=== PATIENT | female | born 1930 | race Caucasian/White ===

== ENCOUNTER 2017-05-20 13:47 | Observation (INO) ==
--- NOTE | 2017-05-20 14:32 | Emergency Department Note ---
Disposition Clinical Impression: Elevated brain natriuretic peptide (BNP) level Chest pain Qualifiers: Chest pain type: unspecified Qualified Code(s): R07.9 - Chest pain, unspecified Disposition: Admitted As Inpatient Condition: Good Time of Disposition: 18:41 Chest Pain HPI - General Chief Complaint: ED Chest Pain Stated Complaint: CP Time Seen by Provider: 05/20/17 13:57 Source: patient Limitations: no limitations Vital Signs Reviewed: Yes Nursing Notes Reviewed: Yes - History of Present Illness HPI Narrative: Ms Damian is an 87 yo F w/ pmh of CHF, ACS/IN, HTN, HLD, diabetes presents with right sided chest pain. Chest pain started when patient walked into the hospital today at 1 PM for an appointment. Patient's son believes that the patient pulled a muscle getting out of his tall truck. Patient states the pain is sore and achy located on right chest bone and constant. Pain is 3-5/10 in severity. Pain not changed with position or lifting of arm. She says the pain does not feel like her previous IN, and that it feels like it's her muscle or bone. PAtient had CHUCK to LAD in 2004. Patient denies SOB, PND, orthopnea, leg swelling, diaphoresis, fever, nausea, vomiting. Severity scale (1-10): 6 - Related Data Home Medications Medication Instructions Recorded Confirmed Gabapentin [Neurontin] 100 mg PO TID 04/11/15 05/20/17 Insulin Glargine [Lantus] 20 unit SQ HS 04/11/15 05/20/17 Iron Ps Cmplx/Vit B12/FA [Iferex 1 each PO BID 04/11/15 05/20/17 150 Forte Capsule] Losartan Potassium [Cozaar] 100 mg PO DAILY 04/11/15 05/20/17 Aspirin [Adult Low Dose Aspirin EC] 81 mg PO DAILY 07/09/15 05/20/17 Cilostazol [Pletal] 100 mg PO BID #0 07/09/15 05/20/17 Previous Rx's Medication Instructions Recorded Atorvastatin [Lipitor] 40 mg PO HS #30 tablet 10/11/15 Furosemide [Lasix] 40 mg PO DAILY #30 tablet 10/11/15 Isosorbide MONOnitrate (24 HR) 90 mg PO DAILY #30 tab.er.24h 07/22/16 [Imdur] amLODIPine [Norvasc] 10 mg PO DAILY #60 tablet 10/11/15 hydrALAZINE [HydrALAZINE] 50 mg PO Q8HR #90 tablet 10/11/15 Allergies Allergy/AdvReac Type Severity Reaction Status Date / Time celecoxib [From Celebrex] Allergy Nausea Verified 05/20/17 13:53 All systems ED: reviewed and negative except as stated. Review of Systems: As Per HPI Chest Pain PMH - Past Medical History Medical history: Reports: CHF, coronary artery disease, CVA, diabetes, GERD, hyperlipidemia, hypertension, myocardial infarction, renal disease, other Surgical history: Reports: angioplasty/stent, coronary bypass (CABG), hysterectomy, other Psychiatric history: Reports: no psych history - Social History Smoking Status: Never smoker Alcohol use: Reports: none Drug use: Reports: none Physical Exam - General Limitations: no limitations General appearance: alert, in no apparent distress - Chest Chest inspection: Present: normal inspection, symmetric chest wall rise, tenderness (Right upper chest point tenderness, reproducible when pushed on) - Respiratory Respiratory exam: Present: normal lung sounds bilaterally. Absent: respiratory distress, wheezes, stridor, accessory muscle use, prolonged expiratory phase - Cardiovascular Cardiovascular exam: Present: regular rate, normal rhythm, normal heart sounds. Absent: bradycardia, tachycardia, irregular rhythm, systolic murmur, diastolic murmur, JVD - Abdominal Exam Abdominal exam: Present: soft, Non-Tender. Absent: tenderness, distention, guarding, rebound, rigidity - Extremities Exam Extremities exam: Present: normal inspection, full ROM, normal capillary refill. Absent: tenderness, pedal edema, joint swelling - Neurological Exam Neurological exam: Present: alert, oriented X3, normal gait. Absent: CN II-XII intact - Psychiatric Psychiatric exam: Present: normal affect, normal mood - Skin Skin exam: Present: warm, dry, intact, normal color Course Course Narrative: cardiac workup - pending. - Reevaluation(s) Reevaluation #1: Trop came back 0.04, per chart review it's normally 0.4. BNP 876, per chart review on last couple of visits BNP has ranged from 400-1000. 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 Patient missed noon BP medications, SBP 201. Will give home noon BP medications ; hydralazine, labetalol, clonidine. Time: 16:45 Reevaluation #2: Spoke with [facility], admitting, patient is accepted inpatient. Patient has a card that shows that she previously had a CHUCK to her LAD in 2004. Time: 18:39 Reevaluation #3: discussed patient with Dr. Martin, he felt that it was reasonable to admit patient for cardiac evaluation due to previous hx. Time: 18:40 Vital Signs Temperature 97.6 F 05/20/17 13:48 Pulse Rate 65 05/20/17 13:48 Respiratory Rate 20 05/20/17 13:48 Blood Pressure 179/76 05/20/17 13:48 O2 Sat by Pulse Oximetry 96 05/20/17 13:48 Temperature 97.6 F 05/20/17 13:48 Pulse Rate 69 05/20/17 15:46 Respiratory Rate 16 05/20/17 20:26 Blood Pressure 168/78 05/20/17 20:26 O2 Sat by Pulse Oximetry 97 05/20/17 15:46 Oxygen Delivery Oxygen Delivery Room Air Chest Pain - Lab Data Result diagrams: 05/20/17 15:30 05/20/17 15:30 Lab Results 05/20/17 05/20/17 05/20/17 Range/Units 14:20 15:30 15:30 WBC 3.3 L (4.3-11.1) K/mcL RBC 3.79 L (3.82-4.97) M/mcL Hgb 10.8 L (11.5-15.4) g/dL Hct 34.9 L (35.3-44.9) % MCV 92.1 (83.0-100.0) fL MCH 28.5 (28.0-33.3) pg MCHC 30.9 L (31.6-35.5) g/dL RDW 15.6 H (11.5-14.5) % Plt Count 126 L (140-400) K/mcL MPV 9.3 L (9.4-12.4) fL Immature Gran % 0.6 (0-4) % Seg Neutrophils % 56.8 % Lymphocytes % 27.5 % Monocytes % 10.9 % Eosinophils % 3.9 % Basophils % 0.3 % Neutrophils # 1.9 (1.6-8.9) K/mcL Lymphocytes # 0.9 (0.6-4.6) K/mcL Monocytes # 0.4 (0.0-1.3) K/mcL Eosinophils # 0.1 (0.0-0.6) K/mcL Basophils # 0.0 (0.0-0.2) K/mcL Sodium 143 (136-145) mEq/L Potassium 3.9 (3.5-5.1) mEq/L Chloride 109 H (98-107) mEq/L Carbon Dioxide 27 (23-29) mEq/L BUN 43 H (8-23) mg/dL Creatinine 3.66 H (0.60-1.20) mg/dL Est GFR ( Amer) 14 L (> 60) Est GFR (Non-Af Amer) 12 L (> 60) BUN/Creatinine Ratio 12 (6-26) Glucose 149 H (70-105) mg/dL Calculated Osmolality 310 H (280-300) Calcium 9.4 (8.6-10.3) mg/dL Troponin I (< 0.04) ng/mL B-Natriuretic Peptide (Less than 100) pg/mL Specimen Rejected Hemolyzed 05/20/17 05/20/17 Range/Units 15:30 15:30 WBC (4.3-11.1) K/mcL RBC (3.82-4.97) M/mcL Hgb (11.5-15.4) g/dL Hct (35.3-44.9) % MCV (83.0-100.0) fL MCH (28.0-33.3) pg MCHC (31.6-35.5) g/dL RDW (11.5-14.5) % Plt Count (140-400) K/mcL MPV (9.4-12.4) fL Immature Gran % (0-4) % Seg Neutrophils % % Lymphocytes % % Monocytes % % Eosinophils % % Basophils % % Neutrophils # (1.6-8.9) K/mcL Lymphocytes # (0.6-4.6) K/mcL Monocytes # (0.0-1.3) K/mcL Eosinophils # (0.0-0.6) K/mcL Basophils # (0.0-0.2) K/mcL Sodium (136-145) mEq/L Potassium (3.5-5.1) mEq/L Chloride (98-107) mEq/L Carbon Dioxide (23-29) mEq/L BUN (8-23) mg/dL Creatinine (0.60-1.20) mg/dL Est GFR ( Amer) (> 60) Est GFR (Non-Af Amer) (> 60) BUN/Creatinine Ratio (6-26) Glucose (70-105) mg/dL Calculated Osmolality (280-300) Calcium (8.6-10.3) mg/dL Troponin I 0.04 H* (< 0.04) ng/mL B-Natriuretic Peptide 876 H (Less than 100) pg/mL Specimen Rejected Heart Score - Score History: Slightly Suspicious EKG: Normal Age: Greater than 65 Risk Factors: Equal/Greater than 3 risk factor or history of atherosclerotic disease Troponin: 1-3x normal limit HEART Score Total: 5 Attestation Statement - Attestation Attestation: I, Ant Holloway, examined this patient and my medical decision-making was reviewed with the HEALTH INFORMATION ASSISTANT/PA/Advanced Practice Nurse/Resident Physician. I agree with the documented findings, disposition and treatment plan as described except to the extent set forth below. 87-year-old female presents emergency Department with concerns of acute onset chest pain. Patient was sent to the emergency department by her medical imaging technologist, Dr. Howell. Patient states she has 2 different types of chest pain. She has pain to the right lateral chest which is described as sharp and stabbing with movement of her upper extremity which likely occurred due to muscle strain from getting in and out of her son's vehicle however she also now has a dull pain in the right anterior chest which is not changed with movement. She has a history of coronary artery disease and aortic stenosis. She is on multiple blood pressure medications. Patient had a negative initial troponin. EKG did not show evidence of acute ischemia. Blood pressure became significantly elevated while she was in the emergency department however this was likely because she had not taken her evening dose of her blood pressure medications. These were given in the emergency department with improvement of her blood pressure. Patient will be admitted the hospital for further care and evaluation of her chest pain to rule out ACS.
[2017-05-20 16:00] LABS: Basophils % 0.3 %; Eosinophils # 0.1 K/mcL (0.0-0.6); Eosinophils % 3.9 %; Hematocrit 34.9 % (35.3-44.9); Hemoglobin 10.8 g/dL (11.5-15.4); Immature Granulocytes % 0.6 % (0-4); Lymphocytes # 0.9 K/mcL (0.6-4.6); Lymphocytes % 27.5 %; Mean Corpuscular HGB Conc 30.9 g/dL (31.6-35.5); Mean Corpuscular Hemoglobin 28.5 pg (28.0-33.3); Mean Corpuscular Volume 92.1 fL (83.0-100.0); Mean Platelet Volume 9.3 fL (9.4-12.4); Monocytes # 0.4 K/mcL (0.0-1.3); Monocytes % 10.9 %; Neutrophils # 1.9 K/mcL (1.6-8.9); Platelet Count 126 K/mcL (140-400); Red Blood Count 3.79 M/mcL (3.82-4.97); Red Cell Distribution Width 15.6 % (11.5-14.5); Segmented Neutrophils % 56.8 %
[2017-05-20] MEDS ORDERED: cloNIDine HCl 0.1 MG TABLET PO ONE (16:20)
[2017-05-20] MEDS ORDERED: hydrALAZINE 25 MG TABLET PO ONE (16:21)
[2017-05-20 16:39] LABS: Calcium 9.4 mg/dL (8.6-10.3); Potassium 3.9 mEq/L (3.5-5.1)
[2017-05-20] MEDS ORDERED: Aspirin 325 MG TABLET PO ONE (18:27)
[2017-05-20] MEDS ORDERED: Nitroglycerin 0.4 MG TAB.SUBL SL PRN (18:28)
[2017-05-20] MEDS ORDERED: Nitroglycerin 1 INCH/GM PACKET TP ONE (21:16)
[2017-05-20] MEDS ORDERED: *HR* HYDROcodone/Acet 5/325 mg TABLET PO PRN (23:11)
[2017-05-20] MEDS ORDERED: Acetaminophen 325 MG TABLET PO PRN (23:11)
[2017-05-20] MEDS ORDERED: Naloxone 0.4 MG/ML INJ IVP PRN (23:11)
[2017-05-20] MEDS: amLODIPine 5 MG TABLET PO SCH (23:38)
[2017-05-21 00:42] LABS: Basophils % 0.6 %; Eosinophils # 0.1 K/mcL (0.0-0.6); Eosinophils % 3.9 %; Hematocrit 33.3 % (35.3-44.9); Hemoglobin 10.3 g/dL (11.5-15.4); Immature Granulocytes % 0.3 % (0-4); Lymphocytes # 1.1 K/mcL (0.6-4.6); Lymphocytes % 32.7 %; Mean Corpuscular HGB Conc 30.9 g/dL (31.6-35.5); Mean Corpuscular Hemoglobin 28.5 pg (28.0-33.3); Mean Corpuscular Volume 92.2 fL (83.0-100.0); Mean Platelet Volume 9.9 fL (9.4-12.4); Monocytes # 0.4 K/mcL (0.0-1.3); Monocytes % 11.3 %; Neutrophils # 1.7 K/mcL (1.6-8.9); Platelet Count 118 K/mcL (140-400); Red Blood Count 3.61 M/mcL (3.82-4.97); Red Cell Distribution Width 15.8 % (11.5-14.5); Segmented Neutrophils % 51.2 %
[2017-05-21 01:33] LABS: Calcium 9.3 mg/dL (8.6-10.3); Potassium 4.1 mEq/L (3.5-5.1)
[2017-05-21] MEDS: *HR* Heparin 5,000 UNIT/ML VIAL SQ SCH ×2 (05:12→16:46)
[2017-05-21] MEDS ORDERED: D5% in Water 1,000 ML IVC PRN (06:02)
[2017-05-21] MEDS ORDERED: Dextrose Gel 15 GM/37.5 ML TUBE PO PRN ×2 (06:02)
[2017-05-21] MEDS ORDERED: *HR* Dextrose 50 % in Water (Syg) 50 ML SYRINGE IVP PRN (06:02)
--- NOTE | 2017-05-21 06:02 | Internal Med History&Physical ---
Date of Encounter: 05/20/17 Time of Encounter: 22:00 Assessment and Plan (1) Hypertensive urgency Current visit: Yes Status: Acute Patient has poorly controlled blood pressure, on multiple BP medications. Her BP was get down to 150s now after treatment. - Continue home medication amlodipine, hydralazine, and losartan. Add labetalol 200 mg twice a day. - Closely monitor BP (2) DVT prophylaxis Current visit: Yes Status: Acute Heparin subcutaneously (3) Chest pain Current visit: Yes Status: Acute Etiology is undetermined. Patient has history of CAD S/P stent and CABG, need to rule out ACS. First set of troponin is mild elevated. Review patient's chart, she has chronic elevated troponin. - Continue cardiac monitoring. - 3 sets of troponin - Echocardiogram in a.m. - ER doctor spoke to cardiology Dr. Martin, will consult cardiology for further management. - Patient complain pain on deep breath, however, patient has no tachycardia or desaturation, no recent immobilization, PE is less likely, will check d-dimer, if positive, may consider a VQ scan to rule out PE. Qualifiers: Chest pain type: chest pain on breathing Qualified Code(s): R07.1 - Chest pain on breathing; R07.81 - Pleurodynia (4) Elevated brain natriuretic peptide (BNP) level Current visit: Yes Status: Acute Patient has a chronic elevated BNP, possibly due to diastolic CHF (5) H/O diastolic dysfunction Current visit: No Status: Acute Continue home medications. Patient has mild bilateral edema, consider mild fluid overload, will switch by mouth Lasix to IV and the strict I/O. - Previous echo shows EF 70% in September 2015, will repeat the echo in a.m. 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 Giles is a 87 year old female with history of diabetes, CKD, CAD S/P CABG and stent, history of CVA 2, hypertension, presented to ER for chest pain. Patient has chest pain started from today with a high blood pressure. He went to see her cardiology Dr. Howell and was advised to come to emergency room. Patient said the chest pain is dull, constant, no radiation, 4-5 out of 10. Patient has mild shortness of breath, no nausea, no diaphoresis. Patient said pain is worse on deep breath. Patient has no fever, no cough. Patient denies recent travel. In ER, she was found BP high to 200s. Patient has no tachycardia or desaturation. Patient has a mild elevated troponin and elevated BNP. Patient was treated with IV Labetalol and admitted for further management. Past Med Surg Social Fam HX - Past Medical History Medical history: CHF, coronary artery disease, CVA, diabetes, GERD, hyperlipidemia, hypertension, myocardial infarction, renal disease, other Psychiatric history: no psych history - Past Surgical History Surgical History: angioplasty/stent, coronary bypass (CABG), hysterectomy, other - Social History Smoking Status: Never smoker Smokeless Tobacco Status: No Alcohol use: none Drug use: none - Family History Mother Living Status: Hx Family Cardiac Disorders: Yes (CVA, [place]) Father Living Status: Hx Family Cardiac Disorders: Yes Internal Medicine - H&P: Meds Gabapentin [Neurontin] 100 mg PO TID 04/11/15 [History] Insulin Glargine [Lantus] 20 unit SQ HS 04/11/15 [History] Iron Ps Cmplx/Vit B12/FA [Iferex 150 Forte Capsule] 1 each PO BID 04/11/15 [ History] Losartan Potassium [Cozaar] 100 mg PO DAILY 04/11/15 [History] Aspirin [Adult Low Dose Aspirin EC] 81 mg PO DAILY 07/09/15 [History] Cilostazol [Pletal] 100 mg PO BID #0 07/09/15 [History] Atorvastatin [Lipitor] 40 mg PO HS #30 tablet 10/11/15 [Rx] Furosemide [Lasix] 40 mg PO DAILY #30 tablet 10/11/15 [Rx] Isosorbide MONOnitrate (24 HR) [Imdur] 90 mg PO DAILY #30 tab.er.24h 10/11/15 [ Rx] amLODIPine [Norvasc] 10 mg PO DAILY #60 tablet 10/11/15 [Rx] hydrALAZINE [HydrALAZINE] 50 mg PO Q8HR #90 tablet 10/11/15 [Rx] 3 Allergy/AdvReac Type Severity Reaction Status Date / Time celecoxib [From Celebrex] Allergy Nausea Verified 05/20/17 13:53 All Systems PM: A 10-system review of systems was performed and is negative for pertinent findings except as documented above in the HPI. - Constitutional Vitals: Temp Pulse Resp BP Pulse Ox 98.0 F 65 16 156/66 98 05/21/17 03:17 05/21/17 03:17 05/21/17 03:17 05/21/17 03:17 05/21/17 03:17 General appearance: Present: mild distress, A&O X 3, answers questions appropriately - Head Head exam: Present: atraumatic, normocephalic - Eye Eye exam: Present: PERRL, conjuntiva pink, sclera anicteric Pupils: Present: PERRL - Neck Neck exam general surgery: Present: supple, trachea midline. Absent: lymphadenopathy - Respiratory Respiratory exam: Present: CTAB. Absent: accessory muscle use, chest wall tenderness, rales, rhonchi, wheezes - Cardiovascular Cardiovascular exam: Present: RRR, +S1, +S2, systolic murmur. Absent: diastolic murmur, gallop, rubs - GI/Abdominal GI/Abdominal exam: Present: normal bowel sounds, soft, no peritoneal signs. Absent: distended, tenderness - Extremities Exam Extremities exam: Present: pedal edema (B/L mild pedal edema), warm, radial pulses palpable and symmetrical. Absent: calf tenderness, cyanotic - Neurological Exam Neurological exam: Present: CN II-XII intact, oriented X3, no focal deficits. Absent: pronater drift, facial droop, speech deficit - Skin Skin exam: Present: dry, intact Internal Med - H&P Results - Labs CBC & Chem 7: 05/21/17 00:12 05/21/17 00:11 Labs: Short CBC 05/21/17 Range/Units 00:12 WBC 3.4 L (4.3-11.1) K/mcL Hgb 10.3 L (11.5-15.4) g/dL Hct 33.3 L (35.3-44.9) % Plt Count 118 L (140-400) K/mcL Neutrophils # 1.7 (1.6-8.9) K/mcL BMP 05/21/17 00:11 Sodium 142 Potassium 4.1 Chloride 109 H Carbon Dioxide 24 BUN 42 H Creatinine 3.47 H Glucose 183 H Calcium 9.3 Cardiac Enzymes 05/21/17 05/21/17 Range/Units 00:11 04:56 Troponin I 0.04 H* 0.04 H* (< 0.04) ng/mL - EKG Data -: EKG Interpreted by Myself ([facility]) EKG shows normal: sinus rhythm Rate: normal
--- NOTE | 2017-05-21 08:09 | Internal Med Progress Note ---
Date of Encounter: 05/21/17 Time of Encounter: 08:20 - Assessment and plan (1) Hypertensive urgency Current Visit: Yes Status: Acute Assessment and plan: Patient follows with Dr. Howell. Home meds: hydralazine 50mg Q8hrs, amlodipine 10mg , cozzar 100mg, Imdur 90mg, on Cilostazol and ASA - still with poor control. Plan: - Labetolol 200mg BID - Hydralazine IV 10 mg Q6hrs PRN for BP >160/90 - Increase hydralazine to 75 mg TID from 50 mg TID. (2) Chest pain Current Visit: Yes Status: Acute Assessment and plan: Etiology is undetermined. Patient has history of CAD S/P stent and CABG, need to rule out ACS. Troponins x3 =0.04. Most likely secondary to demand ischemia. Last Echo 10/07/15 EF 70%, aortic stenosis. PE is less likely as patient is not having SOB, hypoxia, recent travel, and is not tachycardic but d- dimer is elevated to 1135, so will r/o with V/Q scan. Plan: - Echo 70%, severe pul HTN - V/Q scan neg for PE, as d-dimer is elevated at 1135 - cardiology following Qualifiers: Chest pain type: chest pain on breathing Qualified Code(s): R07.1 - Chest pain on breathing; R07.81 - Pleurodynia (3) DVT prophylaxis Current Visit: Yes Status: Acute Assessment and plan: heparin SQ (4) CKD (chronic kidney disease) Current Visit: Yes Status: Acute Assessment and plan: Creatinine upon admission equal to 2.66. Today 3.47. Improving despite lasix. Will continue with lasix. Continue to monitor daily BMPs. Cardiology recommended nephrology consult for HTN, will consider tomorrow. Qualifiers: Chronic kidney disease stage: stage 4 (severe) Qualified Code(s): N18.4 - Chronic kidney disease, stage 4 (severe) (5) CHF exacerbation Current Visit: Yes Status: Acute Assessment and plan: Diastolic CHF acute on chronic. Last echo showed preserved EF, therefore diastolic congestive heart failure. BNP= 876. Will reevaluate today with echo. Home dose of Lasix is 40 mg daily. Plan: -echo showed EF of &0%, severe pulm HTN - furosemide 40mg IV daily Qualifiers: Heart failure type: diastolic Qualified Code(s): I50.33 - Acute on chronic diastolic (congestive) heart failure - Subjective Interval history: Ms. Giles is a 87 year old female with history of diabetes, CKD, CAD S/P CABG and stent, history of CVA 2, hypertension, presented to ER for chest pain and have to have HTN urgency and chest pain. Today patient states that she is doing well and chest pain is resolved. Patient states she denies dizziness, headache, shortness of breath, nausea, vomiting, sweating. Temporary review of systems is negative except as otherwise stated in history of present illness. - Constitutional Vitals: Temp Pulse Resp BP Pulse Ox 98.1 F 68 16 181/70 93 05/21/17 07:47 05/21/17 07:47 05/21/17 07:47 05/21/17 07:47 05/21/17 07:47 General appearance: Present: mild distress, A&O X 3, answers questions appropriately Exam: Constitutional: Alert, in no acute distress, well nourished, well developed. Head: Normocephalic, atraumatic, Heart: Normal, regular rate and rhythm, no murmurs Lungs: Clear to auscultation, no wheezes, rales, or rhonchi Abdomen: Soft, nondistended, nontender Extremities: +1 pitting edema bilaterally, No clubbing ot cyanosis, radial pulse +2/4, capillary refill <2sec. Skin: Skin warm and dry, no lesions, no rashes, no jaundice Neurologic: Cranial nerves II through XII grossly intact, no focal deficits, strength 5/5 in all extremities Psych: Cooperative with exam, good eye contact, cognitive function intact, judgment good insight good, speech clear, thought process logical, and goal directed Internal Medicine: Result - Labs CBC & Chem 7: 05/21/17 00:12 05/21/17 00:11 Labs: Short CBC 05/21/17 Range/Units 00:12 WBC 3.4 L (4.3-11.1) K/mcL Hgb 10.3 L (11.5-15.4) g/dL Hct 33.3 L (35.3-44.9) % Plt Count 118 L (140-400) K/mcL Neutrophils # 1.7 (1.6-8.9) K/mcL BMP 05/21/17 00:11 Sodium 142 Potassium 4.1 Chloride 109 H Carbon Dioxide 24 BUN 42 H Creatinine 3.47 H Glucose 183 H Calcium 9.3 Cardiac Enzymes 05/21/17 05/21/17 Range/Units 00:11 04:56 Troponin I 0.04 H* 0.04 H* (< 0.04) ng/mL - ABG Interpretation ABG results: PT/INR, D-dimer D-Dimer 1135 ng/mLFEU (0-500) H 05/21/17 06:07 Consult Discharge Plan - Plan Referrals: Ema Del Toro, [facility] CUTTER [Primary Care Provider] -
--- NOTE | 2017-05-21 08:16 | Event Note ---
Date of Encounter: 05/21/17 Time of Encounter: 08:09 Patient seen and examined. I agree with the note as written by the resident Dr. Marmolejo. I have provided direct supervision. Patient with h/o CAD s/p CABG, CKD IV, HT, DM, CVA, presented with CP. Sent here by his automotive sales representative. BP was elevated in the 200s systolically in the ED. Given IV agents and BP is better controlled later into the 150s sysolicaly but now up to the 180s this morning. EKG with no ST or T wave changes that are concerning. Trops .04 x3. Has elevated D-dimers but no hypoxia Patient is afebrile and other than BP, he is hemodnamically stable Systolic murmur 3/6 at the base of the heart Eating breakfast this morning. No chest pain Cardiology to see. Will leave stress testing and further cardiac work up to them if they feel it is needed. echo pending V/Q ordered from night. If negative, check LE dopplers. Start Hydralazine IV 10 mg Q6hrs PRN for BP >160/90 Give 10 mg IV hydralazine now. Increase hydralazine to 75 mg TID from 50 mg TID. Labetalol oral started on admission. c/w novasc 10 mg. c/w losartan 100 mg daily c/w lasix 40 mg daily DVT ppx.
[2017-05-21] MEDS: Insulin LISPRO 300 UNITS/3 ML VIAL SQ SCH ×3 (08:34→16:47)
[2017-05-21] MEDS: amLODIPine 5 MG TABLET PO SCH (08:39)
[2017-05-21] MEDS: Gabapentin 100 MG CAPSULE PO SCH ×3 (08:39→20:45)
[2017-05-21] MEDS: Aspirin Enteric Coated 81 MG Tablet PO SCH (08:40)
[2017-05-21] MEDS ORDERED: Isosorbide MONOnitrate (24 HR) 30 MG TAB.ER.24H PO SCH (09:00)
[2017-05-21] MEDS ORDERED: [UNRECOGNIZED DRUG - OTHER] PO SCH (09:00)
[2017-05-21] MEDS ORDERED: hydrALAZINE 25 MG TABLET PO SCH ×2 (09:00)
[2017-05-21] MEDS ORDERED: IRON PS CMPLX PO SCH (09:00)
[2017-05-21] MEDS ORDERED: Furosemide 40 MG TABLET PO SCH (09:00)
[2017-05-21] MEDS ORDERED: VIT B12 PO SCH (09:00)
[2017-05-21] MEDS ORDERED: Furosemide 40 MG/4 ML VIAL IVP SCH (09:00)
[2017-05-21] MEDS: Furosemide 40 MG TABLET PO SCH (09:01)
[2017-05-21] MEDS: hydrALAZINE 25 MG TABLET PO SCH ×3 (09:01→20:45)
--- NOTE | 2017-05-21 09:33 | Cardiology Consult Note ---
<Bonny Jackson Musa - Last Filed: 05/21/17 09:39> Date of Encounter: 05/21/17 Time of Encounter: 08:00 Assessment and Plan (1) Elevated troponin Current Visit: Yes Status: Acute Troponin 0.04 x3, non-diagnostic in the setting of severe CKD and severely elevated BP (SBP >200); likely reflects demand ischemia. Atypical chest pain. No significant ECG changes from prior. Of note, troponin levels appear to be chronically elevated. Continue medical therapy including asa, statin, and betablocker, patient desires medical therapy only. Most recent TTE (September 2015) demonstrated preserved LVEF, mild cLVH, mild- moderate (MG=19 mmHg), with normal wall motion. Check echocardiogram to eval LVEF, wall motion. Recommend improved BP control. (2) Chest pain Current Visit: Yes Status: Resolved Plan as above, atypical in etiology. Qualifiers: Chest pain type: unspecified Qualified Code(s): R07.9 - Chest pain, unspecified (3) Hypertension Current Visit: Yes Status: Acute Severely elevated upon admission. Poorly controlled. Will increase nitrate. On max doses of cozaar, amlodipine. On Labetalol BID and Hydralazine TID. Consider Nephrology consult for further recommendations. Qualifiers: Hypertension type: essential hypertension Qualified Code(s): I10 - Essential (primary) hypertension (4) CKD (chronic kidney disease) Current Visit: Yes Status: Acute SCr 3.66, 3.47. Hx of CKD, likely stage 4. Has left arm AV fistula, not yet on HD. Qualifiers: Chronic kidney disease stage: stage 4 (severe) Qualified Code(s): N18.4 - Chronic kidney disease, stage 4 (severe) (5) Aortic stenosis Current Visit: Yes Status: Chronic Hx of . Denies dizziness, syncope. Most recent TTE shows preserved LVEF with mild-moderate . Repeat TTE pending. Qualifiers: Cardiac valve disease etiology: etiology unspecified Qualified Code(s): I35.0 - Nonrheumatic aortic (valve) stenosis Discussion w patient/family: The assessment and plan as outlined above was discussed with the patient and/or family members who expressed understanding and agreement. All questions were answered. Thank you for involving us in the care of your patient. Please call with any questions. History of Present Illness Consult date: 05/21/17 Requesting physician: Herberth Gold Consult reason: elevated troponin Chief complaint: Chest pain History of present illness: Ms. Giles is a 87 year old female with PMHx significant for CAD s/ CABG (2004), HTN, DMII, CKD-4 who presented to the ED with right sided chest pain that started yesterday prior to outpatient Cardiology appointment. Given chest pain, she was recommended for ED evaluation. Upon arrival to ED, she was found to have severely elevated BP, SBP >200. Pain is non-radiating, no related to exertion or activity. Reports compliance with all BP medications. Follows with Nephrology as outpatient for worsening CKD, has left arm AV fistula. Of note, no yet on HD. Prior CV testing: TTE 10/07/15: LVEF 70%, mild cLVH, mild-moderate (MG=19mm Hg), normal wall motion Past Med Surg Social Fam HX - Past Medical History Attestation: Yes The following information was validated with the patient. Source: patient Medical history: CHF, coronary artery disease, CVA, diabetes, GERD, hyperlipidemia, hypertension, myocardial infarction, renal disease, valvular heart disease, other Psychiatric history: no psych history - Past Surgical History Surgical History: coronary bypass (CABG), hysterectomy, other - Social History Smoking Status: Never smoker Smokeless Tobacco Status: No Alcohol use: none Drug use: none - Family History Mother Living Status: Hx Family Cardiac Disorders: Yes (CVA, [place]) Father Living Status: Hx Family Cardiac Disorders: Yes Medications and Allergies Gabapentin [Neurontin] 100 mg PO TID 04/11/15 [History] Insulin Glargine [Lantus] 20 unit SQ HS 04/11/15 [History] Iron Ps Cmplx/Vit B12/FA [Iferex 150 Forte Capsule] 1 each PO BID 04/11/15 [ History] Losartan Potassium [Cozaar] 100 mg PO DAILY 04/11/15 [History] Aspirin [Adult Low Dose Aspirin EC] 81 mg PO DAILY 07/09/15 [History] Cilostazol [Pletal] 100 mg PO BID #0 07/09/15 [History] Atorvastatin [Lipitor] 40 mg PO HS #30 tablet 10/11/15 [Rx] Furosemide [Lasix] 40 mg PO DAILY #30 tablet 10/11/15 [Rx] Isosorbide MONOnitrate (24 HR) [Imdur] 90 mg PO DAILY #30 tab.er.24h 10/11/15 [ Rx] amLODIPine [Norvasc] 10 mg PO DAILY #60 tablet 10/11/15 [Rx] hydrALAZINE [HydrALAZINE] 50 mg PO Q8HR #90 tablet 10/11/15 [Rx] 3 Allergy/AdvReac Type Severity Reaction Status Date / Time celecoxib [From Celebrex] Allergy Nausea Verified 05/20/17 13:53 All Systems Review: The remainder of the systems were reviewed and are negative - Cardiovascular Cardiovascular: as per HPI Physical Examination Vital Signs, Last 4 Hours Temp Pulse Resp BP Pulse Ox 05/21/17 07:47 98.1 F 68 16 181/70 93 General: Conversant, No Apparent Distress HEENT: Atraumatic, Normocephaly, Mucus Membranes Moist Cardiac: Reg Rate and Rhythm, Normal S1 and S2 Lungs: Normal Breath Sounds Neuro: Alert and responsive Abdomen: Soft Skin: No rashes noted on visualized skin Musculoskeletal: No Chest Wall Tenderness Extremities: Other (left forearm AV fistula. +2 BLE edema. ) Results 05/21/17 00:12 05/21/17 00:11 Lab Results 05/21/17 05/21/17 05/21/17 00:11 00:11 00:12 WBC 3.4 L Hgb 10.3 L Hct 33.3 L Plt Count 118 L D-Dimer Sodium 142 Potassium 4.1 Chloride 109 H Carbon Dioxide 24 BUN 42 H Creatinine 3.47 H Glucose 183 H Calcium 9.3 Magnesium 2.0 Troponin I 0.04 H* 05/21/17 05/21/17 04:56 06:07 WBC Hgb Hct Plt Count D-Dimer 1135 H Sodium Potassium Chloride Carbon Dioxide BUN Creatinine Glucose Calcium Magnesium Troponin I 0.04 H* Active Medications Acetaminophen (Tylenol) 650 mg PO Q6HR PRN PRN Reason: Mild Pain/Fever Stop: 11/19/17 23:12 Hydrocodone Bitart/Acetaminophen ([place] 5-325 Mg) 1 tab PO Q6HR PRN PRN Reason: Moderate Pain Stop: 11/19/17 23:12 Amlodipine Besylate (Norvasc) 10 mg PO DAILY [facility] PRN Reason: Protocol Stop: 11/19/17 23:16 Last Admin: 05/21/17 08:39 Dose: 10 mg Aspirin (Aspirin Ec) 81 mg PO DAILY [facility] Stop: 11/20/17 09:01 Last Admin: 05/21/17 08:40 Dose: 81 mg Atorvastatin Calcium (Lipitor) 40 mg PO HS [facility] Stop: 11/20/17 21:01 Cilostazol (Pletal) 100 mg PO BID [facility] Stop: 11/20/17 09:01 Last Admin: 05/21/17 08:39 Dose: 100 mg Dextrose/Water (Dextrose 50% (Syg)) 25 ml IVP AD PRN PRN Reason: Hypoglycemia Stop: 11/20/17 06:03 Furosemide (Lasix) 40 mg PO DAILY [facility] Stop: 11/20/17 09:01 Last Admin: 05/21/17 09:01 Dose: 40 mg Gabapentin (Neurontin) 100 mg PO TID [facility] Stop: 11/20/17 09:01 Last Admin: 05/21/17 08:39 Dose: 100 mg Heparin Sodium (Porcine) (Heparin) 5,000 unit SQ Q12HCO [facility] Stop: 11/20/17 06:01 Last Admin: 05/21/17 05:12 Dose: 5,000 unit Hydralazine HCl (Hydralazine) 10 mg IVP Q6HR PRN PRN Reason: Hypertension Stop: 11/20/17 08:32 Hydralazine HCl (Hydralazine) 75 mg PO TID [facility] Stop: 11/20/17 09:01 Last Admin: 05/21/17 09:01 Dose: 75 mg Dextrose (Dextrose 5%) 1,000 mls @ 100 mls/hr IVC .Q10H PRN PRN Reason: HYPOGLYCEMIA Stop: 11/20/17 06:03 Insulin Detemir (Levemir) 20 unit 0.25 unit/kg (20 unit) SQ HS [facility] Stop: 11/20/17 21:01 Insulin Human Lispro (Humalog) 0 units SQ HS [facility] PRN Reason: Protocol Stop: 11/20/17 21:01 Insulin Human Lispro (Humalog) 0 units SQ TIDAC [facility] PRN Reason: Protocol Stop: 11/20/17 07:31 Last Admin: 05/21/17 08:34 Dose: 2 units Isosorbide Mononitrate (Imdur) 90 mg PO DAILY [facility] Stop: 11/20/17 09:01 Last Admin: 05/21/17 08:39 Dose: 90 mg Labetalol HCl (Trandate) 200 mg PO BID [facility] Stop: 11/20/17 09:01 Last Admin: 05/21/17 08:37 Dose: 200 mg Losartan Potassium (Cozaar) 100 mg PO DAILY [facility] Stop: 11/20/17 09:01 Last Admin: 05/21/17 08:40 Dose: 100 mg Naloxone HCl (Narcan) 0.4 mg IVP Q2MIN PRN PRN Reason: SEE COMMENTS Stop: 11/19/17 23:12 Nitroglycerin (Nitroglycerin) 0.4 mg SL Q5MIN PRN PRN Reason: Chest Pain Stop: 11/19/17 18:29 - Imaging and Cardiology Echo: report reviewed Other Results: 12 hour tele: avg HR=69 SR. No significant event noted. - EKG Interpretation EKG results cardiology: personally reviewed Consult Discharge Plan - Plan Referrals: Ema Del Toro, [employer] [Primary Care Provider] - <Stefani Morel - Last Filed: 05/21/17 12:31> Date of Encounter: 05/21/17 - Attending Attestation 87 YOF with h/o CABG in the past and preserved EF confirmed on ECHO today along with moderate (MG 26 from 22), severe pulm HTN. She has atypical chest pain non exertional non radiating and flat baseline trops. She maintains activities of daily life at home without any symptoms. Increased Imdur for better BP control. NST as an OP is reasonable however he CKD likely will not allow a LHC with contrast. Patient unwilling to risk dialysis at this time. Assessment and Plan Discussion w patient/family: The assessment and plan as outlined above was discussed with the patient and/or family members who expressed understanding and agreement. All questions were answered. Thank you for involving us in the care of your patient. Please call with any questions. History of Present Illness History of present illness: Ms. Giles is a 87 year old female All Systems Review: The remainder of the systems were reviewed and are negative Physical Examination Vital Signs, Last 4 Hours Temp Pulse Resp BP Pulse Ox 05/21/17 11:52 98.0 F 71 18 195/80 96 Results 05/21/17 00:12 05/21/17 00:11 Lab Results 05/21/17 05/21/17 05/21/17 00:11 00:11 00:12 WBC 3.4 L Hgb 10.3 L Hct 33.3 L Plt Count 118 L D-Dimer Sodium 142 Potassium 4.1 Chloride 109 H Carbon Dioxide 24 BUN 42 H Creatinine 3.47 H Glucose 183 H Calcium 9.3 Magnesium 2.0 Troponin I 0.04 H* 05/21/17 05/21/17 04:56 06:07 WBC Hgb Hct Plt Count D-Dimer 1135 H Sodium Potassium Chloride Carbon Dioxide BUN Creatinine Glucose Calcium Magnesium Troponin I 0.04 H*
--- NOTE | 2017-05-21 13:47 | Event Note ---
Date of Encounter: 05/21/17 Time of Encounter: 13:30 - Cardiology Event Note Seen and examined. Son at bedside. Results of TTE discussed with patient and family. Discussed with Dr. Morel, no recommendations at this time for further cardiac testing. Continue medical management. Will defer further dose adjustments in BP medications to primary service, Nephrology. Cardiology will sign-off. Echocardiogram 05/20/17 23:22 Impressions: LVEF 70%. Normal LV chamber size and function. Left ventricular hypertrophy, which appears more prominent in the basal septum. Moderate left ventricular diastolic dysfunction. Normal right ventricular structure and function. Aortic valve not well visualized. Grossly, the annulus appears calcified. Leaflets not well visualized. Moderate aortic stenosis. Mean gradient 27 mmHg. Peak velocity 3.67 m/s. Mild tricuspid regurgitation. Severe pulmonary hypertension. Estimated RVSP is 68 mmHg. Left Ventricular Wall Motion: Rest Echo Findings: All wall segments showed normal motion. Pulmonary Perfusion Imaging 05/21/17 06:35 IMPRESSION: Low Probability for Pulmonary Embolus. D/ / Lewis Shah MD / Lewis Shah MD Interpreting Provider: Lewis Shah MD
--- NOTE | 2017-05-21 20:16 | Electrocardiograph Report ---
[place] [id number] Test Date: 2017-05-20 Pat Name: Vidya Giles Department: [id number] Room: 2A23 Gender: F Planning Technician: TONY : 1930 Requested By: Erick Dave Order Number: [id number] Reading MD: Giovanny Martin DO Measurements Intervals [place] Rate: 64 P: 44 NV: 164 QRS: -10 QRSD: 102 T: 100 QT: 441 QTc: 451 Interpretive Statements SINUS RHYTHM LEFT VENTRICULAR HYPERTROPHY AND ST-T CHANGE Electronically Signed On 05-21-2017 20:14:32 EST by Giovanny Martin DO
[2017-05-21] MEDS ORDERED: Insulin DETEMIR 100 UNIT/ML X5UNITS SQ SCH (21:00)
[2017-05-21] MEDS ORDERED: Insulin LISPRO 300 UNITS/3 ML VIAL SQ SCH (21:00)
[2017-05-22 04:30] LABS: Calcium 9.2 mg/dL (8.6-10.3); Phosphorous 3.7 mg/dL (2.7-4.5); Potassium 3.8 mEq/L (3.5-5.1)
[2017-05-22] MEDS: *HR* Heparin 5,000 UNIT/ML VIAL SQ SCH (05:54)
[2017-05-22] MEDS: Insulin LISPRO 300 UNITS/3 ML VIAL SQ SCH ×2 (08:07→11:41)
[2017-05-22] MEDS: Aspirin Enteric Coated 81 MG Tablet PO SCH (08:28)
[2017-05-22] MEDS: amLODIPine 5 MG TABLET PO SCH (08:28)
[2017-05-22] MEDS: hydrALAZINE 25 MG TABLET PO SCH (08:28)
[2017-05-22] MEDS: Gabapentin 100 MG CAPSULE PO SCH (08:28)
[2017-05-22] MEDS: Furosemide 40 MG TABLET PO SCH (08:28)
[2017-05-22] MEDS ORDERED: Isosorbide MONOnitrate (24 HR) 30 MG TAB.ER.24H PO SCH (09:00)
--- NOTE | 2017-05-22 15:12 | Discharge Summary ---
- NOTES TO OUTPATIENT PROVIDER Notes to Outpatient Provider: Follow up with primary care provider for hypertension management Date of Encounter: 05/22/17 Time of Encounter: 11:00 - Discharge Diagnosis (1) Hypertension Priority: Primary Status: Acute Qualifiers: Hypertension type: essential hypertension Qualified Code(s): I10 - Essential (primary) hypertension (2) Chest pain Priority: Primary Status: Resolved Qualifiers: Chest pain type: unspecified Qualified Code(s): R07.9 - Chest pain, unspecified Hospital course: Patient is an 87-year-old female with past medical history significant for diabetes, CKD, CAD S/P CABG and stent, history of CVA 2, hypertension who presented to ER with chest pain. Patient had chest pain and high blood pressure for 1 day. She went to see her annual greenhouse manager Dr. Howell and was advised to come to emergency room. Patient reported dull chest pain that was constant without radiation with a severity of 4-5 out of 10. She reported associated symptoms of mild shortness of breath. In ER, she was found BP high to 200s. Patient had a mild elevated troponin and elevated BNP. Patient was treated with IV Labetalol and admitted for further management. During patients hospital stay cardiology was consulted with recommendation for echocardiogram showed LVEF of 70% with normal LV chamber size and function with moderate left ventricle diastolic dysfunction. Patient also noted to have severe pulmonary hypertension. Cardiology recommendations to increased dose of Imdur. Patients was started on labetalol and dose of hydralazine was also increased and patients blood pressure is now better controlled. She will be discharged to follow up with primary care provider. - Time Spent with Patient Total time spent providing and/or coordinating discharge services: Less than 30 minutes - Discharge Medications Prescriptions: hydrALAZINE [HydrALAZINE] 75 mg PO TID #90 tablet Labetalol [Trandate] 200 mg PO BID #60 tablet Home Medications: Gabapentin [Neurontin] 100 mg PO TID 04/11/15 [History] Insulin Glargine [Lantus] 20 unit SQ HS 04/11/15 [History] Iron Ps Cmplx/Vit B12/FA [Iferex 150 Forte Capsule] 1 each PO BID 04/11/15 [ History] Losartan Potassium [Cozaar] 100 mg PO DAILY 04/11/15 [History] Aspirin [Adult Low Dose Aspirin EC] 81 mg PO DAILY 07/09/15 [History] Cilostazol [Pletal] 100 mg PO BID #0 07/09/15 [History] Atorvastatin [Lipitor] 40 mg PO HS #30 tablet 10/11/15 [Rx] Furosemide [Lasix] 40 mg PO DAILY #30 tablet 10/11/15 [Rx] amLODIPine [Norvasc] 10 mg PO DAILY #60 tablet 10/11/15 [Rx] Labetalol [Trandate] 200 mg PO BID #60 tablet 05/22/17 [Rx] hydrALAZINE [HydrALAZINE] 75 mg PO TID #90 tablet 05/22/17 [Rx] Allergies/Adverse Reactions: 3 Allergy/AdvReac Type Severity Reaction Status Date / Time celecoxib [From Celebrex] Allergy Nausea Verified 05/20/17 13:53 Date of admission: 05/20/17 19:53 Primary care physician: Ema Del Toro CNP Consults: 05/20/17 20:49 Consult to Healthcare Administrative Assistant [CONS] Routine Reason for SW Consult: discharge planning 05/21/17 06:12 Consult to Cardiology [CONS] Routine Comment: Consulting Provider: Cardiology [place] Reason for Consult: chest pain, ER spoke to Dr Martin Call Completed: Yes - Constitutional Vitals: Temp Pulse Resp BP Pulse Ox 98.5 F 70 18 155/64 95 05/22/17 11:24 05/22/17 11:24 05/22/17 11:24 05/22/17 11:24 05/22/17 11:24 General appearance: Present: mild distress, A&O X 3, no acute distress, answers questions appropriately - Respiratory Respiratory exam: Present: CTAB. Absent: accessory muscle use, rales, rhonchi, wheezes - Cardiovascular Cardiovascular exam: Present: RRR, +S1, +S2. Absent: diastolic murmur, gallop, rubs, systolic murmur - Patient Status Disposition: Home, Self-Care Condition: Good - Discharge Instructions Instructions: Chest Pain (DC), Chronic Hypertension (DC) Follow Up With: Ema Del Toro CNP [Primary Care Provider] -
[2017-05-22 16:30] VITALS: BP 189/76
== END 2017-05-22 17:35 | disposition home or self-care (01) ==
LOC: 2ANU 13:47 → EMEROO 13:47 → 2ANU 20:28
PROVIDERS: ADMIT Hospitalist; ATTEND Hospitalist

== ENCOUNTER 2017-10-22 07:48 | Inpatient (IN) ==
[2017-10-22 08:32] LABS: Basophils % 0.4 %; Eosinophils # 0.1 K/mcL (0.0-0.6); Eosinophils % 2.5 %; Hematocrit 30.2 % (35.3-44.9); Hemoglobin 9.8 g/dL (11.5-15.4); Immature Granulocytes % 0.4 % (0-4); Lymphocytes # 0.8 K/mcL (0.6-4.6); Lymphocytes % 26.3 %; Mean Corpuscular HGB Conc 32.5 g/dL (31.6-35.5); Mean Corpuscular Hemoglobin 30.2 pg (28.0-33.3); Mean Corpuscular Volume 93.2 fL (83.0-100.0); Mean Platelet Volume 9.4 fL (9.4-12.4); Monocytes # 0.3 K/mcL (0.0-1.3); Monocytes % 10.9 %; Neutrophils # 1.7 K/mcL (1.6-8.9); Red Blood Count 3.24 M/mcL (3.82-4.97); Red Cell Distribution Width 15.7 % (11.5-14.5); Segmented Neutrophils % 59.5 %
[2017-10-22 08:33] LABS: Platelet Count 95 K/mcL (140-400)
[2017-10-22 08:54] LABS: Albumin 3.2 g/dL (3.5-5.7); Albumin/Globulin Ratio 1.3 (1.1-2.2); Bilirubin,Total 0.6 mg/dL (0.3-1.0); Globulin 2.5 g/dL (2.4-3.5); Potassium 4.8 mEq/L (3.5-5.1); Total Protein 5.7 g/dL (6.4-8.9)
[2017-10-22 09:00] LABS: Troponin I 0.05 ng/mL (< 0.04)
--- NOTE | 2017-10-22 09:08 | Emergency Department Note ---
Disposition Clinical Impression: Weakness, Elevated troponin Disposition: Admitted As Inpatient Condition: Fair General Adult HPI - General Chief complaint: ED Abdominal Pain Stated complaint: neck pain Time Seen by Provider: 10/22/17 07:50 Source: EMS Limitations: no limitations Nursing Notes Reviewed: Yes Vital Signs Reviewed: Yes - History of Present Illness HPI Narrative: 87 year old female from shelter presents with chest pain, abdominal pain and mental status change. Nursing staff reported that pt complained of severe chest pain since last night. It radiated to left side neck. The intense of pain was 9/10. Pt also complained a couple of time of lower abdominal pain. No nausea /vomiting. No chills and fever. Nursing staff also noticed total personality change this morning. Pt was usually talkative but more quiet this morning. Pt fell in shelter one week ago. She had negative head CT. No cervical CT ordered at that time. Onset (ago): day(s) (1) Location: chest, abdomen Radiation: neck Pain Scale: 9 Consistency: constant - Related Data Home Medications Medication Instructions Recorded Confirmed Gabapentin [Neurontin] 100 mg PO TID 04/11/15 10/22/17 Iron Ps Cmplx/Vit B12/FA [Iferex 1 cap PO BID 04/11/15 10/22/17 150 Forte Capsule] Losartan Potassium [Cozaar] 100 mg PO DAILY 04/11/15 10/22/17 Cilostazol [Pletal] 100 mg PO BID #0 07/09/15 10/22/17 Aspirin [Lo-Dose Aspirin EC] 81 mg PO DAILY 10/07/17 10/22/17 Calcitriol [Rocaltrol] 0.25 mcg PO MOWEFR 10/07/17 10/22/17 Isosorbide MONOnitrate [Isosorbide 180 mg PO DAILY 10/07/17 10/22/17 Mononitrate ER] cloNIDine HCl [Clonidine HCl] 0.2 mg PO TID 10/07/17 10/22/17 Amlodipine Besylate 10 mg PO DAILY 10/22/17 10/22/17 Glucagon,Human Recombinant 1 mg IJ ONCE PRN 10/22/17 10/22/17 [Glucagon Emergency Kit] Hydralazine HCl 50 mg PO TID 10/22/17 10/22/17 Insulin Glargine,Hum.rec.anlog 20 unit SQ HS 10/22/17 10/22/17 [Basaglephraim Andersonpen U-100] hydrALAZINE [HydrALAZINE] 25 mg PO TID 10/22/17 10/22/17 Previous Rx's Medication Instructions Recorded Atorvastatin [Lipitor] 40 mg PO HS #30 tablet 10/11/15 Furosemide [Lasix] 40 mg PO DAILY #30 tablet 10/11/15 Labetalol [Trandate] 200 mg PO BID #60 tablet 05/22/17 Allergies Allergy/AdvReac Type Severity Reaction Status Date / Time celecoxib [From Celebrex] AdvReac Nausea Verified 10/22/17 10:21 Constitutional: Denies: fever, chills, weakness, weight change Eyes: Denies: eye pain, eye discharge, vision change ENT ED: Denies: ear pain, throat pain, dental pain, hearing loss, epistaxis, congestion, dysphagia Cardiovascular: Reports: chest pain. Denies: palpitations, dyspnea on exertion , edema, syncope Respiratory: Denies: cough, dyspnea, wheezes, hemoptysis, stridor Gastrointestinal: Reports: abdominal pain. Denies: nausea, vomiting, diarrhea, constipation, hematemesis, melena, hematochezia Genitourinary: Denies: dysuria, frequency, hematuria, discharge Musculoskeletal: Reports: neck pain. Denies: back pain, arthralgia, myalgia Integumentary: Denies: rash, abrasion, lesions Neurological: Denies: headache, weakness, numbness, paresthesias, confusion, abnormal gait, vertigo Psychiatric: Denies: anxiety, depression, suicidal thoughts, homicidal thoughts , auditory hallucinations, visual hallucinations Endocrine: Reports: fatigue Hematological/Lymphatic: Denies: easy bleeding, easy bruising Allergic/Immunologic: Denies: facial swelling, urticaria Past Medical History - Past Medical History Medical history: Reports: CHF, coronary artery disease, CVA, diabetes, GERD, hyperlipidemia, hypertension, myocardial infarction, renal disease, valvular heart disease, other Surgical history: Reports: coronary bypass (CABG), hysterectomy, other Psychiatric history: Reports: no psych history - Social History Smoking Status: Never smoker Smokeless Tobacco Status: No Alcohol use: Reports: none Drug use: Reports: none Physical Exam - General Limitations: no limitations General appearance: alert, in no apparent distress - Head Head exam: atraumatic, normocephalic, normal inspection - Eye Eye exam: Present: normal appearance, PERRL, EOMI. Absent: scleral icterus, conjunctival injection - ENT ENT exam: normal exam, normal oropharynx, mucous membranes moist - Neck Neck exam: Present: normal inspection, full ROM, trachea midline, tenderness ( cervical spine mild tender to palpation) - Chest Chest inspection: Present: normal inspection, symmetric chest wall rise. Absent : tenderness - Respiratory Respiratory exam: Present: normal lung sounds bilaterally. Absent: respiratory distress, wheezes - Cardiovascular Cardiovascular exam: Present: regular rate, normal rhythm, systolic murmur, +S3 - Abdominal Exam Abdominal exam: Present: soft, Non-Tender, tenderness (very mild superpubic tender, no rebound tenderness). Absent: distention, guarding, rebound, rigidity - Extremities Exam Extremities exam: Present: normal inspection, full ROM. Absent: tenderness, pedal edema - Expanded Lower Extremity Exam Ankle exam: Present: swelling (bilateral ankles edema) - Back Exam Back exam: Present: normal inspection - Neurological Exam Neurological exam: Present: alert, oriented X3, CN II-XII intact. Absent: motor sensory deficit - Psychiatric Psychiatric exam: Present: normal affect, normal mood - Skin Skin exam: Present: warm, dry, intact, normal color Course Vital Signs Temperature 97.0 F L 10/22/17 07:50 Pulse Rate 62 10/22/17 07:50 Respiratory Rate 18 10/22/17 07:50 Blood Pressure 140/63 10/22/17 07:50 O2 Sat by Pulse Oximetry 93 10/22/17 07:50 Temperature 97.4 F L 10/22/17 16:20 Pulse Rate 61 10/22/17 16:20 Respiratory Rate 16 10/22/17 16:20 Blood Pressure 132/55 10/22/17 16:20 O2 Sat by Pulse Oximetry 97 10/22/17 16:20 Oxygen Delivery Oxygen Delivery Room Air Medical Decision Making - [facility] Narrative Medical decision making narrative: 87 year old female with history of CAD and valve heart disease presents with chest pain and fatigue. [facility] staff reported pt started complaining of severe chest pain since last night, which radiate to left side neck, no shortness of breath. nursing staff noticed pt was more quiet this morning (pt usually talkative). Physical exam: alert and oriented, bilateral lungs are clear , 3/5 systolic murmur, abdomen soft, mild tender on superpubic area, no rebound tenderness. Labs: troponin 0.05 (Baseline 0.04), EKG: Nonspecific T-wave. Cervical CT: no fracture. UA: unremarkable. 10:10 am : spoke with Cardiology Dr. Garcia, he will see the patient in the floor 10:20 am: spoke with Hospitalist Dr. Kilpatrick, pt is accepted for elevated Troponin I, fatigue Ant Ocampo saw the patient as well and agrees the above plan. - Lab Data Lab results reviewed: Yes I reviewed the patient's lab results. Result diagrams: 10/22/17 14:19 10/22/17 08:24 Lab Results 10/22/17 10/22/17 10/22/17 Range/Units 08:24 08:24 08:24 WBC 2.9 L (4.3-11.1) K/mcL RBC 3.24 L (3.82-4.97) M/mcL Hgb 9.8 L (11.5-15.4) g/dL Hct 30.2 L (35.3-44.9) % MCV 93.2 (83.0-100.0) fL MCH 30.2 (28.0-33.3) pg MCHC 32.5 (31.6-35.5) g/dL RDW 15.7 H (11.5-14.5) % Plt Count 95 L (140-400) K/mcL MPV 9.4 (9.4-12.4) fL Immature Gran % 0.4 (0-4) % Seg Neutrophils % 59.5 % Lymphocytes % 26.3 % Monocytes % 10.9 % Eosinophils % 2.5 % Basophils % 0.4 % Neutrophils # 1.7 (1.6-8.9) K/mcL Lymphocytes # 0.8 (0.6-4.6) K/mcL Monocytes # 0.3 (0.0-1.3) K/mcL Eosinophils # 0.1 (0.0-0.6) K/mcL Basophils # 0.0 (0.0-0.2) K/mcL Sodium 135 L (136-145) mEq/L Potassium 4.8 (3.5-5.1) mEq/L Chloride 112 H (98-107) mEq/L Carbon Dioxide 24 (23-29) mEq/L BUN 88 H (8-23) mg/dL Creatinine 3.49 H (0.60-1.20) mg/dL Est GFR ( Amer) 15 L (> 60) Est GFR (Non-Af Amer) 12 L (> 60) BUN/Creatinine Ratio 25 (6-26) Glucose 170 H (70-105) mg/dL Calculated Osmolality 311 H (280-300) Calcium 9.0 (8.6-10.3) mg/dL Total Bilirubin 0.6 (0.3-1.0) mg/dL AST 14 (13-39) Units/L ALT 11 (7-52) Units/L Alkaline Phosphatase 67 (34-104) Units/L Troponin I 0.05 H* (< 0.04) ng/mL B-Natriuretic Peptide 834 H (Less than 100) pg/mL Serum Total Protein 5.7 L (6.4-8.9) g/dL Albumin 3.2 L (3.5-5.7) g/dL Globulin 2.5 (2.4-3.5) g/dL Albumin/Globulin Ratio 1.3 (1.1-2.2) Urine Color (Yellow) Urine Clarity (Clear) Urine pH (5.0-8.0) pH Units Ur Specific [place] (1.010-1.025) Urine Protein (Neg-Trace) mg/dL Urine Glucose (UA) (Normal) mg/dL Urine Ketones (Negative) mg/dL Urine Blood (Negative) Urine Nitrite (Negative) Urine Bilirubin (Negative) Urine Urobilinogen (Normal) mg/dL Ur Leukocyte Esterase (Negative) Urine Microscopic RBC (0-3) per hpf Urine Microscopic WBC (0-3) per hpf Ur Squamous Epith Cells (None-Few) per lpf Urine Bacteria (None-Few) per hpf Hyaline Casts (None-Few) per lpf Ur Culture Indicated? (NO) 10/22/17 Range/Units 09:05 WBC (4.3-11.1) K/mcL RBC (3.82-4.97) M/mcL Hgb (11.5-15.4) g/dL Hct (35.3-44.9) % MCV (83.0-100.0) fL MCH (28.0-33.3) pg MCHC (31.6-35.5) g/dL RDW (11.5-14.5) % Plt Count (140-400) K/mcL MPV (9.4-12.4) fL Immature Gran % (0-4) % Seg Neutrophils % % Lymphocytes % % Monocytes % % Eosinophils % % Basophils % % Neutrophils # (1.6-8.9) K/mcL Lymphocytes # (0.6-4.6) K/mcL Monocytes # (0.0-1.3) K/mcL Eosinophils # (0.0-0.6) K/mcL Basophils # (0.0-0.2) K/mcL Sodium (136-145) mEq/L Potassium (3.5-5.1) mEq/L Chloride (98-107) mEq/L Carbon Dioxide (23-29) mEq/L BUN (8-23) mg/dL Creatinine (0.60-1.20) mg/dL Est GFR ( Amer) (> 60) Est GFR (Non-Af Amer) (> 60) BUN/Creatinine Ratio (6-26) Glucose (70-105) mg/dL Calculated Osmolality (280-300) Calcium (8.6-10.3) mg/dL Total Bilirubin (0.3-1.0) mg/dL AST (13-39) Units/L ALT (7-52) Units/L Alkaline Phosphatase (34-104) Units/L Troponin I (< 0.04) ng/mL B-Natriuretic Peptide (Less than 100) pg/mL Serum Total Protein (6.4-8.9) g/dL Albumin (3.5-5.7) g/dL Globulin (2.4-3.5) g/dL Albumin/Globulin Ratio (1.1-2.2) Urine Color Yellow (Yellow) Urine Clarity Slightly Hazy (Clear) Urine pH 5.0 (5.0-8.0) pH Units Ur Specific [place] 1.023 (1.010-1.025) Urine Protein 100 H (Neg-Trace) mg/dL Urine Glucose (UA) Normal (Normal) mg/dL Urine Ketones Negative (Negative) mg/dL Urine Blood Negative (Negative) Urine Nitrite Negative (Negative) Urine Bilirubin Negative (Negative) Urine Urobilinogen Normal (Normal) mg/dL Ur Leukocyte Esterase Negative (Negative) Urine Microscopic RBC 0-3 (0-3) per hpf Urine Microscopic WBC 0-3 (0-3) per hpf Ur Squamous Epith Cells Moderate H (None-Few) per lpf Urine Bacteria None Seen (None-Few) per hpf Hyaline Casts None Seen (None-Few) per lpf Ur Culture Indicated? NO (NO) - Radiology Data Radiology results reviewed: Yes I reviewed the patient's radiology results.
[2017-10-22] MEDS ORDERED: Aspirin 81 MG TAB.CHEW PO ONE (09:30)
[2017-10-22 09:37] LABS: Bilirubin,Urine Negative (Negative); Blood,Urine Negative (Negative); Color,Urine Yellow (Yellow); Glucose,Urine (UA) Normal (Normal); Ketones,Urine Negative (Negative); Leukocyte Esterase,Urine Negative (Negative); Nitrite,Urine Negative (Negative); Protein,Urine 100 mg/dL (Neg-Trace); Specific Gravity,Urine 1.023 (1.010-1.025); Urobilinogen,Urine Normal (Normal)
[2017-10-22 09:41] LABS: Bacteria,Urine None Seen per hpf (None-Few); Clarity,Urine Slightly Hazy (Clear); Hyaline Casts,Urine None Seen per lpf (None-Few); RBC,Urine 0-3 per hpf (0-3); Squamous Epithelial Cell,Urine Moderate per lpf (None-Few); WBC,Urine 0-3 per hpf (0-3)
--- NOTE | 2017-10-22 10:37 | Emergency Department Note ---
Disposition Clinical Impression: Weakness, Elevated troponin Disposition: Home, Self-Care Condition: Fair Forms: ED Satisfaction Letter, Work/School Release Time of Disposition: 10:15 General Adult HPI - General Chief complaint: ED Abdominal Pain Stated complaint: neck pain Time Seen by Provider: 10/22/17 07:50 Source: EMS Limitations: no limitations Nursing Notes Reviewed: Yes Vital Signs Reviewed: Yes - History of Present Illness Location: chest, abdomen Pain Scale: 9 - Related Data Home Medications Medication Instructions Recorded Confirmed Gabapentin [Neurontin] 100 mg PO TID 04/11/15 10/22/17 Iron Ps Cmplx/Vit B12/FA [Iferex 1 cap PO BID 04/11/15 10/22/17 150 Forte Capsule] Losartan Potassium [Cozaar] 100 mg PO DAILY 04/11/15 10/22/17 Cilostazol [Pletal] 100 mg PO BID #0 07/09/15 10/22/17 Aspirin [Lo-Dose Aspirin EC] 81 mg PO DAILY 10/07/17 10/22/17 Calcitriol [Rocaltrol] 0.25 mcg PO MOWEFR 10/07/17 10/22/17 Isosorbide MONOnitrate [Isosorbide 180 mg PO DAILY 10/07/17 10/22/17 Mononitrate ER] cloNIDine HCl [Clonidine HCl] 0.2 mg PO TID 10/07/17 10/22/17 Amlodipine Besylate 10 mg PO DAILY 10/22/17 10/22/17 Glucagon,Human Recombinant 1 mg IJ ONCE PRN 10/22/17 10/22/17 [Glucagon Emergency Kit] Hydralazine HCl 50 mg PO TID 10/22/17 10/22/17 Insulin Glargine,Hum.rec.anlog 20 unit SQ HS 10/22/17 10/22/17 [Basaglar Kwikpen U-100] hydrALAZINE [HydrALAZINE] 25 mg PO TID 10/22/17 10/22/17 Previous Rx's Medication Instructions Recorded Atorvastatin [Lipitor] 40 mg PO HS #30 tablet 10/11/15 Furosemide [Lasix] 40 mg PO DAILY #30 tablet 10/11/15 Labetalol [Trandate] 200 mg PO BID #60 tablet 05/22/17 Allergies Allergy/AdvReac Type Severity Reaction Status Date / Time celecoxib [From Celebrex] AdvReac Nausea Verified 10/22/17 10:21 Constitutional: Denies: fever, chills, weakness, weight change Eyes: Denies: eye pain, eye discharge, vision change ENT ED: Denies: ear pain, throat pain, dental pain, hearing loss, epistaxis, congestion, dysphagia Cardiovascular: Reports: chest pain. Denies: palpitations, dyspnea on exertion , edema, syncope Respiratory: Denies: cough, dyspnea, wheezes, hemoptysis, stridor Gastrointestinal: Reports: abdominal pain. Denies: nausea, vomiting, diarrhea, constipation, hematemesis, melena, hematochezia Genitourinary: Denies: dysuria, frequency, hematuria, discharge Musculoskeletal: Reports: neck pain. Denies: back pain, arthralgia, myalgia Integumentary: Denies: rash, abrasion, lesions Neurological: Denies: headache, weakness, numbness, paresthesias, confusion, abnormal gait, vertigo Psychiatric: Denies: anxiety, depression, suicidal thoughts, homicidal thoughts , auditory hallucinations, visual hallucinations Endocrine: Reports: fatigue Hematological/Lymphatic: Denies: easy bleeding, easy bruising Allergic/Immunologic: Denies: facial swelling, urticaria Past Medical History - Past Medical History Medical history: Reports: CHF, coronary artery disease, CVA, diabetes, GERD, hyperlipidemia, hypertension, myocardial infarction, renal disease, valvular heart disease, other Surgical history: Reports: coronary bypass (CABG), hysterectomy, other Psychiatric history: Reports: no psych history - Social History Smoking Status: Never smoker Smokeless Tobacco Status: No Alcohol use: Reports: none Drug use: Reports: none Physical Exam - General Limitations: no limitations General appearance: alert, in no apparent distress Course Vital Signs Temperature 97.0 F L 10/22/17 07:50 Pulse Rate 62 10/22/17 07:50 Respiratory Rate 18 10/22/17 07:50 Blood Pressure 140/63 10/22/17 07:50 O2 Sat by Pulse Oximetry 93 10/22/17 07:50 Temperature 97.0 F L 10/22/17 07:50 Pulse Rate 62 10/22/17 07:50 Respiratory Rate 18 10/22/17 07:50 Blood Pressure 140/63 10/22/17 07:50 O2 Sat by Pulse Oximetry 93 10/22/17 07:50 Oxygen Delivery Oxygen Delivery Room Air Medical Decision Making - Lab Data Result diagrams: 10/22/17 08:24 10/22/17 08:24 Lab Results 10/22/17 10/22/17 10/22/17 Range/Units 08:24 08:24 08:24 WBC 2.9 L (4.3-11.1) K/mcL RBC 3.24 L (3.82-4.97) M/mcL Hgb 9.8 L (11.5-15.4) g/dL Hct 30.2 L (35.3-44.9) % MCV 93.2 (83.0-100.0) fL MCH 30.2 (28.0-33.3) pg MCHC 32.5 (31.6-35.5) g/dL RDW 15.7 H (11.5-14.5) % Plt Count 95 L (140-400) K/mcL MPV 9.4 (9.4-12.4) fL Immature Gran % 0.4 (0-4) % Seg Neutrophils % 59.5 % Lymphocytes % 26.3 % Monocytes % 10.9 % Eosinophils % 2.5 % Basophils % 0.4 % Neutrophils # 1.7 (1.6-8.9) K/mcL Lymphocytes # 0.8 (0.6-4.6) K/mcL Monocytes # 0.3 (0.0-1.3) K/mcL Eosinophils # 0.1 (0.0-0.6) K/mcL Basophils # 0.0 (0.0-0.2) K/mcL Sodium 135 L (136-145) mEq/L Potassium 4.8 (3.5-5.1) mEq/L Chloride 112 H (98-107) mEq/L Carbon Dioxide 24 (23-29) mEq/L BUN 88 H (8-23) mg/dL Creatinine 3.49 H (0.60-1.20) mg/dL Est GFR ( Amer) 15 L (> 60) Est GFR (Non-Af Amer) 12 L (> 60) BUN/Creatinine Ratio 25 (6-26) Glucose 170 H (70-105) mg/dL Calculated Osmolality 311 H (280-300) Calcium 9.0 (8.6-10.3) mg/dL Total Bilirubin 0.6 (0.3-1.0) mg/dL AST 14 (13-39) Units/L ALT 11 (7-52) Units/L Alkaline Phosphatase 67 (34-104) Units/L Troponin I 0.05 H* (< 0.04) ng/mL B-Natriuretic Peptide 834 H (Less than 100) pg/mL Serum Total Protein 5.7 L (6.4-8.9) g/dL Albumin 3.2 L (3.5-5.7) g/dL Globulin 2.5 (2.4-3.5) g/dL Albumin/Globulin Ratio 1.3 (1.1-2.2) Urine Color (Yellow) Urine Clarity (Clear) Urine pH (5.0-8.0) pH Units Ur Specific [place] (1.010-1.025) Urine Protein (Neg-Trace) mg/dL Urine Glucose (UA) (Normal) mg/dL Urine Ketones (Negative) mg/dL Urine Blood (Negative) Urine Nitrite (Negative) Urine Bilirubin (Negative) Urine Urobilinogen (Normal) mg/dL Ur Leukocyte Esterase (Negative) Urine Microscopic RBC (0-3) per hpf Urine Microscopic WBC (0-3) per hpf Ur Squamous Epith Cells (None-Few) per lpf Urine Bacteria (None-Few) per hpf Hyaline Casts (None-Few) per lpf Ur Culture Indicated? (NO) 10/22/17 Range/Units 09:05 WBC (4.3-11.1) K/mcL RBC (3.82-4.97) M/mcL Hgb (11.5-15.4) g/dL Hct (35.3-44.9) % MCV (83.0-100.0) fL MCH (28.0-33.3) pg MCHC (31.6-35.5) g/dL RDW (11.5-14.5) % Plt Count (140-400) K/mcL MPV (9.4-12.4) fL Immature Gran % (0-4) % Seg Neutrophils % % Lymphocytes % % Monocytes % % Eosinophils % % Basophils % % Neutrophils # (1.6-8.9) K/mcL Lymphocytes # (0.6-4.6) K/mcL Monocytes # (0.0-1.3) K/mcL Eosinophils # (0.0-0.6) K/mcL Basophils # (0.0-0.2) K/mcL Sodium (136-145) mEq/L Potassium (3.5-5.1) mEq/L Chloride (98-107) mEq/L Carbon Dioxide (23-29) mEq/L BUN (8-23) mg/dL Creatinine (0.60-1.20) mg/dL Est GFR ( Amer) (> 60) Est GFR (Non-Af Amer) (> 60) BUN/Creatinine Ratio (6-26) Glucose (70-105) mg/dL Calculated Osmolality (280-300) Calcium (8.6-10.3) mg/dL Total Bilirubin (0.3-1.0) mg/dL AST (13-39) Units/L ALT (7-52) Units/L Alkaline Phosphatase (34-104) Units/L Troponin I (< 0.04) ng/mL B-Natriuretic Peptide (Less than 100) pg/mL Serum Total Protein (6.4-8.9) g/dL Albumin (3.5-5.7) g/dL Globulin (2.4-3.5) g/dL Albumin/Globulin Ratio (1.1-2.2) Urine Color Yellow (Yellow) Urine Clarity Slightly Hazy (Clear) Urine pH 5.0 (5.0-8.0) pH Units Ur Specific [place] 1.023 (1.010-1.025) Urine Protein 100 H (Neg-Trace) mg/dL Urine Glucose (UA) Normal (Normal) mg/dL Urine Ketones Negative (Negative) mg/dL Urine Blood Negative (Negative) Urine Nitrite Negative (Negative) Urine Bilirubin Negative (Negative) Urine Urobilinogen Normal (Normal) mg/dL Ur Leukocyte Esterase Negative (Negative) Urine Microscopic RBC 0-3 (0-3) per hpf Urine Microscopic WBC 0-3 (0-3) per hpf Ur Squamous Epith Cells Moderate H (None-Few) per lpf Urine Bacteria None Seen (None-Few) per hpf Hyaline Casts None Seen (None-Few) per lpf Ur Culture Indicated? NO (NO) Attestation Statement - Attestation Attestation: I, Ant Holloway, examined this patient and my medical decision-making was reviewed with the WOOL SAMPLER/PA/Advanced Practice Nurse/Resident Physician. I agree with the documented findings, disposition and treatment plan as described except to the extent set forth below. 87-year-old female presents emergency Department with increasing weakness, fatigue, confusion over the past 24 hours. Patient was sent from the assisted today after they noticed a change in her behavior. Family is in the room at the time of my evaluation who state that she is usually able to have a full conversation however today she seems to have increased weakness and fatigue. Patient denies chest pain, abdominal pain during my exam however she reported to the PA that she had mild suprapubic abdominal pain. Patient did also report mild neck pain and has a history of a fall was evaluated by CT of the head as well as other x-rays. She did not have imaging of the neck and that time. Imaging of the neck today does not show evidence of acute fracture. Patient will be admitted to the hospitalist for further care and evaluation of her elevated troponin. EKG did not show evidence of STEMI. She does have a history of elevated troponin in the past however this is slightly higher.
--- NOTE | 2017-10-22 11:58 | Internal Med History&Physical ---
Date of Encounter: 10/22/17 Time of Encounter: 11:00 Internal Medicine - H&P: HPI Chief complaint: Change in mental status History of present illness: Patient is a 87-year-old female with past medical history significant for ischemic cardiac myopathy with CABG, CVA, hypertension, hyperlipidemia and diabetes who presented to the ER from the [facility] on 10/22/17 due to change in mental status. Patient not able to give much history at all at bedside other than she does have left upper chest pain. was at the bedside not able to give history either. In the ER, patient was found to have elevated troponin of 0.05 and a BNP of 834. Due to patients significant cardiac history, cardiology was consulted from the ER and patient will be admitted to the medical surgical floor for ACS rule out. 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 Psychiatric history: no psych history - Past Surgical History Surgical History: coronary bypass (CABG), hysterectomy, other Additional surgical history: fistula left arm - Social History Smoking Status: Never smoker Smokeless Tobacco Status: No Alcohol use: none Drug use: none - Family History Mother Living Status: Hx Family Cardiac Disorders: Yes (CVA, [place]) Father Living Status: Hx Family Cardiac Disorders: Yes Internal Medicine - H&P: Meds Gabapentin [Neurontin] 100 mg PO TID 04/11/15 [History] Iron Ps Cmplx/Vit B12/FA [Iferex 150 Forte Capsule] 1 cap PO BID 04/11/15 [ History] Losartan Potassium [Cozaar] 100 mg PO DAILY 04/11/15 [History] Cilostazol [Pletal] 100 mg PO BID #0 07/09/15 [History] Atorvastatin [Lipitor] 40 mg PO HS #30 tablet 10/11/15 [Rx] Furosemide [Lasix] 40 mg PO DAILY #30 tablet 10/11/15 [Rx] Labetalol [Trandate] 200 mg PO BID #60 tablet 05/22/17 [Rx] Aspirin [Lo-Dose Aspirin EC] 81 mg PO DAILY 10/07/17 [History] Calcitriol [Rocaltrol] 0.25 mcg PO MOWEFR 10/07/17 [History] Isosorbide MONOnitrate [Isosorbide Mononitrate ER] 180 mg PO DAILY 10/07/17 [ History] cloNIDine HCl [Clonidine HCl] 0.2 mg PO TID 10/07/17 [History] Amlodipine Besylate 10 mg PO DAILY 10/22/17 [History] Glucagon,Human Recombinant [Glucagon Emergency Kit] 1 mg IJ ONCE PRN 10/22/17 [ History] Hydralazine HCl 50 mg PO TID 10/22/17 [History] Insulin Glargine,Hum.rec.anlog [Basaglar Kwikpen U-100] 20 unit SQ HS 10/22/17 [ History] hydrALAZINE [HydrALAZINE] 25 mg PO TID 10/22/17 [History] 3 Allergy/AdvReac Type Severity Reaction Status Date / Time celecoxib [From Celebrex] AdvReac Nausea Verified 10/22/17 10:21 ROS unobtainable: due to mental status All Systems PM: A 10-system review of systems was performed and is negative for pertinent findings except as documented above in the HPI. - Constitutional Vitals: Temp Pulse Resp BP Pulse Ox 97.0 F L 62 16 141/66 93 10/22/17 07:50 10/22/17 07:50 10/22/17 11:35 10/22/17 11:35 10/22/17 07:50 General appearance: Present: A&O X 3 - Eye Eye exam: Present: normal appearance - ENT ENT exam: Present: mucous membranes moist - Respiratory Respiratory exam: Present: CTAB. Absent: accessory muscle use, rales, rhonchi, wheezes - Cardiovascular Cardiovascular exam: Present: RRR, +S1, +S2. Absent: diastolic murmur, gallop, rubs, systolic murmur - GI/Abdominal GI/Abdominal exam: Present: soft - Extremities Exam Extremities exam: Absent: pedal edema - Neurological Exam Neurological exam: Present: oriented X3 - Skin Skin exam: Present: normal color Internal Med - H&P Results - Labs CBC & Chem 7: 10/22/17 08:24 10/22/17 08:24 - Assessment and plan (1) Elevated troponin Current Visit: Yes Status: Acute Assessment and plan: Patient complaining of left-sided chest pain In the ER, patient was found to have elevated troponin of 0.05 and a BNP of 834. Will trend serial troponins and monitor on telemetry Cardiology consulted and appreciate recommendations (2) Chest pain Current Visit: No Status: Acute Assessment and plan: Patient complaint of left-sided chest pain and troponins elevated as above Management as above Qualifiers: Chest pain type: chest pain on breathing Qualified Code(s): R07.1 - Chest pain on breathing; R07.81 - Pleurodynia (3) (HFpEF) heart failure with preserved ejection fraction Current Visit: No Status: Acute Assessment and plan: Continue home dose of Lasix (4) Elevated brain natriuretic peptide (BNP) level Current Visit: No Status: Acute Assessment and plan: Patient with elevated BNP of 834 Does not appear fluid overloaded on exam Continue home dose of Lasix (5) Anemia in chronic kidney disease Current Visit: No Status: Chronic Assessment and plan: Hemoglobin at baseline; continue to monitor Qualifiers: Chronic kidney disease stage: stage 5, not on chronic dialysis Qualified Code(s): N18.5 - Chronic kidney disease, stage 5; D63.1 - Anemia in chronic kidney disease (6) Aortic stenosis Current Visit: No Status: Chronic Assessment and plan: Patient with moderate aortic stenosis with a median gradient 27 mmHG the peak velocity of 3.67 m/s Qualifiers: Cardiac valve disease etiology: etiology unspecified Qualified Code(s): I35.0 - Nonrheumatic aortic (valve) stenosis (7) CKD (chronic kidney disease), stage V Current Visit: No Status: Chronic Assessment and plan: Creatinine stable; continue to monitor (8) DVT prophylaxis Current Visit: No Status: Acute Assessment and plan: Subcutaneous heparin - Time Spent With Patient Total time spent is greater than 50% in coordination of care (as documented) at patient's floor/unit and/or counseling patient:
[2017-10-22] MEDS ORDERED: Naloxone 0.4 MG/ML INJ IVP PRN (12:32)
--- NOTE | 2017-10-22 13:39 | Cardiology Consult Note ---
<Jacques Denton S - Last Filed: 10/22/17 14:01> Date of Encounter: 10/22/17 Time of Encounter: 13:30 Assessment and Plan (1) Elevated troponin Current Visit: No Status: Acute Pt fell on Wednesday and hit her head. -She denies any LOC. Since then she has had lightheadedness and then starting yesterday began to have chest pain -the chest pain is substernal in nature with radiation to the back to the shoulders -the CP has been constant and is a dull ache as if someone "is punching her in the back" -the denies anything that makes it better or worse -the pain hasn't increased in severity, and has been steady since it's onset -she denies any SOB, fever, sweats, N/V/D -the pt states that this pain is similiar to the pain she felt when she had an ME Her PMH includes cardiac myopathy with CABG, CVA x 3, HTN, HDL, DM, CKD -family is at bedside and state she has been lethargic and hasn't been at her baseline -the pt does appear to be lethargic and at times seems to struggle to answer questions -in the ER she had an elevated troponin of 0.05 -BNP of 834, which could be secondary to her CKD -due to lethargy , head CT performed and results are pending. CXR done today Central congestion without overt pulmonary edema, small bilateral pleural effusions, stable mild enlargement of the cardiac silhouette. - no acute cardiopulmonary process ECHO in 05/2017 -LVEF 70% -normal LV chamber size/fxn -LVH -moderate LV diastolic dysfxn -AV not well visualzied and mild aortic stenosis; mean gradient 27mmHg, peak velocity 3.67 m/s -mild TR, severe pHTN -RVSP 68mmHg Initial EKG -HR 61, QT interval 468, no signs of early ischemia Plan: -ASA PO 81mg daily -Home meds - Lipitor 40mg PO daily, Labetaolol 200mg PO BID, Lorsartan 100mg PO daily, and Lasix 40mg PO daily ---> continue home meds -Start Heparin drip as per ACS protocol -ECHO pending -Carotid US pending -CT head pending -second EKG pending -CISCO score is 4, would benefit from early intervention -Discussed with attending benefit and risks of C. Due to multiple risk factors and severe CKD, we will start ACS protocol of heparin and continue to trend troponins. -avoid QT prolonging agents (2) Aortic stenosis Current Visit: No Status: Chronic Pt has a hx of Aortic stenosis -grade 2/6 systolic murmur is appreciated on auscultation of heart -mean gradient 27mmHg, peak velocity 3.67 m/s as seen on ECHO in 05/2017 Plan: -Continue home medications to decrease afterload -pt is currently on Lasix 40mg PO daily, Lorsatan 100mg PO daily. Qualifiers: Cardiac valve disease etiology: etiology unspecified Qualified Code(s): I35.0 - Nonrheumatic aortic (valve) stenosis (3) (HFpEF) heart failure with preserved ejection fraction Current Visit: No Status: Acute Pt has a hx of heart failure with preserved EF -ECHO done in May showed an EF of 70% Plan: -continue home Lasix 40mg PO daily (4) Hypertension Current Visit: No Status: Chronic Pt is on multiple antiHTN medications -Amlodipine 10mg PO daily, Labetaolol 200mg PO BID -BP is 144/55 -well controlled Plan -continue home anti hypertensives Qualifiers: Hypertension type: secondary to other renal disorders Qualified Code(s): I15.1 - Hypertension secondary to other renal disorders; N28.89 - Other specified disorders of kidney and ureter Discussion w patient/family: The assessment and plan as outlined above was discussed with the patient and/or family members who expressed understanding and agreement. All questions were answered. Thank you for involving us in the care of your patient. Please call with any questions. History of Present Illness Consult date: 10/22/17 Requesting physician: Shane Kilpatrick Consult reason: Elevated troponin Chief complaint: "I fell" History of present illness: Ms. Giles is a 87 year old female who presented to [facility] from [facility] today. She states that she fell on Wednesday and hit her head. She denies any LOC. Since then she has had lightheadedness and then starting yesterday began to have chest pain -the chest pain is substernal in nature with radiation to the back to the shoulders -the CP has been constant and is a dull ache as if someone "is punching her in the back" -the denies anything that makes it better or worse -the pain hasn't increased in severity, and has been steady since it's onset -she denies any SOB, fever, sweats, N/V/D -the pt states that this pain is similiar to the pain she felt when she had an ME Her PMH includes cardiac myopathy with CABG, CVA x 3, HTN, HDL, DM, CKD -family is at bedside and state she has been lethargic and hasn't been at her baseline -the pt does appear to be lethargic and at times seems to struggle to answer questions -in the ER she had an elevated troponin of 0.05 -BNP of 834, which could be secondary to her CKD -due to lethargy , head CT performed and results are pending. CXR done today Central congestion without overt pulmonary edema, small bilateral pleural effusions, stable mild enlargement of the cardiac silhouette. - no acute cardiopulmonary process ECHO in 05/2017 -LVEF 70% -normal LV chamber size/fxn -LVH -moderate LV diastolic dysfxn -AV not well visualzied and mild aortic stenosis; mean gradient 27mmHg, peak velocity 3.67 m/s -mild TR, severe pHTN -RVSP 68mmHg Fluids - none Electrolytes - WNL Nutrition - currently NPO in case of need for cardiac intervention DVT prophylaxis - 5000U SQ q8hr GI prophylaxis - not indicated 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 Psychiatric history: no psych history - Past Surgical History Surgical History: coronary bypass (CABG), hysterectomy, other Additional surgical history: fistula left arm - Social History Smoking Status: Never smoker Smokeless Tobacco Status: No Alcohol use: none Drug use: none - Family History Mother Living Status: Hx Family Cardiac Disorders: Yes (CVA, [place]) Father Living Status: Hx Family Cardiac Disorders: Yes Medications and Allergies Gabapentin [Neurontin] 100 mg PO TID 04/11/15 [History] Iron Ps Cmplx/Vit B12/FA [Iferex 150 Forte Capsule] 1 cap PO BID 04/11/15 [ History] Losartan Potassium [Cozaar] 100 mg PO DAILY 04/11/15 [History] Cilostazol [Pletal] 100 mg PO BID #0 07/09/15 [History] Atorvastatin [Lipitor] 40 mg PO HS #30 tablet 10/11/15 [Rx] Furosemide [Lasix] 40 mg PO DAILY #30 tablet 10/11/15 [Rx] Labetalol [Trandate] 200 mg PO BID #60 tablet 05/22/17 [Rx] Aspirin [Lo-Dose Aspirin EC] 81 mg PO DAILY 10/07/17 [History] Calcitriol [Rocaltrol] 0.25 mcg PO MOWEFR 10/07/17 [History] Isosorbide MONOnitrate [Isosorbide Mononitrate ER] 180 mg PO DAILY 10/07/17 [ History] cloNIDine HCl [Clonidine HCl] 0.2 mg PO TID 10/07/17 [History] Amlodipine Besylate 10 mg PO DAILY 10/22/17 [History] Glucagon,Human Recombinant [Glucagon Emergency Kit] 1 mg IJ ONCE PRN 10/22/17 [ History] Hydralazine HCl 50 mg PO TID 10/22/17 [History] Insulin Glargine,Hum.rec.anlog [Basaglar Kwikpen U-100] 20 unit SQ HS 10/22/17 [ History] hydrALAZINE [HydrALAZINE] 25 mg PO TID 10/22/17 [History] 3 Allergy/AdvReac Type Severity Reaction Status Date / Time celecoxib [From Celebrex] AdvReac Nausea Verified 10/22/17 10:21 All Systems Review: The remainder of the systems were reviewed and are negative - Constitutional Constitutional: frequent falls, no chills, no fatigue, no fever(s) - Cardiovascular Cardiovascular: no chest pain at rest, no diaphoresis, no dyspnea at rest, no dyspnea on exertion, no radiating jaw, neck or arm pain, no leg edema, no orthopnea, no palpitations, no paroxysmal nocturnal dyspnea - Respiratory Respiratory: no cough, no wheezing - Gastrointestinal Gastrointestinal: no abdominal pain, no dysphagia, no nausea - Genitourinary Genitourinary: no dysuria - Musculoskeletal Musculoskeletal: abnormal gait, arthralgias - Neurological Neurological: dizziness, focal weakness, no abnormal speech, no memory loss, no numbness, no syncope, no tingling Physical Examination Vital Signs, Last 4 Hours Temp Pulse Resp BP Pulse Ox 10/22/17 12:56 98 10/22/17 12:16 97.4 F L 62 17 144/55 100 10/22/17 11:35 16 141/66 General: Conversant HEENT: Atraumatic, Normocephaly Neck: No JVD Cardiac: Other (aortic stenosis systolic murmur grade 2/6) Lungs: Normal Breath Sounds, No Wheeze, Rales, Rhonchi Neuro: Alert and responsive Abdomen: Soft, Non-Tender Skin: No rashes noted on visualized skin Musculoskeletal: No Chest Wall Tenderness Extremities: No Edema Results 10/22/17 08:24 10/22/17 08:24 Consult Discharge Plan - Plan Referrals: Ema Del Toro, CRYPTOLOGIC LINGUIST [Primary Care Provider] - <Ant Garcia - Last Filed: 10/22/17 15:21> Date of Encounter: 10/22/17 - Attending Attestation I examined this patient and my medical decision-making was reviewed with the Resident Physician. I agree with the documented findings, disposition and treatment plan as described except to the extent set forth below. 87 YO with CRI presents after fall several days ago. C/O atyipical chest pain. Troponin mildly elevated. Not a candidate for invasive cardiac evaluation. Would recommend medical mgmt. discussed with family, they agree. Assessment and Plan Discussion w patient/family: The assessment and plan as outlined above was discussed with the patient and/or family members who expressed understanding and agreement. All questions were answered. Thank you for involving us in the care of your patient. Please call with any questions. History of Present Illness History of present illness: Ms. Giles is a 87 year old female All Systems Review: The remainder of the systems were reviewed and are negative Physical Examination Vital Signs, Last 4 Hours Temp Pulse Resp BP Pulse Ox 10/22/17 12:56 98 10/22/17 12:16 97.4 F L 62 17 144/55 100 10/22/17 11:35 16 141/66 Results 10/22/17 14:19 10/22/17 08:24 Lab Results 10/22/17 10/22/17 10/22/17 14:19 14:19 14:19 WBC 3.3 L Hgb 9.6 L Hct 30.1 L Plt Count 102 L INR 1.0 Troponin I 0.06 H*
[2017-10-22] MEDS ORDERED: *HR* Heparin 5,000 UNIT/ML VIAL SQ SCH (14:00)
[2017-10-22] MEDS ORDERED: *HR* Heparin 5,000 UNIT/ML VIAL IVP ONE (14:19)
[2017-10-22] MEDS ORDERED: *HR* Heparin 5,000 UNIT/ML VIAL IVP PRN ×2 (14:19)
[2017-10-22 14:31] LABS: Red Cell Distribution Width 15.9 % (11.5-14.5)
[2017-10-22 14:33] LABS: Hematocrit 30.1 % (35.3-44.9); Hemoglobin 9.6 g/dL (11.5-15.4); Immature Platelets 1.2 % (1.1-6.1); Mean Corpuscular HGB Conc 31.9 g/dL (31.6-35.5); Mean Corpuscular Volume 94.1 fL (83.0-100.0); Mean Platelet Volume 9.2 fL (9.4-12.4); Red Blood Count 3.2 M/mcL (3.82-4.97)
[2017-10-22] MEDS ORDERED: Dextrose Gel 15 GM/37.5 ML TUBE PO PRN ×2 (14:35)
[2017-10-22] MEDS ORDERED: D5% in Water 1,000 ML IVC PRN (14:35)
[2017-10-22 14:40] LABS: Heparin anti-factor XA UFH 0.02 IU/mL (0.30-0.70)
[2017-10-22] MEDS: Gabapentin 100 MG CAPSULE PO SCH ×2 (15:35→21:07)
[2017-10-22] MEDS: hydrALAZINE 25 MG TABLET PO SCH ×4 (15:35→21:07)
[2017-10-22] MEDS: cloNIDine HCl 0.1 MG TABLET PO SCH ×2 (15:35→21:07)
[2017-10-22] MEDS: Heparin 25,000 UNIT/500 ML D5W 25,000 UNIT/500 ML BAG IVC SCH (16:00)
[2017-10-22] MEDS: [UNRECOGNIZED DRUG - OTHER] PO SCH (21:08)
[2017-10-22] MEDS: IRON PS CMPLX PO SCH (21:08)
[2017-10-22] MEDS: VIT B12 PO SCH (21:08)
[2017-10-22] MEDS: Insulin DETEMIR 100 UNIT/ML X5UNITS SQ SCH (22:06)
[2017-10-22] MEDS: Insulin LISPRO 300 UNITS/3 ML VIAL SQ SCH (22:08)
[2017-10-23 05:11] LABS: Basophils % 0.6 %; Eosinophils # 0.1 K/mcL (0.0-0.6); Eosinophils % 3.2 %; Hemoglobin 9.2 g/dL (11.5-15.4); Immature Granulocytes % 0.6 % (0-4); Lymphocytes % 31.5 %; Mean Corpuscular HGB Conc 31.7 g/dL (31.6-35.5); Mean Corpuscular Hemoglobin 29.7 pg (28.0-33.3); Mean Corpuscular Volume 93.5 fL (83.0-100.0); Mean Platelet Volume 10.1 fL (9.4-12.4); Monocytes # 0.3 K/mcL (0.0-1.3); Monocytes % 9.5 %; Neutrophils # 1.7 K/mcL (1.6-8.9); Platelet Count 104 K/mcL (140-400); Red Cell Distribution Width 16.1 % (11.5-14.5); Segmented Neutrophils % 54.6 %
--- NOTE | 2017-10-23 08:22 | Electrocardiograph Report ---
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
--- NOTE | 2017-10-23 08:49 | Internal Med Progress Note ---
<Juan Ramon De La Vega - Last Filed: 10/23/17 12:06> Hospitalist Progress Note - Encounter Date of Encounter: 10/23/17 Time of Encounter: 08:47 - Subjective Interval History: Patient was seen and examined at bedside. Patient states that she is feeling well this morning. She denies having any chest pain, fever, chills, nausea, vomiting, palpitations, or shortness of breath. She is alert and oriented 3. No complaints at this time. - Exam Vitals: Temp Pulse Resp BP Pulse Ox 97.4 F L 58 16 176/76 100 10/23/17 07:00 10/23/17 07:00 10/23/17 07:00 10/23/17 07:00 10/23/17 03:53 Exam: Gen. appearance: No acute distress Cardiovascular: Regular rate and rhythm, holosystolic murmur appreciated, grade 3/6. Lungs: Clear to auscultation bilaterally, no wheezes, rales, rhonchi. Abdomen: Soft, nontender Neurological: Alert and oriented 3, no focal deficits - Assessment and Plan (1) Elevated troponin Current Visit: No Status: Acute Assessment and Plan: Patient presented with left-sided chest pain; substernal with radiation to shoulders - Laboratory workup in the ED demonstrated elevated troponin of 0.05 and a BNP of 834 - Known history of CABG - Initial EKG demonstrated: HR 61, QT interval 468, no signs of early ischemia Plan: - Cardiology consult that; would appreciate recommendations - Heparin drip per ACS protocol started - Will trend serial troponins and monitor on telemetry - Echo, carotid ultrasound, repeat EKG pending - ASA, Lipitor, labetalol, losartan (2) Chest pain Current Visit: No Status: Resolved Assessment and Plan: - Patient complaint of L-sided chest pain and troponins elevated as above - Cardiology consulted; possible left heart catheterization (3) Hypertension Current Visit: No Status: Chronic Assessment and Plan: Patient has a known history of HTN - Last blood pressure reading was 176/76 - Continue amlodipine and labetalol (4) (HFpEF) heart failure with preserved ejection fraction Current Visit: No Status: Acute Assessment and Plan: Pt has a hx of heart failure with preserved EF - Patient with elevated BNP of 834; no signs of fluid overload at this time - ECHO from May: EF of 70% Plan: - Continue home Lasix 40mg PO daily (5) Aortic stenosis Current Visit: No Status: Chronic Assessment and Plan: Patient has a known history of moderate aortic stenosis -Mean gradient 27mmHg, peak velocity 3.67 m/s as seen on ECHO in 05/2017 Plan: -Continue home Lasix and losartan (6) CKD (chronic kidney disease) Current Visit: No Status: Acute Assessment and Plan: Creatinine stable; continue to monitor (7) DVT prophylaxis Current Visit: No Status: Acute Assessment and Plan: Subcutaneous heparin (8) Altered mental status Current Visit: Yes Status: Acute Assessment and Plan: Unknown cause at this time; possibly secondary to uremia - Elevated BUN compared to baseline - AMS has resolved - Time Spent with Patient Total time spent is greater than 50% in coordination of care (as documented) at patient's floor/unit and/or counseling patient: Internal Medicine: Result - Labs CBC & Chem 7: 10/23/17 04:59 10/23/17 04:58 Labs: Short CBC 10/22/17 10/23/17 Range/Units 14:19 04:59 WBC 3.3 L 3.2 L (4.3-11.1) K/mcL Hgb 9.6 L 9.2 L (11.5-15.4) g/dL Hct 30.1 L 29.0 L (35.3-44.9) % Plt Count 102 L 104 L (140-400) K/mcL Neutrophils # 1.7 (1.6-8.9) K/mcL BMP 10/23/17 04:58 Sodium 138 Potassium 5.0 Chloride 107 Carbon Dioxide 23 BUN 91 H Creatinine 3.68 H Glucose 121 H Calcium 9.0 Cardiac Enzymes 10/22/17 10/22/17 10/23/17 Range/Units 14:19 20:58 05:01 Troponin I 0.06 H* 0.06 H* 0.05 H* (< 0.04) ng/mL - ABG Interpretation ABG results: PT/INR, D-dimer PT 11.0 Seconds (9.4-12.1) 10/22/17 14:19 - Impressions Impressions Head CT 10/22/17 12:33 IMPRESSION: 1. No acute intracranial abnormality. D/ / 10/22/2017 14:03:21 Enzo Londono MD / stacy Interpreting Provider: Enzo Londono MD Consult Discharge Plan - Plan Referrals: Ema Del Toro, FOUNDATION DIGGER [Primary Care Provider] - <Jose Meng - Last Filed: 10/23/17 18:07> Hospitalist Progress Note - Encounter Date of Encounter: 10/23/17 - Exam Vitals: Temp Pulse Resp BP Pulse Ox 97.8 F 93 14 107/65 98 10/23/17 15:52 10/23/17 15:52 10/23/17 15:52 10/23/17 15:52 10/23/17 15:52 - Assessment and Plan (1) Chest pain Current Visit: No Status: Resolved (2) DVT prophylaxis Current Visit: No Status: Acute (3) CKD (chronic kidney disease) Current Visit: No Status: Acute (4) Elevated troponin Current Visit: No Status: Acute (5) Aortic stenosis Current Visit: No Status: Chronic (6) (HFpEF) heart failure with preserved ejection fraction Current Visit: No Status: Acute (7) Hypertension Current Visit: No Status: Chronic (8) Altered mental status Current Visit: Yes Status: Acute - Summary of Assessment and Plan Summary of Assessment and Plan: I examined this patient and my medical decision-making was reviewed with the Resident Physician. I agree with the documented findings, disposition and treatment plan as described except to the extent set forth below. Patient awake and alert, no acute distress. Answers questions appropriately . VS reviewed, labs, showing baseline creatinine with gradual increase in BUN since previous admission. Heparin drip had to be held today due to continous bleeding from an IV site. She required pressure dressing and pressure applied for 45 min. 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 She has a fistula that has never been used. - Time Spent with Patient Total time spent is greater than 50% in coordination of care (as documented) at patient's floor/unit and/or counseling patient: Internal Medicine: Result - Labs CBC & Chem 7: 10/23/17 04:59 10/23/17 04:58 Labs: Short CBC 10/23/17 Range/Units 04:59 WBC 3.2 L (4.3-11.1) K/mcL Hgb 9.2 L (11.5-15.4) g/dL Hct 29.0 L (35.3-44.9) % Plt Count 104 L (140-400) K/mcL Neutrophils # 1.7 (1.6-8.9) K/mcL BMP 10/23/17 04:58 Sodium 138 Potassium 5.0 Chloride 107 Carbon Dioxide 23 BUN 91 H Creatinine 3.68 H Glucose 121 H Calcium 9.0 Cardiac Enzymes 10/22/17 10/23/17 Range/Units 20:58 05:01 Troponin I 0.06 H* 0.05 H* (< 0.04) ng/mL - ABG Interpretation ABG results: PT/INR, D-dimer PT 11.0 Seconds (9.4-12.1) 10/22/17 14:19 - Impressions Impressions Echocardiogram 10/22/17 13:52 Impressions: LVEF 60-65%. Normal left ventricular size and systolic function. Biatrial enlargement. Moderate-severe mitral regurgitation. Moderate-severe tricuspid regurgitation. Estimated RVSP was 74 mmHg. Severe pulmonary hypertension. Moderate aortic stenosis. Mean gradient 27mmHg Left Ventricular Wall Motion: Rest Echo Findings All wall segments showed normal motion. Findings: Study Quality * Technically adequate exam. ECG Findings * Normal sinus rhythm. Left Ventricle * LVEF 60-65%. * Normal LV chamber size, wall thickness and function. Right Ventricle * Normal right ventricular structure and function. Right Atrium * Mildly dilated right atrium. Left Atrium * Moderately dilated left atrium. Interatrial Septum * Interatrial septum not well evaluated. Aortic Valve * Aortic valve not well visualized. * Moderately calcified aortic valve leaflets. * Moderately thickened aortic valve leaflets. * Moderate aortic stenosis. * Peak gradient 39mmHg, mean gradient 27mmHg Mitral Valve * Mildly thickened mitral valve leaflets. * Moderate-severe mitral regurgitation. * Mild mitral annular calcification Tricuspid Valve * Normal tricuspid valve structure. * Moderate-severe tricuspid regurgitation. * Estimated RVSP is 74 mmHg. * Severe pulmonary hypertension. Pulmonic Valve * Pulmonic valve not well visualized. * Mild pulmonic regurgitation. Aorta * Normally sized aortic root. Pericardium * The pericardium appears normal. IVC * The IVC is dilated. * > 50% respiratory change <Juan Ramon De La Vega - Last Filed: 10/23/17 12:06> (2) Chest pain Qualifiers: Chest pain type: unspecified Qualified Code(s): R07.9 - Chest pain, unspecified (3) Hypertension Qualifiers: Hypertension type: secondary to other renal disorders Qualified Code(s): I15.1 - Hypertension secondary to other renal disorders; N28.89 - Other specified disorders of kidney and ureter (5) Aortic stenosis Qualifiers: Cardiac valve disease etiology: etiology unspecified Qualified Code(s): I35.0 - Nonrheumatic aortic (valve) stenosis (6) CKD (chronic kidney disease) Qualifiers: Chronic kidney disease stage: stage 4 (severe) Qualified Code(s): N18.4 - Chronic kidney disease, stage 4 (severe) <JarvisariaodellJose - Last Filed: 10/23/17 18:07> (1) Chest pain Qualifiers: Chest pain type: unspecified Qualified Code(s): R07.9 - Chest pain, unspecified (3) CKD (chronic kidney disease) Qualifiers: Chronic kidney disease stage: stage 4 (severe) Qualified Code(s): N18.4 - Chronic kidney disease, stage 4 (severe) (5) Aortic stenosis Qualifiers: Cardiac valve disease etiology: etiology unspecified Qualified Code(s): I35.0 - Nonrheumatic aortic (valve) stenosis (7) Hypertension Qualifiers: Hypertension type: secondary to other renal disorders Qualified Code(s): I15.1 - Hypertension secondary to other renal disorders; N28.89 - Other specified disorders of kidney and ureter
[2017-10-23] MEDS: hydrALAZINE 25 MG TABLET PO SCH ×4 (08:58→15:59)
[2017-10-23] MEDS: Furosemide 40 MG TABLET PO SCH (08:59)
[2017-10-23] MEDS: cloNIDine HCl 0.1 MG TABLET PO SCH ×2 (08:59→15:30)
[2017-10-23] MEDS: Gabapentin 100 MG CAPSULE PO SCH ×3 (09:00→22:49)
[2017-10-23] MEDS: amLODIPine 5 MG TABLET PO SCH (09:00)
[2017-10-23] MEDS: Aspirin Enteric Coated 81 MG Tablet PO SCH (09:00)
[2017-10-23] MEDS: Isosorbide MONOnitrate (24 HR) 60 MG TAB.ER.24H PO SCH (09:00)
[2017-10-23] MEDS: [UNRECOGNIZED DRUG - OTHER] PO SCH (10:34)
[2017-10-23] MEDS: IRON PS CMPLX PO SCH (10:34)
[2017-10-23] MEDS: VIT B12 PO SCH (10:34)
[2017-10-23] MEDS: Insulin LISPRO 300 UNITS/3 ML VIAL SQ SCH ×4 (12:00→22:49)
--- NOTE | 2017-10-23 15:38 | Cardiology Progress Note ---
Date of Encounter: 10/23/17 Time of Encounter: 15:36 Assessment and Plan (1) Elevated troponin Current Visit: No Status: Acute Patient c/o chest pain after recent fall. Also developed mild confusion per family. Her PMH includes CAD with CABG, Mild troponin elevation up to 0.06. SUspect demand ischemia with CKD and recent fall. BNP of 834, which could be secondary to her CKD. No significant fluid overload on exam. ECHO in 05/2017 LVEF 70%, normal LV chamber size/fxn, LVH, moderate LV diastolic dysfxn,AV not well visualzied and mild aortic stenosis; mean gradient 27mmHg, peak velocity 3.67 m/s mild TR, severe pHTN, RVSP 68mmHg. Repeat TTE completed this admission viewed by [facility] multicultural internship. E remains preserved. Final report pending. Stopp heparin due to bleeding from skin tear site and ACS Less likely. \ Plan: Continue medical management. Start low dose anti-anginal. Continue asa, bb, statin. No strong indication to proceed with further testing such as LHC in the setting of advanced age and CKD stage IV. Patient and family agrees with plan. Cardiology will sign off. Out-pt f/u in 2- 3 weeks. (2) Chest pain Current Visit: No Status: Resolved Chest pain resolved. Will add imdur. Qualifiers: Chest pain type: unspecified Qualified Code(s): R07.9 - Chest pain, unspecified (3) Coronary artery disease Current Visit: No Status: Acute H/o CABG. Continue medical management. Qualifiers: Coronary Disease-Associated Artery/Lesion type: unspecified vessel or lesion type [place] vs. transplanted heart: [place] heart Associated angina: without angina Qualified Code(s): I25.10 - Atherosclerotic heart disease of [place] coronary artery without angina pectoris Discussion w patient/family: The assessment and plan as outlined above was discussed with the patient and/or family members who expressed understanding and agreement. All questions were answered. Thank you for involving us in the care of your patient. Please call with any questions. Subjective Principal diagnosis: Chest pain Interval history: Ms. Giles denies recurrent chest pain. Per nursing staff she had oozing out of her left arm skin tear. Heparin gtt stopped. Objective Vital Signs, Last 4 Hours Temp Pulse Resp BP Pulse Ox 10/23/17 15:16 97.8 F 61 105/63 97 10/23/17 11:52 97.7 F 56 16 115/51 96 General: Conversant, No Apparent Distress HEENT: Atraumatic, Normocephaly, Mucus Membranes Moist Neck: No JVD, Normal carotid pulses Cardiac: Reg Rate and Rhythm, Normal S1 and S2, No Murmur Lungs: Normal Breath Sounds, No Wheeze, Rales, Rhonchi Neuro: Alert and responsive, No focal deficits noted Abdomen: Soft, Non-Tender Skin: No rashes noted on visualized skin Musculoskeletal: No Chest Wall Tenderness Extremities: No Clubbing, No Cyanosis, No Edema, Normal Pulses Results 10/23/17 04:59 10/23/17 04:58 Lab Results 10/22/17 10/23/17 10/23/17 20:58 04:58 04:59 WBC 3.2 L Hgb 9.2 L Hct 29.0 L Plt Count 104 L Sodium 138 Potassium 5.0 Chloride 107 Carbon Dioxide 23 BUN 91 H Creatinine 3.68 H Glucose 121 H Calcium 9.0 Troponin I 0.06 H* 10/23/17 05:01 WBC Hgb Hct Plt Count Sodium Potassium Chloride Carbon Dioxide BUN Creatinine Glucose Calcium Troponin I 0.05 H* - Imaging and Cardiology Echo: image reviewed, other (with multicultural internship.) - EKG Interpretation EKG results cardiology: personally reviewed Consult Discharge Plan - Plan Referrals: Ema Del Toro, CARPET CLEANER [Primary Care Provider] -
--- NOTE | 2017-10-23 18:06 | Nephrology Consult Note ---
Date of Encounter: 10/23/17 Time of Encounter: 18:03 Assessment and Plan (1) CKD (chronic kidney disease) Current Visit: No Status: Acute The patient has chronic kidney disease stage V. At this time she does not exhibit uremic symptoms. The patient does have a mild rise in her BUN that may be secondary to diuretic use. The patient does not want to start dialysis until it is absolutely necessary. At this time I do not think she warrants dialysis therapy. I recommend avoiding nephrotoxins. I also recommend adjusting medications for her renal function. Caution with any diuretics secondary to her underlying chronic kidney disease. Qualifiers: Chronic kidney disease stage: stage 4 (severe) Qualified Code(s): N18.4 - Chronic kidney disease, stage 4 (severe) History of Present Illness - Reason for Consult Consult date: 10/23/17 Chronic Kidney Disease - Chief Complaint CKD 5 - History of Present Illness Ms. Giles is an 87-year-old woman with history of chronic kidney disease stage V. She is in the hospital for coronary complaints. Cardiology is following. [facility] consult a second agent arising BUN. At the time my evaluation the patient's family was in the room. The patient denies nausea, vomiting, decreased appetite, metallic taste to food.and she states her energy is about stable for her. 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 Psychiatric history: no psych history - Past Surgical History Surgical History: coronary bypass (CABG), hysterectomy, other Additional surgical history: fistula left arm - Social History Smoking Status: Never smoker Smokeless Tobacco Status: No Alcohol use: none Drug use: none - Family History Mother Living Status: Hx Family Cardiac Disorders: Yes (CVA, VA) Father Living Status: Hx Family Cardiac Disorders: Yes Medications and Allergies Gabapentin [Neurontin] 100 mg PO TID 04/11/15 [History] Iron Ps Cmplx/Vit B12/FA [Iferex 150 Forte Capsule] 1 cap PO BID 04/11/15 [ History] Losartan Potassium [Cozaar] 100 mg PO DAILY 04/11/15 [History] Cilostazol [Pletal] 100 mg PO BID #0 07/09/15 [History] Atorvastatin [Lipitor] 40 mg PO HS #30 tablet 10/11/15 [Rx] Furosemide [Lasix] 40 mg PO DAILY #30 tablet 10/11/15 [Rx] Labetalol [Trandate] 200 mg PO BID #60 tablet 05/22/17 [Rx] Aspirin [Lo-Dose Aspirin EC] 81 mg PO DAILY 10/07/17 [History] Calcitriol [Rocaltrol] 0.25 mcg PO MOWEFR 10/07/17 [History] Isosorbide MONOnitrate [Isosorbide Mononitrate ER] 180 mg PO DAILY 10/07/17 [ History] cloNIDine HCl [Clonidine HCl] 0.2 mg PO TID 10/07/17 [History] Amlodipine Besylate 10 mg PO DAILY 10/22/17 [History] Glucagon,Human Recombinant [Glucagon Emergency Kit] 1 mg IJ ONCE PRN 10/22/17 [ History] Hydralazine HCl 50 mg PO TID 10/22/17 [History] Insulin Glargine,Hum.rec.anlog [Basaglar Kwikpen U-100] 20 unit SQ HS 10/22/17 [ History] hydrALAZINE [HydrALAZINE] 25 mg PO TID 10/22/17 [History] 3 Allergy/AdvReac Type Severity Reaction Status Date / Time celecoxib [From Celebrex] AdvReac Nausea Verified 10/22/17 10:21 Review of Systems All Systems: reviewed and no additional remarkable complaints except as stated ( As documented in history of present illness.) Exam - Vital Signs Vital signs: Initial Vital Signs Temp Pulse Resp BP Pulse Ox 97.0 F L 62 18 140/63 93 10/22/17 07:50 10/22/17 07:50 10/22/17 07:50 10/22/17 07:50 10/22/17 07:50 Vital Signs - Last 8 Hours Temp Pulse Resp BP Pulse Ox 10/23/17 15:52 97.8 F 93 14 107/65 98 10/23/17 15:16 97.8 F 61 105/63 97 10/23/17 11:52 97.7 F 56 16 115/51 96 Intake and Output 10/23/17 10/23/17 10/23/17 07:59 15:59 23:59 Intake Total 129 / 129 120 / 120 Output Total 0 / 0 700 / 700 Balance 129 / 129 -580 / -580 Intake: IV Fluids 129 / 129 0 / 0 Heparin 25,000 UNIT/500 ML D5W 129 / 129 0 / 0 25,000 unit In 500 ml @ 11.4 UNIT/KG/HR 19.96 mls/hr IVC . Q24H LOVE Rx#:[id number] Oral 0 / 0 120 / 120 Output: Urine 0 / 0 700 / 700 Other: Meal Breakfast Percent of Meal Consumed 65% # Urine Diapers 1 Weight 89.3 kg Blood Glucose* 123 Patient Weight 10/23/17 23:59 Weight 89.3 kg - General Appearance General appearance: well-developed, well-nourished, frail EENT: ATNC Cardiology: regular rate Integumentary: warm and dry Neurologic: alert and oriented x3 Musculoskeletal: no cyanosis Psychiatric: mood/affect appropriate Results - Lab Results 10/23/17 04:59 10/23/17 04:58 Most recent lab results Calcium 9.0 mg/dL (8.6-10.3) 10/23/17 04:58 Consult Discharge Plan - Plan Referrals: Ema Del Toro, AUDIT MANAGER [Primary Care Provider] -
[2017-10-23] MEDS: Sennosides/Docusate Sodium TABLET PO SCH (22:49)
[2017-10-23] MEDS: Insulin DETEMIR 100 UNIT/ML X5UNITS SQ SCH (22:50)
[2017-10-24] MEDS: cloNIDine HCl 0.1 MG TABLET PO SCH ×4 (02:54→20:27)
[2017-10-24] MEDS: hydrALAZINE 25 MG TABLET PO SCH ×8 (02:54→20:28)
[2017-10-24] MEDS: IRON PS CMPLX PO SCH ×3 (02:55→20:30)
[2017-10-24] MEDS: VIT B12 PO SCH ×3 (02:55→20:30)
[2017-10-24] MEDS: [UNRECOGNIZED DRUG - OTHER] PO SCH ×3 (02:55→20:30)
[2017-10-24 05:03] LABS: Immature Granulocytes % 0.3 % (0-4)
[2017-10-24 05:05] LABS: Basophils % 0.5 %; Eosinophils # 0.1 K/mcL (0.0-0.6); Eosinophils % 3.3 %; Hematocrit 27.3 % (35.3-44.9); Hemoglobin 8.9 g/dL (11.5-15.4); Lymphocytes # 1.1 K/mcL (0.6-4.6); Lymphocytes % 29.8 %; Mean Corpuscular HGB Conc 32.6 g/dL (31.6-35.5); Mean Corpuscular Hemoglobin 30.6 pg (28.0-33.3); Mean Corpuscular Volume 93.8 fL (83.0-100.0); Mean Platelet Volume 9.6 fL (9.4-12.4); Monocytes # 0.4 K/mcL (0.0-1.3); Monocytes % 11.5 %; Red Blood Count 2.91 M/mcL (3.82-4.97); Red Cell Distribution Width 16.2 % (11.5-14.5); Segmented Neutrophils % 54.6 %
[2017-10-24 05:07] LABS: Platelet Count 98 K/mcL (140-400)
[2017-10-24 05:22] LABS: Calcium 8.6 mg/dL (8.6-10.3); Potassium 4.8 mEq/L (3.5-5.1)
--- NOTE | 2017-10-24 07:58 | Internal Med Progress Note ---
<Juan Ramon De La Vega - Last Filed: 10/24/17 11:23> Hospitalist Progress Note - Encounter Date of Encounter: 10/24/17 Time of Encounter: 09:30 - Subjective Interval History: Patient was seen and examined at bedside. Patient states that she is feeling well this morning. She denies having any chest pain, fever, chills, nausea, vomiting, palpitations, or shortness of breath. She is alert and oriented 3. No complaints at this time. - Exam Vitals: Temp Pulse Resp BP Pulse Ox 97.9 F 64 14 119/57 99 10/24/17 07:13 10/24/17 07:13 10/24/17 07:13 10/24/17 07:13 10/24/17 07:13 Exam: Gen. appearance: No acute distress Cardiovascular: Regular rate and rhythm, holosystolic murmur appreciated, grade 3/6. Lungs: Clear to auscultation bilaterally, no wheezes, rales, rhonchi. Abdomen: Soft, nontender Neurological: Alert and oriented 3, no focal deficits - Assessment and Plan (1) Elevated troponin Current Visit: No Status: Acute Assessment and Plan: Patient presented with left-sided chest pain; substernal with radiation to shoulders - Laboratory workup in the ED demonstrated elevated troponin of 0.05 and a BNP of 834 - Known history of CABG - Initial EKG demonstrated: HR 61, QT interval 468, no signs of early ischemia Plan: - Will trend serial troponins and monitor on telemetry - ASA, Lipitor, labetalol, losartan (2) Hypertension Current Visit: No Status: Chronic Assessment and Plan: Patient has a known history of HTN - Continue amlodipine and labetalol (3) (HFpEF) heart failure with preserved ejection fraction Current Visit: No Status: Acute Assessment and Plan: Pt has a hx of heart failure with preserved EF - Patient with elevated BNP of 834; no signs of fluid overload at this time - ECHO from May: EF of 70% Plan: - Continue home Lasix 40mg PO daily (4) Aortic stenosis Current Visit: No Status: Chronic Assessment and Plan: Patient has a known history of moderate aortic stenosis -Mean gradient 27mmHg, peak velocity 3.67 m/s as seen on ECHO in 05/2017 Plan: -Continue home Lasix and losartan (5) CKD (chronic kidney disease) Current Visit: No Status: Acute Assessment and Plan: Creatinine stable; continue to monitor Per nephrology, patient does not warrant dialysis at this time. (6) DVT prophylaxis Current Visit: No Status: Acute Assessment and Plan: Subcutaneous heparin (7) Chest pain Current Visit: No Status: Resolved Assessment and Plan: - Patient complaint of L-sided chest pain and troponins elevated as above - Cardiology recommends medical theray at this time; has signed off. Patient will follow up with cardiolog outpatient in 2-3 weeks (8) Altered mental status Current Visit: Yes Status: Acute Assessment and Plan: Unknown cause at this time; possibly secondary to uremia - Elevated BUN compared to baseline - AMS has resolved - Per nephrology, BUN rise may be secondary to diuretic use. Patient does not exhibit uremic sxs at this time. Avoid nephrotoxins - Time Spent with Patient Total time spent is greater than 50% in coordination of care (as documented) at patient's floor/unit and/or counseling patient: Internal Medicine: Result - Labs CBC & Chem 7: 10/24/17 04:29 10/24/17 04:29 Labs: Short CBC 10/24/17 Range/Units 04:29 WBC 3.7 L (4.3-11.1) K/mcL Hgb 8.9 L (11.5-15.4) g/dL Hct 27.3 L (35.3-44.9) % Plt Count 98 L (140-400) K/mcL Neutrophils # 2.0 (1.6-8.9) K/mcL BMP 10/24/17 04:29 Sodium 141 Potassium 4.8 Chloride 109 H Carbon Dioxide 24 BUN 86 H Creatinine 3.78 H Glucose 98 Calcium 8.6 - ABG Interpretation ABG results: PT/INR, D-dimer PT 11.0 Seconds (9.4-12.1) 10/22/17 14:19 - Impressions Impressions Echocardiogram 10/22/17 13:52 Impressions: LVEF 60-65%. Normal left ventricular size and systolic function. Biatrial enlargement. Moderate-severe mitral regurgitation. Moderate-severe tricuspid regurgitation. Estimated RVSP was 74 mmHg. Severe pulmonary hypertension. Moderate aortic stenosis. Mean gradient 27mmHg Left Ventricular Wall Motion: Rest Echo Findings All wall segments showed normal motion. Findings: Study Quality * Technically adequate exam. ECG Findings * Normal sinus rhythm. Left Ventricle * LVEF 60-65%. * Normal LV chamber size, wall thickness and function. Right Ventricle * Normal right ventricular structure and function. Right Atrium * Mildly dilated right atrium. Left Atrium * Moderately dilated left atrium. Interatrial Septum * Interatrial septum not well evaluated. Aortic Valve * Aortic valve not well visualized. * Moderately calcified aortic valve leaflets. * Moderately thickened aortic valve leaflets. * Moderate aortic stenosis. * Peak gradient 39mmHg, mean gradient 27mmHg Mitral Valve * Mildly thickened mitral valve leaflets. * Moderate-severe mitral regurgitation. * Mild mitral annular calcification Tricuspid Valve * Normal tricuspid valve structure. * Moderate-severe tricuspid regurgitation. * Estimated RVSP is 74 mmHg. * Severe pulmonary hypertension. Pulmonic Valve * Pulmonic valve not well visualized. * Mild pulmonic regurgitation. Aorta * Normally sized aortic root. Pericardium * The pericardium appears normal. IVC * The IVC is dilated. * > 50% respiratory change Consult Discharge Plan - Plan Referrals: Ema Del Toro TOWER WATCHMAN [Primary Care Provider] - <Jose Meng - Last Filed: 11/02/17 17:50> Hospitalist Progress Note - Encounter Date of Encounter: 11/02/17 - Exam Vitals: Temp Pulse Resp BP Pulse Ox 97.7 F 73 16 171/63 97 11/02/17 13:30 11/02/17 17:08 11/02/17 17:08 11/02/17 17:08 11/02/17 17:08 - Assessment and Plan (1) CHF (congestive heart failure) Current Visit: No Status: Chronic (2) Anemia Current Visit: No Status: Chronic (3) DVT prophylaxis Current Visit: No Status: Acute (4) CKD (chronic kidney disease) Current Visit: No Status: Chronic (5) Aortic stenosis Current Visit: No Status: Chronic (6) Coronary artery disease Current Visit: No Status: Chronic (7) Hypertension Current Visit: No Status: Chronic (8) GI (gastrointestinal bleed) Current Visit: Yes Status: Resolved (9) Acute respiratory failure Current Visit: Yes Status: Acute (10) Acute pulmonary edema Current Visit: Yes Status: Acute (11) Dysphagia Current Visit: Yes Status: Chronic - Time Spent with Patient Total time spent is greater than 50% in coordination of care (as documented) at patient's floor/unit and/or counseling patient: Internal Medicine: Result - Labs CBC & Chem 7: 11/02/17 03:53 11/02/17 03:53 Labs: Short CBC 11/02/17 Range/Units 03:53 WBC 5.3 (4.3-11.1) K/mcL Hgb 8.7 L (11.5-15.4) g/dL Hct 26.3 L (35.3-44.9) % Plt Count 88 L (140-400) K/mcL BMP 11/02/17 03:53 Sodium 135 L Potassium 3.6 Chloride 101 Carbon Dioxide 26 BUN 61 H Creatinine 3.87 H Glucose 103 Calcium 8.0 L - ABG Interpretation ABG results: PT/INR, D-dimer PT 11.0 Seconds (9.4-12.1) 10/22/17 14:19 - Impressions Impressions Videofluoroscopic Swallow 11/01/17 14:25 IMPRESSION: Aspiration of thin liquid. Please see separate speech pathology report for full discussion of findings and recommendations. D/ / Myles Wasserman MD / Myles Wasserman MD Interpreting Provider: Myles Wasserman MD - Attending Attestation I examined this patient and my medical decision-making was reviewed with the Resident Physician. I agree with the documented findings, disposition and treatment plan as described except to the extent set forth below. <Juan Ramon De La Vega - Last Filed: 10/24/17 11:23> (2) Hypertension Qualifiers: Hypertension type: secondary to other renal disorders Qualified Code(s): I15.1 - Hypertension secondary to other renal disorders (4) Aortic stenosis Qualifiers: Cardiac valve disease etiology: etiology unspecified Qualified Code(s): I35.0 - Nonrheumatic aortic (valve) stenosis (5) CKD (chronic kidney disease) Qualifiers: Chronic kidney disease stage: stage 4 (severe) Qualified Code(s): N18.4 - Chronic kidney disease, stage 4 (severe); Z99.2 - Dependence on renal dialysis (7) Chest pain Qualifiers: Chest pain type: unspecified Qualified Code(s): R07.9 - Chest pain, unspecified <JarvisariaodellJose - Last Filed: 11/02/17 17:50> (1) CHF (congestive heart failure) Qualifiers: Heart failure type: diastolic Heart failure chronicity: acute on chronic Qualified Code(s): I50.33 - Acute on chronic diastolic (congestive) heart failure (2) Anemia Qualifiers: Anemia type: other cause Other causes of anemia: acute posthemorrhagic Qualified Code(s): D62 - Acute posthemorrhagic anemia (4) CKD (chronic kidney disease) Qualifiers: Chronic kidney disease stage: on chronic dialysis Qualified Code(s): N18.6 - End stage renal disease; Z99.2 - Dependence on renal dialysis (5) Aortic stenosis Qualifiers: Cardiac valve disease etiology: etiology unspecified Qualified Code(s): I35.0 - Nonrheumatic aortic (valve) stenosis (6) Coronary artery disease Qualifiers: Coronary Disease-Associated Artery/Lesion type: [place] artery [place] vs. transplanted heart: [place] heart Associated angina: without angina Qualified Code(s): I25.10 - Atherosclerotic heart disease of [place] coronary artery without angina pectoris (7) Hypertension Qualifiers: Hypertension type: renovascular hypertension Qualified Code(s): I15.0 - Renovascular hypertension (8) GI (gastrointestinal bleed) Qualifiers: GI bleed type/associated pathology: melena Qualified Code(s): K92.1 - Melena (9) Acute respiratory failure Qualifiers: Respiratory failure complication: hypoxia Qualified Code(s): J96.01 - Acute respiratory failure with hypoxia (11) Dysphagia Qualifiers: Dysphagia type: oropharyngeal phase Qualified Code(s): R13.12 - Dysphagia, oropharyngeal phase
[2017-10-24] MEDS: Insulin LISPRO 300 UNITS/3 ML VIAL SQ SCH ×4 (08:26→20:46)
[2017-10-24] MEDS: Sennosides/Docusate Sodium TABLET PO SCH ×2 (08:40→20:28)
[2017-10-24] MEDS: amLODIPine 5 MG TABLET PO SCH (08:40)
[2017-10-24] MEDS: Gabapentin 100 MG CAPSULE PO SCH ×3 (08:40→20:27)
[2017-10-24] MEDS: Furosemide 40 MG TABLET PO SCH (08:40)
[2017-10-24] MEDS: Isosorbide MONOnitrate (24 HR) 60 MG TAB.ER.24H PO SCH (08:40)
[2017-10-24] MEDS: Aspirin Enteric Coated 81 MG Tablet PO SCH (08:40)
[2017-10-24] MEDS ORDERED: *HR* HYDROcodone/Acet 5/325 mg TABLET PO ONE (14:39)
--- NOTE | 2017-10-24 15:37 | Discharge Summary ---
- NOTES TO OUTPATIENT PROVIDER Notes to Outpatient Provider: Follow-up Cardiology 2-3 weeks. Renally dose medications, Nephro recommends decreasing diuretic as tolerated. Note patient is prone to fluid overload. Orders not resulted at time of discharge: Pending orders 10/23/17 06:00 EKG [ECG 12 lead ECG] [ECG] AM 0600 10/25/17 04:00 BMP [Basic Metabolic Panel] AM 0400 Complete Blood Count [HEME] AM 0400 Date of Encounter: 10/24/17 Time of Encounter: 15:24 - Discharge Diagnosis (1) Chest pain Priority: Primary Status: Resolved Qualifiers: Chest pain type: unspecified Qualified Code(s): R07.9 - Chest pain, unspecified (2) DVT prophylaxis Priority: Secondary Status: Acute (3) CKD (chronic kidney disease) Priority: Secondary Status: Acute Qualifiers: Chronic kidney disease stage: stage 4 (severe) Qualified Code(s): N18.4 - Chronic kidney disease, stage 4 (severe) (4) Elevated troponin Priority: Secondary Status: Acute (5) Aortic stenosis Priority: Secondary Status: Chronic Qualifiers: Cardiac valve disease etiology: etiology unspecified Qualified Code(s): I35.0 - Nonrheumatic aortic (valve) stenosis (6) (HFpEF) heart failure with preserved ejection fraction Priority: Secondary Status: Acute (7) Hypertension Priority: Secondary Status: Chronic Qualifiers: Hypertension type: secondary to other renal disorders Qualified Code(s): I15.1 - Hypertension secondary to other renal disorders; N28.89 - Other specified disorders of kidney and ureter (8) Altered mental status Priority: Secondary Status: Resolved Qualifiers: Altered mental status type: unspecified Qualified Code(s): R41.82 - Altered mental status, unspecified Hospital course: Patient is a 87-year-old female with past medical history significant for ischemic cardiac myopathy, heart failure with preserved ejection fraction, CKD stage IV, hypertension and diabetes presented to the ER from the [facility] on 10/22/17 for chest pain. It was also reported that she may have had brief episode of altered mental status. In the ER, patient was found to have elevated troponin of 0.05 and a BNP of 834. Due to patients significant cardiac history, cardiology was consulted from the ER and patient will be admitted to the medical surgical floor for ACS rule out. A chest x-ray did not show any overt pulmonary edema or effusions, or any acute process. A CT head was done showing no acute abnormality. Cardiology started patient on heparin drip, but later discontinued after further monitoring. She was not a good candidate for further testing such as LHC because of advanced age and CKD stage IV. They suggest to continue medical management and continue low dose antianginal. Nephrology was consulted for BUN 80s-90s but this was constant and recommended caution with her home diuretics. She has creatinine 3.4-3.7 but after Nephrology eval, there was no indication for dialysis. Lasix was kept at home dose because she has noted that she is prone to fluid overload with decreasing it. She was chest pain free and discharged back to [facility]. - She will need close follow-up with Cardiology - Titrate down diuretics, if able with caution of fluid overload. - Time Spent with Patient Total time spent providing and/or coordinating discharge services: - Discharge Medications Home Medications: Iron Ps Cmplx/Vit B12/FA [Iferex 150 Forte Capsule] 1 cap PO BID 04/11/15 [ History] Losartan Potassium [Cozaar] 100 mg PO DAILY 04/11/15 [History] Cilostazol [Pletal] 100 mg PO BID #0 07/09/15 [History] Atorvastatin [Lipitor] 40 mg PO HS #30 tablet 10/11/15 [Rx] Furosemide [Lasix] 40 mg PO DAILY #30 tablet 10/11/15 [Rx] Labetalol [Trandate] 200 mg PO BID #60 tablet 05/22/17 [Rx] Aspirin [Lo-Dose Aspirin EC] 81 mg PO DAILY 10/07/17 [History] Calcitriol [Rocaltrol] 0.25 mcg PO MOWEFR 10/07/17 [History] Isosorbide MONOnitrate [Isosorbide Mononitrate ER] 180 mg PO DAILY 10/07/17 [ History] cloNIDine HCl [Clonidine HCl] 0.2 mg PO TID 10/07/17 [History] Amlodipine Besylate 10 mg PO DAILY 10/22/17 [History] Glucagon,Human Recombinant [Glucagon Emergency Kit] 1 mg IJ ONCE PRN 10/22/17 [ History] Hydralazine HCl 50 mg PO TID 10/22/17 [History] Insulin Glargine,Hum.rec.anlog [Oneilaglephraim Andersonpen U-100] 20 unit SQ HS 10/22/17 [ History] hydrALAZINE [HydrALAZINE] 25 mg PO TID 10/22/17 [History] Lidocaine Patch [Lidoderm 5% patch] 1 each TP DAILY PRN adh..patch 10/24/17 [Rx ] Allergies/Adverse Reactions: 3 Allergy/AdvReac Type Severity Reaction Status Date / Time celecoxib [From Celebrex] AdvReac Nausea Verified 10/22/17 10:21 Date of admission: 10/22/17 10:30 Primary care physician: Ema Del Toro CNP Consults: 10/23/17 12:37 Consult to Nephrology [CONS] Routine Consulting Provider: Kidney Oumou/ALICIA/LAKEISHA/DONNIE Reason for Consult: CKD with rising BUN and AMS; concern for uremia Call Completed: Yes Discharging clinician: Jose Meng - Constitutional Vitals: Temp Pulse Resp BP Pulse Ox 97.5 F L 67 16 158/67 97 10/24/17 15:15 10/24/17 15:15 10/24/17 15:15 10/24/17 15:15 10/24/17 15:15 General appearance: Present: A&O X 3 Exam: Gen. appearance: No acute distress Cardiovascular: Regular rate and rhythm, holosystolic murmur appreciated, grade 3/6. Lungs: Clear to auscultation bilaterally, no wheezes, rales, rhonchi. Abdomen: Soft, nontender Neurological: Alert and oriented 3, no focal deficits - Patient Status Disposition: Transfer SNF Condition: Fair Functional capacity at discharge: wheelchair bound Overall status at discharge: patient is back to baseline - Discharge Instructions Follow Up With: Ema Del Toro CNP [Primary Care Provider] - Forms: ED Satisfaction Letter, Work/School Release - Diet and Activity Activity: as per physical therapy Diet: low fat, low cholesterol, low salt diet
--- NOTE | 2017-10-24 15:49 | Physician Discharge Referral ---
ExtendedCare Referral Info Institutional Level of Care: Skilled - Diagnosis (1) Chest pain Priority: Primary Status: Resolved (2) DVT prophylaxis Priority: Secondary Status: Acute (3) CKD (chronic kidney disease) Priority: Secondary Status: Acute (4) Elevated troponin Priority: Secondary Status: Acute (5) Aortic stenosis Priority: Secondary Status: Chronic (6) (HFpEF) heart failure with preserved ejection fraction Priority: Secondary Status: Acute (7) Hypertension Priority: Secondary Status: Chronic (8) Altered mental status Priority: Secondary Status: Resolved - Transfer Medications Home Medications: Iron Ps Cmplx/Vit B12/FA [Iferex 150 Forte Capsule] 1 cap PO BID 04/11/15 [ History] Losartan Potassium [Cozaar] 100 mg PO DAILY 04/11/15 [History] Cilostazol [Pletal] 100 mg PO BID #0 07/09/15 [History] Atorvastatin [Lipitor] 40 mg PO HS #30 tablet 10/11/15 [Rx] Furosemide [Lasix] 40 mg PO DAILY #30 tablet 10/11/15 [Rx] Labetalol [Trandate] 200 mg PO BID #60 tablet 05/22/17 [Rx] Aspirin [Lo-Dose Aspirin EC] 81 mg PO DAILY 10/07/17 [History] Calcitriol [Rocaltrol] 0.25 mcg PO MOWEFR 10/07/17 [History] Isosorbide MONOnitrate [Isosorbide Mononitrate ER] 180 mg PO DAILY 10/07/17 [ History] cloNIDine HCl [Clonidine HCl] 0.2 mg PO TID 10/07/17 [History] Amlodipine Besylate 10 mg PO DAILY 10/22/17 [History] Glucagon,Human Recombinant [Glucagon Emergency Kit] 1 mg IJ ONCE PRN 10/22/17 [ History] Hydralazine HCl 50 mg PO TID 10/22/17 [History] Insulin Glargine,Hum.rec.anlog [Basaglar Kwikpen U-100] 20 unit SQ HS 10/22/17 [ History] hydrALAZINE [HydrALAZINE] 25 mg PO TID 10/22/17 [History] Lidocaine Patch [Lidoderm 5% patch] 1 each TP DAILY PRN adh..patch 10/24/17 [Rx ] Allergies/Adverse Reactions: 3 Allergy/AdvReac Type Severity Reaction Status Date / Time celecoxib [From Celebrex] AdvReac Nausea Verified 10/22/17 10:21 - Respiratory Orders Smoking Cessation: Smoking cessation has been advised. For more information, call the [place] Tobacco Quit Line at 3-863-QOMX-NOW. - Diet Orders No Concentrated Sweets, Renal, Cardiac CERTIFICATION: I certify that the transfer of the above named patient to an Extended Care Facility is necessary for the continuing treatment of the diagnosis listed. The above information is true and accurate reflection of patient's current condition. Confidential - Redisclosure prohibited without a patient's written consent.
[2017-10-24] MEDS: Insulin DETEMIR 100 UNIT/ML X5UNITS SQ SCH (20:28)
[2017-10-25 05:18] LABS: Basophils % 0.2 %
[2017-10-25 05:20] LABS: Eosinophils # 0.2 K/mcL (0.0-0.6); Eosinophils % 4.3 %; Hematocrit 28.6 % (35.3-44.9); Hemoglobin 9.3 g/dL (11.5-15.4); Immature Granulocytes % 0.4 % (0-4); Immature Platelets 1.2 % (1.1-6.1); Lymphocytes # 0.6 K/mcL (0.6-4.6); Lymphocytes % 11.5 %; Mean Corpuscular HGB Conc 32.5 g/dL (31.6-35.5); Mean Corpuscular Hemoglobin 30.6 pg (28.0-33.3); Mean Corpuscular Volume 94.1 fL (83.0-100.0); Mean Platelet Volume 10.1 fL (9.4-12.4); Monocytes # 0.6 K/mcL (0.0-1.3); Monocytes % 10.4 %; Neutrophils # 3.9 K/mcL (1.6-8.9); Red Blood Count 3.04 M/mcL (3.82-4.97); Segmented Neutrophils % 73.2 %
[2017-10-25 05:24] LABS: Platelet Count 88 K/mcL (140-400)
[2017-10-25 05:47] LABS: Calcium 8.8 mg/dL (8.6-10.3); Potassium 4.7 mEq/L (3.5-5.1)
[2017-10-25] MEDS: Insulin LISPRO 300 UNITS/3 ML VIAL SQ SCH ×4 (07:49→23:02)
[2017-10-25] MEDS: Gabapentin 100 MG CAPSULE PO SCH ×3 (09:00→23:04)
[2017-10-25] MEDS: Isosorbide MONOnitrate (24 HR) 60 MG TAB.ER.24H PO SCH (09:00)
[2017-10-25] MEDS: amLODIPine 5 MG TABLET PO SCH (09:01)
[2017-10-25] MEDS: Sennosides/Docusate Sodium TABLET PO SCH ×2 (09:01→23:04)
[2017-10-25] MEDS: Aspirin Enteric Coated 81 MG Tablet PO SCH (09:01)
[2017-10-25] MEDS: cloNIDine HCl 0.1 MG TABLET PO SCH ×3 (09:01→23:04)
[2017-10-25] MEDS: hydrALAZINE 25 MG TABLET PO SCH ×6 (09:01→23:04)
[2017-10-25] MEDS: Furosemide 40 MG TABLET PO SCH (09:02)
[2017-10-25] MEDS: IRON PS CMPLX PO SCH ×2 (09:03→23:05)
[2017-10-25] MEDS: [UNRECOGNIZED DRUG - OTHER] PO SCH ×2 (09:03→23:05)
[2017-10-25] MEDS: VIT B12 PO SCH ×2 (09:03→23:05)
--- NOTE | 2017-10-25 10:32 | Event Note ---
Date of Encounter: 10/25/17 Time of Encounter: 09:00 Medical Student Note-Kevin Chawla, OMS-IV Subjective: Ms. Giles was sitting up in bed and watching TV upon my arrival. Her son is present at the bedside during my examination. Patient is alert and oriented x 3 and states that she is feeling well this morning. Ms. Giles denies having any chest pain, shortness of breath, abdominal pain, nausea or vomiting, or chills. She states that she is urinating well and that her last bowel movement was last night. Objective: Vitals: Temperature-97.8, HR-6, RR-15, RP-182/67, O2-95 General Appearance: Patient does not appears to be in distress Head exam: Atraumatic, normocephalic Eye exam: PERRL, conjuntiva pink, sclera anicteric Neck exam: Trachea midline Respiratory exam: No wheezing, rales, or rhonci Cardiology exam: RRR, +S1, +S2 Gastrointestinal exam: Normal bowel sounds, soft Extremities exam: warm without tenderness, pitting edema bilaterally +2 Neurological exam: CN II-XII intact, patient is alert and oriented x 3 Skin exam: Dry and intact Assessment: 1. Heart Failure with Preserved Ejection Fraction 2. Elevated Troponin 3. Chronic Kidney Disease 4. Aortic Stenosis 5. Chest Pain 6. Hypertension 7. Diabetes 8. Altered Mental Status 9. DVT Prophylaxis Plan: 1. Patient has a previous history of Heart Failure with Preserved Ejection Fraction. Patient received an Echo on 10/22/17 which showed a LVEF fo 60-65%, biatrial enlargement, moderate-severe mitral/tricuspid regurgitation, severe pulmonary hypertension, and moderate aortic stenosis. Upon admission the patient had an elevated BNP at 834 as well as an elevated Troponin 0.05 (10/22/17 ) and the latest value taken on 10/23/17 continued to show Troponin at 0.05. Initial EKG showed no signs of early ischemia. On physical exam the patient is clear to auscultation bilaterally, however she does have +2 pitting edema bilaterally on the lower extremities. Patient is currently receiving Lasix 40 mg PO. Continue to monitor. 2. See above 3. Patient has a history of stage 5 CKD. Upon admission the patient had an elevated BUN/Cr at 88/3.49 this has stayed constant with the latest value at 89/ 3.58. Nephrology was consulted and believe that the rise in her BUN may be secondary to her diuretic use. At this time they do not believe that she warrants dialysis therapy and recommend avoiding nephrotoxins and adjusting medication for her renal function. 4. Patient has a known history of moderate aortic stenosis. Echo performed on 10/22/17 showed a mean gradient of 27 mmHg. Continue home Lasix and Losartan 5. Patient complaint of left sided chest pain upon admission and troponins were elevated (0.05). Cardiology was consulted and per their recommendations the patient is being managed with medical therapy at this time. Patient will follow up with cardiology as an outpatient in 2-3 weeks. 6. Patient has a previous diagnosis of hypertension. Latest blood pressure reading was 182/67. Patient is currently being treated with Amlodipine, Clonidine, Hydralazine, Imdur, and Labetalol. Continue to monitor BP Q4 hours. 7. Patient has a previous diagnosis of diabetes. Blood glucose levels have been trending down with a latest value of 66. Patient should be discontinued from long acting insulin and glucose levels should be rechecked. 8. At this time the patient is alert and oriented x 3. Nephrology was consulted and believe that her AMS was possibly secondary to uremia as her BUN was elevated compared to baseline. Per Nephrology the BUN may be elevated secondary to diuretic use, however the patient does not warrant dialysis at this time. 9. Patient has been discontinued from Heparin
--- NOTE | 2017-10-25 13:02 | Event Note ---
Date of Encounter: 10/25/17 Time of Encounter: 08:45 I examined this patient and my medical decision-making was reviewed with the Resident Physician. I agree with the documented findings, disposition and treatment plan as described with any changes as documented below. Patient is awake and alert. Lying in bed. Comfortable. Denies any chest pain or palpitations at this time. Shortness of breath is improving. She did have low blood sugars this morning. Denies any headache or dizziness. General appearance: Present: cooperative, A&O X 3, , answers questions appropriately - ENT - Neck Neck exam general surgery: Present: supple, trachea midline. Absent: lymphadenopathy - Respiratory Respiratory exam: Present: Normal breath sounds. Absent: accessory muscle use, rales, rhonchi - Cardiovascular Cardiovascular exam: Present: RRR, +S1, +S2, pansystolic murmur. Absent: diastolic murmur, gallop, rubs - GI/Abdominal GI/Abdominal exam: Present: normal bowel sounds, soft, no peritoneal signs. Absent: distended, tenderness - Extremities Exam Extremities exam: Present: warm, radial pulses palpable and symmetrical. Absent : calf tenderness, cyanotic, pedal edema - Neurological Exam Neurological exam: Present: alert, oriented X3, no focal deficits. Absent: facial droop, speech deficit Elevated troponin: Adynamic. Conservative management per cardiology. On aspirin, statin. Hypertensive urgency: Blood pressure is severely elevated. Discussed with nephrology. We will increase hydralazine to 100 mg by mouth 3 times a day. Hypoglycemia: Blood sugars were low today. Decreased long-acting insulin coverage. We will continue to monitor closely. Thrombocytopenia: Chronic. Avoid medical anticoagulation. Chronic kidney disease stage IV: Stable renal function.
--- NOTE | 2017-10-25 15:30 | Internal Med Progress Note ---
<Juan Ramon De La Vega - Last Filed: 10/25/17 15:32> Hospitalist Progress Note - Encounter Date of Encounter: 10/25/17 Time of Encounter: 09:00 - Subjective Interval History: Patient was seen and examined at bedside. She is feeling well this morning. She denies having any chest pain, fever, chills, nausea, vomiting, palpitations , or shortness of breath. She is alert and oriented 3. No complaints at this time. - Exam Vitals: Temp Pulse Resp BP Pulse Ox 97.8 F 68 15 182/67 95 10/25/17 07:00 10/25/17 07:00 10/25/17 07:00 10/25/17 07:00 10/25/17 09:00 Exam: General Appearance: No acute distress Head exam: Atraumatic, normocephalic Eye exam: PERRL, conjuntiva pink, sclera anicteric Respiratory: Clear to auscultation bilaterally, No wheezing, rales, or rhonci Cardiology: RRR, +S1, +S2, no murmurs, rubs, gallops Abdominal: Normal bowel sounds, soft Extremities: warm without tenderness, pitting edema bilaterally +2 Neurological: CN II-XII intact, patient is alert and oriented x 3 Skin: Dry and intact - Assessment and Plan (1) Elevated troponin Current Visit: No Status: Acute Assessment and Plan: Patient presented with left-sided chest pain; substernal with radiation to shoulders - Laboratory workup in the ED demonstrated elevated troponin of 0.05 and a BNP of 834 - Known history of CABG - Initial EKG demonstrated: HR 61, QT interval 468, no signs of early ischemia Plan: - ASA, Lipitor, labetalol, losartan - Cardiology recommends conservative management; patient will follow-up in the outpatient setting in 2-3 weeks (2) (HFpEF) heart failure with preserved ejection fraction Current Visit: No Status: Acute Assessment and Plan: Pt has a hx of heart failure with preserved EF - Patient with elevated BNP of 834; no signs of fluid overload at this time - ECHO from May: EF of 70% Plan: - Continue home Lasix 40mg PO daily (3) Aortic stenosis Current Visit: No Status: Chronic Assessment and Plan: Patient has a known history of moderate aortic stenosis -Mean gradient 27mmHg, peak velocity 3.67 m/s as seen on ECHO in 05/2017 Plan: -Continue home Lasix and losartan (4) CKD (chronic kidney disease) Current Visit: No Status: Acute Assessment and Plan: Creatinine stable; continue to monitor Per nephrology, patient does not warrant dialysis at this time. (5) DVT prophylaxis Current Visit: No Status: Acute Assessment and Plan: - Due to thrombocytopenia, will avoid medical anti-coagulation - SCDs (6) Hypertension Current Visit: No Status: Chronic Assessment and Plan: Patient has a known history of HTN; was severely elevated today - Continue current antihypertensive medications - Contact nephrology for recommendations - Increase hydralazine to 100 mg by mouth 3 times a day - Time Spent with Patient Total time spent is greater than 50% in coordination of care (as documented) at patient's floor/unit and/or counseling patient: Internal Medicine: Result - Labs CBC & Chem 7: 10/25/17 04:18 10/25/17 04:18 Labs: Short CBC 10/25/17 Range/Units 04:18 WBC 5.3 (4.3-11.1) K/mcL Hgb 9.3 L (11.5-15.4) g/dL Hct 28.6 L (35.3-44.9) % Plt Count 88 L (140-400) K/mcL Neutrophils # 3.9 (1.6-8.9) K/mcL BMP 10/25/17 04:18 Sodium 140 Potassium 4.7 Chloride 110 H Carbon Dioxide 22 L BUN 89 H Creatinine 3.58 H Glucose 66 L Calcium 8.8 - ABG Interpretation ABG results: PT/INR, D-dimer PT 11.0 Seconds (9.4-12.1) 10/22/17 14:19 Consult Discharge Plan - Plan Referrals: Ema Del Toro, SCANNING MANAGER [Primary Care Provider] - <Tamiko Austin - Last Filed: 10/25/17 16:01> Hospitalist Progress Note - Encounter Date of Encounter: 10/25/17 Time of Encounter: 08:45 - Exam Vitals: Temp Pulse Resp BP Pulse Ox 98.1 F 71 19 172/85 90 10/25/17 15:34 10/25/17 15:34 10/25/17 15:34 10/25/17 15:41 10/25/17 15:34 - Assessment and Plan (1) DVT prophylaxis Current Visit: No Status: Acute (2) CKD (chronic kidney disease) Current Visit: No Status: Acute (3) Elevated troponin Current Visit: No Status: Acute (4) Aortic stenosis Current Visit: No Status: Chronic (5) (HFpEF) heart failure with preserved ejection fraction Current Visit: No Status: Acute (6) Hypertension Current Visit: No Status: Chronic - Time Spent with Patient Total time spent is greater than 50% in coordination of care (as documented) at patient's floor/unit and/or counseling patient: Internal Medicine: Result - Labs CBC & Chem 7: 10/25/17 04:18 10/25/17 04:18 Labs: Short CBC 10/25/17 Range/Units 04:18 WBC 5.3 (4.3-11.1) K/mcL Hgb 9.3 L (11.5-15.4) g/dL Hct 28.6 L (35.3-44.9) % Plt Count 88 L (140-400) K/mcL Neutrophils # 3.9 (1.6-8.9) K/mcL BMP 10/25/17 04:18 Sodium 140 Potassium 4.7 Chloride 110 H Carbon Dioxide 22 L BUN 89 H Creatinine 3.58 H Glucose 66 L Calcium 8.8 - ABG Interpretation ABG results: PT/INR, D-dimer PT 11.0 Seconds (9.4-12.1) 10/22/17 14:19 - Attending Attestation I examined this patient and my medical decision-making was reviewed with the Resident Physician, Juan Ramon De La Vega. I agree with the documented findings, disposition and treatment plan as described with any changes as documented below. Patient is awake and alert. Lying in bed. Comfortable. Denies any chest pain or palpitations at this time. Shortness of breath is improving. She did have low blood sugars this morning. Denies any headache or dizziness. General appearance: Present: cooperative, A&O X 3, , answers questions appropriately - ENT - Neck Neck exam general surgery: Present: supple, trachea midline. Absent: lymphadenopathy - Respiratory Respiratory exam: Present: Normal breath sounds. Absent: accessory muscle use, rales, rhonchi - Cardiovascular Cardiovascular exam: Present: RRR, +S1, +S2, pansystolic murmur. Absent: diastolic murmur, gallop, rubs - GI/Abdominal GI/Abdominal exam: Present: normal bowel sounds, soft, no peritoneal signs. Absent: distended, tenderness - Extremities Exam Extremities exam: Present: warm, radial pulses palpable and symmetrical. Absent : calf tenderness, cyanotic, pedal edema - Neurological Exam Neurological exam: Present: alert, oriented X3, no focal deficits. Absent: facial droop, speech deficit Elevated troponin: Adynamic. Conservative management per cardiology. On aspirin, statin. Hypertensive urgency: Blood pressure is severely elevated. Discussed with nephrology. We will increase hydralazine to 100 mg by mouth 3 times a day. Hypoglycemia: Blood sugars were low today. Decreased long-acting insulin coverage. We will continue to monitor closely. Thrombocytopenia: Chronic. Avoid medical anticoagulation. Chronic kidney disease stage IV: Stable renal function. <Juan Ramon De La Vega - Last Filed: 10/25/17 15:32> (3) Aortic stenosis Qualifiers: Cardiac valve disease etiology: etiology unspecified Qualified Code(s): I35.0 - Nonrheumatic aortic (valve) stenosis (4) CKD (chronic kidney disease) Qualifiers: Chronic kidney disease stage: stage 4 (severe) Qualified Code(s): N18.4 - Chronic kidney disease, stage 4 (severe) (6) Hypertension Qualifiers: Hypertension type: secondary to other renal disorders Qualified Code(s): I15.1 - Hypertension secondary to other renal disorders; N28.89 - Other specified disorders of kidney and ureter <Tamiko Austin - Last Filed: 10/25/17 16:01> (2) CKD (chronic kidney disease) Qualifiers: Chronic kidney disease stage: stage 4 (severe) Qualified Code(s): N18.4 - Chronic kidney disease, stage 4 (severe) (4) Aortic stenosis Qualifiers: Cardiac valve disease etiology: etiology unspecified Qualified Code(s): I35.0 - Nonrheumatic aortic (valve) stenosis (6) Hypertension Qualifiers: Hypertension type: secondary to other renal disorders Qualified Code(s): I15.1 - Hypertension secondary to other renal disorders; N28.89 - Other specified disorders of kidney and ureter
[2017-10-25] MEDS: Heparin 25,000 UNIT/500 ML D5W 25,000 UNIT/500 ML BAG IVC SCH (19:44)
[2017-10-25 20:06] LABS: Basophils % 0.1 %; Eosinophils # 0.1 K/mcL (0.0-0.6); Eosinophils % 0.8 %; Hematocrit 28.9 % (35.3-44.9); Hemoglobin 9.1 g/dL (11.5-15.4); Immature Granulocytes % 0.5 % (0-4); Immature Platelets 1.5 % (1.1-6.1); Lymphocytes # 0.4 K/mcL (0.6-4.6); Lymphocytes % 4.8 %; Mean Corpuscular HGB Conc 31.5 g/dL (31.6-35.5); Mean Corpuscular Hemoglobin 28.9 pg (28.0-33.3); Mean Corpuscular Volume 91.7 fL (83.0-100.0); Mean Platelet Volume 10.4 fL (9.4-12.4); Monocytes # 0.3 K/mcL (0.0-1.3); Monocytes % 4.6 %; Neutrophils # 6.5 K/mcL (1.6-8.9); Red Blood Count 3.15 M/mcL (3.82-4.97); Red Cell Distribution Width 16.4 % (11.5-14.5); Segmented Neutrophils % 89.2 %
[2017-10-25 20:20] LABS: Platelet Count 77 K/mcL (140-400)
[2017-10-25 20:24] LABS: Platelet Estimate Marked Decrease (Normal)
[2017-10-25] MEDS: Insulin DETEMIR 100 UNIT/ML X5UNITS SQ SCH (23:03)
[2017-10-26] MEDS: Gabapentin 100 MG CAPSULE PO SCH ×3 (08:55→21:31)
[2017-10-26] MEDS: hydrALAZINE 25 MG TABLET PO SCH ×3 (08:55→21:31)
[2017-10-26] MEDS: Isosorbide MONOnitrate (24 HR) 60 MG TAB.ER.24H PO SCH (08:56)
[2017-10-26] MEDS: Furosemide 40 MG TABLET PO SCH (08:56)
[2017-10-26] MEDS: cloNIDine HCl 0.1 MG TABLET PO SCH ×3 (08:56→21:31)
[2017-10-26] MEDS: Sennosides/Docusate Sodium TABLET PO SCH ×2 (08:56→21:32)
[2017-10-26] MEDS: amLODIPine 5 MG TABLET PO SCH (08:56)
[2017-10-26] MEDS: [UNRECOGNIZED DRUG - OTHER] PO SCH ×2 (08:57→21:32)
[2017-10-26] MEDS: Insulin LISPRO 300 UNITS/3 ML VIAL SQ SCH ×4 (08:57→22:50)
[2017-10-26] MEDS: IRON PS CMPLX PO SCH ×2 (08:57→21:32)
[2017-10-26] MEDS: Aspirin Enteric Coated 81 MG Tablet PO SCH (08:57)
[2017-10-26] MEDS: VIT B12 PO SCH ×2 (08:57→21:32)
--- NOTE | 2017-10-26 08:58 | Internal Med Progress Note ---
<Kevin Chawla - Last Filed: 10/26/17 13:46> Hospitalist Progress Note - Encounter Date of Encounter: 10/26/17 Time of Encounter: 08:15 - Subjective Interval History: Ms. Giles was sitting upright upon my arrival with her breakfast in front of her but was not eating. Upon questioning the patient is alert and oriented x 3 and states that the only discomfort that she is having this morning is her bowels. Patient states that she slept okay last night. Patient also admits to having some abdominal pain and nausea, but denies any vomiting. She also denies chest pain, shortness of breath, fever, chills, or headaches. Ms. Giles states that while she has been urinating she continues to have no bowel movement. - Exam Vitals: Temp Pulse Resp BP Pulse Ox 97.7 F 72 16 166/80 94 10/26/17 06:58 10/26/17 06:58 10/26/17 06:58 10/26/17 06:58 10/26/17 06:58 Exam: General Appearance: Patient does not appears to be in distress Head exam: Atraumatic, normocephalic Eye exam: PERRL, conjuntiva pink, sclera anicteric Neck exam: Trachea midline Respiratory exam: No wheezing, rales, or rhonci Cardiology exam: RRR, +S1, +S2 Gastrointestinal exam: Normal bowel sounds, distended, tender to palpation Extremities exam: warm without tenderness, legs were wrapped an unable to be examined Neurological exam: CN II-XII intact, patient is alert and oriented x 3 Skin exam: Dry and intact - Assessment and Plan (1) (HFpEF) heart failure with preserved ejection fraction Current Visit: No Status: Acute Assessment and Plan: -Patient has a previous history of Heart Failure with Preserved Ejection Fraction. -Patient received an Echo on 10/22/17 which showed a LVEF fo 60-65%, biatrial enlargement, moderate-severe mitral/tricuspid regurgitation, severe pulmonary hypertension, and moderate aortic stenosis. -On physical exam the patient is clear to auscultation bilaterally - Patient is currently receiving Lasix 40 mg PO. -Continue to monitor. (2) Elevated troponin Current Visit: No Status: Acute Assessment and Plan: -Upon admission the patient had an elevated BNP at 834 as well as an elevated Troponin 0.05 (10/22/17) and the latest value taken on 10/23/17 continued to show Troponin at 0.05. -Initial EKG showed no signs of early ischemia. -Receiving treatment with Aspirin, Atorvastatin, Labetalol, and Losartan (3) CKD (chronic kidney disease) Current Visit: No Status: Acute Assessment and Plan: -Patient has a history of stage 5 CKD. Upon admission the patient had an elevated BUN/Cr at 88/3.49 this has stayed constant with the latest value at 89/ 3.58 (10/25/17). -Nephrology was consulted and believe that the rise in her BUN may be secondary to her diuretic use. -At this time they do not believe that she warrants dialysis therapy and recommend avoiding nephrotoxins and adjusting medication for her renal function. (4) Constipation Current Visit: Yes Status: Acute Assessment and Plan: -Patient has been complaining of abdominal pain and has not had a bowel movement for a few days -On physical exam the abdomen is distended and tender to palpation -Patient has been receiving colace and senna plus with no avail -CT of the abdomen/pelvis showed a large amount of stool within the rectum and a moderate to large amount of stool within the remainder the large bowel -Enema has been ordered for the patient (5) Aortic stenosis Current Visit: No Status: Chronic Assessment and Plan: -Patient has a known history of moderate aortic stenosis. -Echo performed on 10/22/17 showed a mean gradient of 27 mmHg. -Continue home Lasix and Losartan (6) Chest pain Current Visit: No Status: Acute Assessment and Plan: -Patient complaint of left sided chest pain upon admission and troponins were elevated (0.05). -Cardiology was consulted and per their recommendations the patient is being managed with medical therapy at this time. -Patient will follow up with cardiology as an outpatient in 2-3 weeks. (7) Hypertension Current Visit: No Status: Chronic Assessment and Plan: -Patient has a previous diagnosis of hypertension. -Latest blood pressure reading was 166/80. -Patient is currently being treated with Amlodipine, Clonidine, Hydralazine, Imdur, and Labetalol. -Hydralazine has been increased to 100 mg TID. Continue to monitor BP Q4 hours. (8) Diabetes Current Visit: No Status: Acute Assessment and Plan: -Patient has a previous diagnosis of diabetes. -Blood glucose levels have been trending down with a latest value of 66 (10/25/17) . -Patient should be discontinued from long acting insulin and glucose levels should be rechecked. (9) Altered mental status Current Visit: Yes Status: Resolved Assessment and Plan: -At this time the patient is alert and oriented x 3. -Nephrology was consulted and believe that her AMS was possibly secondary to uremia as her BUN was elevated compared to baseline. -Per Nephrology the BUN may be elevated secondary to diuretic use, however the patient does not warrant dialysis at this time. (10) Positive occult stool blood test Current Visit: Yes Status: Acute Assessment and Plan: -Patient had a positive stool occult blood test on 10/26/17 -Hemoglobin has slightly trended down today (9.3 to 9.1) -Monitor for now, if worsens will consult GI (11) DVT prophylaxis Current Visit: No Status: Acute Assessment and Plan: Patient has been discontinued from Heparin due to Thrombocytopenia - Time Spent with Patient Total time spent is greater than 50% in coordination of care (as documented) at patient's floor/unit and/or counseling patient: Internal Medicine: Result - Labs CBC & Chem 7: 10/25/17 19:24 10/25/17 04:18 Labs: Short CBC 10/25/17 Range/Units 19:24 WBC 7.3 (4.3-11.1) K/mcL Hgb 9.1 L (11.5-15.4) g/dL Hct 28.9 L (35.3-44.9) % Plt Count 77 L (140-400) K/mcL Neutrophils # 6.5 (1.6-8.9) K/mcL - ABG Interpretation ABG results: PT/INR, D-dimer PT 11.0 Seconds (9.4-12.1) 10/22/17 14:19 - Impressions Impressions Abdomen/Pelvis CT 10/25/17 17:51 IMPRESSION: Large amount of stool within the rectum and a moderate to large amount of stool within the remainder the large bowel. Correlate with clinical evidence of rectal impaction/ constipation. Diffuse anasarca, with diffuse subcutaneous edema and moderate bilateral pleural effusions. Cholelithiasis. Overall limited without intravenous contrast and secondary streak artifact. D/ / Jacobo Rayo MD / Jacobo Rayo MD Interpreting Provider: Jacobo Rayo MD - VTE Documentation of Mechanical Device: Intermittent pneumatic compression device Consult Discharge Plan - Plan Referrals: Ema Del Toro, HAND STRIPER [Primary Care Provider] - <Michi Beltre - Last Filed: 10/26/17 19:33> Hospitalist Progress Note - Encounter Date of Encounter: 10/26/17 - Exam Vitals: Temp Pulse Resp BP Pulse Ox 98.3 F 77 16 170/72 91 10/26/17 16:35 10/26/17 16:35 10/26/17 16:35 10/26/17 16:35 10/26/17 16:35 - Assessment and Plan (1) GI (gastrointestinal bleed) Current Visit: Yes Status: Acute (2) DVT prophylaxis Current Visit: No Status: Acute (3) CKD (chronic kidney disease) Current Visit: No Status: Chronic (4) Elevated troponin Current Visit: No Status: Acute (5) Aortic stenosis Current Visit: No Status: Chronic (6) (HFpEF) heart failure with preserved ejection fraction Current Visit: No Status: Acute (7) Hypertension Current Visit: No Status: Suspected (8) Constipation Current Visit: Yes Status: Acute (9) CHF (congestive heart failure) Current Visit: No Status: Resolved (10) Coronary artery disease Current Visit: No Status: Chronic Assessment and Plan: Chronic issue (11) Anemia Current Visit: No Status: Chronic - Time Spent with Patient Total time spent is greater than 50% in coordination of care (as documented) at patient's floor/unit and/or counseling patient: Internal Medicine: Result - Labs CBC & Chem 7: 10/26/17 16:49 10/25/17 04:18 Labs: Short CBC 10/25/17 10/26/17 Range/Units 19:24 16:49 WBC 7.3 9.3 (4.3-11.1) K/mcL Hgb 9.1 L 9.4 L (11.5-15.4) g/dL Hct 28.9 L 29.0 L (35.3-44.9) % Plt Count 77 L 78 L (140-400) K/mcL Neutrophils # 6.5 (1.6-8.9) K/mcL - ABG Interpretation ABG results: PT/INR, D-dimer PT 11.0 Seconds (9.4-12.1) 10/22/17 14:19 - Impressions Impressions Abdomen/Pelvis CT 10/25/17 17:51 IMPRESSION: Large amount of stool within the rectum and a moderate to large amount of stool within the remainder the large bowel. Correlate with clinical evidence of rectal impaction/ constipation. Diffuse anasarca, with diffuse subcutaneous edema and moderate bilateral pleural effusions. Cholelithiasis. Overall limited without intravenous contrast and secondary streak artifact. D/ / Jacobo Rayo MD / Jacobo Rayo MD Interpreting Provider: Jacobo Rayo MD Chest/Abdomen X-ray 10/26/17 16:37 IMPRESSION: Stable chest. Cardiomegaly. Low lung volumes with stable bibasilar atelectasis and probable chronic pleural thickening on the left. Nonspecific bowel-gas pattern. Stable distention of the colon with retained stool distally. D/ / Yaw Brown MD / Yaw Brown MD Interpreting Provider: Yaw Brown MD - Attending Attestation The history, physical exam, and medical decision making was performed by the medical student either while I was physically present and actively involved or I personally re-performed the exam and medical decision making. I have verified the accuracy of the medical student's documentation with regards to the history, physical exam findings, and medical decision making. on 10/26/17. Ms Giles is currently admitted for acute exac CHF. She remains moderate to high risk due to potential for worsening clinical status. Ms Giles has been having abdominal pain today. She did not have BM earlier but has now and is black and tarry. No fever or chills. H/H has been stable. Stool guiac positive. Breathing at baseline today. No CP. Family at bedside. Exam Alert Mod distress due to abd discomfort Mucus membranes dry Heart reg with grade 3-4/6 systolic murmur Lungs diminished Abd distended. Soft. Diffuse discomfort with no peritoneal signs. No edema I/P 1. Acute GI bleed - H/H stable. Reassess in AM. Needs GI eval. NPO tonight. PPI. 2. Constipation - on laxative and softener. Enema ordered 3. Anemia due to CKD and probable chronic blood loss 4. CHF improved Further diagnoses and plan as above. <Kevin Chawla A - Last Filed: 10/26/17 13:46> (3) CKD (chronic kidney disease) Qualifiers: Chronic kidney disease stage: stage 4 (severe) Qualified Code(s): N18.4 - Chronic kidney disease, stage 4 (severe) (5) Aortic stenosis Qualifiers: Cardiac valve disease etiology: etiology unspecified Qualified Code(s): I35.0 - Nonrheumatic aortic (valve) stenosis (6) Chest pain Qualifiers: Chest pain type: chest pain on breathing Qualified Code(s): R07.1 - Chest pain on breathing; R07.81 - Pleurodynia (7) Hypertension Qualifiers: Hypertension type: secondary to other renal disorders Qualified Code(s): I15.1 - Hypertension secondary to other renal disorders (8) Diabetes Qualifiers: Diabetes mellitus type: type 2 Diabetes mellitus [facility] insulin use: with [facility] use Diabetes mellitus complication status: with unspecified complications Qualified Code(s): E11.8 - Type 2 diabetes mellitus with unspecified complications; Z79.4 - [facility] (current) use of insulin (9) Altered mental status Qualifiers: Altered mental status type: unspecified Qualified Code(s): R41.82 - Altered mental status, unspecified <Michi Beltre A - Last Filed: 10/26/17 19:33> (1) GI (gastrointestinal bleed) Qualifiers: GI bleed type/associated pathology: melena Qualified Code(s): K92.1 - Melena (3) CKD (chronic kidney disease) Qualifiers: Chronic kidney disease stage: stage 4 (severe) Qualified Code(s): N18.4 - Chronic kidney disease, stage 4 (severe) (5) Aortic stenosis Qualifiers: Cardiac valve disease etiology: etiology unspecified Qualified Code(s): I35.0 - Nonrheumatic aortic (valve) stenosis (7) Hypertension Qualifiers: Hypertension type: renovascular hypertension Qualified Code(s): I15.0 - Renovascular hypertension (8) Constipation Qualifiers: Constipation type: slow transit constipation Qualified Code(s): K59.01 - Slow transit constipation (9) CHF (congestive heart failure) Qualifiers: Heart failure type: diastolic Heart failure chronicity: acute on chronic Qualified Code(s): I50.33 - Acute on chronic diastolic (congestive) heart failure (10) Coronary artery disease Qualifiers: Coronary Disease-Associated Artery/Lesion type: [place] artery [place] vs. transplanted heart: [place] heart Associated angina: without angina Qualified Code(s): I25.10 - Atherosclerotic heart disease of [place] coronary artery without angina pectoris (11) Anemia Qualifiers: Anemia type: due to chronic kidney disease Chronic kidney disease stage: stage 4 (severe) Qualified Code(s): N18.4 - Chronic kidney disease, stage 4 ( severe); D63.1 - Anemia in chronic kidney disease
[2017-10-26 17:04] LABS: Hemoglobin 9.4 g/dL (11.5-15.4)
[2017-10-26 17:06] LABS: Immature Platelets 1.7 % (1.1-6.1); Mean Corpuscular HGB Conc 32.4 g/dL (31.6-35.5); Mean Corpuscular Hemoglobin 30.6 pg (28.0-33.3); Mean Corpuscular Volume 94.5 fL (83.0-100.0); Mean Platelet Volume 9.5 fL (9.4-12.4); Red Blood Count 3.07 M/mcL (3.82-4.97); Red Cell Distribution Width 16.6 % (11.5-14.5)
[2017-10-26] MEDS ORDERED: OXYCODONE Oral CONC 10 MG/0.5 ML ORAL.SYG SL PRN (21:47)
[2017-10-26] MEDS: Insulin DETEMIR 100 UNIT/ML X5UNITS SQ SCH (22:32)
[2017-10-26 23:02] LABS: Hematocrit 28.3 % (35.3-44.9); Hemoglobin 9.1 g/dL (11.5-15.4)
[2017-10-27 04:18] LABS: Hematocrit 26.6 % (35.3-44.9); Hemoglobin 8.5 g/dL (11.5-15.4); Mean Corpuscular Hemoglobin 30.1 pg (28.0-33.3); Mean Corpuscular Volume 94.3 fL (83.0-100.0); Mean Platelet Volume 10.3 fL (9.4-12.4); Platelet Count 73 K/mcL (140-400); Red Blood Count 2.82 M/mcL (3.82-4.97); Red Cell Distribution Width 16.8 % (11.5-14.5)
[2017-10-27 04:34] LABS: Calcium 9.1 mg/dL (8.6-10.3); Potassium 4.8 mEq/L (3.5-5.1)
[2017-10-27] MEDS: Pantoprazole 40 MG VIAL IVP SCH ×2 (06:39→18:58)
[2017-10-27] MEDS: Insulin LISPRO 300 UNITS/3 ML VIAL SQ SCH ×4 (08:52→20:19)
[2017-10-27] MEDS: Furosemide 40 MG TABLET PO SCH (08:59)
[2017-10-27] MEDS: hydrALAZINE 25 MG TABLET PO SCH ×3 (08:59→20:09)
[2017-10-27] MEDS: Isosorbide MONOnitrate (24 HR) 60 MG TAB.ER.24H PO SCH (08:59)
[2017-10-27] MEDS: Gabapentin 100 MG CAPSULE PO SCH ×3 (08:59→20:08)
[2017-10-27] MEDS: amLODIPine 5 MG TABLET PO SCH (08:59)
[2017-10-27] MEDS: Aspirin Enteric Coated 81 MG Tablet PO SCH (09:00)
[2017-10-27] MEDS: cloNIDine HCl 0.1 MG TABLET PO SCH ×3 (09:00→20:09)
[2017-10-27] MEDS: Sennosides/Docusate Sodium TABLET PO SCH ×2 (09:00→20:09)
[2017-10-27] MEDS: [UNRECOGNIZED DRUG - OTHER] PO SCH ×2 (09:01→20:09)
[2017-10-27] MEDS: IRON PS CMPLX PO SCH ×2 (09:01→20:09)
[2017-10-27] MEDS: VIT B12 PO SCH ×2 (09:01→20:09)
--- NOTE | 2017-10-27 09:04 | Internal Med Progress Note ---
<Kevin Chawla - Last Filed: 10/27/17 12:59> Hospitalist Progress Note - Encounter Date of Encounter: 10/27/17 Time of Encounter: 08:30 - Subjective Interval History: Ms. Giles was laying down in bed upon my arrival. Upon questioning the patient is alert and oriented x 3 and states that her abdominal pain is much better than yesterday. Patient states that she slept okay last night. Patient also denies currently having any nausea or vomiting, also she states she did have some wheezing in the morning. She also denies chest pain, fever, chills, or headaches. Ms. Giles states that while she has been urinating and that she had a few bowel movement yesterday prior to and after receiving an enema. She has not had any bowel movements this morning. - Exam Vitals: Temp Pulse Resp BP Pulse Ox 97.9 F 74 16 115/60 95 10/27/17 07:11 10/27/17 07:11 10/27/17 07:11 10/27/17 07:11 10/27/17 07:11 Exam: General Appearance: Patient does not appears to be in distress Head exam: Atraumatic, normocephalic Eye exam: PERRL, conjuntiva pink, sclera anicteric Neck exam: Trachea midline Respiratory exam: No wheezing, rales, or rhonci Cardiology exam: RRR, +S1, +S2 Gastrointestinal exam: Normal bowel sounds, soft, no tenderness Extremities exam: warm without tenderness, legs were wrapped an unable to be examined Neurological exam: CN II-XII intact, patient is alert and oriented x 3 Skin exam: Dry and intact - Assessment and Plan (1) GI (gastrointestinal bleed) Current Visit: Yes Status: Acute Assessment and Plan: -Patient was complaining of abdominal pain and constipation and finally had a bowel movement yesterday (10/26/17) -Stool was black and tarry and the patient continued to complain of discomfort and therefore received an enemal -Since then, the patient has had several bowel movement, all of which were black and tarry -Based on the stool and her slowly declining H/H (8.5/26.6 today) -Patient has been made NPO and is not currently complaining of any abdominal symptoms -On physical exam the abdomen is soft and not tender to palpation -GI has been consulted with plans for EGD today to r/o esophagitis, gastritis, duodenitis, PUD, MW tear, or AVM. -Keep patient NPO for now (2) Anemia Current Visit: No Status: Chronic Assessment and Plan: -Anemia likely secondary due to CKD and probable chronic blood loss -Patient's Hemoglobin/Hematocrit have been trending down (8.5/26.6) -The patient has also had several black tarry stools -GI has been consulted (3) (HFpEF) heart failure with preserved ejection fraction Current Visit: No Status: Acute Assessment and Plan: -Patient has a previous history of Heart Failure with Preserved Ejection Fraction. -Patient received an Echo on 10/22/17 which showed a LVEF fo 60-65%, biatrial enlargement, moderate-severe mitral/tricuspid regurgitation, severe pulmonary hypertension, and moderate aortic stenosis. -On physical exam the patient is clear to auscultation bilaterally -Patient is currently receiving Lasix 40 mg PO. -Continue to monitor. (4) Elevated troponin Current Visit: No Status: Acute Assessment and Plan: -Upon admission the patient had an elevated BNP at 834 as well as an elevated Troponin 0.05 (10/22/17) and the latest value taken on 10/23/17 continued to show Troponin at 0.05. -Initial EKG showed no signs of early ischemia. -Receiving treatment with Aspirin, Atorvastatin, Labetalol, and Losartan (5) CKD (chronic kidney disease) Current Visit: No Status: Chronic Assessment and Plan: -Patient has a history of stage 5 CKD. Upon admission the patient had an elevated BUN/Cr at 88/3.49 this has stayed constant with the latest value at 94/ 3.85 (10/27/17). -Estimated GFR was 11 -Nephrology was consulted and believe that the rise in her BUN may be secondary to her diuretic use. -At this time they do not believe that she warrants dialysis therapy and recommend avoiding nephrotoxins and adjusting medication for her renal function. (6) Aortic stenosis Current Visit: No Status: Chronic Assessment and Plan: -Patient has a known history of moderate aortic stenosis. -Echo performed on 10/22/17 showed a mean gradient of 27 mmHg. -Continue home Lasix and Losartan (7) Chest pain Current Visit: No Status: Acute Assessment and Plan: -Patient complaint of left sided chest pain upon admission and troponins were elevated (0.05). -Cardiology was consulted and per their recommendations the patient is being managed with medical therapy at this time. -Patient is not currently complaining of chest pain at this time -Patient will follow up with cardiology as an outpatient in 2-3 weeks. (8) Hypertension Current Visit: No Status: Suspected Assessment and Plan: -Patient has a previous diagnosis of hypertension. -Latest blood pressure reading was 115/60. -Patient is currently being treated with Amlodipine, Clonidine, Hydralazine, Imdur, and Labetalol. -Continue to monitor BP Q4 hours. (9) Diabetes Current Visit: No Status: Acute Assessment and Plan: -Patient has a previous diagnosis of diabetes. -Blood glucose levels have been trending down with a latest value of 125 (10/27/17 ). -Continue to monitor blood glucose. (10) Altered mental status Current Visit: Yes Status: Resolved Assessment and Plan: -At this time the patient is alert and oriented x 3. -Nephrology was consulted and believe that her AMS was possibly secondary to uremia as her BUN was elevated compared to baseline. -Per Nephrology the BUN may be elevated secondary to diuretic use, however the patient does not warrant dialysis at this time. (11) Positive occult stool blood test Current Visit: Yes Status: Acute Assessment and Plan: -Patient had a positive stool occult blood test on 10/26/17 -Hemoglobin has trended down further today (9.3 to 8.5) -Patient has also had several black tarry stools, GI has been consulted (12) DVT prophylaxis Current Visit: No Status: Acute Assessment and Plan: Patient has been discontinued from Heparin due to Thrombocytopenia - Time Spent with Patient Total time spent is greater than 50% in coordination of care (as documented) at patient's floor/unit and/or counseling patient: Internal Medicine: Result - Labs CBC & Chem 7: 10/27/17 03:34 10/27/17 03:34 Labs: Short CBC 10/26/17 10/26/17 10/27/17 Range/Units 16:49 22:43 03:34 WBC 9.3 9.7 (4.3-11.1) K/mcL Hgb 9.4 L 9.1 L 8.5 L (11.5-15.4) g/dL Hct 29.0 L 28.3 L 26.6 L (35.3-44.9) % Plt Count 78 L 73 L (140-400) K/mcL BMP 10/27/17 03:34 Sodium 142 Potassium 4.8 Chloride 111 H Carbon Dioxide 23 BUN 94 H Creatinine 3.85 H Glucose 125 H Calcium 9.1 - ABG Interpretation ABG results: PT/INR, D-dimer PT 11.0 Seconds (9.4-12.1) 10/22/17 14:19 - Impressions Impressions Chest/Abdomen X-ray 10/26/17 16:37 IMPRESSION: Stable chest. Cardiomegaly. Low lung volumes with stable bibasilar atelectasis and probable chronic pleural thickening on the left. Nonspecific bowel-gas pattern. Stable distention of the colon with retained stool distally. D/ / Yaw Brown MD / Yaw Brown MD Interpreting Provider: Yaw Brown MD - VTE Documentation of Mechanical Device: Intermittent pneumatic compression device Consult Discharge Plan - Plan Referrals: Ema Del Toro, LUBRICATING SPECIALIST [Primary Care Provider] - <Michi Beltre - Last Filed: 10/27/17 19:18> Hospitalist Progress Note - Encounter Date of Encounter: 10/27/17 - Exam Vitals: Temp Pulse Resp BP Pulse Ox 97.7 F 63 16 114/57 91 10/27/17 15:24 10/27/17 15:24 10/27/17 15:24 10/27/17 15:24 10/27/17 15:24 - Assessment and Plan (1) GI (gastrointestinal bleed) Current Visit: Yes Status: Acute Assessment and Plan: EGGD today. (2) Anemia Current Visit: No Status: Chronic (3) DVT prophylaxis Current Visit: No Status: Acute (4) CKD (chronic kidney disease) Current Visit: No Status: Chronic (5) Aortic stenosis Current Visit: No Status: Chronic (6) Hypertension Current Visit: No Status: Suspected (7) Constipation Current Visit: Yes Status: Resolved (8) CHF (congestive heart failure) Current Visit: No Status: Resolved (9) Coronary artery disease Current Visit: No Status: Chronic - Time Spent with Patient Total time spent is greater than 50% in coordination of care (as documented) at patient's floor/unit and/or counseling patient: Internal Medicine: Result - Labs CBC & Chem 7: 10/27/17 03:34 10/27/17 03:34 Labs: Short CBC 10/26/17 10/27/17 Range/Units 22:43 03:34 WBC 9.7 (4.3-11.1) K/mcL Hgb 9.1 L 8.5 L (11.5-15.4) g/dL Hct 28.3 L 26.6 L (35.3-44.9) % Plt Count 73 L (140-400) K/mcL BMP 10/27/17 03:34 Sodium 142 Potassium 4.8 Chloride 111 H Carbon Dioxide 23 BUN 94 H Creatinine 3.85 H Glucose 125 H Calcium 9.1 - ABG Interpretation ABG results: PT/INR, D-dimer PT 11.0 Seconds (9.4-12.1) 10/22/17 14:19 - Attending Attestation The history, physical exam, and medical decision making was performed by the medical student either while I was physically present and actively involved or I personally re-performed the exam and medical decision making. I have verified the accuracy of the medical student's documentation with regards to the history, physical exam findings, and medical decision making on 10/27/17. Ms Giles is currently admitted for CHF and anemia with melena. She remains moderate to high risk due to potential for worsening clinical status. Ms Giles is feeling OK. She is to have EGD today. No fever or chills. Hemoglobin has decreased this AM. Has had further episodes of melena. Exam alert Comfortable Mucus membranes dry Heart not tachy No wheeze abd soft - tender without peritoneal signs No edema I/P 1. Melena - for EGD today 2. Anemia due to acute blood loss 3. CHF Further diagnoses and plan as above. <Kevin Chawla A - Last Filed: 10/27/17 12:59> (1) GI (gastrointestinal bleed) Qualifiers: GI bleed type/associated pathology: melena Qualified Code(s): K92.1 - Melena (2) Anemia Qualifiers: Anemia type: unspecified type Qualified Code(s): D64.9 - Anemia, unspecified (5) CKD (chronic kidney disease) Qualifiers: Chronic kidney disease stage: stage 4 (severe) Qualified Code(s): N18.4 - Chronic kidney disease, stage 4 (severe) (6) Aortic stenosis Qualifiers: Cardiac valve disease etiology: etiology unspecified Qualified Code(s): I35.0 - Nonrheumatic aortic (valve) stenosis (7) Chest pain Qualifiers: Chest pain type: chest pain on breathing Qualified Code(s): R07.1 - Chest pain on breathing; R07.81 - Pleurodynia (8) Hypertension Qualifiers: Hypertension type: renovascular hypertension Qualified Code(s): I15.0 - Renovascular hypertension (9) Diabetes Qualifiers: Diabetes mellitus type: type 2 Diabetes mellitus manager intermediate insulin use: with senior care use Diabetes mellitus complication status: with unspecified complications Qualified Code(s): E11.8 - Type 2 diabetes mellitus with unspecified complications; Z79.4 - CHCF (current) use of insulin (10) Altered mental status Qualifiers: Altered mental status type: unspecified Qualified Code(s): R41.82 - Altered mental status, unspecified <Michi Beltre A - Last Filed: 10/27/17 19:18> (1) GI (gastrointestinal bleed) Qualifiers: GI bleed type/associated pathology: melena Qualified Code(s): K92.1 - Melena (2) Anemia Qualifiers: Anemia type: other cause Other causes of anemia: acute posthemorrhagic Qualified Code(s): D62 - Acute posthemorrhagic anemia (4) CKD (chronic kidney disease) Qualifiers: Chronic kidney disease stage: stage 4 (severe) Qualified Code(s): N18.4 - Chronic kidney disease, stage 4 (severe) (5) Aortic stenosis Qualifiers: Cardiac valve disease etiology: etiology unspecified Qualified Code(s): I35.0 - Nonrheumatic aortic (valve) stenosis (6) Hypertension Qualifiers: Hypertension type: renovascular hypertension Qualified Code(s): I15.0 - Renovascular hypertension (7) Constipation Qualifiers: Constipation type: slow transit constipation Qualified Code(s): K59.01 - Slow transit constipation (8) CHF (congestive heart failure) Qualifiers: Heart failure type: diastolic Heart failure chronicity: acute on chronic Qualified Code(s): I50.33 - Acute on chronic diastolic (congestive) heart failure (9) Coronary artery disease Qualifiers: Coronary Disease-Associated Artery/Lesion type: [place] artery [place] vs. transplanted heart: [place] heart Associated angina: without angina Qualified Code(s): I25.10 - Atherosclerotic heart disease of [place] coronary artery without angina pectoris
--- NOTE | 2017-10-27 12:06 | Gastroenterology Consult Note ---
<Chris Calvillo Brielle - Last Filed: 10/27/17 12:03> Date of Encounter: 10/27/17 Time of Encounter: 10:35 - Assessment and plan (1) Anemia Current Visit: No Status: Chronic Assessment and plan: Hgb on admission was 9.8 and this AM Hgb 8.5. Continue to monitor CBC and transfuse PRBC as needed. Plan for EGD today, keep NPO. Qualifiers: Anemia type: unspecified type Qualified Code(s): D64.9 - Anemia, unspecified; D63.1 - Anemia in chronic kidney disease; Z99.2 - Dependence on renal dialysis (2) Acute GI bleeding Current Visit: Yes Status: Acute Assessment and plan: Pt with 7 episodes of melena since 10/25. Plan for EGD today to r/o esophagitis, gastritis, duodenitis, PUD, MW tear, or AVM. Keep patient NPO for now. (3) Positive occult stool blood test Current Visit: Yes Status: Acute - Time Spent With Patient Total time spent is greater than 50% in coordination of care (as documented) at patient's floor/unit and/or counseling patient: GI History of Present Illness - Data of Consult Patient: new to practice Consult date: 10/27/17 Requesting Physician: Michi Beltre DO - Consult Narrative Reason for consult: GI bleed, melena History of present illness: Ms. Giles is a 87 year old female with PMHx of CHF, CAD, CVA, DM, GERD, HLD, HTN , AR, CKD stage V, ischemic cardiomyopathy s/p CABG who presented to the ED with complaints of chest pain. Cardiology is following. We were consulted to evaluate possible GI bleed. Fecal occult blood test positive on 10/25. Patient began complaining of abdominal pain and had not had a BM for a few days. CT A/P shows large amount of stool within the rectum and a moderate to large amount of stool within the remainder the large bowel. Hgb on admission was 9.8 and this AM Hgb 8.5. She has had 7 episodes of black stool since 10/25. History obtained from chart review and family member at bedside. Pt was unable to keep her eyes open during my exam. Procedures: Colonoscopy 09/11/2013 Dr. 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 Psychiatric history: no psych history - Past Surgical History Surgical History: coronary bypass (CABG), hysterectomy, other Additional surgical history: fistula left arm - Social History Smoking Status: Never smoker Smokeless Tobacco Status: No Alcohol use: none Drug use: none - Family History Mother Living Status: Hx Family Cardiac Disorders: Yes (CVA, AR) Father Living Status: Hx Family Cardiac Disorders: Yes - Gastrointestinal Gastrointestinal: Present: as per HPI - Constitutional Constitutional: as per HPI - EENT Eyes: as per HPI Ears: Present: as per HPI Nose, mouth and throat: Present: as per HPI - Cardiovascular Cardiovascular ROS: Present: as per HPI - Respiratory Respiratory IM: Present: as per HPI - Genitourinary Genitourinary: Absent: change in color, Urinary frequency - Neurological ROS Neurological GI: Present: as per HPI - Hematologic/Lymphatic Hematologic/Lymphatic pediatric: Present: as per HPI - Musculoskeletal Musculoskeletal ROS GI: Present: as per HPI - Integumentary Integumentary GI: Present: as per HPI - Psychiatric ROS Psychiatric GI: Present: as per HPI - Endocrine Endocrine IM: Present: as per HPI - Constitutional Vitals: Temp Pulse Resp BP Pulse Ox 97.7 F 88 16 121/82 90 10/27/17 11:31 10/27/17 11:31 10/27/17 11:31 10/27/17 11:31 10/27/17 11:31 General appearance: Present: cooperative, no acute distress Exam: Patient unable to stay awake during exam, but was able to answer a few yes/no questions - Head Head exam: Present: atraumatic, normocephalic - Eye Eye exam: Present: normal appearance, sclera anicteric - ENT ENT exam: Present: mucous membranes dry - Neck Neck exam general surgery: Present: normal inspection, trachea midline - Respiratory Respiratory exam: Present: decreased breath sounds, CTAB. Absent: rales, rhonchi - Cardiovascular Cardiovascular exam: Present: RRR, +S1, +S2 - GI/Abdominal GI/Abdominal exam: Present: soft, no peritoneal signs. Absent: distended, firm , guarding, tenderness - Rectal Rectal exam: Present: deferred - Extremities Exam Extremities exam: Present: warm - Skin Skin exam: Present: dry, intact, normal color, warm Results - Labs CBC & Chem 7: 10/27/17 03:34 10/27/17 03:34 Labs: Last Result Calcium 9.1 mg/dL (8.6-10.3) 10/27/17 03:34 Troponin I 0.05 ng/mL (< 0.04) H* 10/23/17 05:01 Stool Occult Blood Positive (Negative) A 10/25/17 22:50 Entire Visit Hgb 8.5 g/dL (11.5-15.4) L 10/27/17 03:34 Hct 26.6 % (35.3-44.9) L 10/27/17 03:34 PT 11.0 Seconds (9.4-12.1) 10/22/17 14:19 Total Bilirubin 0.6 mg/dL (0.3-1.0) 10/22/17 08:24 AST 14 Units/L (13-39) 10/22/17 08:24 ALT 11 Units/L (7-52) 10/22/17 08:24 - ABG ABG results: PT/INR, D-dimer PT 11.0 Seconds (9.4-12.1) 10/22/17 14:19 - Impressions Impressions Chest/Abdomen X-ray 10/26/17 16:37 IMPRESSION: Stable chest. Cardiomegaly. Low lung volumes with stable bibasilar atelectasis and probable chronic pleural thickening on the left. Nonspecific bowel-gas pattern. Stable distention of the colon with retained stool distally. D/ / Yaw Brown MD / Yaw Brown MD Interpreting Provider: Yaw Brown MD Consult Discharge Plan - Plan Referrals: Ema Del Toro, PAYROLL AND BENEFITS SPECIALIST [Primary Care Provider] - <Aden Scott - Last Filed: 11/08/17 04:16> Date of Encounter: 10/27/17 - Time Spent With Patient Total time spent is greater than 50% in coordination of care (as documented) at patient's floor/unit and/or counseling patient: GI History of Present Illness - Data of Consult Requesting Physician: Michi Beltre DO - Consult Narrative History of present illness: Ms. Giles is a 87 year old female - Constitutional Vitals: Temp Pulse Resp BP Pulse Ox 97.9 F 68 18 140/69 96 11/07/17 19:26 11/08/17 03:52 11/08/17 03:54 11/08/17 03:52 11/08/17 03:54 Results - Labs CBC & Chem 7: 11/07/17 05:53 11/07/17 05:53 Labs: Last Result Calcium 7.9 mg/dL (8.6-10.3) L 11/07/17 05:53 Troponin I 0.05 ng/mL (< 0.04) H* 10/23/17 05:01 Stool Occult Blood Positive (Negative) A 10/25/17 22:50 Entire Visit Hgb 8.0 g/dL (11.5-15.4) L 11/07/17 05:53 Hct 25.1 % (35.3-44.9) L 11/07/17 05:53 PT 11.0 Seconds (9.4-12.1) 10/22/17 14:19 Total Bilirubin 0.6 mg/dL (0.3-1.0) 10/22/17 08:24 AST 14 Units/L (13-39) 10/22/17 08:24 ALT 11 Units/L (7-52) 10/22/17 08:24 - ABG ABG results: PT/INR, D-dimer PT 11.0 Seconds (9.4-12.1) 10/22/17 14:19 - Attending Attestation Ms Giles has multiple medical problems and presents with a drop in hemoglobin with positive hemoccult. Some of the drop could be due to hydration. She also has CKD. Recommend EGD first and then colonoscopy. I have personally performed a face to face evaluation on this patient. I have reviewed and agree with the care plan. History and Exam by me shows:
[2017-10-27] MEDS ORDERED: Lidocaine -MPF 2% 2 ML VIAL ONE (13:34)
[2017-10-27] MEDS ORDERED: *HR* Propofol 200 MG/20 ML VIAL IVP ONE (13:34)
[2017-10-27] MEDS ORDERED: *HR* Etomidate 40 MG/20 ML VIAL IVP ONE (13:41)
--- NOTE | 2017-10-27 14:15 | Anesthesia Evaluation PreOp ---
Date of Encounter: 10/27/17 Time of Encounter: 14:12 - Past History Planned Operation: EGD Cardiac History: [facility] ( [facility]), CHF (Heart Failure w/ preseved EF. 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) Other Medical History: Renal (Acute on Chronic stage V CKD), Diabetes Type II, GERD Anesthesia History: No Prior Anesthetic Complications, Past Anesthesia (CABG, Hyster, L-arm Fistula) Alcohol Use: none Drug use: none Medications and Allergies Iron Ps Cmplx/Vit B12/FA [Iferex 150 Forte Capsule] 1 cap PO BID 04/11/15 [ History] Losartan Potassium [Cozaar] 100 mg PO DAILY 04/11/15 [History] Cilostazol [Pletal] 100 mg PO BID #0 07/09/15 [History] Atorvastatin [Lipitor] 40 mg PO HS #30 tablet 10/11/15 [Rx] Furosemide [Lasix] 40 mg PO DAILY #30 tablet 10/11/15 [Rx] Labetalol [Trandate] 200 mg PO BID #60 tablet 05/22/17 [Rx] Aspirin [Lo-Dose Aspirin EC] 81 mg PO DAILY 10/07/17 [History] Calcitriol [Rocaltrol] 0.25 mcg PO MOWEFR 10/07/17 [History] Isosorbide MONOnitrate [Isosorbide Mononitrate ER] 180 mg PO DAILY 10/07/17 [ History] cloNIDine HCl [Clonidine HCl] 0.2 mg PO TID 10/07/17 [History] Amlodipine Besylate 10 mg PO DAILY 10/22/17 [History] Glucagon,Human Recombinant [Glucagon Emergency Kit] 1 mg IJ ONCE PRN 10/22/17 [ History] Hydralazine HCl 50 mg PO TID 10/22/17 [History] Insulin Glargine,Hum.rec.anlog [Basaglar Kwikpen U-100] 20 unit SQ HS 10/22/17 [ History] hydrALAZINE [HydrALAZINE] 25 mg PO TID 10/22/17 [History] Lidocaine Patch [Lidoderm 5% patch] 1 each TP DAILY PRN adh..patch 10/24/17 [Rx ] 3 Allergy/AdvReac Type Severity Reaction Status Date / Time celecoxib [From Celebrex] AdvReac Nausea Verified 10/22/17 10:21 - Meds/Allergy Pre-op Review Medications Reviewed: Yes Allergies Reviewed: Yes Anesthesia Results - Labs 10/27/17 03:34 10/27/17 03:34 Laboratory Results WBC 9.7 K/mcL (4.3-11.1) 10/27/17 03:34 RBC 2.82 M/mcL (3.82-4.97) L 10/27/17 03:34 Hgb 8.5 g/dL (11.5-15.4) L 10/27/17 03:34 Hct 26.6 % (35.3-44.9) L 10/27/17 03:34 MCV 94.3 fL (83.0-100.0) 10/27/17 03:34 MCH 30.1 pg (28.0-33.3) 10/27/17 03:34 MCHC 32.0 g/dL (31.6-35.5) 10/27/17 03:34 RDW 16.8 % (11.5-14.5) H 10/27/17 03:34 Plt Count 73 K/mcL (140-400) L 10/27/17 03:34 MPV 10.3 fL (9.4-12.4) 10/27/17 03:34 Immature Gran % 0.5 % (0-4) 10/25/17 19:24 Seg Neutrophils % 89.2 % 10/25/17 19:24 Lymphocytes % 4.8 % 10/25/17 19:24 Monocytes % 4.6 % 10/25/17 19:24 Eosinophils % 0.8 % 10/25/17 19:24 Basophils % 0.1 % 10/25/17 19:24 Neutrophils # 6.5 K/mcL (1.6-8.9) 10/25/17 19:24 Lymphocytes # 0.4 K/mcL (0.6-4.6) L 10/25/17 19:24 Monocytes # 0.3 K/mcL (0.0-1.3) 10/25/17 19:24 Eosinophils # 0.1 K/mcL (0.0-0.6) 10/25/17 19:24 Basophils # 0.0 K/mcL (0.0-0.2) 10/25/17 19:24 Platelet Estimate Marked Decrease (Normal) L 10/25/17 19:24 Immature Plt Fraction 1.7 % (1.1-6.1) 10/26/17 16:49 PT 11.0 Seconds (9.4-12.1) 10/22/17 14:19 INR 1.0 10/22/17 14:19 Heparin Anti-Xa, Unfract 0.50 IU/mL (0.30-0.70) 10/23/17 04:57 Sodium 142 mEq/L (136-145) 10/27/17 03:34 Potassium 4.8 mEq/L (3.5-5.1) 10/27/17 03:34 Chloride 111 mEq/L (98-107) H 10/27/17 03:34 Carbon Dioxide 23 mEq/L (23-29) 10/27/17 03:34 BUN 94 mg/dL (8-23) H 10/27/17 03:34 Creatinine 3.85 mg/dL (0.60-1.20) H 10/27/17 03:34 Est GFR ( Amer) 13 (> 60) L 10/27/17 03:34 Est GFR (Non-Af Amer) 11 (> 60) L 10/27/17 03:34 BUN/Creatinine Ratio 24 (6-26) 10/27/17 03:34 Glucose 125 mg/dL (70-105) H 10/27/17 03:34 POC Glucose 160 mg/dL (70-99) H 10/26/17 11:44 Calculated Osmolality 325 (280-300) H 10/27/17 03:34 Lactic Acid 0.6 mmol/L (0.5-2.2) 10/26/17 16:49 Calcium 9.1 mg/dL (8.6-10.3) 10/27/17 03:34 Total Bilirubin 0.6 mg/dL (0.3-1.0) 10/22/17 08:24 AST 14 Units/L (13-39) 10/22/17 08:24 ALT 11 Units/L (7-52) 10/22/17 08:24 Alkaline Phosphatase 67 Units/L (34-104) 10/22/17 08:24 Troponin I 0.05 ng/mL (< 0.04) H* 10/23/17 05:01 B-Natriuretic Peptide 834 pg/mL (Less than 100) H 10/22/17 08:24 Serum Total Protein 5.7 g/dL (6.4-8.9) L 10/22/17 08:24 Albumin 3.2 g/dL (3.5-5.7) L 10/22/17 08:24 Globulin 2.5 g/dL (2.4-3.5) 10/22/17 08:24 Albumin/Globulin Ratio 1.3 (1.1-2.2) 10/22/17 08:24 Urine Color Yellow (Yellow) 10/22/17 09:05 Urine Clarity Slightly Hazy (Clear) 10/22/17 09:05 Urine pH 5.0 pH Units (5.0-8.0) 10/22/17 09:05 Ur Specific [place]ak[place] 1.023 (1.010-1.025) 10/22/17 09:05 Urine Protein 100 mg/dL (Neg-Trace) H 10/22/17 09:05 Urine Glucose (UA) Normal mg/dL (Normal) 10/22/17 09:05 Urine Ketones Negative mg/dL (Negative) 10/22/17 09:05 Urine Blood Negative (Negative) 10/22/17 09:05 Urine Nitrite Negative (Negative) 10/22/17 09:05 Urine Bilirubin Negative (Negative) 10/22/17 09:05 Urine Urobilinogen Normal mg/dL (Normal) 10/22/17 09:05 Ur Leukocyte Esterase Negative (Negative) 10/22/17 09:05 Urine Microscopic RBC 0-3 per hpf (0-3) 10/22/17 09:05 Urine Microscopic WBC 0-3 per hpf (0-3) 10/22/17 09:05 Ur Squamous Epith Cells Moderate per lpf (None-Few) H 10/22/17 09:05 Urine Bacteria None Seen per hpf (None-Few) 10/22/17 09:05 Hyaline Casts None Seen per lpf (None-Few) 10/22/17 09:05 Ur Culture Indicated? NO (NO) 10/22/17 09:05 Stool Occult Blood Positive (Negative) A 10/25/17 22:[address] 10/22/17 08:07 IMPRESSION: No acute abnormality of the cervical spine. Multilevel degenerative changes to the cervical spine, worsened from prior MRI 07/28/2010. Partially imaged bilateral pleural effusions to the lung apices along with partially imaged small left apical pneumothorax versus bullous change. Recommend dedicated chest imaging. Multiple low-attenuation lesions to the thyroid measuring up to 2 cm. Recommend further evaluation with thyroid ultrasound on a nonemergent basis. Diffuse bone demineralization. D/ / 10/22/2017 09:26:36 Christ Vasquez MD / [facility] Interpreting Provider: Christ Vasquez MD Chest X-Ray 10/22/17 08:07 IMPRESSION: 1. Central congestion without overt pulmonary edema. 2. Small bilateral pleural effusions. 3. Stable mild enlargement of the cardiac silhouette. D/ / Enzo Londono MD / Enzo Londono MD Interpreting Provider: Enzo Londono MD Head CT 10/22/17 12:33 IMPRESSION: 1. No acute intracranial abnormality. D/ / 10/22/2017 14:03:21 Enzo Londono MD / [facility] Interpreting Provider: Enzo Londono MD Echocardiogram 10/22/17 13:52 Impressions: LVEF 60-65%. Normal left ventricular size and systolic function. Biatrial enlargement. Moderate-severe mitral regurgitation. Moderate-severe tricuspid regurgitation. Estimated RVSP was 74 mmHg. Severe pulmonary hypertension. Moderate aortic stenosis. Mean gradient 27mmHg Left Ventricular Wall Motion: Rest Echo Findings All wall segments showed normal motion. Findings: Study Quality * Technically adequate exam. ECG Findings * Normal sinus rhythm. Left Ventricle * LVEF 60-65%. * Normal LV chamber size, wall thickness and function. Right Ventricle * Normal right ventricular structure and function. Right Atrium * Mildly dilated right atrium. Left Atrium * Moderately dilated left atrium. Interatrial Septum * Interatrial septum not well evaluated. Aortic Valve * Aortic valve not well visualized. * Moderately calcified aortic valve leaflets. * Moderately thickened aortic valve leaflets. * Moderate aortic stenosis. * Peak gradient 39mmHg, mean gradient 27mmHg Mitral Valve * Mildly thickened mitral valve leaflets. * Moderate-severe mitral regurgitation. * Mild mitral annular calcification Aortic Valve Peak Percy: 3.14 m/sec Mean Percy: 2.47 m/sec Peak Grad: 39.00 mmHg Mean Grad: 27.00 mmHg Valve Area: 1.25 cm2 Tricuspid Valve * Normal tricuspid valve structure. * Moderate-severe tricuspid regurgitation. * Estimated RVSP is 74 mmHg. * Severe pulmonary hypertension. Pulmonic Valve * Pulmonic valve not well visualized. * Mild pulmonic regurgitation. Aorta * Normally sized aortic root. Pericardium * The pericardium appears normal. IVC * The IVC is dilated. * > 50% respiratory change Abdomen/Pelvis CT 10/25/17 17:51 IMPRESSION: Large amount of stool within the rectum and a moderate to large amount of stool within the remainder the large bowel. Correlate with clinical evidence of rectal impaction/ constipation. Diffuse anasarca, with diffuse subcutaneous edema and moderate bilateral pleural effusions. Cholelithiasis. Overall limited without intravenous contrast and secondary streak artifact. D/ / Jacobo Rayo MD / Jacobo Rayo MD Interpreting Provider: Jacobo Rayo MD Chest/Abdomen X-ray 10/26/17 16:37 IMPRESSION: Stable chest. Cardiomegaly. Low lung volumes with stable bibasilar atelectasis and probable chronic pleural thickening on the left. Nonspecific bowel-gas pattern. Stable distention of the colon with retained stool distally. D/ / Yaw Brown MD / Yaw Brown MD Interpreting Provider: Yaw Brown MD Anesthesia Exam Vital Signs Temp Pulse Resp BP Pulse Ox 10/27/17 11:31 97.7 F 88 16 121/82 90 10/27/17 07:11 97.9 F 74 16 115/60 95 10/27/17 04:00 98 F 65 19 150/59 96 10/26/17 22:50 98.1 F 76 17 176/81 97 10/26/17 21:35 97 10/26/17 16:35 98.3 F 77 16 170/72 91 Intake and Output 10/26/17 10/27/17 10/27/17 23:59 07:59 15:59 Intake Total 0 / 0 0 / 0 Balance 0 / 0 0 / 0 Intake: Oral 0 / 0 0 / 0 Other: Stool Size Copious Large Stool Consistency loose loose liquid formed Stool Characteristics Tarry Tarry Pasty Stool Color Green Green Black Black # Voids 1 # Urine Diapers 1 1 1 # Bowel Movement Diapers 1 1 Weight 88.1 kg Blood Glucose* 155 101 91 Patient Weight 10/27/17 23:59 Weight 88.1 kg Height: 5;4: Weight: 194# BMI = 33 NPO (# of Hours): MNoc - HEENT Pupil (Motor): Pupils equal Mallampati: III Teeth: Edentulous Oral Opening: Greater than 3 - BOTTLE HOP LOC: Oriented BOTTLE HOP Motor: Normal RUE, Normal LUE, Normal RLE, Normal LLE, Normal Face BOTTLE HOP Sensory: Normal: RUE, LUE, RLE, LLE, Face - Cardiac Rhythm: Regular Murmur: Systolic JVD: No - Pulmonary Breath Sounds: bilateral Clear Respiratory Effort: Symmetrical Anesthesia Assess/Plan ASA Score: 4 (CHF, CAD, HTN, Chol, Stage V CKD, Severe Aortic stenosis, Severe Pulm Htn) Modified Montesano Scale for Level of Consciousness: Cooperative, oriented, and tranquil Anesthetic Plan: MAC Monitoring Plan: Standard Monitors Recovery Plan: Other Anes Supervising Prov Stmt: Pt seen/evaluated, R&B discussed, questions answered and consent obtained. Nirali Tobias MD
--- NOTE | 2017-10-27 15:06 | Anesthesia Evaluation Post Op ---
Date of Encounter: 10/27/17 Time of Encounter: 15:00 - Vital Signs Vital Signs: 3 Vital Signs Time 1500 BP 136/49 Pulse 61 Resp 16 O2 Sat 96 - Lungs Lungs: Clear Ascult./Percussion - Airway Airway: Non-obstructed - Cardiovascular Regular Rate - Mental Status Mental Status: Asleep with brisk response to light stimulation - Nausea Vomiting Nausea Vomiting: Not Present - Hydration Hydration: NPO, Has not voided - Discharge PostOp Status: Transfer Patient to floor
[2017-10-27] MEDS ORDERED: SODIUM CHLORIDE/NAHCO3/KCL/PEG 4,000 ML SOLN.RECON PO ONE (17:00)
[2017-10-27] MEDS: Insulin DETEMIR 100 UNIT/ML X5UNITS SQ SCH (20:19)
[2017-10-27 21:56] LABS: Hematocrit 28.8 % (35.3-44.9); Mean Corpuscular HGB Conc 31.3 g/dL (31.6-35.5); Mean Corpuscular Hemoglobin 30.1 pg (28.0-33.3); Mean Corpuscular Volume 96.3 fL (83.0-100.0); Mean Platelet Volume 9.9 fL (9.4-12.4); Red Blood Count 2.99 M/mcL (3.82-4.97); Red Cell Distribution Width 17.2 % (11.5-14.5)
[2017-10-27 21:57] LABS: Platelet Count 78 K/mcL (140-400)
[2017-10-28 04:25] LABS: Hematocrit 30.6 % (35.3-44.9); Hemoglobin 9.5 g/dL (11.5-15.4); Mean Corpuscular Hemoglobin 30.2 pg (28.0-33.3); Mean Corpuscular Volume 97.1 fL (83.0-100.0); Mean Platelet Volume 10.3 fL (9.4-12.4); Red Blood Count 3.15 M/mcL (3.82-4.97)
[2017-10-28 04:37] LABS: Calcium 8.9 mg/dL (8.6-10.3); Potassium 4.5 mEq/L (3.5-5.1)
[2017-10-28] MEDS: *HR* Dextrose 50 % in Water (Syg) 50 ML SYRINGE IVP PRN ×2 (04:37→06:54)
[2017-10-28] MEDS: Pantoprazole 40 MG VIAL IVP SCH ×2 (06:52→17:45)
--- NOTE | 2017-10-28 09:49 | Internal Med Progress Note ---
<Kevin Chawla - Last Filed: 10/28/17 15:22> Hospitalist Progress Note - Encounter Date of Encounter: 10/28/17 Time of Encounter: 09:15 - Subjective Interval History: Ms. Giles was laying down in bed asleep upon my arrival. She had to be shaken a few times in order to be awoken, however upon questioning the patient is alert and oriented x 3 and states that her abdominal pain feels "okay" today. Patient states that she slept fine last night. She also denies chest pain, fever, chills , headaches, but does say that she is feeling a little short of breath. Ms. Giles states that while she has been urinating and has had several bowel movements yesterday. She has not had any bowel movements this morning. - Exam Vitals: Temp Pulse Resp BP Pulse Ox 97.6 F 67 17 134/61 100 10/28/17 06:54 10/28/17 06:54 10/28/17 06:54 10/28/17 06:54 10/28/17 06:54 Exam: General Appearance: Patient appears to be in distress Head exam: Atraumatic, normocephalic Eye exam: PERRL, conjuntiva pink, sclera anicteric Neck exam: Trachea midline Respiratory exam: Diffuse rales bilaterally Cardiology exam: RRR, +S1, +S2 Gastrointestinal exam: Normal bowel sounds, soft, no tenderness Extremities exam: warm without tenderness, Pitting edema +2 Neurological exam: CN II-XII intact, patient is alert and oriented x 3 Skin exam: Dry and intact - Assessment and Plan (1) GI (gastrointestinal bleed) Current Visit: Yes Status: Acute Assessment and Plan: -The patient has had several bowel movement, all of which were black and tarry -Hemoglobin has been declining the last few day, however was higher today at 9.5 -Patient has been made NPO and is not currently complaining of any abdominal symptoms -On physical exam the abdomen is soft and not tender to palpation -GI has been consulted and they performed an EGD yesterday which showed multiple 12 mm sessile polyps with bleeding and no stigmata of recent bleeding were found in the gastric body and in the gastric antrum. The ampulla, and first and second portion of the duodenum were normal -Colonoscopy was performed and one 14 mm polyp in the proximal ascending colon ( biopsied), diverticulosis in the sigmoid colon, decending colon, and transverse colon, and non-bleeding internal hemorrhoids. -Recommendations are to await pathology results, and keep the patient on a clear liquid diet (2) Acute respiratory failure Current Visit: Yes Status: Acute Assessment and Plan: -After patient underwent EGD she began experiencing some hypoxia and wheezing -Is currently on 2L of oxygen and is O2 saturation is 100 -Checked gag reflex post EGD and the patient did gag, gave drink and patient immediately coughed, concern for aspiration pneumonia -Chest x ray: left pleural effusion is again seen with minimal adjacent atelectasis. The right lung is clear. The heart size is within normal limits. There is no discernible pneumothorax -On physical exam the patient's voice does sound raspy and diffuse bilateral rales are heard on chest auscultation -Continue the patient on oxygen and monitor for improvements (3) Anemia Current Visit: No Status: Chronic Assessment and Plan: -Anemia likely secondary due to CKD and probable chronic blood loss -Patient's Hemoglobin/Hematocrit have been trending down, however it was increased today at 9.5/30.6 -The patient has also had several black tarry stools -GI has been consulted and performed EGD with plans for colonoscopy today (4) (HFpEF) heart failure with preserved ejection fraction Current Visit: No Status: Acute Assessment and Plan: -Patient has a previous history of Heart Failure with Preserved Ejection Fraction. -Patient received an Echo on 10/22/17 which showed a LVEF fo 60-65%, biatrial enlargement, moderate-severe mitral/tricuspid regurgitation, severe pulmonary hypertension, and moderate aortic stenosis. -On physical exam the has diffuse rales bilaterally on auscultation and +2 pitting edema on bilateral lower extremities -Patient is complaining of some SOB and is on 2L oxygen -Patient is currently receiving Lasix 40 mg PO. -Continue to monitor for sign for worsening fluid overload (5) Elevated troponin Current Visit: No Status: Acute Assessment and Plan: -Upon admission the patient had an elevated BNP at 834 as well as an elevated Troponin 0.05 (10/22/17) and the latest value taken on 10/23/17 continued to show Troponin at 0.05. -Initial EKG showed no signs of early ischemia. -Receiving treatment with Aspirin, Atorvastatin, Labetalol, and Losartan (6) CKD (chronic kidney disease) Current Visit: No Status: Chronic Assessment and Plan: -Patient has a history of stage 5 CKD. Upon admission the patient had an elevated BUN/Cr at 88/3.49 this has stayed constant with the latest value at 9/ 4.01 (10/28/17). -Estimated GFR was 11 -Nephrology was consulted and believe that the rise in her BUN may be secondary to her diuretic use. -At this time they do not believe that she warrants dialysis therapy and recommend avoiding nephrotoxins and adjusting medication for her renal function. (7) Aortic stenosis Current Visit: No Status: Chronic Assessment and Plan: -Patient has a known history of moderate aortic stenosis. -Echo performed on 10/22/17 showed a mean gradient of 27 mmHg. -Continue home Lasix and Losartan (8) Chest pain Current Visit: No Status: Acute Assessment and Plan: -Patient complaint of left sided chest pain upon admission and troponins were elevated (0.05). -Cardiology was consulted and per their recommendations the patient is being managed with medical therapy at this time. -Patient is not currently complaining of chest pain at this time -Patient will follow up with cardiology as an outpatient (9) Hypertension Current Visit: No Status: Suspected Assessment and Plan: -Patient has a previous diagnosis of hypertension. -Latest blood pressure reading was 134/61. -Patient is currently being treated with Amlodipine, Clonidine, Hydralazine, Imdur, and Labetalol. -Continue to monitor BP Q4 hours. (10) Diabetes Current Visit: No Status: Acute Assessment and Plan: -Patient has a previous diagnosis of diabetes. -Blood glucose levels have been trending down with a latest value of 46 (10/28/17) -Patient is currently NPO -Continue to monitor blood glucose. (11) Altered mental status Current Visit: Yes Status: Resolved Assessment and Plan: -At this time the patient is alert and oriented x 3. -Nephrology was consulted and believe that her AMS was possibly secondary to uremia as her BUN was elevated compared to baseline. -Per Nephrology the BUN may be elevated secondary to diuretic use, however the patient does not warrant dialysis at this time. (12) Positive occult stool blood test Current Visit: Yes Status: Acute Assessment and Plan: -Patient had a positive stool occult blood test on 10/26/17 -Hemoglobin has trended down further today (9.3 to 8.5) -Patient has also had several black tarry stools, GI has been consulted (13) DVT prophylaxis Current Visit: No Status: Acute Assessment and Plan: Patient has been discontinued from Heparin due to Thrombocytopenia - Time Spent with Patient Total time spent is greater than 50% in coordination of care (as documented) at patient's floor/unit and/or counseling patient: Internal Medicine: Result - Labs CBC & Chem 7: 10/28/17 03:35 10/28/17 03:35 Labs: Short CBC 10/27/17 10/28/17 Range/Units 21:25 03:35 WBC 6.4 8.8 (4.3-11.1) K/mcL Hgb 9.0 L 9.5 L (11.5-15.4) g/dL Hct 28.8 L 30.6 L (35.3-44.9) % Plt Count 78 L 86 L (140-400) K/mcL BMP 10/28/17 03:35 Sodium 141 Potassium 4.5 Chloride 110 H Carbon Dioxide 20 L BUN 99 H Creatinine 4.01 H Glucose 48 L Calcium 8.9 - ABG Interpretation ABG results: PT/INR, D-dimer PT 11.0 Seconds (9.4-12.1) 10/22/17 14:19 - Impressions Impressions Chest X-Ray 10/28/17 03:16 IMPRESSION: Stable left pleural effusion. D/ / Agustín Vale MD / Agustín Vale MD Interpreting Provider: Agustín Vale MD - VTE Documentation of Mechanical Device: Intermittent pneumatic compression device Consult Discharge Plan - Plan Referrals: Ema Del Toro, [facility] [Primary Care Provider] - <Michi Beltre - Last Filed: 10/28/17 18:56> Hospitalist Progress Note - Encounter Date of Encounter: 10/28/17 - Exam Vitals: Temp Pulse Resp BP Pulse Ox 97.6 F 61 17 127/62 100 10/28/17 15:04 10/28/17 15:04 10/28/17 15:33 10/28/17 15:04 10/28/17 15:33 - Assessment and Plan (1) CHF (congestive heart failure) Current Visit: No Status: Resolved (2) GI (gastrointestinal bleed) Current Visit: Yes Status: Acute (3) Anemia Current Visit: No Status: Chronic (4) DVT prophylaxis Current Visit: No Status: Acute (5) CKD (chronic kidney disease) Current Visit: No Status: Chronic (6) Aortic stenosis Current Visit: No Status: Chronic (7) Hypertension Current Visit: No Status: Suspected (8) Constipation Current Visit: Yes Status: Resolved (9) Coronary artery disease Current Visit: No Status: Chronic - Time Spent with Patient Total time spent is greater than 50% in coordination of care (as documented) at patient's floor/unit and/or counseling patient: Internal Medicine: Result - Labs CBC & Chem 7: 10/28/17 03:35 10/28/17 03:35 Labs: Short CBC 10/27/17 10/28/17 Range/Units 21:25 03:35 WBC 6.4 8.8 (4.3-11.1) K/mcL Hgb 9.0 L 9.5 L (11.5-15.4) g/dL Hct 28.8 L 30.6 L (35.3-44.9) % Plt Count 78 L 86 L (140-400) K/mcL BMP 10/28/17 03:35 Sodium 141 Potassium 4.5 Chloride 110 H Carbon Dioxide 20 L BUN 99 H Creatinine 4.01 H Glucose 48 L Calcium 8.9 - ABG Interpretation ABG results: PT/INR, D-dimer PT 11.0 Seconds (9.4-12.1) 10/22/17 14:19 - Impressions Impressions Chest X-Ray 10/28/17 03:16 IMPRESSION: Stable left pleural effusion. D/ / Agustín Vale MD / Agustín Vale MD Interpreting Provider: Agustín Vale MD - Attending Attestation The history, physical exam, and medical decision making was performed by the medical student either while I was physically present and actively involved or I personally re-performed the exam and medical decision making. I have verified the accuracy of the medical student's documentation with regards to the history, physical exam findings, and medical decision making on 10/28/17. Ms Giles is currently admitted for exac CHF and anemia. She is to have colonoscopy today. She remains moderate to high risk due to potential for worsening clinical status. Ms Giles is to have colonoscopy today. She has been more congested in her chest. Seems more dyspneic. ? if has been choking on food. Received fluids for procedure. Exam alert Comfortable at this time Mucus membranes dry Heart distant with murmur Coarse congestion upper airway Abd soft No edema I/P 1. Melena - Colonoscopy today 2. Anemia 3. Speech eval to r/o dysphagia Lasix for congestion. Further diagnoses and plan as above. Hopeful d/c to SNF tomorrow. <Kevin Chawla - Last Filed: 10/28/17 15:22> (1) GI (gastrointestinal bleed) Qualifiers: GI bleed type/associated pathology: melena Qualified Code(s): K92.1 - Melena (3) Anemia Qualifiers: Anemia type: other cause Other causes of anemia: acute posthemorrhagic Qualified Code(s): D62 - Acute posthemorrhagic anemia (6) CKD (chronic kidney disease) Qualifiers: Chronic kidney disease stage: stage 4 (severe) Qualified Code(s): N18.4 - Chronic kidney disease, stage 4 (severe) (7) Aortic stenosis Qualifiers: Cardiac valve disease etiology: etiology unspecified Qualified Code(s): I35.0 - Nonrheumatic aortic (valve) stenosis (8) Chest pain Qualifiers: Chest pain type: chest pain on breathing Qualified Code(s): R07.1 - Chest pain on breathing; R07.81 - Pleurodynia (9) Hypertension Qualifiers: Hypertension type: renovascular hypertension Qualified Code(s): I15.0 - Renovascular hypertension (10) Diabetes Qualifiers: Diabetes mellitus type: type 2 Diabetes mellitus [facility] insulin use: with feed mill 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 Diabetes mellitus complication status: with unspecified complications Qualified Code(s): E11.8 - Type 2 diabetes mellitus with unspecified complications; 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 (11) Altered mental status Qualifiers: Altered mental status type: unspecified Qualified Code(s): R41.82 - Altered mental status, unspecified <Michi Beltre - Last Filed: 10/28/17 18:56> (1) CHF (congestive heart failure) Qualifiers: Heart failure type: diastolic Heart failure chronicity: acute on chronic Qualified Code(s): I50.33 - Acute on chronic diastolic (congestive) heart failure (2) GI (gastrointestinal bleed) Qualifiers: GI bleed type/associated pathology: melena Qualified Code(s): K92.1 - Melena (3) Anemia Qualifiers: Anemia type: other cause Other causes of anemia: acute posthemorrhagic Qualified Code(s): D62 - Acute posthemorrhagic anemia (5) CKD (chronic kidney disease) Qualifiers: Chronic kidney disease stage: stage 4 (severe) Qualified Code(s): N18.4 - Chronic kidney disease, stage 4 (severe) (6) Aortic stenosis Qualifiers: Cardiac valve disease etiology: etiology unspecified Qualified Code(s): I35.0 - Nonrheumatic aortic (valve) stenosis (7) Hypertension Qualifiers: Hypertension type: renovascular hypertension Qualified Code(s): I15.0 - Renovascular hypertension (8) Constipation Qualifiers: Constipation type: slow transit constipation Qualified Code(s): K59.01 - Slow transit constipation (9) Coronary artery disease Qualifiers: Coronary Disease-Associated Artery/Lesion type: [place] artery [place] vs. transplanted heart: [place] heart Associated angina: without angina Qualified Code(s): I25.10 - Atherosclerotic heart disease of [place] coronary artery without angina pectoris
--- NOTE | 2017-10-28 09:56 | Anesthesia Evaluation PreOp ---
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 PRINTER History: CVA (residual left eye blindness) Other Medical History: Renal (stage 5 CKD), Diabetes Type II, GERD Anesthesia History: No Prior Anesthetic Complications, Past Anesthesia Alcohol Use: none Drug use: none Medications and Allergies Iron Ps Cmplx/Vit B12/FA [Iferex 150 Forte Capsule] 1 cap PO BID 04/11/15 [ History] Losartan Potassium [Cozaar] 100 mg PO DAILY 04/11/15 [History] Cilostazol [Pletal] 100 mg PO BID #0 07/09/15 [History] Atorvastatin [Lipitor] 40 mg PO HS #30 tablet 10/11/15 [Rx] Furosemide [Lasix] 40 mg PO DAILY #30 tablet 10/11/15 [Rx] Labetalol [Trandate] 200 mg PO BID #60 tablet 05/22/17 [Rx] Aspirin [Lo-Dose Aspirin EC] 81 mg PO DAILY 10/07/17 [History] Calcitriol [Rocaltrol] 0.25 mcg PO MOWEFR 10/07/17 [History] Isosorbide MONOnitrate [Isosorbide Mononitrate ER] 180 mg PO DAILY 10/07/17 [ History] cloNIDine HCl [Clonidine HCl] 0.2 mg PO TID 10/07/17 [History] Amlodipine Besylate 10 mg PO DAILY 10/22/17 [History] Glucagon,Human Recombinant [Glucagon Emergency Kit] 1 mg IJ ONCE PRN 10/22/17 [ History] Hydralazine HCl 50 mg PO TID 10/22/17 [History] Insulin Glargine,Hum.rec.anlog [Basaglar Kwikpen U-100] 20 unit SQ HS 10/22/17 [ History] hydrALAZINE [HydrALAZINE] 25 mg PO TID 10/22/17 [History] Lidocaine Patch [Lidoderm 5% patch] 1 each TP DAILY PRN adh..patch 10/24/17 [Rx ] 3 Allergy/AdvReac Type Severity Reaction Status Date / Time celecoxib [From Celebrex] AdvReac Nausea Verified 10/22/17 10:21 - Meds/Allergy Pre-op Review Medications Reviewed: Yes Allergies Reviewed: Yes Beta Blockers on Current Med List: Yes Anesthesia Results - Labs 10/28/17 03:35 10/28/17 03:35 - Imaging EKG: report reviewed (10/22/2017 SINUS RHYTHM MODERATE INTRAVENTRICULAR CONDUCTION DELAY [105+ ms QRS DURATION, 80+ ms Q/S IN V1/V2, NO Q AND 60+ ms R IN I/aVL/V5/V6] NONSPECIFIC T-WAVE ABNORMALITY PROLONGED QT INTERVAL WARNING: DATA QUALITY MAY AFFECT INTERPRETATION) Additional studies: 10/22/2017 Echo Impressions: LVEF 60-65%. Normal left ventricular size and systolic function. Biatrial enlargement. Moderate-severe mitral regurgitation. Moderate-severe tricuspid regurgitation. Estimated RVSP was 74 mmHg. Severe pulmonary hypertension. Moderate aortic stenosis. Mean gradient 27mmHg Aortic Valve Peak Percy: 3.14 m/sec Mean Percy: 2.47 m/sec Peak Grad: 39.00 mmHg Mean Grad: 27.00 mmHg Valve Area: 1.25 cm2 Findings: Study Quality * Technically adequate exam. ECG Findings * Normal sinus rhythm. Left Ventricle * LVEF 60-65%. * Normal LV chamber size, wall thickness and function. Right Ventricle * Normal right ventricular structure and function. Right Atrium * Mildly dilated right atrium. Left Atrium * Moderately dilated left atrium. Interatrial Septum * Interatrial septum not well evaluated. Aortic Valve * Aortic valve not well visualized. * Moderately calcified aortic valve leaflets. * Moderately thickened aortic valve leaflets. * Moderate aortic stenosis. * Peak gradient 39mmHg, mean gradient 27mmHg Mitral Valve * Mildly thickened mitral valve leaflets. * Moderate-severe mitral regurgitation. * Mild mitral annular calcification Tricuspid Valve * Normal tricuspid valve structure. * Moderate-severe tricuspid regurgitation. * Estimated RVSP is 74 mmHg. * Severe pulmonary hypertension. Pulmonic Valve * Pulmonic valve not well visualized. * Mild pulmonic regurgitation. Aorta * Normally sized aortic root. Pericardium * The pericardium appears normal. IVC * The IVC is dilated. * > 50% respiratory change 10/07/2015 Limited Echo Impressions: LVEF 70%. Normal LV chamber size and function. Mild concentric left ventricular hypertrophy. Aortic valve not well visualized. Mild-moderate aortic stenosis. Mean gradient 19 mmHg, Vmax 2.88 m/s. This was a limited study. See prior report from 07/10/2015 for further details. Anesthesia Exam Vital Signs/O2 Sat/Glucose, Most Recent Temp Pulse Resp BP Pulse Ox 97.6 F 65 18 130/56 99 10/28/17 11:52 10/28/17 11:52 10/28/17 11:52 10/28/17 11:52 10/28/17 11:52 Blood Glucose* 81 Height: 5'4''/1.63m Weight: 194 lbs/88 kg NPO (# of Hours): 8 Pain Scale: 0 Pain Scale Used: Numeric (1 - 10) - HEENT Pupil (Motor): EOMI Mallampati: III Teeth: Edentulous Oral Opening: Greater than 3 - BINDING PRINTER LOC: Oriented BINDING PRINTER Motor: Normal RUE, Normal LUE, Normal RLE, Normal LLE, Normal Face BINDING PRINTER Sensory: Normal: RUE, LUE, RLE, LLE, Deficit: Face (left eye blindness) - Cardiac Rhythm: Regular Murmur: Systolic - Pulmonary Breath Sounds: bilateral Clear Respiratory Effort: Symmetrical Anesthesia Assess/Plan ASA Score: 4 Modified [place] Scale for Level of Consciousness: Cooperative, oriented, and tranquil Anesthetic Plan: MAC Monitoring Plan: Standard Monitors
[2017-10-28] MEDS: Gabapentin 100 MG CAPSULE PO SCH ×3 (10:45→20:25)
[2017-10-28] MEDS: cloNIDine HCl 0.1 MG TABLET PO SCH ×3 (10:45→20:26)
[2017-10-28] MEDS: Aspirin Enteric Coated 81 MG Tablet PO SCH (10:45)
[2017-10-28] MEDS: Sennosides/Docusate Sodium TABLET PO SCH ×2 (10:45→20:30)
[2017-10-28] MEDS: Isosorbide MONOnitrate (24 HR) 60 MG TAB.ER.24H PO SCH (10:45)
[2017-10-28] MEDS: Furosemide 40 MG TABLET PO SCH (10:46)
[2017-10-28] MEDS: amLODIPine 5 MG TABLET PO SCH (10:46)
[2017-10-28] MEDS: IRON PS CMPLX PO SCH ×2 (10:47→20:27)
[2017-10-28] MEDS: [UNRECOGNIZED DRUG - OTHER] PO SCH ×2 (10:47→20:27)
[2017-10-28] MEDS: VIT B12 PO SCH ×2 (10:47→20:27)
[2017-10-28] MEDS: Insulin LISPRO 300 UNITS/3 ML VIAL SQ SCH ×4 (10:47→20:33)
[2017-10-28] MEDS: hydrALAZINE 25 MG TABLET PO SCH ×3 (10:52→20:25)
[2017-10-28] MEDS ORDERED: Lidocaine -MPF 2% 2 ML VIAL ONE (12:44)
[2017-10-28] MEDS ORDERED: *HR* Propofol 200 MG/20 ML VIAL IVP ONE (12:44)
[2017-10-28] MEDS: Ipratropium/Albuterol Neb 3 ML IH PRN (15:31)
[2017-10-28] MEDS ORDERED: Furosemide 40 MG/4 ML VIAL IVP ONE (16:25)
[2017-10-28] MEDS: Insulin DETEMIR 100 UNIT/ML X5UNITS SQ SCH (20:30)
[2017-10-29] MEDS: Ipratropium/Albuterol Neb 3 ML IH PRN ×2 (00:22→07:32)
[2017-10-29 04:40] LABS: Hematocrit 26.9 % (35.3-44.9); Hemoglobin 8.4 g/dL (11.5-15.4); Immature Platelets 1.6 % (1.1-6.1); Mean Corpuscular HGB Conc 31.2 g/dL (31.6-35.5); Mean Corpuscular Hemoglobin 29.7 pg (28.0-33.3); Mean Corpuscular Volume 95.1 fL (83.0-100.0); Mean Platelet Volume 9.5 fL (9.4-12.4); Red Blood Count 2.83 M/mcL (3.82-4.97); Red Cell Distribution Width 16.5 % (11.5-14.5)
[2017-10-29 04:54] LABS: Calcium 8.4 mg/dL (8.6-10.3); Potassium 4.1 mEq/L (3.5-5.1)
[2017-10-29] MEDS: Pantoprazole 40 MG VIAL IVP SCH ×2 (06:21→16:48)
[2017-10-29] MEDS: Insulin LISPRO 300 UNITS/3 ML VIAL SQ SCH ×4 (08:05→20:18)
[2017-10-29] MEDS: hydrALAZINE 25 MG TABLET PO SCH ×3 (08:12→20:15)
[2017-10-29] MEDS: Isosorbide MONOnitrate (24 HR) 60 MG TAB.ER.24H PO SCH (08:12)
[2017-10-29] MEDS: Gabapentin 100 MG CAPSULE PO SCH ×3 (08:13→20:15)
[2017-10-29] MEDS: amLODIPine 5 MG TABLET PO SCH (08:13)
[2017-10-29] MEDS: cloNIDine HCl 0.1 MG TABLET PO SCH ×3 (08:13→20:15)
[2017-10-29] MEDS: Furosemide 40 MG TABLET PO SCH (08:13)
[2017-10-29] MEDS: Aspirin Enteric Coated 81 MG Tablet PO SCH (08:13)
[2017-10-29] MEDS: [UNRECOGNIZED DRUG - OTHER] PO SCH (08:14)
[2017-10-29] MEDS: VIT B12 PO SCH (08:14)
[2017-10-29] MEDS: IRON PS CMPLX PO SCH (08:14)
[2017-10-29] MEDS: Sennosides/Docusate Sodium TABLET PO SCH ×2 (08:15→20:14)
[2017-10-29] MEDS ORDERED: Furosemide 40 MG/4 ML VIAL IVP ONE (09:24)
--- NOTE | 2017-10-29 10:10 | Internal Med Progress Note ---
<Kevin Chawla - Last Filed: 10/29/17 15:08> Hospitalist Progress Note - Encounter Date of Encounter: 10/29/17 Time of Encounter: 09:30 - Subjective Interval History: Ms. Giles was laying up in bed and was awake upon my arrival, upon questioning the patient is alert and oriented x 3 and states that she does not have any complaints this morning. Patient states that she slept very good last night. She also denies chest pain, fever, chills, headaches, and shortness of breath. Ms. Giles states that while she has been urinating and has had a small bowel movement this morning. - Exam Vitals: Temp Pulse Resp BP Pulse Ox 97.7 F 58 16 120/56 100 10/29/17 06:51 10/29/17 06:51 10/29/17 07:33 10/29/17 06:51 10/29/17 07:33 Exam: General Appearance: Patient appears improved from yesterday and in no acute distress Head exam: Atraumatic, normocephalic Eye exam: PERRL, conjuntiva pink, sclera anicteric Neck exam: Trachea midline Respiratory exam: Diffuse rales bilaterally Cardiology exam: RRR, +S1, +S2 Gastrointestinal exam: Normal bowel sounds, soft, no tenderness Extremities exam: warm without tenderness, legs were wrapped up and unable to be examined Neurological exam: CN II-XII intact, patient is alert and oriented x 3 Skin exam: Dry and intact - Assessment and Plan (1) GI (gastrointestinal bleed) Current Visit: Yes Status: Acute Assessment and Plan: -The patient has had several bowel movement, all of which were black and tarry -Hemoglobin has been declining the last few day, however was higher today at 9.5 -Patient has been made NPO and is not currently complaining of any abdominal symptoms -On physical exam the abdomen is soft and not tender to palpation -GI has been consulted and they performed an EGD yesterday which showed multiple 12 mm sessile polyps with bleeding and no stigmata of recent bleeding were found in the gastric body and in the gastric antrum. The ampulla, and first and second portion of the duodenum were normal -Colonoscopy was performed and one 14 mm polyp in the proximal ascending colon ( biopsied), diverticulosis in the sigmoid colon, decending colon, and transverse colon, and non-bleeding internal hemorrhoids. -Recommendations are to await pathology results, and keep the patient on a clear liquid diet (2) Acute respiratory failure Current Visit: Yes Status: Acute Assessment and Plan: -After patient underwent EGD she began experiencing some hypoxia and wheezing -Is currently on 2L of oxygen and is O2 saturation is 100 -Checked gag reflex post EGD and the patient did gag, gave drink and patient immediately coughed, concern for aspiration pneumonia -Chest x ray: left pleural effusion is again seen with minimal adjacent atelectasis. The right lung is clear. The heart size is within normal limits. There is no discernible pneumothorax -On physical exam the patient's voice does sound raspy and diffuse bilateral rales, however it sounds improved from yesterday -Patient is currently receiving schedule Albuterol treatment -At this time is not complaining of shortness of breath -Patient should receive an evaluation by speech therapy to rule out dysphagia -Continue the patient on oxygen and monitor for improvements (3) Anemia Current Visit: No Status: Chronic Assessment and Plan: -Anemia likely secondary due to CKD and probable chronic blood loss -Patient's Hemoglobin/Hematocrit have been trending down, 8.4/26.9 -The patient has also had several black tarry stools since admission (4) (HFpEF) heart failure with preserved ejection fraction Current Visit: No Status: Acute Assessment and Plan: -Patient has a previous history of Heart Failure with Preserved Ejection Fraction. -Patient received an Echo on 10/22/17 which showed a LVEF fo 60-65%, biatrial enlargement, moderate-severe mitral/tricuspid regurgitation, severe pulmonary hypertension, and moderate aortic stenosis. -On physical exam the has diffuse rales bilaterally on auscultation and legs were wrapped up and unable to be examined for pitting edema -Patient is complaining of some SOB and is on 2L oxygen -Patient is currently receiving Lasix 40 mg PO -Continue to monitor for sign for worsening fluid overload (5) Elevated troponin Current Visit: No Status: Acute Assessment and Plan: -Upon admission the patient had an elevated BNP at 834 as well as an elevated Troponin 0.05 (10/22/17) and the latest value taken on 10/23/17 continued to show Troponin at 0.05. -Initial EKG showed no signs of early ischemia. -Receiving treatment with Aspirin, Atorvastatin, Labetalol, and Losartan (6) CKD (chronic kidney disease) Current Visit: No Status: Chronic Assessment and Plan: -Patient has a history of stage 5 CKD. Upon admission the patient had an elevated BUN/Cr at 88/3.49 and the latest value was 107/4.45 -Estimated GFR was 9 -Nephrology was consulted and believe that the rise in her BUN may be secondary to her diuretic use -Initially it was determined that the did not require dialysis, however due to worsening kidney function the patient will be started on dialysis (7) Aortic stenosis Current Visit: No Status: Chronic Assessment and Plan: -Patient has a known history of moderate aortic stenosis. -Echo performed on 10/22/17 showed a mean gradient of 27 mmHg. -Continue home Lasix and Losartan (8) Chest pain Current Visit: No Status: Acute Assessment and Plan: -Patient complaint of left sided chest pain upon admission and troponins were elevated (0.05). -Cardiology was consulted and per their recommendations the patient is being managed with medical therapy at this time. -Patient is not currently complaining of chest pain at this time -Patient will follow up with cardiology as an outpatient (9) Hypertension Current Visit: No Status: Suspected Assessment and Plan: -Patient has a previous diagnosis of hypertension. -Latest blood pressure reading was 100/44 -Patient is currently being treated with Amlodipine, Clonidine, Hydralazine, Imdur, and Labetalol. -Continue to monitor BP Q4 hours. (10) Diabetes Current Visit: No Status: Acute Assessment and Plan: -Patient has a previous diagnosis of diabetes. -Blood glucose levels have been trending down with a latest value of 104 () -Patient is currently NPO -Continue to monitor blood glucose. (11) Altered mental status Current Visit: Yes Status: Resolved Assessment and Plan: -At this time the patient is alert and oriented x 3. -Nephrology was consulted and believe that her AMS was possibly secondary to uremia as her BUN was elevated compared to baseline. -Per Nephrology the BUN may be elevated secondary to diuretic use, patient will begin dialysis today (10/29/17) (12) Positive occult stool blood test Current Visit: Yes Status: Acute Assessment and Plan: -Patient had a positive stool occult blood test on 10/26/17 -Hemoglobin has trended down further today (9.5 to 8.4) -Patient has also had several black tarry stools, GI is consulted (13) DVT prophylaxis Current Visit: No Status: Acute Assessment and Plan: Patient has been discontinued from Heparin due to Thrombocytopenia - Time Spent with Patient Total time spent is greater than 50% in coordination of care (as documented) at patient's floor/unit and/or counseling patient: Internal Medicine: Result - Labs CBC & Chem 7: 10/29/17 04:07 10/29/17 04:07 Labs: Short CBC 10/29/17 Range/Units 04:07 WBC 3.4 L D (4.3-11.1) K/mcL Hgb 8.4 L (11.5-15.4) g/dL Hct 26.9 L (35.3-44.9) % Plt Count 76 L (140-400) K/mcL BMP 10/29/17 04:07 Sodium 139 Potassium 4.1 Chloride 109 H Carbon Dioxide 21 L BUN 107 H Creatinine 4.45 H Glucose 104 Calcium 8.4 L - ABG Interpretation ABG results: PT/INR, D-dimer PT 11.0 Seconds (9.4-12.1) 10/22/17 14:19 - VTE Documentation of Mechanical Device: Intermittent pneumatic compression device Consult Discharge Plan - Plan Referrals: Ema Del Toro, [employer] [Primary Care Provider] - <Michi Beltre - Last Filed: 10/29/17 18:37> Hospitalist Progress Note - Encounter Date of Encounter: 10/29/17 - Exam Vitals: Temp Pulse Resp BP Pulse Ox 97.6 F 62 18 158/61 94 10/29/17 17:10 10/29/17 16:41 10/29/17 17:10 10/29/17 17:10 10/29/17 16:50 - Assessment and Plan (1) Acute respiratory failure Current Visit: Yes Status: Acute (2) Acute pulmonary edema Current Visit: Yes Status: Acute (3) CHF (congestive heart failure) Current Visit: No Status: Resolved (4) GI (gastrointestinal bleed) Current Visit: Yes Status: Resolved (5) Anemia Current Visit: No Status: Chronic (6) DVT prophylaxis Current Visit: No Status: Acute (7) CKD (chronic kidney disease) Current Visit: No Status: Chronic (8) Aortic stenosis Current Visit: No Status: Chronic (9) Hypertension Current Visit: No Status: Suspected (10) Constipation Current Visit: Yes Status: Resolved (11) Coronary artery disease Current Visit: No Status: Chronic - Time Spent with Patient Total time spent is greater than 50% in coordination of care (as documented) at patient's floor/unit and/or counseling patient: Internal Medicine: Result - Labs CBC & Chem 7: 10/29/17 04:07 10/29/17 04:07 Labs: Short CBC 10/29/17 Range/Units 04:07 WBC 3.4 L D (4.3-11.1) K/mcL Hgb 8.4 L (11.5-15.4) g/dL Hct 26.9 L (35.3-44.9) % Plt Count 76 L (140-400) K/mcL BMP 10/29/17 04:07 Sodium 139 Potassium 4.1 Chloride 109 H Carbon Dioxide 21 L BUN 107 H Creatinine 4.45 H Glucose 104 Calcium 8.4 L - ABG Interpretation ABG results: PT/INR, D-dimer PT 11.0 Seconds (9.4-12.1) 10/22/17 14:19 - Attending Attestation The history, physical exam, and medical decision making was performed by the medical student either while I was physically present and actively involved or I personally re-performed the exam and medical decision making. I have verified the accuracy of the medical student's documentation with regards to the history, physical exam findings, and medical decision making on 10/29/17. Ms Giles is currently admitted for acute exac CHF and GI bleed. She remains moderate to high risk due to potential worsening clinical status. Ms Giles is much more congested in her chest today. She is having more breathing difficulty. Creatinine is worse today. No CP. No other issues overnight. Exam alert Mod distress due to breathing. Mucus membranes dry Heart distant Diffuse rhonchi and rales Abd soft Edema present I/P 1. Acute resp failure 2. Pulmonary edema 3. ESRD - to start dialysis today. Further diagnoses and plan as above. <Nuvia Chawlaadrienne A - Last Filed: 10/29/17 15:08> (1) GI (gastrointestinal bleed) Qualifiers: GI bleed type/associated pathology: melena Qualified Code(s): K92.1 - Melena (3) Anemia Qualifiers: Anemia type: other cause Other causes of anemia: acute posthemorrhagic Qualified Code(s): D62 - Acute posthemorrhagic anemia (6) CKD (chronic kidney disease) Qualifiers: Chronic kidney disease stage: stage 4 (severe) Qualified Code(s): N18.4 - Chronic kidney disease, stage 4 (severe); Z99.2 - Dependence on renal dialysis (7) Aortic stenosis Qualifiers: Cardiac valve disease etiology: etiology unspecified Qualified Code(s): I35.0 - Nonrheumatic aortic (valve) stenosis (8) Chest pain Qualifiers: Chest pain type: chest pain on breathing Qualified Code(s): R07.1 - Chest pain on breathing; R07.81 - Pleurodynia (9) Hypertension Qualifiers: Hypertension type: renovascular hypertension Qualified Code(s): I15.0 - Renovascular hypertension (10) Diabetes Qualifiers: Diabetes mellitus type: type 2 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: with truck terminal manager use Diabetes mellitus complication status: with unspecified complications Qualified Code(s): E11.8 - Type 2 diabetes mellitus with unspecified complications; Z79.4 - group home (current) use of insulin (11) Altered mental status Qualifiers: Altered mental status type: unspecified Qualified Code(s): R41.82 - Altered mental status, unspecified <Michi Beltre A - Last Filed: 10/29/17 18:37> (1) Acute respiratory failure Qualifiers: Respiratory failure complication: hypoxia Qualified Code(s): J96.01 - Acute respiratory failure with hypoxia (3) CHF (congestive heart failure) Qualifiers: Heart failure type: diastolic Heart failure chronicity: acute on chronic Qualified Code(s): I50.33 - Acute on chronic diastolic (congestive) heart failure (4) GI (gastrointestinal bleed) Qualifiers: GI bleed type/associated pathology: melena Qualified Code(s): K92.1 - Melena (5) Anemia Qualifiers: Anemia type: other cause Other causes of anemia: acute posthemorrhagic Qualified Code(s): D62 - Acute posthemorrhagic anemia (7) CKD (chronic kidney disease) Qualifiers: Chronic kidney disease stage: on chronic dialysis Qualified Code(s): N18.6 - End stage renal disease; Z99.2 - Dependence on renal dialysis (8) Aortic stenosis Qualifiers: Cardiac valve disease etiology: etiology unspecified Qualified Code(s): I35.0 - Nonrheumatic aortic (valve) stenosis (9) Hypertension Qualifiers: Hypertension type: renovascular hypertension Qualified Code(s): I15.0 - Renovascular hypertension (10) Constipation Qualifiers: Constipation type: slow transit constipation Qualified Code(s): K59.01 - Slow transit constipation (11) Coronary artery disease Qualifiers: Coronary Disease-Associated Artery/Lesion type: [place] artery [place] vs. transplanted heart: [place] heart Associated angina: without angina Qualified Code(s): I25.10 - Atherosclerotic heart disease of [place] coronary artery without angina pectoris
[2017-10-29] MEDS ORDERED: 0.9 % Sodium Chloride 250 ML IVC PRN (11:03)
[2017-10-29] MEDS: Ipratropium/Albuterol Neb 3 ML IH SCH ×3 (11:18→20:30)
[2017-10-29 11:40] LABS: Hepatitis B Surface Antigen Nonreactive (Nonreactive)
[2017-10-29] MEDS ORDERED: 0.9 % Sodium Chloride 1,000 ML ONE (13:10)
[2017-10-29] MEDS: OXYCODONE Oral CONC 10 MG/0.5 ML ORAL.SYG SL PRN (16:47)
[2017-10-29] MEDS: Insulin DETEMIR 100 UNIT/ML X5UNITS SQ SCH (20:16)
[2017-10-30] MEDS: Ipratropium/Albuterol Neb 3 ML IH SCH ×7 (00:17→23:20)
[2017-10-30 03:19] LABS: Immature Granulocytes % 0.3 % (0-4); Lymphocytes % 19.6 %; Mean Platelet Volume 9.8 fL (9.4-12.4); Monocytes % 12.6 %; Red Cell Distribution Width 15.9 % (11.5-14.5)
[2017-10-30 03:21] LABS: Eosinophils # 0.2 K/mcL (0.0-0.6); Eosinophils % 5.8 %; Hemoglobin 8.7 g/dL (11.5-15.4); Immature Platelets 1.9 % (1.1-6.1); Lymphocytes # 0.7 K/mcL (0.6-4.6); Mean Corpuscular HGB Conc 32.2 g/dL (31.6-35.5); Mean Corpuscular Hemoglobin 30.5 pg (28.0-33.3); Mean Corpuscular Volume 94.7 fL (83.0-100.0); Monocytes # 0.4 K/mcL (0.0-1.3); Neutrophils # 2.1 K/mcL (1.6-8.9); Red Blood Count 2.85 M/mcL (3.82-4.97); Segmented Neutrophils % 61.7 %
[2017-10-30 03:27] LABS: Platelet Count 73 K/mcL (140-400)
[2017-10-30 03:37] LABS: Calcium 8.3 mg/dL (8.6-10.3); Potassium 3.9 mEq/L (3.5-5.1)
[2017-10-30] MEDS: Insulin LISPRO 300 UNITS/3 ML VIAL SQ SCH ×4 (08:08→22:04)
[2017-10-30] MEDS: VIT B12 PO SCH ×2 (08:08→09:52)
[2017-10-30] MEDS: [UNRECOGNIZED DRUG - OTHER] PO SCH ×2 (08:08→09:52)
[2017-10-30] MEDS: IRON PS CMPLX PO SCH ×2 (08:08→09:52)
[2017-10-30] MEDS ORDERED: 0.9 % Sodium Chloride 250 ML IVC PRN (08:51)
[2017-10-30] MEDS ORDERED: 0.9 % Sodium Chloride 1,000 ML ONE (09:00)
[2017-10-30] MEDS: Pantoprazole 40 MG VIAL IVP SCH ×2 (09:41→16:42)
[2017-10-30] MEDS: cloNIDine HCl 0.1 MG TABLET PO SCH ×3 (09:47→22:02)
[2017-10-30] MEDS: hydrALAZINE 25 MG TABLET PO SCH ×3 (09:47→22:03)
--- NOTE | 2017-10-30 09:47 | Nephrology Progress Note ---
Date of Encounter: 10/30/17 Time of Encounter: 09:45 - Assessment and Plan (1) ESRD (end stage renal disease) Current Visit: Yes Status: Acute With her progressively worsening in terms of renal function, generalized subtle uremic symptoms and in the setting of CKD stage V, I will now recommend that initiate HD and declare her ESRD. First HD was yesterday afternoon via the [facility], and I've arranged for HD today. Next HD will be planned for Wednesday. I' ve already consulted the to help arrange for a dialysis care. Her prior nephrology provider was Nancy Tyler in [place], [place]. (2) CKD (chronic kidney disease), stage V Current Visit: No Status: Chronic (3) Anemia in chronic kidney disease Current Visit: No Status: Chronic Qualifiers: Chronic kidney disease stage: stage 5, not on chronic dialysis Qualified Code(s): N18.5 - Chronic kidney disease, stage 5; D63.1 - Anemia in chronic kidney disease (4) Hypertension Current Visit: No Status: Chronic Qualifiers: Hypertension type: renovascular hypertension Qualified Code(s): I15.0 - Renovascular hypertension Subjective Principal diagnosis: Chest pain Interval history: Pt was s/e earlier today. She did not affirm N/V/D or cramping or other major complaint while seen on dialysis. Objective - Vital Signs Vital signs: Vital Signs Temp Pulse Resp BP Pulse Ox 10/30/17 07:51 18 99 10/30/17 06:37 98.2 F 63 20 131/62 100 10/30/17 04:34 19 100 10/30/17 04:25 97.7 F 60 18 120/69 99 10/30/17 00:19 97.5 F L 62 20 135/58 99 10/30/17 00:17 17 100 10/29/17 20:28 64 10/29/17 19:34 97.6 F 61 16 141/66 99 10/29/17 17:10 97.6 F 18 158/61 10/29/17 16:50 16 94 10/29/17 16:41 97.8 F 62 16 141/59 94 10/29/17 16:00 132/57 10/29/17 15:45 131/64 10/29/17 15:30 126/60 10/29/17 15:15 125/67 10/29/17 15:00 117/58 10/29/17 14:45 127/61 10/29/17 14:30 118/70 10/29/17 14:15 118/62 10/29/17 14:00 97.6 F 18 126/57 10/29/17 11:18 20 98 10/29/17 10:49 97.6 F 63 15 100/44 98 Intake and Output 10/29/17 10/30/17 10/30/17 23:59 07:59 15:59 Intake Total 120 / 120 50 / 50 Output Total 1600 / 1600 0 / 0 Balance -1480 / -1480 50 / 50 Intake: Oral 120 / 120 50 / 50 Output: Urine 0 / 0 0 / 0 Total Dialysis (HD) Output 1600 / 1600 Other: Meal Dinner Percent of Meal Consumed 95% Stool Size Smear Stool Consistency loose Stool Characteristics Mucoid # Voids 0 # Bowel Movements 1 Weight 87.6 kg Blood Glucose* 203 79 Hemodialysis Net Fluid Removed 1000 (mL) Patient Weight 10/30/17 23:59 Weight 87.6 kg - General Appearance General appearance: Present: fatigue, frail EENT: Present: mucous membranes moist Neck: Present: supple Respiratory: Present: course breath sounds Cardiology: Present: edema, regular rhythm, normal S1, normal S2 Dialysis Vascular Access: Arteriovenous Fistula thrill: Yes bruit: Yes Gastrointestinal: Present: normoactive bowel sounds, no tenderness, no guarding Integumentary: Present: warm and dry Neurologic: Present: no focal deficit, no asterixis, alert and oriented x3 Musculoskeletal: Present: no deformities, no erythema, no clubbing Psychiatric: Present: mood/affect appropriate, cooperative - Lab 10/30/17 15:09 10/30/17 02:52 Most recent lab results Calcium 8.3 mg/dL (8.6-10.3) L 10/30/17 02:52 - VTE Documentation of Mechanical Device: Intermittent pneumatic compression device Consult Discharge Plan - Plan Referrals: Ema Del Toro [employer] MANAGER [Primary Care Provider] -
[2017-10-30] MEDS: Sennosides/Docusate Sodium TABLET PO SCH ×2 (09:48→22:03)
[2017-10-30] MEDS: Gabapentin 100 MG CAPSULE PO SCH ×3 (09:49→22:02)
[2017-10-30] MEDS: Furosemide 40 MG TABLET PO SCH (09:49)
[2017-10-30] MEDS: Aspirin Enteric Coated 81 MG Tablet PO SCH (09:50)
[2017-10-30] MEDS: amLODIPine 5 MG TABLET PO SCH (13:43)
[2017-10-30] MEDS: Isosorbide MONOnitrate (24 HR) 60 MG TAB.ER.24H PO SCH (13:44)
[2017-10-30 15:38] LABS: Eosinophils # 0.2 K/mcL (0.0-0.6); Eosinophils % 4.5 %; Hematocrit 24.6 % (35.3-44.9); Hemoglobin 7.8 g/dL (11.5-15.4); Immature Granulocytes % 0.6 % (0-4); Immature Platelets 1.4 % (1.1-6.1); Lymphocytes # 0.8 K/mcL (0.6-4.6); Lymphocytes % 22.7 %; Mean Corpuscular HGB Conc 31.7 g/dL (31.6-35.5); Mean Corpuscular Hemoglobin 29.9 pg (28.0-33.3); Mean Corpuscular Volume 94.3 fL (83.0-100.0); Mean Platelet Volume 9.6 fL (9.4-12.4); Monocytes # 0.5 K/mcL (0.0-1.3); Monocytes % 14.6 %; Red Blood Count 2.61 M/mcL (3.82-4.97); Red Cell Distribution Width 15.8 % (11.5-14.5); Segmented Neutrophils % 57.6 %
[2017-10-30 15:40] LABS: Platelet Count 69 K/mcL (140-400)
--- NOTE | 2017-10-30 17:02 | Internal Med Progress Note ---
<FarzanehJessika Musa - Last Filed: 10/30/17 17:42> Hospitalist Progress Note - Encounter Date of Encounter: 10/30/17 Time of Encounter: 09:45 - Subjective Interval History: Today, Miss Giles was at dialysis (day 2 of 3) when her dialysis catheter infiltrated and the dialysis was stopped, to resume on 11/01/17. She states that her shortness of breath has been decreasing and admits to occasional intermittent cough that is mildly productive. She also admits to a mild headache that is frontal and unchanged from previous headaches that she has had, she denies neurological deficits associated with headache. She denies any pain in left arm which was site of catheter infiltration. She denies any fever, chills, nausea, vomiting, cheest pain, abdominal pain or calf tenderness. She also denies any dysuria or frequency. She had a mucoid bowel movement today. - Exam Vitals: Temp Pulse Resp BP Pulse Ox 98.2 F 65 18 135/55 100 10/30/17 16:02 10/30/17 16:02 10/30/17 16:02 10/30/17 16:02 10/30/17 16:02 Exam: General: Resting comfortably, in no acute distress, AAOx3, pleasant HEENT: Normocephalic, atraumatic, EOMI, PERRL, mucus membranes moist. Neck soft , supple, trachea midline, no cervical lymphadenopathy. Cardio: Systolic ejection murmur, RRR, no rubs or gallops. Normal S1, S2. No carotid bruits. Pulmonary: Wheezes and rales bilaterally. No accessory respiratory muscle use. Abdomen: Soft, non tender, non distended, normal bowel sounds, no guarding, rebound or rigidity. No CVA or suprapubic tenderness. Extremities: 1+ pitting edema bilaterally. Radial and dorsal pedis pulses 2+ and symmetrical, normal capillary refill, no clubbing. No calf tenderness, SCD' s in place. Neuro: CN 2-12 intact, no focal deficits. Psych: Normal mood and affect, answers questions appropriately - Assessment and Plan (1) ESRD (end stage renal disease) Current Visit: Yes Status: Acute Assessment and Plan: Per nephrology, has progressed from CKD stage 5 to ESRD. Cr currently at 3.71 and BUN currently at 80, both improved since dialysis yesterday Today was day 2 of dialysis, however it was stopped early due to IV catheter infiltration of left arm Will resume dialysis on Wednesday. Continue to monitor kidney function (2) GI (gastrointestinal bleed) Current Visit: Yes Status: Resolved Assessment and Plan: History of black tarry stools, positive hemoccult test and hgb/hct trending down GI did EGD and Colonoscopy on 10/28/18, EGD showed multiple 12 mm sessile polyps with bleeding and no stigmata of recent bleeding were found in the gastric body and in the gastric antrum. The ampulla, and first and second portion of the duodenum were normal. Colonoscopy showed one 14 mm polyp in the proximal ascending colon (biopsied), diverticulosis in the sigmoid colon, decending colon , and transverse colon, and non-bleeding internal hemorrhoids. Biopsy results pending On renal diet Continue to monitor hemoglobin and hematocrit (3) Acute respiratory failure Current Visit: Yes Status: Acute Assessment and Plan: States that shortness of breath has decreased today Speech evaluation: within normal limits SpO2 at 100% on 2L/min nasal cannula Continue supplemental oxygen and breathing treatments (4) Anemia Current Visit: No Status: Chronic Assessment and Plan: Most likely secondary to ESRD and chronic GI bleed, had several bowel movements with black tarry stools Morning labs showed hemoglobin trending up today at 8.7, hematocrit trending up today at 27 However, during dialysis the catheter infiltrated and will most likely cause a drop in hemoglobin/hematocrit, rechecked CBC, showed hgb7.8, hct 24.6 Continue to monitor CBC order type and screen (5) (HFpEF) heart failure with preserved ejection fraction Current Visit: No Status: Acute Assessment and Plan: Chronic ECHO on 10/22/17 showed a LVEF fo 60-65%, bilateral atrial enlargement, moderate- severe mitral/tricuspid regurgitation, severe pulmonary hypertension, and moderate aortic stenosis. Bilateral rales, 1+ pitting edema on exam Shortness of breath decreased since yesterday Continue lasix (6) Elevated troponin Current Visit: No Status: Acute Assessment and Plan: On admission, troponin elevated at 0.05 x2, BNP 834. EKG showed no sign of ischemia Continue aspirin, statin, labetalol, losartan (7) Aortic stenosis Current Visit: No Status: Chronic Assessment and Plan: History of aortic stenosis Grade 3 systolic ejection murmur on exam Echo shows mean gradient of 27 mmHg on 10/22/17 Continue lasix and losartan (8) Chest pain Current Visit: No Status: Acute Assessment and Plan: Resolved. Presented for admission with left sided chest pain, elevated troponins 0.05. Cardio recs: medical management, follow up outpatient (9) Hypertension Current Visit: No Status: Chronic Assessment and Plan: Chronic BP currently 131/62 Continue amlodipine, labetalol, clonidine, imdur, hydralazine continue to monitor (10) Diabetes Current Visit: No Status: Acute Assessment and Plan: History of diabetes Glucose today at 131 Continue levemir and insulin sliding scale Continue to monitor glucose (11) Altered mental status Current Visit: Yes Status: Resolved Assessment and Plan: AAOx3 today. Nephro recs: Dialysis due to ESRD, AMS most likely secondary to uremia, uremia most likely secondary to diuretic use DVT Prophylaxis: SCD's, patient was discontinue from heparin due to thrombocytopenia. - Time Spent with Patient Total time spent is greater than 50% in coordination of care (as documented) at patient's floor/unit and/or counseling patient: Internal Medicine: Result - Labs CBC & Chem 7: 10/30/17 15:09 10/30/17 02:52 Labs: Short CBC 10/30/17 10/30/17 Range/Units 02:52 15:09 WBC 3.4 L 3.4 L (4.3-11.1) K/mcL Hgb 8.7 L 7.8 L (11.5-15.4) g/dL Hct 27.0 L 24.6 L (35.3-44.9) % Plt Count 73 L 69 L (140-400) K/mcL Neutrophils # 2.1 2.0 (1.6-8.9) K/mcL BMP 10/30/17 02:52 Sodium 139 Potassium 3.9 Chloride 106 Carbon Dioxide 25 BUN 80 H Creatinine 3.71 H Glucose 131 H Calcium 8.3 L - ABG Interpretation ABG results: PT/INR, D-dimer PT 11.0 Seconds (9.4-12.1) 10/22/17 14:19 - VTE Documentation of Mechanical Device: Intermittent pneumatic compression device Consult Discharge Plan - Plan Referrals: Ema Del Toro, AGENT [Primary Care Provider] - <Michi Beltre - Last Filed: 10/30/17 19:32> Hospitalist Progress Note - Encounter Date of Encounter: 10/30/17 - Exam Vitals: Temp Pulse Resp BP Pulse Ox 98.2 F 65 18 135/55 100 10/30/17 16:02 10/30/17 16:02 10/30/17 19:20 10/30/17 16:02 10/30/17 19:20 - Assessment and Plan (1) Acute respiratory failure Current Visit: Yes Status: Acute (2) Acute pulmonary edema Current Visit: Yes Status: Acute (3) CHF (congestive heart failure) Current Visit: No Status: Resolved (4) GI (gastrointestinal bleed) Current Visit: Yes Status: Resolved (5) Anemia Current Visit: No Status: Chronic (6) DVT prophylaxis Current Visit: No Status: Acute (7) CKD (chronic kidney disease) Current Visit: No Status: Chronic (8) Aortic stenosis Current Visit: No Status: Chronic (9) Hypertension Current Visit: No Status: Chronic (10) Constipation Current Visit: Yes Status: Resolved (11) Coronary artery disease Current Visit: No Status: Chronic - Time Spent with Patient Total time spent is greater than 50% in coordination of care (as documented) at patient's floor/unit and/or counseling patient: Internal Medicine: Result - Labs CBC & Chem 7: 10/30/17 15:09 10/30/17 02:52 Labs: Short CBC 10/30/17 10/30/17 Range/Units 02:52 15:09 WBC 3.4 L 3.4 L (4.3-11.1) K/mcL Hgb 8.7 L 7.8 L (11.5-15.4) g/dL Hct 27.0 L 24.6 L (35.3-44.9) % Plt Count 73 L 69 L (140-400) K/mcL Neutrophils # 2.1 2.0 (1.6-8.9) K/mcL BMP 10/30/17 02:52 Sodium 139 Potassium 3.9 Chloride 106 Carbon Dioxide 25 BUN 80 H Creatinine 3.71 H Glucose 131 H Calcium 8.3 L - ABG Interpretation ABG results: PT/INR, D-dimer PT 11.0 Seconds (9.4-12.1) 10/22/17 14:19 - Attending Attestation I examined this patient and my medical decision-making was reviewed with the Resident Physician on 10/30/17. I agree with the documented findings, disposition and treatment plan as described except to the extent set forth below. Ms Giles is currently admitted for exac CHF. She has started dialysis. She remains moderate to high risk due to potential for worsening clinical status. Ms Giles just returned from dialysis. She had infiltration at fistula today. No fever or chills. No CP. SOB about the same. No diarrhea. Exam General: Alert and oriented. Resting comfortably in bed at this time. Skin: Ecchymosis near fistula Head: NC, atraumatic Eyes: EOM, ENT: Mucus membranes moist. No lesion. Cardiovascular: Normal S1 & S2, no rubs, murmurs or gallops. No JVD. Pulse irregular. Lungs: Diffuse wheeze and rales. Abdomen: Soft, non-tender, no rigidity. Normal bowel sounds Extremities: No deformity, no edema or tenderness, no joint swelling or clubbing. Neurological: No focal deficit noted. Pulses: Carotid and radial pulses normal +2. I/P 1. Infiltration at fistula - monitor H/H. Radial pulses 2. CHF 3 ESRD Further diagnoses and plan as above. <Jessika Moy - Last Filed: 10/30/17 17:42> (2) GI (gastrointestinal bleed) Qualifiers: GI bleed type/associated pathology: melena Qualified Code(s): K92.1 - Melena (3) Acute respiratory failure Qualifiers: Respiratory failure complication: hypoxia Qualified Code(s): J96.01 - Acute respiratory failure with hypoxia (4) Anemia Qualifiers: Anemia type: other cause Other causes of anemia: acute posthemorrhagic Qualified Code(s): D62 - Acute posthemorrhagic anemia (7) Aortic stenosis Qualifiers: Cardiac valve disease etiology: etiology unspecified Qualified Code(s): I35.0 - Nonrheumatic aortic (valve) stenosis (8) Chest pain Qualifiers: Chest pain type: chest pain on breathing Qualified Code(s): R07.1 - Chest pain on breathing; R07.81 - Pleurodynia (9) Hypertension Qualifiers: Hypertension type: renovascular hypertension Qualified Code(s): I15.0 - Renovascular hypertension (10) Diabetes Qualifiers: Diabetes mellitus type: type 2 Diabetes mellitus chcf insulin use: with ocean [employer] intermediary use Diabetes mellitus complication status: with unspecified complications Qualified Code(s): E11.8 - Type 2 diabetes mellitus with unspecified complications; Z79.4 - [place] (current) use of insulin (11) Altered mental status Qualifiers: Altered mental status type: unspecified Qualified Code(s): R41.82 - Altered mental status, unspecified <Michi Belter - Last Filed: 10/30/17 19:32> (1) Acute respiratory failure Qualifiers: Respiratory failure complication: hypoxia Qualified Code(s): J96.01 - Acute respiratory failure with hypoxia (3) CHF (congestive heart failure) Qualifiers: Heart failure type: diastolic Heart failure chronicity: acute on chronic Qualified Code(s): I50.33 - Acute on chronic diastolic (congestive) heart failure (4) GI (gastrointestinal bleed) Qualifiers: GI bleed type/associated pathology: melena Qualified Code(s): K92.1 - Melena (5) Anemia Qualifiers: Anemia type: other cause Other causes of anemia: acute posthemorrhagic Qualified Code(s): D62 - Acute posthemorrhagic anemia (7) CKD (chronic kidney disease) Qualifiers: Chronic kidney disease stage: on chronic dialysis Qualified Code(s): N18.6 - End stage renal disease; Z99.2 - Dependence on renal dialysis (8) Aortic stenosis Qualifiers: Cardiac valve disease etiology: etiology unspecified Qualified Code(s): I35.0 - Nonrheumatic aortic (valve) stenosis (9) Hypertension Qualifiers: Hypertension type: renovascular hypertension Qualified Code(s): I15.0 - Renovascular hypertension (10) Constipation Qualifiers: Constipation type: slow transit constipation Qualified Code(s): K59.01 - Slow transit constipation (11) Coronary artery disease Qualifiers: Coronary Disease-Associated Artery/Lesion type: [place] artery [place] vs. transplanted heart: [place] heart Associated angina: without angina Qualified Code(s): I25.10 - Atherosclerotic heart disease of [place] coronary artery without angina pectoris
[2017-10-30] MEDS: Insulin DETEMIR 100 UNIT/ML X5UNITS SQ SCH (22:06)
[2017-10-31] MEDS: Ipratropium/Albuterol Neb 3 ML IH SCH ×6 (03:43→23:24)
[2017-10-31 05:02] LABS: Mean Corpuscular Volume 95.3 fL (83.0-100.0)
[2017-10-31 05:04] LABS: Eosinophils # 0.1 K/mcL (0.0-0.6); Eosinophils % 1.9 %; Hematocrit 22.2 % (35.3-44.9); Immature Granulocytes % 0.5 % (0-4); Immature Platelets 1.8 % (1.1-6.1); Lymphocytes # 0.9 K/mcL (0.6-4.6); Lymphocytes % 25.5 %; Mean Corpuscular HGB Conc 31.5 g/dL (31.6-35.5); Mean Platelet Volume 10.2 fL (9.4-12.4); Monocytes # 0.4 K/mcL (0.0-1.3); Monocytes % 10.6 %; Neutrophils # 2.3 K/mcL (1.6-8.9); Red Blood Count 2.33 M/mcL (3.82-4.97); Red Cell Distribution Width 15.6 % (11.5-14.5); Segmented Neutrophils % 61.5 %
[2017-10-31 05:07] LABS: Platelet Count 70 K/mcL (140-400)
[2017-10-31 05:19] LABS: Calcium 7.7 mg/dL (8.6-10.3); Potassium 3.9 mEq/L (3.5-5.1)
[2017-10-31] MEDS: [UNRECOGNIZED DRUG - OTHER] PO SCH ×3 (06:22→20:29)
[2017-10-31] MEDS: VIT B12 PO SCH ×3 (06:22→20:29)
[2017-10-31] MEDS: IRON PS CMPLX PO SCH ×3 (06:22→20:29)
[2017-10-31] MEDS: Pantoprazole 40 MG VIAL IVP SCH ×2 (06:22→17:27)
[2017-10-31] MEDS ORDERED: Furosemide 20 MG/2 ML VIAL IVP ONE (07:54)
--- NOTE | 2017-10-31 08:32 | Event Note ---
Date of Encounter: 10/31/17 Time of Encounter: 08:28 Nephrology Chart Review: I reviewed the labs, vitals, imaging, progress notes, med list. After having seen worsening renal function over the last few days of this admission, Nephrology was re-consulted for uremia and complete progression to ESRD. Dialysis was started with HD on Wednesday and Wednesday. Next HD planned for Wednesday. SW has been consulted for request of a dialysis chair time. The pt's fistula-first approach was helpful so she was able to start HD without a dialysis catheter. I did hear from the inpatient dialysis nurse yesterday afternoon that using small needles her LUE AVF worked excellently for both treatments until the very end of her second treatment in which, per report, the pt moved her arm dislodging a needle and then the pt developed a large hematoma. I recommend resting, elevating and icing the AVF today (Wednesday). My colleague Dr. Petit will be on-call starting tomorrow at 8am. Thank you.
[2017-10-31] MEDS: hydrALAZINE 25 MG TABLET PO SCH ×3 (08:53→20:28)
[2017-10-31] MEDS: Aspirin Enteric Coated 81 MG Tablet PO SCH (08:53)
[2017-10-31] MEDS: Sennosides/Docusate Sodium TABLET PO SCH ×2 (08:53→20:28)
[2017-10-31] MEDS: Furosemide 40 MG TABLET PO SCH (08:53)
[2017-10-31] MEDS: cloNIDine HCl 0.1 MG TABLET PO SCH ×3 (08:54→20:28)
[2017-10-31] MEDS: Gabapentin 100 MG CAPSULE PO SCH ×3 (08:54→20:28)
[2017-10-31] MEDS: amLODIPine 5 MG TABLET PO SCH (08:54)
[2017-10-31] MEDS: Isosorbide MONOnitrate (24 HR) 60 MG TAB.ER.24H PO SCH (08:56)
[2017-10-31] MEDS: Insulin LISPRO 300 UNITS/3 ML VIAL SQ SCH ×4 (09:32→20:29)
--- NOTE | 2017-10-31 10:06 | Internal Med Progress Note ---
Hospitalist Progress Note - Encounter Date of Encounter: 10/31/17 Time of Encounter: 08:30 - Subjective Interval History: Ms Giles is currently admitted for acute CHF, anemia and ESRD. She remains moderate to high risk due to potential for worsening clinical status. Ms Giles is eating breakfast. She has new hematoma LUE from dialysis needle dislodging yesterday. No fever or chills. No parasthesias in arm at this time. Bowels are OK. Breathing maybe a little better. - Exam Vitals: Temp Pulse Resp BP Pulse Ox 100.2 F H 66 18 137/57 98 10/31/17 07:03 10/31/17 07:03 10/31/17 07:03 10/31/17 07:32 10/31/17 07:32 Exam: General: Alert and oriented. Resting comfortably in bed at this time. Some chest congestion heard. Skin: Normal color, no rash, no lesions. Head: NC, atraumatic Eyes: EOM, ENT: Mucus membranes moist. No lesion. Cardiovascular: Normal S1 & S2 Systolic murmur heard. Irregular pulse. Hard to hear over lung sounds. Lungs: Diffuse rhonchi and rales heard. No wheeze Abdomen: Soft, non-tender, no rigidity. Normal bowel sounds Extremities: No deformity, no edema or tenderness, no joint swelling or clubbing. Thrill present at fistula. Hematoma noted around fistula area. Neurological: No focal deficit noted. Pulses: Carotid and radial pulses normal +2. - Assessment and Plan (1) Anemia Current Visit: No Status: Chronic Assessment and Plan: She has new hematoma in LUE near fistula. Hemoglobin has dropped today. Transfuse one unit PRBCs and Lasix after. (2) Acute respiratory failure Current Visit: Yes Status: Acute Assessment and Plan: Continues to require oxygen supplementation due to pulmonary edema. Will wean as able. (3) Acute pulmonary edema Current Visit: Yes Status: Acute Assessment and Plan: Has been receiving dialysis and seems to be slowly improving. Continue diuresis. Dialysis tomorrow. (4) CHF (congestive heart failure) Current Visit: No Status: Chronic Assessment and Plan: Continues to have significant pulmonary edema. Continue diuresisi. Dialysis tomorrow. (5) GI (gastrointestinal bleed) Current Visit: Yes Status: Resolved Assessment and Plan: No further issues at this time. (6) DVT prophylaxis Current Visit: No Status: Acute (7) CKD (chronic kidney disease) Current Visit: No Status: Chronic Assessment and Plan: Per renal. Dialysis tomorrow. (8) Aortic stenosis Current Visit: No Status: Chronic Assessment and Plan: Patient has a known history of moderate aortic stenosis -Mean gradient 27mmHg, peak velocity 3.67 m/s as seen on ECHO in 05/2017 Plan: -Monitor fluid status in light of stenosis. (9) Hypertension Current Visit: No Status: Chronic Assessment and Plan: BP better controlled on current med regimen and the addition of dialysis. (10) Coronary artery disease Current Visit: No Status: Chronic Assessment and Plan: Chronic issue DVT Prophylaxis: SCDs - Time Spent with Patient Total time spent is greater than 50% in coordination of care (as documented) at patient's floor/unit and/or counseling patient: Plan of Care Discussed with: patient Internal Medicine: Result - Labs CBC & Chem 7: 10/31/17 03:53 10/31/17 03:53 Labs: Short CBC 10/30/17 10/31/17 Range/Units 15:09 03:53 WBC 3.4 L 3.7 L (4.3-11.1) K/mcL Hgb 7.8 L 7.0 L (11.5-15.4) g/dL Hct 24.6 L 22.2 L (35.3-44.9) % Plt Count 69 L 70 L (140-400) K/mcL Neutrophils # 2.0 2.3 (1.6-8.9) K/mcL BMP 10/31/17 03:53 Sodium 141 Potassium 3.9 Chloride 105 Carbon Dioxide 28 BUN 58 H Creatinine 3.25 H Glucose 93 Calcium 7.7 L - ABG Interpretation ABG results: PT/INR, D-dimer PT 11.0 Seconds (9.4-12.1) 10/22/17 14:19 - VTE Documentation of Mechanical Device: Intermittent pneumatic compression device Consult Discharge Plan - Plan Referrals: Ema Del Toro, [employer] [Primary Care Provider] - (1) Anemia Qualifiers: Anemia type: other cause Other causes of anemia: acute posthemorrhagic Qualified Code(s): D62 - Acute posthemorrhagic anemia (2) Acute respiratory failure Qualifiers: Respiratory failure complication: hypoxia Qualified Code(s): J96.01 - Acute respiratory failure with hypoxia (4) CHF (congestive heart failure) Qualifiers: Heart failure type: diastolic Heart failure chronicity: acute on chronic Qualified Code(s): I50.33 - Acute on chronic diastolic (congestive) heart failure (5) GI (gastrointestinal bleed) Qualifiers: GI bleed type/associated pathology: melena Qualified Code(s): K92.1 - Melena (7) CKD (chronic kidney disease) Qualifiers: Chronic kidney disease stage: on chronic dialysis Qualified Code(s): N18.6 - End stage renal disease; Z99.2 - Dependence on renal dialysis (8) Aortic stenosis Qualifiers: Cardiac valve disease etiology: etiology unspecified Qualified Code(s): I35.0 - Nonrheumatic aortic (valve) stenosis (9) Hypertension Qualifiers: Hypertension type: renovascular hypertension Qualified Code(s): 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 transplanted heart: [place] heart Associated angina: without angina Qualified Code(s): I25.10 - Atherosclerotic heart disease of [place] coronary artery without angina pectoris
[2017-10-31] MEDS ORDERED: 0.9 % Sodium Chloride 250 ML ONE (11:03)
[2017-10-31] MEDS: OXYCODONE Oral CONC 10 MG/0.5 ML ORAL.SYG SL PRN (14:32)
[2017-10-31] MEDS: Insulin DETEMIR 100 UNIT/ML X5UNITS SQ SCH (20:29)
[2017-11-01] MEDS: Ipratropium/Albuterol Neb 3 ML IH SCH ×7 (03:36→23:13)
[2017-11-01 04:21] LABS: Basophils % 0.2 %; Segmented Neutrophils % 66.9 %
[2017-11-01 04:23] LABS: Eosinophils % 0.8 %; Hemoglobin 8.4 g/dL (11.5-15.4); Immature Granulocytes % 0.4 % (0-4); Immature Platelets 1.9 % (1.1-6.1); Lymphocytes # 1.1 K/mcL (0.6-4.6); Lymphocytes % 21.2 %; Mean Corpuscular HGB Conc 32.3 g/dL (31.6-35.5); Mean Corpuscular Hemoglobin 29.9 pg (28.0-33.3); Mean Corpuscular Volume 92.5 fL (83.0-100.0); Mean Platelet Volume 10.3 fL (9.4-12.4); Monocytes # 0.5 K/mcL (0.0-1.3); Monocytes % 10.5 %; Red Blood Count 2.81 M/mcL (3.82-4.97); Red Cell Distribution Width 15.9 % (11.5-14.5)
[2017-11-01 04:25] LABS: Neutrophils # 3.4 K/mcL (1.6-8.9); Platelet Count 65 K/mcL (140-400)
[2017-11-01 04:42] LABS: Calcium 8.1 mg/dL (8.6-10.3); Potassium 3.6 mEq/L (3.5-5.1)
[2017-11-01] MEDS: Pantoprazole 40 MG VIAL IVP SCH (05:15)
[2017-11-01] MEDS ORDERED: 0.9 % Sodium Chloride 250 ML IVC PRN (07:18)
[2017-11-01] MEDS ORDERED: 0.9 % Sodium Chloride 1,000 ML ONE (07:50)
[2017-11-01] MEDS: hydrALAZINE 25 MG TABLET PO SCH ×3 (08:00→20:17)
[2017-11-01] MEDS: Gabapentin 100 MG CAPSULE PO SCH ×3 (08:04→20:17)
[2017-11-01] MEDS: Sennosides/Docusate Sodium TABLET PO SCH ×2 (08:10→20:16)
[2017-11-01] MEDS: amLODIPine 5 MG TABLET PO SCH (08:11)
[2017-11-01] MEDS: Aspirin Enteric Coated 81 MG Tablet PO SCH (08:12)
[2017-11-01] MEDS: Furosemide 40 MG TABLET PO SCH (08:13)
[2017-11-01] MEDS: Isosorbide MONOnitrate (24 HR) 60 MG TAB.ER.24H PO SCH (08:14)
[2017-11-01] MEDS: cloNIDine HCl 0.1 MG TABLET PO SCH ×3 (08:15→20:16)
[2017-11-01] MEDS: Insulin LISPRO 300 UNITS/3 ML VIAL SQ SCH ×4 (08:17→20:45)
[2017-11-01] MEDS: [UNRECOGNIZED DRUG - OTHER] PO SCH (08:38)
[2017-11-01] MEDS: VIT B12 PO SCH (08:38)
[2017-11-01] MEDS: IRON PS CMPLX PO SCH (08:38)
--- NOTE | 2017-11-01 09:07 | Internal Med Progress Note ---
<Kevin Chawla - Last Filed: 11/01/17 14:53> Hospitalist Progress Note - Encounter Date of Encounter: 11/01/17 Time of Encounter: 09:00 - Subjective Interval History: Ms. Giles was sitting in a chair and eating breakfast upon my arrival. upon questioning the patient is alert and oriented x 3 and states that she does not have any complaints this morning. Patient states that she slept very good last night. She also denies chest pain, fever, chills, headaches, and shortness of breath. Ms. Giles states that while she has been urinating and has had a bowel movement last night. As I was leaving the patient was about to receive dialysis. - Exam Vitals: Temp Pulse Resp BP Pulse Ox 97.8 F 63 16 133/54 94 11/01/17 06:40 11/01/17 06:40 11/01/17 07:25 11/01/17 06:40 11/01/17 07:25 Exam: General Appearance: Patient in no acute distress, sitting up eating Head exam: Atraumatic, normocephalic Eye exam: PERRL, conjuntiva pink, sclera anicteric Neck exam: Trachea midline Respiratory exam: Diffuse rales bilaterally Cardiology exam: RRR, +S1, +S2 Gastrointestinal exam: Normal bowel sounds, soft, no tenderness Extremities exam: warm without tenderness, legs had +2 pitting edema bilaterally. Left upper extremity was bandaged, unable to visualize hematoma Neurological exam: CN II-XII intact, patient is alert and oriented x 3 Skin exam: Dry and intact - Assessment and Plan (1) Anemia Current Visit: No Status: Chronic Assessment and Plan: -Patient has hematoma in the left upper extremity due to IV catheter infiltration during dialysis on 10/30/17 -Patient has had low trending H/H since admission, likely secondary to CKD -Due to hematoma, Hemoglobin fell to 7.0 and the patient was transfused -Patient is currently receiving Epoetin Pelon -Latest lab value showed a Hemoglobin of 8.4 (2) CKD (chronic kidney disease) Current Visit: No Status: Chronic Assessment and Plan: -Patient has a history of stage 5 CKD. Upon admission the patient had an elevated BUN/Cr at 88/3.49 and the latest value was 65/3.8 -Estimated GFR was 11 -Patient was initially assessed and believed to not require dialysis at this time, however due to worsening kidney function was started on dialysis on -Patient had been planned to receive dialysis on 10/30/17 as well, however the IV catheter in her arm was infiltrated, resulting in a hematoma in the LUE -Ms. Giles denies any pain with the hematoma and states she has been urinating well -Plans were for the patient to receive dialysis today, however the patient continued to move her arm and dislodged the needle -Will attempt dialysis again tomorrow (3) Acute respiratory failure Current Visit: Yes Status: Acute Assessment and Plan: -After patient underwent EGD she began experiencing some hypoxia and wheezing -Is currently on room air and O2 saturation is 100% -Patient began complaining of new onset shortness of breath this morning -On physical exam the patient have diffuse bilateral rales -Patient is currently receiving scheduled Albuterol treatment, with plans to add mucomyst -Speech evaluation initially stated the patient was within normal limits however she was reevaluated today and the patient demonstrated difficulty swallowing single trial of thin liquids with weak cough reflex -Plans are for the patient to receive a modified barium swallow (4) GI (gastrointestinal bleed) Current Visit: Yes Status: Resolved Assessment and Plan: -Patient had several black tarry stools during her admission, as well as drops in her H/H -GI was consulted and performed a EGD and Colonoscopy on 10/28/18, EGD showed multiple 12 mm sessile polyps with bleeding and no stigmata of recent bleeding were found in the gastric body and in the gastric antrum. The ampulla, and first and second portion of the duodenum were normal. -Colonoscopy showed one 14 mm polyp in the proximal ascending colon (biopsied), diverticulosis in the sigmoid colon, decending colon, and transverse colon, and non-bleeding internal hemorrhoids. -Biopsy results are currently pending -On physical exam the patient denies any abdominal tenderness and states she had a bowel movement last night -Continue to observe (5) (HFpEF) heart failure with preserved ejection fraction Current Visit: No Status: Acute Assessment and Plan: -Patient has a previous history of Heart Failure with Preserved Ejection Fraction. -Patient received an Echo on 10/22/17 which showed a LVEF fo 60-65%, biatrial enlargement, moderate-severe mitral/tricuspid regurgitation, severe pulmonary hypertension, and moderate aortic stenosis. -On physical exam the has diffuse rales bilaterally on auscultation and legs showed +2 pitting edema -Patient is not currently complaining of SOB and is on room air with 94% saturation -Patient is currently receiving Lasix 40 mg PO -Continue to monitor for sign for worsening fluid overload (6) Elevated troponin Current Visit: No Status: Acute Assessment and Plan: -Upon admission the patient had an elevated BNP at 834 as well as an elevated Troponin 0.05 (10/22/17) and the latest value taken on 10/23/17 continued to show Troponin at 0.05. -Initial EKG showed no signs of early ischemia. -Receiving treatment with Aspirin, Atorvastatin, Labetalol, and Losartan (7) Aortic stenosis Current Visit: No Status: Chronic Assessment and Plan: -Patient has a known history of moderate aortic stenosis. -Echo performed on 10/22/17 showed a mean gradient of 27 mmHg. -Continue home Lasix and Losartan (8) Hypertension Current Visit: No Status: Chronic Assessment and Plan: -Patient has a previous diagnosis of hypertension. -Latest blood pressure reading was 133/54 -Patient is currently being treated with Amlodipine, Clonidine, Hydralazine, Imdur, and Labetalol. -Continue to monitor BP Q4 hours. (9) Diabetes Current Visit: No Status: Acute Assessment and Plan: -Patient has a previous diagnosis of diabetes. -Latest blood glucose value was 164 (11/01/17) -Receiving treatment via sliding scale insulin -Continue to monitor blood glucose. (10) Altered mental status Current Visit: Yes Status: Resolved Assessment and Plan: -At this time the patient is alert and oriented x 3. -Nephrology was consulted and believe that her AMS was possibly secondary to uremia as her BUN was elevated compared to baseline. -Per Nephrology the BUN may be elevated secondary to diuretic use -Plans were for the patient to receive dialysis today, however the patient continued to move her arm and dislodged the needle. Will attempt again tomorrow. (11) DVT prophylaxis Current Visit: No Status: Acute Assessment and Plan: Patient has been discontinued from Heparin due to Thrombocytopenia - Time Spent with Patient Total time spent is greater than 50% in coordination of care (as documented) at patient's floor/unit and/or counseling patient: Internal Medicine: Result - Labs CBC & Chem 7: 11/01/17 03:07 11/01/17 03:07 Labs: Short CBC 11/01/17 Range/Units 03:07 WBC 5.0 (4.3-11.1) K/mcL Hgb 8.4 L (11.5-15.4) g/dL Hct 26.0 L (35.3-44.9) % Plt Count 65 L (140-400) K/mcL Neutrophils # 3.4 (1.6-8.9) K/mcL BMP 11/01/17 03:07 Sodium 136 Potassium 3.6 Chloride 103 Carbon Dioxide 26 BUN 65 H Creatinine 3.80 H Glucose 164 H Calcium 8.1 L - ABG Interpretation ABG results: PT/INR, D-dimer PT 11.0 Seconds (9.4-12.1) 10/22/17 14:19 - VTE Documentation of Mechanical Device: Intermittent pneumatic compression device Consult Discharge Plan - Plan Referrals: Ema Del Toro, [employer] [Primary Care Provider] - <Michi Beltre - Last Filed: 11/01/17 17:42> Hospitalist Progress Note - Encounter Date of Encounter: 11/01/17 - Exam Vitals: Temp Pulse Resp BP Pulse Ox 97.3 F L 57 16 128/59 100 11/01/17 16:27 11/01/17 16:27 11/01/17 16:27 11/01/17 16:27 11/01/17 16:27 - Assessment and Plan (1) Acute respiratory failure Current Visit: Yes Status: Acute (2) Anemia Current Visit: No Status: Chronic (3) Acute pulmonary edema Current Visit: Yes Status: Acute Assessment and Plan: Trying to remove fluid with dialysis. (4) CHF (congestive heart failure) Current Visit: No Status: Chronic (5) Dysphagia Current Visit: Yes Status: Acute (6) GI (gastrointestinal bleed) Current Visit: Yes Status: Resolved (7) DVT prophylaxis Current Visit: No Status: Acute (8) CKD (chronic kidney disease) Current Visit: No Status: Chronic (9) Aortic stenosis Current Visit: No Status: Chronic (10) Hypertension Current Visit: No Status: Chronic (11) Coronary artery disease Current Visit: No Status: Chronic - Time Spent with Patient Total time spent is greater than 50% in coordination of care (as documented) at patient's floor/unit and/or counseling patient: Internal Medicine: Result - Labs CBC & Chem 7: 11/01/17 03:07 11/01/17 03:07 Labs: Short CBC 11/01/17 Range/Units 03:07 WBC 5.0 (4.3-11.1) K/mcL Hgb 8.4 L (11.5-15.4) g/dL Hct 26.0 L (35.3-44.9) % Plt Count 65 L (140-400) K/mcL Neutrophils # 3.4 (1.6-8.9) K/mcL BMP 11/01/17 03:07 Sodium 136 Potassium 3.6 Chloride 103 Carbon Dioxide 26 BUN 65 H Creatinine 3.80 H Glucose 164 H Calcium 8.1 L - ABG Interpretation ABG results: PT/INR, D-dimer PT 11.0 Seconds (9.4-12.1) 10/22/17 14:19 - Attending Attestation The history, physical exam, and medical decision making was performed by the medical student either while I was physically present and actively involved or I personally re-performed the exam and medical decision making. I have verified the accuracy of the medical student's documentation with regards to the history, physical exam findings, and medical decision making on 11/01/17. Ms Giles is currently admitted for CHF and ESRD. She remains moderate to high risk due to potential for worsening clinical status. Ms Giles moved her arm in dialysis again today. Treatment was shortened again. She complains of some dysphagia. Still a lot of congestion in her chest. No fever or chills. No diarrhea. Has cough as well. Exam alert Mild distress due to chest congestion Mucus membranes dry Heart reg with murmur Lungs with coarse rhonchi bilaterally Abd soft LUE with hematoma near fistula. Thrill present Abd soft and nontender Edema present I/P 1. Pulmonary edema 2. Dysphagia - MBS today Further diagnoses and plan as above <Kevin Chawla A - Last Filed: 11/01/17 14:53> (1) Anemia Qualifiers: Anemia type: other cause Other causes of anemia: acute posthemorrhagic Qualified Code(s): D62 - Acute posthemorrhagic anemia (2) CKD (chronic kidney disease) Qualifiers: Chronic kidney disease stage: on chronic dialysis Qualified Code(s): N18.6 - End stage renal disease; Z99.2 - Dependence on renal dialysis (3) Acute respiratory failure Qualifiers: Respiratory failure complication: hypoxia Qualified Code(s): J96.01 - Acute respiratory failure with hypoxia (4) GI (gastrointestinal bleed) Qualifiers: GI bleed type/associated pathology: melena Qualified Code(s): K92.1 - Melena (7) Aortic stenosis Qualifiers: Cardiac valve disease etiology: etiology unspecified Qualified Code(s): I35.0 - Nonrheumatic aortic (valve) stenosis (8) Hypertension Qualifiers: Hypertension type: renovascular hypertension Qualified Code(s): I15.0 - Renovascular hypertension (9) Diabetes Qualifiers: Diabetes mellitus type: type 2 Diabetes mellitus detention insulin use: with detention use Diabetes mellitus complication status: with unspecified complications Qualified Code(s): E11.8 - Type 2 diabetes mellitus with unspecified complications; Z79.4 - terminal worker (current) use of insulin (10) Altered mental status Qualifiers: Altered mental status type: unspecified Qualified Code(s): R41.82 - Altered mental status, unspecified <Michi Beltre A - Last Filed: 11/01/17 17:42> (1) Acute respiratory failure Qualifiers: Respiratory failure complication: hypoxia Qualified Code(s): J96.01 - Acute respiratory failure with hypoxia (2) Anemia Qualifiers: Anemia type: other cause Other causes of anemia: acute posthemorrhagic Qualified Code(s): D62 - Acute posthemorrhagic anemia (4) CHF (congestive heart failure) Qualifiers: Heart failure type: diastolic Heart failure chronicity: acute on chronic Qualified Code(s): I50.33 - Acute on chronic diastolic (congestive) heart failure (5) Dysphagia Qualifiers: Dysphagia type: oropharyngeal phase Qualified Code(s): R13.12 - Dysphagia, oropharyngeal phase (6) GI (gastrointestinal bleed) Qualifiers: GI bleed type/associated pathology: melena Qualified Code(s): K92.1 - Melena (8) CKD (chronic kidney disease) Qualifiers: Chronic kidney disease stage: on chronic dialysis Qualified Code(s): N18.6 - End stage renal disease; Z99.2 - Dependence on renal dialysis (9) Aortic stenosis Qualifiers: Cardiac valve disease etiology: etiology unspecified Qualified Code(s): I35.0 - Nonrheumatic aortic (valve) stenosis (10) Hypertension Qualifiers: Hypertension type: renovascular hypertension Qualified Code(s): I15.0 - Renovascular hypertension (11) Coronary artery disease Qualifiers: Coronary Disease-Associated Artery/Lesion type: douglas artery [place] vs. transplanted heart: douglas heart Associated angina: without angina Qualified Code(s): I25.10 - Atherosclerotic heart disease of douglas coronary artery without angina pectoris
--- NOTE | 2017-11-01 12:03 | Nephrology Progress Note ---
<Magnolia Sierra - Last Filed: 11/01/17 13:12> Date of Encounter: 11/01/17 Time of Encounter: 12:01 - Assessment and Plan (1) Hypertension Status: Chronic 127/60 stable. Qualifiers: Hypertension type: renovascular hypertension Qualified Code(s): I15.0 - Renovascular hypertension (2) Anemia in chronic kidney disease Status: Chronic Goal hgb is 10-11. Hgb is 8.4 today. Qualifiers: Chronic kidney disease stage: stage 5, not on chronic dialysis Qualified Code(s): N18.5 - Chronic kidney disease, stage 5; D63.1 - Anemia in chronic kidney disease (3) ESRD (end stage renal disease) Status: Acute Is a new start to HD, only wanted to start HD as a last resort. Today is her 3rd treatment. She did infiltrate today so a hematoma is noted. Although pt appears alert and oriented she does move her arm during HD which is unsafe with a cannulated Fistula. Will try HD again tomorrow. (4) CKD (chronic kidney disease), stage V Status: Chronic Is a patient of Dr. Treviño in the outpatient setting. Subjective Principal diagnosis: Chest pain Interval history: Pt see and examined, doing well. Pt did have HD needle infiltrate during treatment today. Objective - Vital Signs Vital signs: Vital Signs Temp Pulse Resp BP Pulse Ox 11/01/17 11:21 97.5 F L 58 12 127/60 100 11/01/17 11:19 16 96 11/01/17 10:35 97.9 F 20 131/51 11/01/17 10:10 126/59 11/01/17 09:55 131/56 11/01/17 09:40 128/56 11/01/17 09:25 122/51 11/01/17 09:10 97.7 F 22 128/51 11/01/17 07:25 16 94 11/01/17 06:40 97.8 F 63 18 133/54 93 11/01/17 03:38 12 100 11/01/17 03:37 97.8 F 63 16 100 10/31/17 23:28 12 100 10/31/17 20:00 100 10/31/17 19:50 97.3 F L 66 15 136/57 100 08/12/18 19:48 19 94 10/31/17 15:22 98.3 F 67 18 136/63 96 10/31/17 15:13 18 95 10/31/17 14:14 99.7 F H 69 20 Intake and Output 10/31/17 11/01/17 11/01/17 23:59 07:59 15:59 Intake Total 480 / 480 0 / 0 720 / 720 Output Total 0 / 0 530 / 530 Balance 480 / 480 0 / 0 190 / 190 Intake: Oral 480 / 480 0 / 0 120 / 120 Intake, Rinseback and Flushes 600 / 600 Output: Urine 0 / 0 Total Dialysis (HD) Output 530 / 530 Other: Meal Dinner Breakfast Percent of Meal Consumed 40% 25% Stool Characteristics Mucoid Stool Color Green Silver # Urine Diapers 1 0 # Bowel Movements 1 Blood Glucose* 188 126 117 Hemodialysis Net Fluid Removed 230 (mL) - General Appearance General appearance: Present: well-developed, well-nourished EENT: Present: ATNC Neck: Present: supple Respiratory: Present: clear Cardiology: Present: no edema, normal S1, normal S2 Dialysis Vascular Access: Arteriovenous Fistula thrill: Yes bruit: Yes Additional Comments: Hematoma noted. Gastrointestinal: Present: normoactive bowel sounds, no tenderness, no guarding Integumentary: Present: no rash, warm and dry Neurologic: Present: alert and oriented x3 Psychiatric: Present: mood/affect appropriate, cooperative - Lab 11/01/17 03:07 11/01/17 03:07 Most recent lab results Calcium 8.1 mg/dL (8.6-10.3) L 11/01/17 03:07 - VTE Documentation of Mechanical Device: Intermittent pneumatic compression device Consult Discharge Plan - Plan Instructions: Fluconazole (By mouth), Myocardial Infarction (DC), Heart Failure (DC), Chest Pain (DC), Acute Respiratory Distress Syndrome (DC), Hemodialysis (DC), Dialysis Diet (DC), Diabetes Mellitus Type 2 in Adults (DC), Fall Prevention for Older Adults (GEN), Arteriovenous Fistula Creation for Hemodialysis (DC), Chronic Hypertension (DC), Anemia (GEN) Referrals: Ema Del Toro, [employer]ESSER [Primary Care Provider] - Prescriptions: Fluconazole [Diflucan] 200 mg PO DAILY 2 Days #2 tab <Bita Reinoso - Last Filed: 11/12/17 10:41> Date of Encounter: 11/01/17 - Assessment and Plan (1) Hypertension Status: Chronic Qualifiers: Hypertension type: renovascular hypertension Qualified Code(s): I15.0 - Renovascular hypertension (2) Anemia in chronic kidney disease Status: Chronic Qualifiers: Chronic kidney disease stage: stage 5, not on chronic dialysis Qualified Code(s): N18.5 - Chronic kidney disease, stage 5; D63.1 - Anemia in chronic kidney disease (3) ESRD (end stage renal disease) Status: Chronic Objective - Lab 11/08/17 03:07 11/08/17 03:07 Most recent lab results Calcium 8.3 mg/dL (8.6-10.3) L 11/08/17 03:07 - Attending Attestation I examined this patient and my medical decision-making was reviewed with the Resident Physician/[employer]ING WHEEL DRESSER. I agree with the documented findings, disposition and treatment plan as described except to the extent set forth below. Pt seen and examined after HD terminated early due to AV access infiltration when pt moved her arm with hematoma developing. On exam; elderlly female NAD with LE edema bilat and coarse BS bilat with transmitted upper airways sounds. Labs noted. Third day of HD today, will rest her arm today and possibly try again today. Lytes stable.
[2017-11-01] MEDS ORDERED: Furosemide 40 MG/4 ML VIAL IVP ONE (13:07)
[2017-11-01] MEDS: Acetylcysteine 10% 2 ML INHSOL IH SCH ×2 (15:42→23:13)
[2017-11-01] MEDS: Iron Polysaccharide Complex 150 MG CAPSULE PO SCH (20:16)
[2017-11-01] MEDS: Insulin DETEMIR 100 UNIT/ML X5UNITS SQ SCH (20:46)
[2017-11-02] MEDS: Ipratropium/Albuterol Neb 3 ML IH SCH ×6 (03:26→23:00)
[2017-11-02] MEDS: Acetylcysteine 10% 2 ML INHSOL IH SCH ×4 (03:26→23:00)
[2017-11-02 04:15] LABS: Hematocrit 26.3 % (35.3-44.9); Hemoglobin 8.7 g/dL (11.5-15.4); Immature Platelets 2.1 % (1.1-6.1); Mean Corpuscular HGB Conc 33.1 g/dL (31.6-35.5); Mean Corpuscular Hemoglobin 29.7 pg (28.0-33.3); Mean Corpuscular Volume 89.8 fL (83.0-100.0); Mean Platelet Volume 9.6 fL (9.4-12.4); Red Blood Count 2.93 M/mcL (3.82-4.97); Red Cell Distribution Width 15.3 % (11.5-14.5)
[2017-11-02 04:31] LABS: Potassium 3.6 mEq/L (3.5-5.1)
[2017-11-02] MEDS: amLODIPine 5 MG TABLET PO SCH (09:00)
[2017-11-02] MEDS: Isosorbide MONOnitrate (24 HR) 60 MG TAB.ER.24H PO SCH (09:00)
[2017-11-02] MEDS ORDERED: 0.9 % Sodium Chloride 250 ML IVC PRN (09:13)
[2017-11-02] MEDS ORDERED: 0.9 % Sodium Chloride 1,000 ML PRIME SCH (09:15)
[2017-11-02] MEDS: cloNIDine HCl 0.1 MG TABLET PO SCH ×3 (09:29→22:10)
[2017-11-02] MEDS: Aspirin Enteric Coated 81 MG Tablet PO SCH (09:30)
[2017-11-02] MEDS: Gabapentin 100 MG CAPSULE PO SCH ×3 (09:30→22:10)
[2017-11-02] MEDS: Iron Polysaccharide Complex 150 MG CAPSULE PO SCH ×2 (09:30→22:10)
[2017-11-02] MEDS: Insulin LISPRO 300 UNITS/3 ML VIAL SQ SCH ×4 (09:31→22:08)
--- NOTE | 2017-11-02 09:45 | Internal Med Progress Note ---
<Kevin Chawla - Last Filed: 11/02/17 13:48> Hospitalist Progress Note - Encounter Date of Encounter: 11/02/17 Time of Encounter: 08:30 - Subjective Interval History: Ms. Giles laying in bed awake upon my arrival. upon questioning the patient is alert and oriented x 3 and states that she is still feeling a little short of breath this morning. Patient states that she slept good last night. She also denies chest pain, fever, chills, and headaches. Ms. Giles states that while she has been urinating and has had a few bowel movement and actually needs to be cleaned. - Exam Vitals: Temp Pulse Resp BP Pulse Ox 97.7 F 66 16 140/64 96 11/02/17 07:33 11/02/17 07:33 11/02/17 07:33 11/02/17 07:33 11/02/17 07:33 Exam: General Appearance: Patient appears to be in some distress Head exam: Atraumatic, normocephalic Eye exam: PERRL, conjuntiva pink, sclera anicteric Neck exam: Trachea midline Respiratory exam: Diffuse rales bilaterally Cardiology exam: RRR, +S1, +S2 Gastrointestinal exam: Normal bowel sounds, soft, no tenderness Extremities exam: warm without tenderness, legs had +2 pitting edema bilaterally. Left upper extremity was bandaged, unable to visualize hematoma Neurological exam: CN II-XII intact, patient is alert and oriented x 3 Skin exam: Dry and intact - Assessment and Plan (1) Anemia Current Visit: No Status: Chronic Assessment and Plan: -Patient has hematoma in the left upper extremity due to IV catheter infiltration during dialysis on 10/30/17 -Patient has had low trending H/H since admission, likely secondary to CKD -Due to hematoma, Hemoglobin fell to 7.0 and the patient was transfused -Patient is currently receiving Epoetin Pelon -Latest lab value showed a Hemoglobin of 8.7 (2) CKD (chronic kidney disease) Current Visit: No Status: Chronic Assessment and Plan: -Patient has a history of stage 5 CKD. Upon admission the patient had an elevated BUN/Cr at 88/3.49 and the latest value was 6/3.87 -Estimated GFR was 11 -Patient was initially assessed and believed to not require dialysis at this time, however due to worsening kidney function was started on dialysis on -Patient had been planned to receive dialysis on 10/30/17 as well, however the IV catheter in her arm was infiltrated, resulting in a hematoma in the LUE -Ms. Giles denies any pain with the hematoma and states she has been urinating well -Plans were for the patient to receive dialysis today, however the patient continued to move her arm and dislodged the needle -Will attempt dialysis again today (3) Acute respiratory failure Current Visit: Yes Status: Acute Assessment and Plan: -After patient underwent EGD she began experiencing some hypoxia and wheezing -Is currently on room air and O2 saturation is 100% -Patient began complaining of new onset shortness of breath this morning -On physical exam the patient have diffuse bilateral rales -Patient is currently receiving scheduled Albuterol treatment, with plans to add mucomyst -Speech evaluation initially stated the patient was within normal limits however she was reevaluated today and the patient demonstrated difficulty swallowing single trial of thin liquids with weak cough reflex -Patient also received a modified barium swallow that showed: the patient has oropharyngeal dysphagia evidenced by decreased bolus control and premature spillage of liquids into the pharynx -Patient will complete oral motor exercises, pharyngeal strengthening exercises , and should be given nectar thickened liquids (4) GI (gastrointestinal bleed) Current Visit: Yes Status: Resolved Assessment and Plan: -Patient had several black tarry stools during her admission, as well as drops in her H/H -GI was consulted and performed a EGD and Colonoscopy on 10/28/18, EGD showed multiple 12 mm sessile polyps with bleeding and no stigmata of recent bleeding were found in the gastric body and in the gastric antrum. The ampulla, and first and second portion of the duodenum were normal. -Colonoscopy showed one 14 mm polyp in the proximal ascending colon (biopsied), diverticulosis in the sigmoid colon, decending colon, and transverse colon, and non-bleeding internal hemorrhoids. -Biopsy results are currently pending -On physical exam the patient denies any abdominal tenderness and states she had a bowel movement last night -Continue to observe (5) (HFpEF) heart failure with preserved ejection fraction Current Visit: No Status: Acute Assessment and Plan: -Patient has a previous history of Heart Failure with Preserved Ejection Fraction. -Patient received an Echo on 10/22/17 which showed a LVEF fo 60-65%, biatrial enlargement, moderate-severe mitral/tricuspid regurgitation, severe pulmonary hypertension, and moderate aortic stenosis. -On physical exam the has diffuse rales bilaterally on auscultation and legs showed +2 pitting edema -Patient is not currently complaining of SOB and is on room air with 94% saturation -Patient is currently receiving Lasix 40 mg PO -Continue to monitor for sign for worsening fluid overload (6) Elevated troponin Current Visit: No Status: Acute Assessment and Plan: -Upon admission the patient had an elevated BNP at 834 as well as an elevated Troponin 0.05 (10/22/17) and the latest value taken on 10/23/17 continued to show Troponin at 0.05. -Initial EKG showed no signs of early ischemia. -Receiving treatment with Aspirin, Atorvastatin, Labetalol, and Losartan (7) Aortic stenosis Current Visit: No Status: Chronic Assessment and Plan: -Patient has a known history of moderate aortic stenosis. -Echo performed on 10/22/17 showed a mean gradient of 27 mmHg. -Continue home Lasix and Losartan (8) Hypertension Current Visit: No Status: Chronic Assessment and Plan: -Patient has a previous diagnosis of hypertension. -Latest blood pressure reading was 141/74 -Patient is currently being treated with Amlodipine, Clonidine, Hydralazine, Imdur, and Labetalol -Patient received Clonidine in the morning, the others will be held until dialysis is completed today -Continue to monitor BP Q4 hours. (9) Diabetes Current Visit: No Status: Acute Assessment and Plan: -Patient has a previous diagnosis of diabetes. -Latest blood glucose value was 103 (11/02/17) -Receiving treatment via sliding scale insulin -Continue to monitor blood glucose. (10) Altered mental status Current Visit: Yes Status: Resolved Assessment and Plan: -At this time the patient is alert and oriented x 3. -Nephrology was consulted and believe that her AMS was possibly secondary to uremia as her BUN was elevated compared to baseline. -Per Nephrology the BUN may be elevated secondary to diuretic use -Plans were for the patient to receive dialysis yesterday (11/01/17), however the patient continued to move her arm and dislodged the needle. -Will attempt again today (11) DVT prophylaxis Current Visit: No Status: Acute Assessment and Plan: -Patient has been discontinued from Heparin due to Thrombocytopenia - Time Spent with Patient Total time spent is greater than 50% in coordination of care (as documented) at patient's floor/unit and/or counseling patient: Internal Medicine: Result - Labs CBC & Chem 7: 11/02/17 03:53 11/02/17 03:53 Labs: Short CBC 11/02/17 Range/Units 03:53 WBC 5.3 (4.3-11.1) K/mcL Hgb 8.7 L (11.5-15.4) g/dL Hct 26.3 L (35.3-44.9) % Plt Count 88 L (140-400) K/mcL BMP 11/02/17 03:53 Sodium 135 L Potassium 3.6 Chloride 101 Carbon Dioxide 26 BUN 61 H Creatinine 3.87 H Glucose 103 Calcium 8.0 L - ABG Interpretation ABG results: PT/INR, D-dimer PT 11.0 Seconds (9.4-12.1) 10/22/17 14:19 - Impressions Impressions Videofluoroscopic Swallow 11/01/17 14:25 IMPRESSION: Aspiration of thin liquid. Please see separate speech pathology report for full discussion of findings and recommendations. D/ / Myles Wasserman MD / Myles Wasserman MD Interpreting Provider: Myles Wasserman MD - VTE Documentation of Mechanical Device: Intermittent pneumatic compression device Consult Discharge Plan - Plan Referrals: Ema Del Toro, GLASSWARE MAKER DEMONSTRATOR [Primary Care Provider] - <Michi Beltre - Last Filed: 11/02/17 17:29> Hospitalist Progress Note - Encounter Date of Encounter: 11/02/17 - Exam Vitals: Temp Pulse Resp BP Pulse Ox 97.7 F 73 16 171/63 97 11/02/17 13:30 11/02/17 17:08 11/02/17 17:08 11/02/17 17:08 11/02/17 17:08 - Assessment and Plan (1) Acute respiratory failure Current Visit: Yes Status: Acute (2) Anemia Current Visit: No Status: Chronic (3) Acute pulmonary edema Current Visit: Yes Status: Acute Assessment and Plan: Dialysis now. Hopefully will improve with continued dialysis. (4) CHF (congestive heart failure) Current Visit: No Status: Chronic Assessment and Plan: Now receiving dialysis and hopefully fluid status will improve (5) Dysphagia Current Visit: Yes Status: Chronic Assessment and Plan: Now on modified diet and has speech therapy (6) GI (gastrointestinal bleed) Current Visit: Yes Status: Resolved (7) DVT prophylaxis Current Visit: No Status: Acute (8) CKD (chronic kidney disease) Current Visit: No Status: Chronic (9) Aortic stenosis Current Visit: No Status: Chronic (10) Hypertension Current Visit: No Status: Chronic (11) Coronary artery disease Current Visit: No Status: Chronic Assessment and Plan: Chronic issue - Time Spent with Patient Total time spent is greater than 50% in coordination of care (as documented) at patient's floor/unit and/or counseling patient: Internal Medicine: Result - Labs CBC & Chem 7: 11/02/17 03:53 11/02/17 03:53 Labs: Short CBC 11/02/17 Range/Units 03:53 WBC 5.3 (4.3-11.1) K/mcL Hgb 8.7 L (11.5-15.4) g/dL Hct 26.3 L (35.3-44.9) % Plt Count 88 L (140-400) K/mcL BMP 11/02/17 03:53 Sodium 135 L Potassium 3.6 Chloride 101 Carbon Dioxide 26 BUN 61 H Creatinine 3.87 H Glucose 103 Calcium 8.0 L - ABG Interpretation ABG results: PT/INR, D-dimer PT 11.0 Seconds (9.4-12.1) 10/22/17 14:19 - Impressions Impressions Videofluoroscopic Swallow 11/01/17 14:25 IMPRESSION: Aspiration of thin liquid. Please see separate speech pathology report for full discussion of findings and recommendations. D/ / Myles Wasserman MD / Myles Wasserman MD Interpreting Provider: Myles Wasserman MD - Attending Attestation The history, physical exam, and medical decision making was performed by the medical student either while I was physically present and actively involved or I personally re-performed the exam and medical decision making. I have verified the accuracy of the medical student's documentation with regards to the history, physical exam findings, and medical decision making on 11/01/17. Ms Giles is currently admitted for acute CHF and ESRD. She remains moderate to high risk due to potential for worsening clinical status. Ms Giles is still very congested in her chest. She failed MBS and is on modified diet. She is to have dialysis today. No fever or chills. BP has been up and down. Exam alert Comfortable resting in bed Mucus membranes dry Heart distant with murmur Lungs with coarse rales and rhonchi Abd soft Edema present No rash No focal neuro deficit I/P 1. ESRD - to have dialysis today 2. CHF - hopefully will improve with dialysis 3. HTN Further diagnoses and plan as above. <Kevin Chawla - Last Filed: 11/02/17 13:48> (1) Anemia Qualifiers: Anemia type: other cause Other causes of anemia: acute posthemorrhagic Qualified Code(s): D62 - Acute posthemorrhagic anemia (2) CKD (chronic kidney disease) Qualifiers: Chronic kidney disease stage: on chronic dialysis Qualified Code(s): N18.6 - End stage renal disease; Z99.2 - Dependence on renal dialysis (3) Acute respiratory failure Qualifiers: Respiratory failure complication: hypoxia Qualified Code(s): J96.01 - Acute respiratory failure with hypoxia (4) GI (gastrointestinal bleed) Qualifiers: GI bleed type/associated pathology: melena Qualified Code(s): K92.1 - Melena (7) Aortic stenosis Qualifiers: Cardiac valve disease etiology: etiology unspecified Qualified Code(s): I35.0 - Nonrheumatic aortic (valve) stenosis (8) Hypertension Qualifiers: Hypertension type: renovascular hypertension Qualified Code(s): I15.0 - Renovascular hypertension (9) Diabetes Qualifiers: Diabetes mellitus type: type 2 Diabetes mellitus termite control technician insulin use: with termite control technician use Diabetes mellitus complication status: with unspecified complications Qualified Code(s): E11.8 - Type 2 diabetes mellitus with unspecified complications; Z79.4 - terminal system operator (current) use of insulin (10) Altered mental status Qualifiers: Altered mental status type: unspecified Qualified Code(s): R41.82 - Altered mental status, unspecified <Michi Beltre - Last Filed: 11/02/17 17:29> (1) Acute respiratory failure Qualifiers: Respiratory failure complication: hypoxia Qualified Code(s): J96.01 - Acute respiratory failure with hypoxia (2) Anemia Qualifiers: Anemia type: other cause Other causes of anemia: acute posthemorrhagic Qualified Code(s): D62 - Acute posthemorrhagic anemia (4) CHF (congestive heart failure) Qualifiers: Heart failure type: diastolic Heart failure chronicity: acute on chronic Qualified Code(s): I50.33 - Acute on chronic diastolic (congestive) heart failure (5) Dysphagia Qualifiers: Dysphagia type: oropharyngeal phase Qualified Code(s): R13.12 - Dysphagia, oropharyngeal phase (6) GI (gastrointestinal bleed) Qualifiers: GI bleed type/associated pathology: melena Qualified Code(s): K92.1 - Melena (8) CKD (chronic kidney disease) Qualifiers: Chronic kidney disease stage: on chronic dialysis Qualified Code(s): N18.6 - End stage renal disease; Z99.2 - Dependence on renal dialysis (9) Aortic stenosis Qualifiers: Cardiac valve disease etiology: etiology unspecified Qualified Code(s): I35.0 - Nonrheumatic aortic (valve) stenosis (10) Hypertension Qualifiers: Hypertension type: renovascular hypertension Qualified Code(s): I15.0 - Renovascular hypertension (11) Coronary artery disease Qualifiers: Coronary Disease-Associated Artery/Lesion type: [place] artery [place] vs. transplanted heart: [place] heart Associated angina: without angina Qualified Code(s): I25.10 - Atherosclerotic heart disease of [place] coronary artery without angina pectoris
[2017-11-02] MEDS: Sennosides/Docusate Sodium TABLET PO SCH ×2 (09:48→22:10)
--- NOTE | 2017-11-02 11:03 | Nephrology Progress Note ---
<Magnolia Sierra - Last Filed: 11/02/17 11:00> Date of Encounter: 11/02/17 Time of Encounter: 11:00 - Assessment and Plan (1) Hypertension Status: Chronic 140/64 stable. Qualifiers: Hypertension type: renovascular hypertension Qualified Code(s): I15.0 - Renovascular hypertension (2) Anemia in chronic kidney disease Status: Chronic Goal hgb is 10-11. Hgb is 8.7 today. Qualifiers: Chronic kidney disease stage: stage 5, not on chronic dialysis Qualified Code(s): N18.5 - Chronic kidney disease, stage 5; D63.1 - Anemia in chronic kidney disease (3) ESRD (end stage renal disease) Status: Acute Will plan for HD this afternoon. [place] RN will sit or have someone sit with patient to avoid movement of the arm. Pt wrist bands are tight on the LUE, RN informed so she could evaluate and possibly move. (4) CKD (chronic kidney disease), stage V Status: Chronic Is a patient of Dr. Horton'theo in the outpatient setting. Subjective Principal diagnosis: Chest pain Interval history: Pt see and examined, doing well. Objective - Vital Signs Vital signs: Vital Signs Temp Pulse Resp BP Pulse Ox 11/02/17 07:33 97.7 F 66 16 140/64 96 11/02/17 07:13 16 98 11/02/17 03:59 64 16 148/65 98 11/02/17 03:26 22 96 11/01/17 23:13 16 97 11/01/17 20:45 97.7 F 64 17 152/64 98 11/01/17 19:31 18 98 11/01/17 16:27 97.3 F L 57 16 128/59 100 11/01/17 15:42 16 100 11/01/17 11:21 97.5 F L 58 12 127/60 100 11/01/17 11:19 16 96 Intake and Output 11/01/17 11/02/17 11/02/17 23:59 07:59 15:59 Intake Total 560 / 560 400 / 400 Output Total 0 / 0 0 / 0 Balance 560 / 560 0 / 0 400 / 400 Intake: Oral 60 / 60 400 / 400 Free Water 500 / 500 Output: Urine 0 / 0 0 / 0 Other: Meal Dinner Breakfast Percent of Meal Consumed 20% 5% Stool Size Smear Stool Consistency loose Stool Characteristics Mucoid # Bowel Movement Diapers 1 Weight 87.9 kg Blood Glucose* 165 97 Patient Weight 11/02/17 23:59 Weight 87.9 kg - General Appearance General appearance: Present: well-developed, well-nourished EENT: Present: ATNC, hearing intact, vision intact Neck: Present: supple Cardiology: Present: edema (+2 pitting edema noted to bilat lower extremities.) , normal S1, normal S2 Dialysis Vascular Access: Arteriovenous Fistula thrill: Yes bruit: Yes Additional Comments: Hematoma noted, warm and painful to touch. Gastrointestinal: Present: normoactive bowel sounds, no tenderness, no guarding Integumentary: Present: no rash, warm and dry Neurologic: Present: alert and oriented x3 Psychiatric: Present: mood/affect appropriate, cooperative - Lab 11/02/17 03:53 11/02/17 03:53 Most recent lab results Calcium 8.0 mg/dL (8.6-10.3) L 11/02/17 03:53 - VTE Documentation of Mechanical Device: Intermittent pneumatic compression device Consult Discharge Plan - Plan Instructions: Fluconazole (By mouth), Myocardial Infarction (DC), Heart Failure (DC), Chest Pain (DC), Acute Respiratory Distress Syndrome (DC), Hemodialysis (DC), Dialysis Diet (DC), Diabetes Mellitus Type 2 in Adults (DC), Fall Prevention for Older Adults (GEN), Arteriovenous Fistula Creation for Hemodialysis (DC), Chronic Hypertension (DC), Anemia (GEN) Referrals: Ema Del Toro, HOSTAGE NEGOTIATOR [Primary Care Provider] - Prescriptions: Fluconazole [Diflucan] 200 mg PO DAILY 2 Days #2 tab <Bita Reinoso - Last Filed: 11/12/17 11:53> Date of Encounter: 11/02/17 - Assessment and Plan (1) Hypertension Status: Chronic Qualifiers: Hypertension type: renovascular hypertension Qualified Code(s): I15.0 - Renovascular hypertension (2) Anemia in chronic kidney disease Status: Chronic Qualifiers: Chronic kidney disease stage: stage 5, not on chronic dialysis Qualified Code(s): N18.5 - Chronic kidney disease, stage 5; D63.1 - Anemia in chronic kidney disease (3) ESRD (end stage renal disease) Status: Chronic Objective - Lab 11/08/17 03:07 11/08/17 03:07 Most recent lab results Calcium 8.3 mg/dL (8.6-10.3) L 11/08/17 03:07 - Attending Attestation I examined this patient and my medical decision-making was reviewed with the Resident Physician/HOSTAGE NEGOTIATOR. I agree with the documented findings, disposition and treatment plan as described except to the extent set forth below. Pt seen and examined on HD with AV arm restrained and with close supervision in place. Labs noted. Exam significant LE edema. Continue HD with UF as tolerated. Await outpatient HD placement.
[2017-11-02] MEDS: hydrALAZINE 25 MG TABLET PO SCH ×3 (12:08→22:10)
[2017-11-02] MEDS: Furosemide 40 MG TABLET PO SCH (12:09)
[2017-11-02] MEDS ORDERED: *HR* Heparin 5,000 UNIT/ML VIAL ONE (14:41)
[2017-11-02] MEDS: Insulin DETEMIR 100 UNIT/ML X5UNITS SQ SCH (22:25)
[2017-11-03] MEDS: Ipratropium/Albuterol Neb 3 ML IH SCH ×6 (03:47→22:58)
[2017-11-03] MEDS: Acetylcysteine 10% 2 ML INHSOL IH SCH ×4 (03:47→19:49)
[2017-11-03 05:10] LABS: Hematocrit 23.9 % (35.3-44.9); Immature Platelets 1.9 % (1.1-6.1); Mean Corpuscular HGB Conc 33.5 g/dL (31.6-35.5); Mean Corpuscular Hemoglobin 30.2 pg (28.0-33.3); Mean Corpuscular Volume 90.2 fL (83.0-100.0); Mean Platelet Volume 9.9 fL (9.4-12.4); Red Blood Count 2.65 M/mcL (3.82-4.97); Red Cell Distribution Width 15.3 % (11.5-14.5)
[2017-11-03 05:28] LABS: Calcium 7.9 mg/dL (8.6-10.3); Potassium 3.5 mEq/L (3.5-5.1)
[2017-11-03] MEDS: Aspirin Enteric Coated 81 MG Tablet PO SCH (08:16)
[2017-11-03] MEDS: amLODIPine 5 MG TABLET PO SCH (08:16)
[2017-11-03] MEDS: Insulin LISPRO 300 UNITS/3 ML VIAL SQ SCH ×4 (08:16→20:22)
[2017-11-03] MEDS: cloNIDine HCl 0.1 MG TABLET PO SCH ×3 (08:17→20:22)
[2017-11-03] MEDS: Gabapentin 100 MG CAPSULE PO SCH ×3 (08:17→20:21)
[2017-11-03] MEDS: Furosemide 40 MG TABLET PO SCH (08:17)
[2017-11-03] MEDS: hydrALAZINE 25 MG TABLET PO SCH ×3 (08:17→20:22)
[2017-11-03] MEDS: Iron Polysaccharide Complex 150 MG CAPSULE PO SCH ×2 (08:17→20:21)
[2017-11-03] MEDS: Isosorbide MONOnitrate (24 HR) 60 MG TAB.ER.24H PO SCH (08:18)
[2017-11-03] MEDS: Sennosides/Docusate Sodium TABLET PO SCH ×2 (08:19→20:20)
--- NOTE | 2017-11-03 09:30 | Internal Med Progress Note ---
<Kevin Chawla - Last Filed: 11/03/17 12:58> Hospitalist Progress Note - Encounter Date of Encounter: 11/03/17 Time of Encounter: 09:00 - Subjective Interval History: Ms. Giles laying in bed awake upon my arrival. upon questioning the patient is alert and oriented x 3 and states that she is still feeling a little short of breath this morning, but much better after receiving dialysis yesterday. Patient states that she slept good last night. She also denies chest pain, fever , chills, and headaches. Ms. Giles states that while she has been urinating and has had a several loose bowel movements. - Exam Vitals: Temp Pulse Resp BP Pulse Ox 99.4 F 70 18 124/46 96 11/03/17 05:52 11/03/17 05:52 11/03/17 07:28 11/03/17 05:52 11/03/17 07:28 Exam: General Appearance: Patient does not appear to be in distress Head exam: Atraumatic, normocephalic Eye exam: PERRL, conjuntiva pink, sclera anicteric Neck exam: Trachea midline Respiratory exam: Diffuse rales bilaterally Cardiology exam: RRR, +S1, +S2 Gastrointestinal exam: Normal bowel sounds, soft, no tenderness Extremities exam: warm without tenderness, left upper extremity is very swollen , legs had +2 pitting edema bilaterally. Left upper extremity was bandaged, unable to visualize hematoma Neurological exam: CN II-XII intact, patient is alert and oriented x 3 Skin exam: Dry and intact - Assessment and Plan (1) Anemia Current Visit: No Status: Chronic Assessment and Plan: -Patient has hematoma in the left upper extremity due to IV catheter infiltration during dialysis on 10/30/17 -Patient has had low trending H/H since admission, likely secondary to CKD -Due to hematoma, Hemoglobin fell to 7.0 and the patient was transfused -Patient is currently receiving Epoetin Pelon -Latest lab value showed a Hemoglobin of 8.0 (trended down from 8.7 yesterday) (2) CKD (chronic kidney disease) Current Visit: No Status: Chronic Assessment and Plan: -Patient has a history of stage 5 CKD. Upon admission the patient had an elevated BUN/Cr at 88/3.49 and the latest value was 43/2.9 -Estimated GFR was 15 -Patient was initially assessed and believed to not require dialysis at this time, however due to worsening kidney function was started on dialysis on -Patient had been planned to receive dialysis on 10/30/17 as well, however the IV catheter in her arm was infiltrated, resulting in a hematoma in the LUE -Ms. Giles denies any pain with the hematoma and states she has been urinating well -Left arm with fistula is very swollen -Patient received dialysis yesterday (3) Acute respiratory failure Current Visit: Yes Status: Acute Assessment and Plan: -After patient underwent EGD she began experiencing some hypoxia and wheezing -Is currently on room air and O2 saturation is 96% -Patient began complaining of new onset shortness of breath this morning -On physical exam the patient have diffuse bilateral rales -Patient is currently receiving scheduled Albuterol treatment, with plans to add mucomyst -Speech evaluation initially stated the patient was within normal limits however she was reevaluated today and the patient demonstrated difficulty swallowing single trial of thin liquids with weak cough reflex -Patient also received a modified barium swallow that showed: the patient has oropharyngeal dysphagia evidenced by decreased bolus control and premature spillage of liquids into the pharynx -Patient will complete oral motor exercises, pharyngeal strengthening exercises , and should be given nectar thickened liquids (4) GI (gastrointestinal bleed) Current Visit: Yes Status: Resolved Assessment and Plan: -Patient had several black tarry stools during her admission, as well as drops in her H/H -GI was consulted and performed a EGD and Colonoscopy on 10/28/18, EGD showed multiple 12 mm sessile polyps with bleeding and no stigmata of recent bleeding were found in the gastric body and in the gastric antrum. The ampulla, and first and second portion of the duodenum were normal. -Colonoscopy showed one 14 mm polyp in the proximal ascending colon (biopsied), diverticulosis in the sigmoid colon, decending colon, and transverse colon, and non-bleeding internal hemorrhoids. -Biopsy results were Consistent with an inflamed hyperplastic polyp, in pieces; no dysplasia -On physical exam the patient denies any abdominal tenderness and states she had a bowel movement last night -Continue to observe (5) (HFpEF) heart failure with preserved ejection fraction Current Visit: No Status: Acute Assessment and Plan: -Patient has a previous history of Heart Failure with Preserved Ejection Fraction. -Patient received an Echo on 10/22/17 which showed a LVEF fo 60-65%, biatrial enlargement, moderate-severe mitral/tricuspid regurgitation, severe pulmonary hypertension, and moderate aortic stenosis. -On physical exam the has diffuse rales bilaterally on auscultation and legs showed +2 pitting edema -Patient is not currently complaining of SOB and is on room air with 94% saturation -Patient is currently receiving Lasix 40 mg PO -Continue to monitor for sign for worsening fluid overload (6) Elevated troponin Current Visit: No Status: Acute Assessment and Plan: -Upon admission the patient had an elevated BNP at 834 as well as an elevated Troponin 0.05 (10/22/17) and the latest value taken on 10/23/17 continued to show Troponin at 0.05. -Initial EKG showed no signs of early ischemia. -Receiving treatment with Aspirin, Atorvastatin, Labetalol, and Losartan (7) Aortic stenosis Current Visit: No Status: Chronic Assessment and Plan: -Patient has a known history of moderate aortic stenosis. -Echo performed on 10/22/17 showed a mean gradient of 27 mmHg. -Continue home Lasix and Losartan (8) Hypertension Current Visit: No Status: Chronic Assessment and Plan: -Patient has a previous diagnosis of hypertension. -Latest blood pressure reading was 124/46 -Patient is currently being treated with Amlodipine, Clonidine, Hydralazine, Imdur, and Labetalol -Continue to monitor BP Q4 hours. (9) Diabetes Current Visit: No Status: Acute Assessment and Plan: -Patient has a previous diagnosis of diabetes. -Latest blood glucose value was 123 (11/03/17) -Receiving treatment via sliding scale insulin -Continue to monitor blood glucose. (10) Altered mental status Current Visit: Yes Status: Resolved Assessment and Plan: -At this time the patient is alert and oriented x 3. -Nephrology was consulted and believe that her AMS was possibly secondary to uremia as her BUN was elevated compared to baseline. -Per Nephrology the BUN may be elevated secondary to diuretic use -Patient underwent dialysis on 11/02/17 (11) DVT prophylaxis Current Visit: No Status: Acute DVT Prophylaxis: -Patient has been discontinued from Heparin due to Thrombocytopenia -Platelets have been trending up, latest value was 104 - Time Spent with Patient Total time spent is greater than 50% in coordination of care (as documented) at patient's floor/unit and/or counseling patient: Internal Medicine: Result - Labs CBC & Chem 7: 11/03/17 04:20 11/03/17 04:20 Labs: Short CBC 11/03/17 Range/Units 04:20 WBC 4.8 (4.3-11.1) K/mcL Hgb 8.0 L (11.5-15.4) g/dL Hct 23.9 L (35.3-44.9) % Plt Count 104 L (140-400) K/mcL BMP 11/03/17 04:20 Sodium 136 Potassium 3.5 Chloride 101 Carbon Dioxide 28 BUN 43 H Creatinine 2.99 H Glucose 123 H Calcium 7.9 L - ABG Interpretation ABG results: PT/INR, D-dimer PT 11.0 Seconds (9.4-12.1) 10/22/17 14:19 - VTE Documentation of Mechanical Device: Intermittent pneumatic compression device Consult Discharge Plan - Plan Referrals: Ema Del Toro FILM LABORATORY TECHNICIAN [Primary Care Provider] - <Michi Beltre - Last Filed: 11/03/17 16:45> Hospitalist Progress Note - Encounter Date of Encounter: 11/03/17 - Exam Vitals: Temp Pulse Resp BP Pulse Ox 101.2 F H 72 18 135/64 99 11/03/17 15:37 11/03/17 15:37 11/03/17 15:37 11/03/17 15:37 11/03/17 15:37 - Assessment and Plan (1) Fever Current Visit: Yes Status: Acute Assessment and Plan: Most likely has a new infection. Cultures and abx ordered. (2) Acute respiratory failure Current Visit: Yes Status: Acute (3) Anemia Current Visit: No Status: Chronic (4) Acute pulmonary edema Current Visit: Yes Status: Acute (5) CHF (congestive heart failure) Current Visit: No Status: Chronic (6) Dysphagia Current Visit: Yes Status: Chronic (7) GI (gastrointestinal bleed) Current Visit: Yes Status: Resolved (8) DVT prophylaxis Current Visit: No Status: Acute (9) CKD (chronic kidney disease) Current Visit: No Status: Chronic (10) Aortic stenosis Current Visit: No Status: Chronic (11) Hypertension Current Visit: No Status: Chronic (12) Coronary artery disease Current Visit: No Status: Chronic - Time Spent with Patient Total time spent is greater than 50% in coordination of care (as documented) at patient's floor/unit and/or counseling patient: Internal Medicine: Result - Labs CBC & Chem 7: 11/03/17 04:20 11/03/17 04:20 Labs: Short CBC 11/03/17 Range/Units 04:20 WBC 4.8 (4.3-11.1) K/mcL Hgb 8.0 L (11.5-15.4) g/dL Hct 23.9 L (35.3-44.9) % Plt Count 104 L (140-400) K/mcL BMP 11/03/17 04:20 Sodium 136 Potassium 3.5 Chloride 101 Carbon Dioxide 28 BUN 43 H Creatinine 2.99 H Glucose 123 H Calcium 7.9 L - ABG Interpretation ABG results: PT/INR, D-dimer PT 11.0 Seconds (9.4-12.1) 10/22/17 14:19 - Attending Attestation The history, physical exam, and medical decision making was performed by the medical student either while I was physically present and actively involved or I personally re-performed the exam and medical decision making. I have verified the accuracy of the medical student's documentation with regards to the history, physical exam findings, and medical decision making on 11/03/17. Ms Giles is currently admitted for acute exac CHF, anemia and renal failure. She has developed a fever. She remains moderate to high risk due to potential for worsening clinical status. Ms Giles is more confused this afternoon. She has developed a fever. No specific source though still remains congested in the chest. No chills. No abd pain. No diarrhea noted. Exam Alert but confused. Mucus membranes dry Heart distant - systolic murmur Lungs with coarse rhonchi Abd soft and nontender No rash Edema present I/P 1. Fever - most likely pulmonary source but could be urine or other place. Cultures ordered. CXR. Abx started. If diarrhea starts should get C diff. 2. ESRD on dialysis 3. HTN- better controlled now. Further diagnoses and plan as above. <Kevin Chawla A - Last Filed: 11/03/17 12:58> (1) Anemia Qualifiers: Anemia type: other cause Other causes of anemia: acute posthemorrhagic Qualified Code(s): D62 - Acute posthemorrhagic anemia (2) CKD (chronic kidney disease) Qualifiers: Chronic kidney disease stage: on chronic dialysis Qualified Code(s): N18.6 - End stage renal disease; Z99.2 - Dependence on renal dialysis (3) Acute respiratory failure Qualifiers: Respiratory failure complication: hypoxia Qualified Code(s): J96.01 - Acute respiratory failure with hypoxia (4) GI (gastrointestinal bleed) Qualifiers: GI bleed type/associated pathology: melena Qualified Code(s): K92.1 - Melena (7) Aortic stenosis Qualifiers: Cardiac valve disease etiology: etiology unspecified Qualified Code(s): I35.0 - Nonrheumatic aortic (valve) stenosis (8) Hypertension Qualifiers: Hypertension type: renovascular hypertension Qualified Code(s): I15.0 - Renovascular hypertension (9) Diabetes Qualifiers: Diabetes mellitus type: type 2 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 use: with fci use Diabetes mellitus complication status: with unspecified complications Qualified Code(s): E11.8 - Type 2 diabetes mellitus with unspecified complications; Z79.4 - intermodal truck driver (current) use of insulin (10) Altered mental status Qualifiers: Altered mental status type: unspecified Qualified Code(s): R41.82 - Altered mental status, unspecified <Michi Beltre A - Last Filed: 11/03/17 16:45> (1) Fever Qualifiers: Fever type: due to other condition Qualified Code(s): R50.81 - Fever presenting with conditions classified elsewhere (2) Acute respiratory failure Qualifiers: Respiratory failure complication: hypoxia Qualified Code(s): J96.01 - Acute respiratory failure with hypoxia (3) Anemia Qualifiers: Anemia type: other cause Other causes of anemia: acute posthemorrhagic Qualified Code(s): D62 - Acute posthemorrhagic anemia (5) CHF (congestive heart failure) Qualifiers: Heart failure type: diastolic Heart failure chronicity: acute on chronic Qualified Code(s): I50.33 - Acute on chronic diastolic (congestive) heart failure (6) Dysphagia Qualifiers: Dysphagia type: oropharyngeal phase Qualified Code(s): R13.12 - Dysphagia, oropharyngeal phase (7) GI (gastrointestinal bleed) Qualifiers: GI bleed type/associated pathology: melena Qualified Code(s): K92.1 - Melena (9) CKD (chronic kidney disease) Qualifiers: Chronic kidney disease stage: on chronic dialysis Qualified Code(s): N18.6 - End stage renal disease; Z99.2 - Dependence on renal dialysis (10) Aortic stenosis Qualifiers: Cardiac valve disease etiology: etiology unspecified Qualified Code(s): I35.0 - Nonrheumatic aortic (valve) stenosis (11) Hypertension Qualifiers: Hypertension type: renovascular hypertension Qualified Code(s): I15.0 - Renovascular hypertension (12) Coronary artery disease Qualifiers: Coronary Disease-Associated Artery/Lesion type: craig artery Lime vs. transplanted heart: craig heart Associated angina: without angina Qualified Code(s): I25.10 - Atherosclerotic heart disease of craig coronary artery without angina pectoris
--- NOTE | 2017-11-03 11:21 | Nephrology Progress Note ---
<Magnolia Sierra - Last Filed: 11/03/17 11:19> Date of Encounter: 11/03/17 Time of Encounter: 11:19 - Assessment and Plan (1) Hypertension Status: Chronic 124/46 stable. Qualifiers: Hypertension type: renovascular hypertension Qualified Code(s): I15.0 - Renovascular hypertension (2) Anemia in chronic kidney disease Status: Chronic Goal hgb is 10-11. Hgb is 8 today. Qualifiers: Chronic kidney disease stage: stage 5, not on chronic dialysis Qualified Code(s): N18.5 - Chronic kidney disease, stage 5; D63.1 - Anemia in chronic kidney disease (3) ESRD (end stage renal disease) Status: Acute HD completed yesterday without complication. Continue to renal dose and avoid nephrotoxins. Renal diet. (4) CKD (chronic kidney disease), stage V Status: Chronic Is a patient of Dr. Horton's in the outpatient setting. Subjective Principal diagnosis: Chest pain Interval history: Pt see and examined, doing well. Denies CP, admits to a little shortness of breath. Objective - Vital Signs Vital signs: Vital Signs Temp Pulse Resp BP Pulse Ox 11/03/17 11:08 18 96 11/03/17 07:28 18 96 11/03/17 05:52 99.4 F 70 18 124/46 96 11/03/17 03:47 18 98 11/03/17 01:59 98.3 F 69 18 124/68 97 11/02/17 23:01 16 94 11/02/17 19:58 98.4 F 72 18 147/50 96 11/02/17 19:37 18 97 11/02/17 17:08 73 16 171/63 97 11/02/17 16:30 161/59 11/02/17 16:15 145/49 11/02/17 16:00 157/53 11/02/17 15:45 155/58 11/02/17 15:30 147/54 11/02/17 15:15 166/71 11/02/17 15:00 133/53 11/02/17 14:45 159/59 11/02/17 14:30 169/60 11/02/17 14:15 166/59 11/02/17 14:00 158/60 11/02/17 13:45 164/61 11/02/17 13:30 97.7 F 17 159/59 11/02/17 12:03 97.5 F L 66 16 141/74 94 Intake and Output 11/02/17 11/03/17 11/03/17 23:59 07:59 15:59 Intake Total 0 / 0 0 / 0 Balance 0 / 0 0 / 0 Intake: Oral 0 / 0 0 / 0 Other: Meal Breakfast Percent of Meal Consumed 20% Stool Size Smear Stool Consistency liquid Stool Color White # Voids 0 0 1 # Bowel Movements 1 Weight 86.6 kg Blood Glucose* 175 96 Hemodialysis Net Fluid Removed 3600 (mL) Patient Weight 11/03/17 23:59 Weight 86.6 kg - General Appearance General appearance: Present: well-developed, well-nourished EENT: Present: ATNC, hearing intact, vision intact Neck: Present: supple Respiratory: Present: clear Cardiology: Present: edema (+1 pitting edema to bilat lower extremities.), normal S1, normal S2 Dialysis Vascular Access: Arteriovenous Fistula thrill: Yes bruit: Yes Additional Comments: Hematoma resolving nicely. Gastrointestinal: Present: normoactive bowel sounds, no tenderness, no guarding Integumentary: Present: no rash, warm and dry Neurologic: Present: alert and oriented x3 Psychiatric: Present: mood/affect appropriate, cooperative - Lab 11/03/17 04:20 11/03/17 04:20 Most recent lab results Calcium 7.9 mg/dL (8.6-10.3) L 11/03/17 04:20 - VTE Documentation of Mechanical Device: Intermittent pneumatic compression device Consult Discharge Plan - Plan Instructions: Fluconazole (By mouth), Myocardial Infarction (DC), Heart Failure (DC), Chest Pain (DC), Acute Respiratory Distress Syndrome (DC), Hemodialysis (DC), Dialysis Diet (DC), Diabetes Mellitus Type 2 in Adults (DC), Fall Prevention for Older Adults (GEN), Arteriovenous Fistula Creation for Hemodialysis (DC), Chronic Hypertension (DC), Anemia (GEN) Referrals: Ema Del Toro, CAR RUNNER [Primary Care Provider] - Prescriptions: Fluconazole [Diflucan] 200 mg PO DAILY 2 Days #2 tab <Bita Reinoso - Last Filed: 11/12/17 12:50> Date of Encounter: 11/03/17 - Assessment and Plan (1) Hypertension Status: Chronic Qualifiers: Hypertension type: renovascular hypertension Qualified Code(s): I15.0 - Renovascular hypertension (2) Anemia in chronic kidney disease Status: Chronic Qualifiers: Chronic kidney disease stage: stage 5, not on chronic dialysis Qualified Code(s): N18.5 - Chronic kidney disease, stage 5; D63.1 - Anemia in chronic kidney disease (3) ESRD (end stage renal disease) Status: Chronic Objective - Lab 11/08/17 03:07 11/08/17 03:07 Most recent lab results Calcium 8.3 mg/dL (8.6-10.3) L 11/08/17 03:07 - Attending Attestation I examined this patient and my medical decision-making was reviewed with the Resident Physician/CAR RUNNER. I agree with the documented findings, disposition and treatment plan as described except to the extent set forth below. Pt seen and examined s/p HD yesterday with no complications. Doing well overall. Labs reviewed. Await outpatient HD placement. Next HD planned tomorrow.
[2017-11-03] MEDS ORDERED: Vancomycin 1 EACH in 0.9 % Sodium Chloride 250 ML IVPB PRN (17:00)
[2017-11-03] MEDS: Piperacillin/Tazobactam 3.375 GM in 0.9 % Sodium Chloride Mini Bag 100 ML IVPB SCH (17:17)
[2017-11-03] MEDS: Acetaminophen 325 MG TABLET PO PRN (17:19)
[2017-11-03 18:38] LABS: Bilirubin,Urine Small (Negative); Blood,Urine Negative (Negative); Clarity,Urine Clear (Clear); Color,Urine Dark Yellow (Yellow); Glucose,Urine (UA) Normal (Normal); Ketones,Urine Negative (Negative); Leukocyte Esterase,Urine Negative (Negative); Nitrite,Urine Negative (Negative); Protein,Urine 30 mg/dL (Neg-Trace); Specific Gravity,Urine 1.027 (1.010-1.025); Urobilinogen,Urine Normal (Normal)
[2017-11-03 18:39] LABS: Bacteria,Urine None Seen per hpf (None-Few); Hyaline Casts,Urine None Seen per lpf (None-Few); Squamous Epithelial Cell,Urine None Seen per lpf (None-Few); WBC,Urine 0-3 per hpf (0-3)
[2017-11-03] MEDS: Insulin DETEMIR 100 UNIT/ML X5UNITS SQ SCH (20:23)
[2017-11-04] MEDS ORDERED: *HR* LORazepam 2 MG/ML VIAL IVP ONE (00:01)
[2017-11-04 01:30] LABS: Hematocrit 23.4 % (35.3-44.9); Hemoglobin 7.6 g/dL (11.5-15.4); Mean Corpuscular HGB Conc 32.5 g/dL (31.6-35.5); Mean Corpuscular Hemoglobin 29.7 pg (28.0-33.3); Mean Corpuscular Volume 91.4 fL (83.0-100.0); Mean Platelet Volume 9.3 fL (9.4-12.4); Platelet Count 104 K/mcL (140-400); Red Blood Count 2.56 M/mcL (3.82-4.97); Red Cell Distribution Width 15.2 % (11.5-14.5)
[2017-11-04 01:40] LABS: Potassium 3.2 mEq/L (3.5-5.1)
[2017-11-04] MEDS: Acetylcysteine 10% 2 ML INHSOL IH SCH ×4 (03:51→19:47)
[2017-11-04] MEDS: Ipratropium/Albuterol Neb 3 ML IH SCH ×6 (03:51→22:54)
[2017-11-04] MEDS: Piperacillin/Tazobactam 3.375 GM in 0.9 % Sodium Chloride Mini Bag 100 ML IVPB SCH ×2 (05:04→17:01)
[2017-11-04] MEDS ORDERED: 0.9 % Sodium Chloride 1,000 ML ONE ×2 (07:15→09:56)
[2017-11-04] MEDS ORDERED: 0.9 % Sodium Chloride 250 ML IVC PRN (07:23)
[2017-11-04] MEDS ORDERED: 0.9 % Sodium Chloride 1,000 ML PRIME SCH (07:30)
[2017-11-04] MEDS: Gabapentin 100 MG CAPSULE PO SCH ×3 (07:58→21:55)
[2017-11-04] MEDS: cloNIDine HCl 0.1 MG TABLET PO SCH ×3 (07:58→21:56)
[2017-11-04] MEDS: Sennosides/Docusate Sodium TABLET PO SCH ×2 (07:58→21:56)
[2017-11-04] MEDS: Iron Polysaccharide Complex 150 MG CAPSULE PO SCH ×2 (07:58→21:55)
[2017-11-04] MEDS: Aspirin Enteric Coated 81 MG Tablet PO SCH (07:59)
[2017-11-04] MEDS: Insulin LISPRO 300 UNITS/3 ML VIAL SQ SCH ×4 (08:26→21:56)
--- NOTE | 2017-11-04 08:56 | Internal Med Progress Note ---
<Kevin Chawla - Last Filed: 11/04/17 15:13> Hospitalist Progress Note - Encounter Date of Encounter: 11/04/17 Time of Encounter: 08:30 - Subjective Interval History: Ms. Giles laying in bed awake upon my arrival. upon questioning the patient is alert and oriented x 3 and states that she is still feeling a little short of breath this morning and that she had a fever last night. Patient states that she did not sleep well last night. Ms. Giles does state that her left hand was hurting earlier. She also denies chest pain, chills, and headaches. Ms. Giles states that while she has been urinating but has not had a bowel movement today. Patient was being transported to dialysis as I was leaving. - Exam Vitals: Temp Pulse Resp BP Pulse Ox 98.2 F 70 17 157/70 96 11/04/17 04:34 11/04/17 07:25 11/04/17 07:25 11/04/17 07:25 11/04/17 07:25 Exam: General Appearance: Patient appears to be in distress Head exam: Atraumatic, normocephalic Eye exam: PERRL, conjuntiva pink, sclera anicteric Neck exam: Trachea midline Respiratory exam: Diffuse rales bilaterally Cardiology exam: RRR, +S1, +S2 Gastrointestinal exam: Normal bowel sounds, soft, no tenderness Extremities exam: warm without tenderness, left upper extremity is very swollen , legs had +2 pitting edema bilaterally. Left upper extremity was bandaged, unable to visualize hematoma Neurological exam: CN II-XII intact, patient is alert and oriented x 3 Skin exam: Dry and intact - Assessment and Plan (1) Fever Current Visit: Yes Status: Acute Assessment and Plan: -Patient had a fever of 101.2 last night and had trouble sleeping -At this time it has trended down to 98.2 -Patient is still having shortness of breath, lungs could possibly be source of infection -Chest x ray showed mild pulmonary vascular congestion along with mild patchy perihilar opacities, right more than left, mildly worsened from 10/28/2017. Airspace opacities may be on the basis of asymmetric pulmonary edema, atelectasis or could reflect developing infiltrates -Possible aspiration pneumonia -Blood cultures are pending -Patient is currently on Vancomycin and Zosyn (2) Anemia Current Visit: No Status: Chronic Assessment and Plan: -Patient has hematoma in the left upper extremity due to IV catheter infiltration during dialysis on 10/30/17 -Patient has had low trending H/H since admission, likely secondary to CKD -Due to hematoma, Hemoglobin fell to 7.0 and the patient was transfused -Patient is currently receiving Epoetin Pelon -Latest lab value showed a Hemoglobin of 7.6 (trended down from 8.0 yesterday) -If Hemoglobin continues to fall may require transfusion (3) CKD (chronic kidney disease) Current Visit: No Status: Chronic Assessment and Plan: -Patient has a history of stage 5 CKD. Upon admission the patient had an elevated BUN/Cr at 88/3.49 and the latest value was 47/3.56 -Estimated GFR was 15 -Patient was initially assessed and believed to not require dialysis at this time, however due to worsening kidney function was started on dialysis on -Patient had been planned to receive dialysis on 10/30/17 as well, however the IV catheter in her arm was infiltrated, resulting in a hematoma in the LUE -Ms. Giles denies any pain with the hematoma and states she has been urinating well -Left arm with fistula is very swollen -Patient will receive dialysis today (4) Acute respiratory failure Current Visit: Yes Status: Acute Assessment and Plan: -After patient underwent EGD she began experiencing some hypoxia and wheezing -Is currently on nasal cannula and O2 saturation is 96% -Patient is still complaining of shortness of brath -On physical exam the patient have diffuse bilateral rales -Patient is currently receiving scheduled Albuterol treatment, with plans to add mucomyst -Speech evaluation initially stated the patient was within normal limits however she was reevaluated today and the patient demonstrated difficulty swallowing single trial of thin liquids with weak cough reflex -Patient also received a modified barium swallow that showed: the patient has oropharyngeal dysphagia evidenced by decreased bolus control and premature spillage of liquids into the pharynx -Patient will complete oral motor exercises, pharyngeal strengthening exercises , and should be given nectar thickened liquids -Chest x ray showed mild pulmonary vascular congestion along with mild patchy perihilar opacities, right more than left, mildly worsened from 10/28/2017. Airspace opacities may be on the basis of asymmetric pulmonary edema, atelectasis or could reflect developing infiltrates -Patient is currently on Vancomycin and Zosyn (5) GI (gastrointestinal bleed) Current Visit: Yes Status: Resolved Assessment and Plan: -Patient had several black tarry stools during her admission, as well as drops in her H/H -GI was consulted and performed a EGD and Colonoscopy on 10/28/18, EGD showed multiple 12 mm sessile polyps with bleeding and no stigmata of recent bleeding were found in the gastric body and in the gastric antrum. The ampulla, and first and second portion of the duodenum were normal. -Colonoscopy showed one 14 mm polyp in the proximal ascending colon (biopsied), diverticulosis in the sigmoid colon, decending colon, and transverse colon, and non-bleeding internal hemorrhoids. -Biopsy results were Consistent with an inflamed hyperplastic polyp, in pieces; no dysplasia -On physical exam the patient denies any abdominal tenderness and states she had a bowel movement last night -Hemoglobin was 7.6 today (11/04/17) (6) (HFpEF) heart failure with preserved ejection fraction Current Visit: No Status: Acute Assessment and Plan: -Patient has a previous history of Heart Failure with Preserved Ejection Fraction. -Patient received an Echo on 10/22/17 which showed a LVEF fo 60-65%, biatrial enlargement, moderate-severe mitral/tricuspid regurgitation, severe pulmonary hypertension, and moderate aortic stenosis. -On physical exam the has diffuse rales bilaterally on auscultation and legs showed +2 pitting edema -Patient is complaining of SOB and is on nasal cannula with 96% saturation -Patient is currently receiving Lasix 40 mg PO -Continue to monitor for sign for worsening fluid overload (7) Elevated troponin Current Visit: No Status: Acute Assessment and Plan: -Upon admission the patient had an elevated BNP at 834 as well as an elevated Troponin 0.05 (10/22/17) and the latest value taken on 10/23/17 continued to show Troponin at 0.05. -Initial EKG showed no signs of early ischemia. -Receiving treatment with Aspirin, Atorvastatin, Labetalol, and Losartan (8) Aortic stenosis Current Visit: No Status: Chronic Assessment and Plan: -Patient has a known history of moderate aortic stenosis. -Echo performed on 10/22/17 showed a mean gradient of 27 mmHg. -Continue home Lasix and Losartan (9) Hypertension Current Visit: No Status: Chronic Assessment and Plan: -Patient has a previous diagnosis of hypertension. -Latest blood pressure reading was 157/70 -Patient is currently being treated with Amlodipine, Clonidine, Hydralazine, Imdur, and Labetalol -Continue to monitor BP Q4 hours (10) Diabetes Current Visit: No Status: Acute Assessment and Plan: -Patient has a previous diagnosis of diabetes. -Latest blood glucose value was 138 (11/04/17) -Receiving treatment via sliding scale insulin -Continue to monitor blood glucose. (11) Altered mental status Current Visit: Yes Status: Resolved Assessment and Plan: -At this time the patient is alert and oriented x 3. -Nephrology was consulted and believe that her AMS was possibly secondary to uremia as her BUN was elevated compared to baseline. -Per Nephrology the BUN may be elevated secondary to diuretic use -Patient underwent dialysis on 11/02/17 with plans to undergo it again today (12) DVT prophylaxis Current Visit: No Status: Acute Assessment and Plan: -Patient has been discontinued from Heparin due to Thrombocytopenia -Platelets have been trending up, latest value was 104 - Time Spent with Patient Total time spent is greater than 50% in coordination of care (as documented) at patient's floor/unit and/or counseling patient: Internal Medicine: Result - Labs CBC & Chem 7: 11/04/17 00:50 11/04/17 00:50 Labs: Short CBC 11/04/17 Range/Units 00:50 WBC 4.9 (4.3-11.1) K/mcL Hgb 7.6 L (11.5-15.4) g/dL Hct 23.4 L (35.3-44.9) % Plt Count 104 L (140-400) K/mcL BMP 11/04/17 00:50 Sodium 135 L Potassium 3.2 L Chloride 99 Carbon Dioxide 27 BUN 47 H Creatinine 3.56 H Glucose 138 H Calcium 8.0 L Urine 11/03/17 Range/Units 18:00 Urine Color Dark Yellow (Yellow) Urine Clarity Clear (Clear) Urine pH 5.0 (5.0-8.0) pH Units Ur Specific [place] 1.027 H (1.010-1.025) Urine Protein 30 H (Neg-Trace) mg/dL Urine Glucose (UA) Normal (Normal) mg/dL - ABG Interpretation ABG results: PT/INR, D-dimer PT 11.0 Seconds (9.4-12.1) 10/22/17 14:19 - Impressions Impressions Chest X-Ray 11/03/17 16:11 IMPRESSION: Mild pulmonary vascular congestion along with mild patchy perihilar opacities, right more than left, mildly worsened from 10/28/2017. Airspace opacities may be on the basis of asymmetric pulmonary edema, atelectasis or could reflect developing infiltrates. Stable small left pleural effusion. D/ / 11/03/2017 16:55:33 Christ Vasquez MD / stacy Interpreting Provider: Christ Vasquez MD - VTE Documentation of Mechanical Device: Intermittent pneumatic compression device Consult Discharge Plan - Plan Referrals: Ema Del Toro, LIBRARY HELPER [Primary Care Provider] - <Michi Beltre - Last Filed: 11/04/17 19:17> Hospitalist Progress Note - Encounter Date of Encounter: 11/04/17 - Exam Vitals: Temp Pulse Resp BP Pulse Ox 98.5 F 72 18 153/66 98 11/04/17 12:20 11/04/17 14:12 11/04/17 15:57 11/04/17 14:12 11/04/17 15:57 - Assessment and Plan (1) Pneumonia Current Visit: Yes Status: Suspected Assessment and Plan: On IV abx at this time. (2) Fever Current Visit: Yes Status: Acute (3) Acute respiratory failure Current Visit: Yes Status: Acute (4) Anemia Current Visit: No Status: Chronic (5) Acute pulmonary edema Current Visit: Yes Status: Acute (6) CHF (congestive heart failure) Current Visit: No Status: Chronic (7) Dysphagia Current Visit: Yes Status: Chronic (8) GI (gastrointestinal bleed) Current Visit: Yes Status: Resolved (9) DVT prophylaxis Current Visit: No Status: Acute (10) CKD (chronic kidney disease) Current Visit: No Status: Chronic (11) Aortic stenosis Current Visit: No Status: Chronic (12) Hypertension Current Visit: No Status: Chronic (13) Coronary artery disease Current Visit: No Status: Chronic - Time Spent with Patient Total time spent is greater than 50% in coordination of care (as documented) at patient's floor/unit and/or counseling patient: Internal Medicine: Result - Labs CBC & Chem 7: 11/04/17 00:50 11/04/17 00:50 Labs: Short CBC 11/04/17 Range/Units 00:50 WBC 4.9 (4.3-11.1) K/mcL Hgb 7.6 L (11.5-15.4) g/dL Hct 23.4 L (35.3-44.9) % Plt Count 104 L (140-400) K/mcL BMP 11/04/17 00:50 Sodium 135 L Potassium 3.2 L Chloride 99 Carbon Dioxide 27 BUN 47 H Creatinine 3.56 H Glucose 138 H Calcium 8.0 L - ABG Interpretation ABG results: PT/INR, D-dimer PT 11.0 Seconds (9.4-12.1) 10/22/17 14:19 - Attending Attestation The history, physical exam, and medical decision making was performed by the medical student either while I was physically present and actively involved or I personally re-performed the exam and medical decision making. I have verified the accuracy of the medical student's documentation with regards to the history, physical exam findings, and medical decision making on 11/04/17. Ms Giles is currently admitted for ESRD, CHF and probable aspiration pneumonia. She remains moderate to high risk due to potential for worsening clinical status. Ms Giles feels better today. No further fever. No CP at this time. Less congestion in chest. No GI issues. Exam alert Comfortable Mucus membranes dry Heart reg with murmur Lungs with scattered rhonchi - less today Abd soft and nontender LUE with hematoma Edema present No rash I/P 1. Probable aspiration pneumonia 2. ESRD Further diagnoses and plan as above. <Denton,Waqaar A - Last Filed: 11/04/17 15:13> (1) Fever Qualifiers: Fever type: due to other condition Qualified Code(s): R50.81 - Fever presenting with conditions classified elsewhere (2) Anemia Qualifiers: Anemia type: other cause Other causes of anemia: acute posthemorrhagic Qualified Code(s): D62 - Acute posthemorrhagic anemia (3) CKD (chronic kidney disease) Qualifiers: Chronic kidney disease stage: on chronic dialysis Qualified Code(s): N18.6 - End stage renal disease; Z99.2 - Dependence on renal dialysis (4) Acute respiratory failure Qualifiers: Respiratory failure complication: hypoxia Qualified Code(s): J96.01 - Acute respiratory failure with hypoxia (5) GI (gastrointestinal bleed) Qualifiers: GI bleed type/associated pathology: melena Qualified Code(s): K92.1 - Melena (8) Aortic stenosis Qualifiers: Cardiac valve disease etiology: etiology unspecified Qualified Code(s): I35.0 - Nonrheumatic aortic (valve) stenosis (9) Hypertension Qualifiers: Hypertension type: renovascular hypertension Qualified Code(s): I15.0 - Renovascular hypertension (10) Diabetes Qualifiers: Diabetes mellitus type: type 2 Diabetes mellitus nursing home insulin use: with nursing home use Diabetes mellitus complication status: with unspecified complications Qualified Code(s): E11.8 - Type 2 diabetes mellitus with unspecified complications; Z79.4 - alf (current) use of insulin (11) Altered mental status Qualifiers: Altered mental status type: unspecified Qualified Code(s): R41.82 - Altered mental status, unspecified <Michi Beltre A - Last Filed: 11/04/17 19:17> (1) Pneumonia Qualifiers: Pneumonia type: aspiration pneumonia Aspiration pneumonia type: unspecified Laterality: bilateral Lung location: lower lobe of lung Qualified Code(s): J69.0 - Pneumonitis due to inhalation of food and vomit (2) Fever Qualifiers: Fever type: due to other condition Qualified Code(s): R50.81 - Fever presenting with conditions classified elsewhere (3) Acute respiratory failure Qualifiers: Respiratory failure complication: hypoxia Qualified Code(s): J96.01 - Acute respiratory failure with hypoxia (4) Anemia Qualifiers: Anemia type: other cause Other causes of anemia: acute posthemorrhagic Qualified Code(s): D62 - Acute posthemorrhagic anemia (6) CHF (congestive heart failure) Qualifiers: Heart failure type: diastolic Heart failure chronicity: acute on chronic Qualified Code(s): I50.33 - Acute on chronic diastolic (congestive) heart failure (7) Dysphagia Qualifiers: Dysphagia type: oropharyngeal phase Qualified Code(s): R13.12 - Dysphagia, oropharyngeal phase (8) GI (gastrointestinal bleed) Qualifiers: GI bleed type/associated pathology: melena Qualified Code(s): K92.1 - Melena (10) CKD (chronic kidney disease) Qualifiers: Chronic kidney disease stage: on chronic dialysis Qualified Code(s): N18.6 - End stage renal disease; Z99.2 - Dependence on renal dialysis (11) Aortic stenosis Qualifiers: Cardiac valve disease etiology: etiology unspecified Qualified Code(s): I35.0 - Nonrheumatic aortic (valve) stenosis (12) Hypertension Qualifiers: Hypertension type: renovascular hypertension Qualified Code(s): I15.0 - Renovascular hypertension (13) Coronary artery disease Qualifiers: Coronary Disease-Associated Artery/Lesion type: [place] artery [place] vs. transplanted heart: [place] heart Associated angina: without angina Qualified Code(s): I25.10 - Atherosclerotic heart disease of [place] coronary artery without angina pectoris
--- NOTE | 2017-11-04 11:28 | Nephrology Progress Note ---
<Magnolia Sierra - Last Filed: 11/04/17 11:19> Date of Encounter: 11/04/17 Time of Encounter: 11:19 - Assessment and Plan (1) Hypertension Status: Chronic 149/53, stable. Qualifiers: Hypertension type: renovascular hypertension Qualified Code(s): I15.0 - Renovascular hypertension (2) Anemia in chronic kidney disease Status: Chronic Goal hgb is 10-11. Hgb is 7.6 today. 1 Unit of PRBC to be given with HD. Qualifiers: Chronic kidney disease stage: stage 5, not on chronic dialysis Qualified Code(s): N18.5 - Chronic kidney disease, stage 5; D63.1 - Anemia in chronic kidney disease (3) ESRD (end stage renal disease) Status: Acute HD ordered for today. Continue to renal dose and avoid nephrotoxins. Renal diet. (4) CKD (chronic kidney disease), stage V Status: Chronic Is a patient of Dr. Treviño in the outpatient setting. Subjective Principal diagnosis: Chest pain Interval history: Pt see and examined during HD, tolerated well. Sitter at bedside to help keep arm straight. Objective - Vital Signs Vital signs: Vital Signs Temp Pulse Resp BP Pulse Ox 11/04/17 10:31 98.4 F 68 20 149/53 11/04/17 10:16 97.7 F 68 20 151/56 11/04/17 10:01 98.3 F 69 18 137/65 11/04/17 07:25 70 17 157/70 96 11/04/17 07:16 16 99 11/04/17 04:34 98.2 F 71 18 143/65 97 11/04/17 03:53 14 100 11/03/17 23:56 98.0 F 70 20 122/63 97 11/03/17 22:59 12 98 11/03/17 20:05 98.7 F 73 18 110/58 11/03/17 19:52 18 11/03/17 15:37 101.2 F H 72 18 135/64 99 11/03/17 15:28 16 92 11/03/17 11:34 98.4 F 71 16 127/58 92 Intake and Output 11/03/17 11/04/17 11/04/17 23:59 07:59 15:59 Intake Total 100 / 100 0 / 0 800 / 800 Output Total 850 / 850 Balance -750 / -750 0 / 0 800 / 800 Intake: IV Fluids 100 / 100 Zosyn 3.375 GM In 0.9 % Sodium 100 / 100 Chloride (Mini-Bag +) 100 ML @ 25 mls/hr IVPB Q12HR LOVE Rx#: [id number] Oral 0 / 0 0 / 0 100 / 100 Blood Product 700 / 700 Rbcs Leuko Poor As-1 Unit 700 / 700 [id number] Output: Straight Cath 850 / 850 Other: Meal Breakfast Percent of Meal Consumed 20% # Voids 0 0 Weight 85.6 kg Blood Glucose* 128 124 - General Appearance General appearance: Present: well-developed, well-nourished EENT: Present: ATNC, hearing intact, vision intact Neck: Present: supple Respiratory: Present: clear Cardiology: Present: edema (+2 bilat lower extremity edema), normal S1, normal S2 Dialysis Vascular Access: Arteriovenous Fistula thrill: Yes bruit: Yes Gastrointestinal: Present: normoactive bowel sounds, no tenderness, no guarding Integumentary: Present: no rash, warm and dry Neurologic: Present: alert and oriented x3 Psychiatric: Present: mood/affect appropriate, cooperative - Lab 11/04/17 00:50 11/04/17 00:50 Most recent lab results Calcium 8.0 mg/dL (8.6-10.3) L 11/04/17 00:50 - VTE Documentation of Mechanical Device: Intermittent pneumatic compression device Consult Discharge Plan - Plan Instructions: Fluconazole (By mouth), Myocardial Infarction (DC), Heart Failure (DC), Chest Pain (DC), Acute Respiratory Distress Syndrome (DC), Hemodialysis (DC), Dialysis Diet (DC), Diabetes Mellitus Type 2 in Adults (DC), Fall Prevention for Older Adults (GEN), Arteriovenous Fistula Creation for Hemodialysis (DC), Chronic Hypertension (DC), Anemia (GEN) Referrals: Ema Del Toro, STIFF LEG DERRICK OPERATOR [Primary Care Provider] - <Bita Reinoso - Last Filed: 11/21/17 20:35> Date of Encounter: 11/04/17 - Assessment and Plan (1) Hypertension Status: Chronic Qualifiers: Hypertension type: renovascular hypertension Qualified Code(s): I15.0 - Renovascular hypertension (2) Anemia in chronic kidney disease Status: Chronic Qualifiers: Chronic kidney disease stage: stage 5, not on chronic dialysis Qualified Code(s): N18.5 - Chronic kidney disease, stage 5; D63.1 - Anemia in chronic kidney disease (3) ESRD (end stage renal disease) Status: Chronic Objective - Lab 11/08/17 03:07 11/08/17 03:07 Most recent lab results Calcium 8.3 mg/dL (8.6-10.3) L 11/08/17 03:07 - Attending Attestation I examined this patient and my medical decision-making was reviewed with the Resident Physician/STIFF LEG DERRICK OPERATOR. I agree with the documented findings, disposition and treatment plan as described except to the extent set forth below. Pt seen and examined on HD doing well with a sitter. Exam unchanged from yesterday. Hgb noted at 7.6, will transfuse a unit pRBCs with HD. Continue HD with UF as tolerated. Outpatient HD placement still pending.
[2017-11-04] MEDS: hydrALAZINE 25 MG TABLET PO SCH ×3 (14:33→21:55)
[2017-11-04] MEDS: Isosorbide MONOnitrate (24 HR) 60 MG TAB.ER.24H PO SCH (14:36)
[2017-11-04] MEDS: Furosemide 40 MG TABLET PO SCH (14:46)
[2017-11-04] MEDS: amLODIPine 5 MG TABLET PO SCH (14:47)
[2017-11-04] MEDS: Insulin DETEMIR 100 UNIT/ML X5UNITS SQ SCH (21:56)
[2017-11-05 03:41] LABS: Hematocrit 27.5 % (35.3-44.9); Mean Corpuscular HGB Conc 32.7 g/dL (31.6-35.5); Mean Corpuscular Hemoglobin 29.7 pg (28.0-33.3); Mean Corpuscular Volume 90.8 fL (83.0-100.0); Mean Platelet Volume 8.9 fL (9.4-12.4); Platelet Count 113 K/mcL (140-400); Red Blood Count 3.03 M/mcL (3.82-4.97)
[2017-11-05 04:04] LABS: Calcium 8.1 mg/dL (8.6-10.3); Potassium 3.1 mEq/L (3.5-5.1)
[2017-11-05] MEDS: Acetylcysteine 10% 2 ML INHSOL IH SCH ×4 (04:16→19:31)
[2017-11-05] MEDS: Ipratropium/Albuterol Neb 3 ML IH SCH ×6 (04:16→23:54)
[2017-11-05] MEDS: Piperacillin/Tazobactam 3.375 GM in 0.9 % Sodium Chloride Mini Bag 100 ML IVPB SCH (06:30)
--- NOTE | 2017-11-05 09:31 | Internal Med Progress Note ---
<Kevin Chawla - Last Filed: 11/05/17 09:06> Hospitalist Progress Note - Encounter Date of Encounter: 11/05/17 Time of Encounter: 07:45 - Subjective Interval History: Ms. Giles laying in bed awake upon my arrival. upon questioning the patient is alert and oriented x 3 and states that she is still feeling less short of breath this morning. Patient states that she did sleep well last night. Ms. Giles does state that her left arm is still hurting today. She also denies chest pain, chills, and headaches. Ms. Giles states that while she has been urinating well but has not had a bowel movement this morning. Received dialysis yesterday. - Exam Vitals: Temp Pulse Resp BP Pulse Ox 100.2 F H 70 18 146/55 92 11/05/17 07:09 11/05/17 07:09 11/05/17 07:09 11/05/17 07:09 11/05/17 07:09 Exam: General Appearance: Patient does not appears to be in distress Head exam: Atraumatic, normocephalic Eye exam: PERRL, conjuntiva pink, sclera anicteric Neck exam: Trachea midline Respiratory exam: Diffuse rales bilaterally (sound better today than previously ) on room air Cardiology exam: RRR, +S1, +S2 Gastrointestinal exam: Normal bowel sounds, soft, no tenderness Extremities exam: warm without tenderness, left upper extremity is very swollen , legs were covered. Left upper extremity was bandaged, unable to visualize hematoma Neurological exam: CN II-XII intact, patient is alert and oriented x 3 Skin exam: Dry and intact - Assessment and Plan (1) Fever Current Visit: Yes Status: Acute Assessment and Plan: -Patient's latest temperature was 100.2 -Bilateral rales heard on examination, but appear improved since yesterday -Chest x ray showed mild pulmonary vascular congestion along with mild patchy perihilar opacities, right more than left, mildly worsened from 10/28/2017. Airspace opacities may be on the basis of asymmetric pulmonary edema, atelectasis or could reflect developing infiltrates -Possible aspiration pneumonia -Blood cultures are pending -Receiving Acetaminophen for fever -Patient is currently on Vancomycin and Zosyn for possible infection (2) Anemia Current Visit: No Status: Chronic Assessment and Plan: -Patient has hematoma in the left upper extremity due to IV catheter infiltration during dialysis on 10/30/17 -Patient has had low trending H/H since admission, likely secondary to CKD -Due to hematoma, Hemoglobin fell to 7.0 and the patient was transfused -Patient is currently receiving Epoetin Pelon -Latest lab value showed a Hemoglobin of 9.0 (trended up from 7.6 yesterday) (3) CKD (chronic kidney disease) Current Visit: No Status: Chronic Assessment and Plan: -Patient has a history of stage 5 CKD. Upon admission the patient had an elevated BUN/Cr at 88/3.49 and the latest value was 35/2.9 -Estimated GFR was 18 -Patient was initially assessed and believed to not require dialysis at this time, however due to worsening kidney function was started on dialysis on -Patient had been planned to receive dialysis on 10/30/17 as well, however the IV catheter in her arm was infiltrated, resulting in a hematoma in the LUE -Ms. Giles denies any pain with the hematoma and states she has been urinating well -Left arm with fistula is very swollen -Patient received dialysis yesterday (4) Acute respiratory failure Current Visit: Yes Status: Acute Assessment and Plan: -After patient underwent EGD she began experiencing some hypoxia and wheezing -Is currently on nasal cannula and O2 saturation is 96% -Patient is not complaining of shortness of breath at this time -On physical exam the patient have diffuse bilateral rales -Patient is currently receiving scheduled Albuterol treatment, with plans to add mucomyst -Speech evaluation initially stated the patient was within normal limits however she was reevaluated today and the patient demonstrated difficulty swallowing single trial of thin liquids with weak cough reflex -Patient also received a modified barium swallow that showed: the patient has oropharyngeal dysphagia evidenced by decreased bolus control and premature spillage of liquids into the pharynx -Patient will complete oral motor exercises, pharyngeal strengthening exercises , and should be given nectar thickened liquids -Chest x ray showed mild pulmonary vascular congestion along with mild patchy perihilar opacities, right more than left, mildly worsened from 10/28/2017. Airspace opacities may be on the basis of asymmetric pulmonary edema, atelectasis or could reflect developing infiltrates -Patient is currently on Vancomycin and Zosyn (5) GI (gastrointestinal bleed) Current Visit: Yes Status: Resolved Assessment and Plan: -Patient had several black tarry stools during her admission, as well as drops in her H/H -GI was consulted and performed a EGD and Colonoscopy on 10/28/18, EGD showed multiple 12 mm sessile polyps with bleeding and no stigmata of recent bleeding were found in the gastric body and in the gastric antrum. The ampulla, and first and second portion of the duodenum were normal. -Colonoscopy showed one 14 mm polyp in the proximal ascending colon (biopsied), diverticulosis in the sigmoid colon, decending colon, and transverse colon, and non-bleeding internal hemorrhoids. -Biopsy results were Consistent with an inflamed hyperplastic polyp, in pieces; no dysplasia -On physical exam the patient denies any abdominal tenderness and states she had a bowel movement last night -Hemoglobin was 9.0 today (11/05/17) (6) (HFpEF) heart failure with preserved ejection fraction Current Visit: No Status: Acute Assessment and Plan: -Upon admission the patient had an elevated BNP at 834 as well as an elevated Troponin 0.05 (10/22/17) and the latest value taken on 10/23/17 continued to show Troponin at 0.05. -Initial EKG showed no signs of early ischemia. -Receiving treatment with Aspirin, Atorvastatin, Labetalol, and Losartan (7) Elevated troponin Current Visit: No Status: Acute (8) Aortic stenosis Current Visit: No Status: Chronic Assessment and Plan: -Patient has a known history of moderate aortic stenosis. -Echo performed on 10/22/17 showed a mean gradient of 27 mmHg. -Continue home Lasix and Losartan (9) Hypertension Current Visit: No Status: Chronic Assessment and Plan: -Patient has a previous diagnosis of hypertension. -Latest blood pressure reading was 146/55 -Patient is currently being treated with Amlodipine, Clonidine, Hydralazine, Imdur, and Labetalol -Continue to monitor BP Q4 hours (10) Diabetes Current Visit: No Status: Acute Assessment and Plan: -Patient has a previous diagnosis of diabetes. -Latest blood glucose value was 145 (11/05/17) -Receiving treatment via sliding scale insulin -Continue to monitor blood glucose. (11) Altered mental status Current Visit: Yes Status: Resolved Assessment and Plan: -At this time the patient is alert and oriented x 3. -Nephrology was consulted and believe that her AMS was possibly secondary to uremia as her BUN was elevated compared to baseline. -Per Nephrology the BUN may be elevated secondary to diuretic use -Patient underwent dialysis on 11/05/17 (12) DVT prophylaxis Current Visit: No Status: Acute Assessment and Plan: -Patient has been discontinued from Heparin due to Thrombocytopenia -Platelets have been trending up, latest value was 113 - Time Spent with Patient Total time spent is greater than 50% in coordination of care (as documented) at patient's floor/unit and/or counseling patient: Internal Medicine: Result - Labs CBC & Chem 7: 11/05/17 03:22 11/05/17 03:22 Labs: Short CBC 11/05/17 Range/Units 03:22 WBC 5.9 (4.3-11.1) K/mcL Hgb 9.0 L (11.5-15.4) g/dL Hct 27.5 L (35.3-44.9) % Plt Count 113 L (140-400) K/mcL BMP 11/05/17 03:22 Sodium 137 Potassium 3.1 L Chloride 103 Carbon Dioxide 28 BUN 35 H Creatinine 2.92 H Glucose 145 H Calcium 8.1 L - ABG Interpretation ABG results: PT/INR, D-dimer PT 11.0 Seconds (9.4-12.1) 10/22/17 14:19 - VTE Documentation of Mechanical Device: Intermittent pneumatic compression device Consult Discharge Plan - Plan Referrals: Ema Del Toro, [employer] [Primary Care Provider] - <Michi Beltre - Last Filed: 11/05/17 15:28> Hospitalist Progress Note - Encounter Date of Encounter: 11/05/17 - Exam Vitals: Temp Pulse Resp BP Pulse Ox 99.5 F 70 16 159/63 92 11/05/17 10:55 11/05/17 10:55 11/05/17 11:24 11/05/17 10:55 11/05/17 11:24 - Assessment and Plan (1) Pneumonia Current Visit: Yes Status: Suspected (2) Fever Current Visit: Yes Status: Resolved (3) Acute respiratory failure Current Visit: Yes Status: Acute (4) Anemia Current Visit: No Status: Chronic (5) Acute pulmonary edema Current Visit: Yes Status: Acute (6) CHF (congestive heart failure) Current Visit: No Status: Chronic (7) Dysphagia Current Visit: Yes Status: Chronic (8) GI (gastrointestinal bleed) Current Visit: Yes Status: Resolved (9) DVT prophylaxis Current Visit: No Status: Acute (10) CKD (chronic kidney disease) Current Visit: No Status: Chronic (11) Aortic stenosis Current Visit: No Status: Chronic (12) Hypertension Current Visit: No Status: Chronic (13) Coronary artery disease Current Visit: No Status: Chronic - Time Spent with Patient Total time spent is greater than 50% in coordination of care (as documented) at patient's floor/unit and/or counseling patient: Internal Medicine: Result - Labs CBC & Chem 7: 11/05/17 03:22 11/05/17 03:22 Labs: Short CBC 11/05/17 Range/Units 03:22 WBC 5.9 (4.3-11.1) K/mcL Hgb 9.0 L (11.5-15.4) g/dL Hct 27.5 L (35.3-44.9) % Plt Count 113 L (140-400) K/mcL BMP 11/05/17 03:22 Sodium 137 Potassium 3.1 L Chloride 103 Carbon Dioxide 28 BUN 35 H Creatinine 2.92 H Glucose 145 H Calcium 8.1 L - ABG Interpretation ABG results: PT/INR, D-dimer PT 11.0 Seconds (9.4-12.1) 10/22/17 14:19 - Attending Attestation The history, physical exam, and medical decision making was performed by the medical student either while I was physically present and actively involved or I personally re-performed the exam and medical decision making. I have verified the accuracy of the medical student's documentation with regards to the history, physical exam findings, and medical decision making on 11/05/17. Ms Giles is currently admitted for acute CHF and ESRD. She has developed a pneumonia as well. She remains moderate to high risk due to potential for worsening clinical status. Ms Giles is feeling OK. She is coughing less though she still has a lot of chest congestion. No fever or chills. No new GI issues. Tolerating dialysis. Exam alert Comfortable Mucus membranes dry Heart distant with loud systolic murmur. Lungs with rhonchi bilaterally but better air movement. Edema present but seems to be improving. LUE with ecchymoses still No rash I/P 1. Probable aspiration pneumonia on IV abx 2. ESRD on dialysis Further diagnoses and plan as above. <Kevin Chawla A - Last Filed: 11/05/17 09:06> (1) Fever Qualifiers: Fever type: due to other condition Qualified Code(s): R50.81 - Fever presenting with conditions classified elsewhere (2) Anemia Qualifiers: Anemia type: other cause Other causes of anemia: acute posthemorrhagic Qualified Code(s): D62 - Acute posthemorrhagic anemia; D63.1 - Anemia in chronic kidney disease; Z99.2 - Dependence on renal dialysis (3) CKD (chronic kidney disease) Qualifiers: Chronic kidney disease stage: on chronic dialysis Qualified Code(s): N18.6 - End stage renal disease; Z99.2 - Dependence on renal dialysis (4) Acute respiratory failure Qualifiers: Respiratory failure complication: hypoxia Qualified Code(s): J96.01 - Acute respiratory failure with hypoxia (5) GI (gastrointestinal bleed) Qualifiers: GI bleed type/associated pathology: melena Qualified Code(s): K92.1 - Melena (8) Aortic stenosis Qualifiers: Cardiac valve disease etiology: etiology unspecified Qualified Code(s): I35.0 - Nonrheumatic aortic (valve) stenosis (9) Hypertension Qualifiers: Hypertension type: renovascular hypertension Qualified Code(s): I15.0 - Renovascular hypertension (10) Diabetes Qualifiers: Diabetes mellitus type: type 2 Diabetes mellitus oil heaterman insulin use: with care home use Diabetes mellitus complication status: with unspecified complications Qualified Code(s): E11.8 - Type 2 diabetes mellitus with unspecified complications; Z79.4 - group home (current) use of insulin (11) Altered mental status Qualifiers: Altered mental status type: unspecified Qualified Code(s): R41.82 - Altered mental status, unspecified <Michi Beltre - Last Filed: 11/05/17 15:28> (1) Pneumonia Qualifiers: Pneumonia type: aspiration pneumonia Aspiration pneumonia type: unspecified Laterality: bilateral Lung location: lower lobe of lung Qualified Code(s): J69.0 - Pneumonitis due to inhalation of food and vomit (2) Fever Qualifiers: Fever type: due to other condition Qualified Code(s): R50.81 - Fever presenting with conditions classified elsewhere (3) Acute respiratory failure Qualifiers: Respiratory failure complication: hypoxia Qualified Code(s): J96.01 - Acute respiratory failure with hypoxia (4) Anemia Qualifiers: Anemia type: due to chronic kidney disease Chronic kidney disease stage: on chronic dialysis Qualified Code(s): N18.6 - End stage renal disease; D63.1 - Anemia in chronic kidney disease; Z99.2 - Dependence on renal dialysis (6) CHF (congestive heart failure) Qualifiers: Heart failure type: diastolic Heart failure chronicity: acute on chronic Qualified Code(s): I50.33 - Acute on chronic diastolic (congestive) heart failure (7) Dysphagia Qualifiers: Dysphagia type: oropharyngeal phase Qualified Code(s): R13.12 - Dysphagia, oropharyngeal phase (8) GI (gastrointestinal bleed) Qualifiers: GI bleed type/associated pathology: melena Qualified Code(s): K92.1 - Melena (10) CKD (chronic kidney disease) Qualifiers: Chronic kidney disease stage: on chronic dialysis Qualified Code(s): N18.6 - End stage renal disease; Z99.2 - Dependence on renal dialysis (11) Aortic stenosis Qualifiers: Cardiac valve disease etiology: etiology unspecified Qualified Code(s): I35.0 - Nonrheumatic aortic (valve) stenosis (12) Hypertension Qualifiers: Hypertension type: renovascular hypertension Qualified Code(s): I15.0 - Renovascular hypertension (13) Coronary artery disease Qualifiers: Coronary Disease-Associated Artery/Lesion type: [place] artery [place] vs. transplanted heart: [place] heart Associated angina: without angina Qualified Code(s): I25.10 - Atherosclerotic heart disease of [place] coronary artery without angina pectoris
[2017-11-05] MEDS: Sennosides/Docusate Sodium TABLET PO SCH ×2 (10:47→20:27)
[2017-11-05] MEDS: Isosorbide MONOnitrate (24 HR) 60 MG TAB.ER.24H PO SCH (10:47)
[2017-11-05] MEDS: Furosemide 40 MG TABLET PO SCH (10:47)
[2017-11-05] MEDS: Iron Polysaccharide Complex 150 MG CAPSULE PO SCH ×2 (10:47→20:28)
[2017-11-05] MEDS: Gabapentin 100 MG CAPSULE PO SCH ×3 (10:47→20:27)
[2017-11-05] MEDS: Aspirin Enteric Coated 81 MG Tablet PO SCH (10:48)
[2017-11-05] MEDS: cloNIDine HCl 0.1 MG TABLET PO SCH ×3 (10:50→20:32)
[2017-11-05] MEDS: Insulin LISPRO 300 UNITS/3 ML VIAL SQ SCH ×4 (10:52→20:29)
[2017-11-05] MEDS: amLODIPine 5 MG TABLET PO SCH (11:00)
[2017-11-05] MEDS: hydrALAZINE 25 MG TABLET PO SCH ×2 (14:12→20:31)
[2017-11-05] MEDS: Acetaminophen 325 MG TABLET PO PRN (14:31)
[2017-11-05] MEDS ORDERED: Aminoglycoside Consult 1 EACH MC ONE (15:33)
--- NOTE | 2017-11-05 16:19 | Nephrology Progress Note ---
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 Family at bedside. Objective - Vital Signs Vital signs: Vital Signs Temp Pulse Resp BP Pulse Ox 11/05/17 11:24 16 92 11/05/17 10:55 99.5 F 70 17 159/63 93 11/05/17 07:30 20 96 11/05/17 07:09 100.2 F H 70 18 146/55 92 11/05/17 04:32 98.6 F 71 18 165/72 95 11/05/17 04:17 14 100 11/05/17 01:12 75 179/71 11/04/17 22:55 18 98 11/04/17 20:44 95 11/04/17 20:30 98.2 F 72 20 150/79 95 11/04/17 19:48 14 99 Intake and Output 11/05/17 11/05/17 11/05/17 07:59 15:59 23:59 Intake Total 0 / 0 240 / 240 Output Total 0 / 0 0 / 0 Balance 0 / 0 240 / 240 Intake: Oral 0 / 0 240 / 240 Output: Urine 0 / 0 0 / 0 Other: Meal Lunch Percent of Meal Consumed 50% # Voids 0 Weight 81.7 kg Blood Glucose* 115 170 Patient Weight 11/05/17 23:59 Weight 81.7 kg - General Appearance General appearance: Present: chronically ill, frail EENT: Present: ATNC, mucous membranes moist Neck: Present: no JVD, supple Respiratory: Present: clear Cardiology: Present: edema (improving LE bilat), normal S1, normal S2 Dialysis Vascular Access: Arteriovenous Fistula thrill: Yes bruit: Yes Gastrointestinal: Present: no tenderness, no guarding Integumentary: Present: warm and dry Neurologic: Present: no focal deficit Musculoskeletal: Present: no deformities Psychiatric: Present: mood/affect appropriate - Lab 11/08/17 03:07 11/08/17 03:07 Most recent lab results Calcium 8.1 mg/dL (8.6-10.3) L 11/05/17 03:22 - VTE Documentation of Mechanical Device: Intermittent pneumatic compression device Consult Discharge Plan - Plan Instructions: Fluconazole (By mouth), Myocardial Infarction (DC), Heart Failure (DC), Chest Pain (DC), Acute Respiratory Distress Syndrome (DC), Hemodialysis (DC), Dialysis Diet (DC), Diabetes Mellitus Type 2 in Adults (DC), Fall Prevention for Older Adults (GEN), Arteriovenous Fistula Creation for Hemodialysis (DC), Chronic Hypertension (DC), Anemia (GEN) Referrals: Eam Del Toro, MEDICAL INVESTIGATOR [Primary Care Provider] -
[2017-11-05] MEDS: Insulin DETEMIR 100 UNIT/ML X5UNITS SQ SCH (20:31)
[2017-11-06] MEDS: Ipratropium/Albuterol Neb 3 ML IH SCH ×6 (04:01→23:32)
[2017-11-06] MEDS: Acetylcysteine 10% 2 ML INHSOL IH SCH ×4 (04:01→20:01)
[2017-11-06 05:18] LABS: Hematocrit 24.8 % (35.3-44.9); Mean Corpuscular HGB Conc 32.3 g/dL (31.6-35.5); Mean Corpuscular Hemoglobin 29.3 pg (28.0-33.3); Mean Corpuscular Volume 90.8 fL (83.0-100.0); Mean Platelet Volume 9.2 fL (9.4-12.4); Platelet Count 139 K/mcL (140-400); Red Blood Count 2.73 M/mcL (3.82-4.97); Red Cell Distribution Width 15.2 % (11.5-14.5)
[2017-11-06 05:37] LABS: Calcium 8.1 mg/dL (8.6-10.3)
[2017-11-06] MEDS: hydrALAZINE 25 MG TABLET PO SCH ×3 (06:55→23:23)
[2017-11-06] MEDS ORDERED: 0.9 % Sodium Chloride 2,000 ML ONE (07:25)
[2017-11-06] MEDS ORDERED: 0.9 % Sodium Chloride 250 ML IVC PRN (08:03)
[2017-11-06] MEDS ORDERED: 0.9 % Sodium Chloride 1,000 ML PRIME SCH (08:15)
[2017-11-06] MEDS: Insulin LISPRO 300 UNITS/3 ML VIAL SQ SCH ×4 (08:26→20:33)
[2017-11-06] MEDS: Iron Polysaccharide Complex 150 MG CAPSULE PO SCH ×2 (09:15→20:31)
[2017-11-06] MEDS: Sennosides/Docusate Sodium TABLET PO SCH ×2 (09:15→20:32)
[2017-11-06] MEDS: Aspirin Enteric Coated 81 MG Tablet PO SCH ×2 (09:15→16:43)
[2017-11-06] MEDS: Gabapentin 100 MG CAPSULE PO SCH ×3 (09:16→20:31)
[2017-11-06] MEDS: cloNIDine HCl 0.1 MG TABLET PO SCH ×3 (10:45→20:31)
--- NOTE | 2017-11-06 12:42 | Internal Med Progress Note ---
<Juan Ramon De La Vega - Last Filed: 11/06/17 13:54> Hospitalist Progress Note - Encounter Date of Encounter: 11/06/17 Time of Encounter: 09:30 - Subjective Interval History: Patient was seen and examined at bedside this morning. Patient reports that she is feeling well today. She is scheduled for dialysis. She reports an intermittent cough. Denies any confusion, increased sputum production, or arm pain. No further complaints at this time. - Exam Vitals: Temp Pulse Resp BP Pulse Ox 97.6 F 75 18 171/78 93 11/06/17 07:16 11/06/17 12:01 11/06/17 12:01 11/06/17 12:01 11/06/17 12:01 Exam: General Appearance: No acute distress Head exam: Atraumatic, normocephalic Eye exam: PERRL, conjuntiva pink, sclera anicteric Neck exam: Trachea midline Respiratory exam: Diffuse rales and diminished breath sounds bilaterally Cardiology exam: RRR, +S1, +S2, no murmurs rubs or gallops Gastrointestinal exam: Normal bowel sounds, soft, no tenderness Extremities exam: warm without tenderness, left upper extremity is very swollen , legs were covered. Left upper extremity was bandaged Neurological exam: CN II-XII intact, alert and oriented 3 Skin exam: Dry and intact - Assessment and Plan (1) Anemia Current Visit: No Status: Chronic Assessment and Plan: Patients anemia is likely secondary to CKD - Active bleeding source is not suspected at this time - Last hemoglobin was 8.0, down from 9.0 yesterday - Receiving EPO - Continue to monitor (2) CKD (chronic kidney disease), stage V Current Visit: No Status: Chronic Assessment and Plan: Known history of stage V CKD - Estimated GFR 18 - Started dialysis during this hospitalization - Patient will be a Wednesday, , Wednesday dialysis patient - Plan is to dialyze patient today - Nephrology on board; would appreciate any further recommendations (3) Acute respiratory failure Current Visit: Yes Status: Acute Assessment and Plan: Appears to have resolved - Currently being treated for possible pneumonia - Last O2 saturation was 93% - Denies any shortness of breath - Continue IV antibiotics (4) Hypertension Current Visit: No Status: Chronic Assessment and Plan: Known history of hypertension - Latest blood pressure reading was 171/78 - Patient is currently being treated with Amlodipine, Clonidine, Hydralazine, Imdur, and Labetalol - Continue to monitor BP Q4 hours (5) Diabetes Current Visit: No Status: Acute Assessment and Plan: -Patient has a known diagnosis of DM - Latest blood glucose value was 138 - Receiving treatment via SSI (6) Fever Current Visit: Yes Status: Resolved Assessment and Plan: Possibly secondary to aspiration pneumonia. - MAXIMUM TEMPERATURE in the last 24 hours was 100.2 - Last temp was 97.6 - CXR demonstrated mild pulmonary vascular congestion, mild patchy perihilar opacities on the right more than left. - Blood cultures currently pending - Vancomycin and Zosyn for possible infection - Time Spent with Patient Total time spent is greater than 50% in coordination of care (as documented) at patient's floor/unit and/or counseling patient: Internal Medicine: Result - Labs CBC & Chem 7: 11/06/17 04:36 11/06/17 04:36 Labs: Short CBC 11/06/17 Range/Units 04:36 WBC 5.4 (4.3-11.1) K/mcL Hgb 8.0 L (11.5-15.4) g/dL Hct 24.8 L (35.3-44.9) % Plt Count 139 L (140-400) K/mcL BMP 11/06/17 04:36 Sodium 138 Potassium 3.0 L Chloride 104 Carbon Dioxide 28 BUN 41 H Creatinine 3.56 H Glucose 138 H Calcium 8.1 L - ABG Interpretation ABG results: PT/INR, D-dimer PT 11.0 Seconds (9.4-12.1) 10/22/17 14:19 - VTE Documentation of Mechanical Device: Intermittent pneumatic compression device Consult Discharge Plan - Plan Referrals: Ema Del Toro, OUTDOOR FITNESS TRAINER [Primary Care Provider] - <Michi Beltre - Last Filed: 11/06/17 15:02> Hospitalist Progress Note - Encounter Date of Encounter: 11/06/17 - Exam Vitals: Temp Pulse Resp BP Pulse Ox 97.6 F 75 18 171/78 93 11/06/17 07:16 11/06/17 12:01 11/06/17 12:01 11/06/17 12:01 11/06/17 12:01 - Assessment and Plan (1) Acute respiratory failure Current Visit: Yes Status: Acute (2) Pneumonia Current Visit: Yes Status: Suspected Assessment and Plan: Slowly improving with IV abx. Most likely was aspiration prior to changing consistency of diet. (3) Anemia Current Visit: No Status: Chronic (4) Diabetes Current Visit: No Status: Chronic (5) Hypertension Current Visit: No Status: Chronic (6) CKD (chronic kidney disease), stage V Current Visit: No Status: Chronic (7) Fever Current Visit: Yes Status: Resolved - Time Spent with Patient Total time spent is greater than 50% in coordination of care (as documented) at patient's floor/unit and/or counseling patient: Internal Medicine: Result - Labs CBC & Chem 7: 11/06/17 04:36 11/06/17 04:36 Labs: Short CBC 11/06/17 Range/Units 04:36 WBC 5.4 (4.3-11.1) K/mcL Hgb 8.0 L (11.5-15.4) g/dL Hct 24.8 L (35.3-44.9) % Plt Count 139 L (140-400) K/mcL BMP 11/06/17 04:36 Sodium 138 Potassium 3.0 L Chloride 104 Carbon Dioxide 28 BUN 41 H Creatinine 3.56 H Glucose 138 H Calcium 8.1 L - ABG Interpretation ABG results: PT/INR, D-dimer PT 11.0 Seconds (9.4-12.1) 10/22/17 14:19 <Juan Ramon De La Vega - Last Filed: 11/06/17 13:54> (1) Anemia Qualifiers: Anemia type: due to chronic kidney disease Chronic kidney disease stage: on chronic dialysis Qualified Code(s): N18.6 - End stage renal disease; D63.1 - Anemia in chronic kidney disease; Z99.2 - Dependence on renal dialysis (3) Acute respiratory failure Qualifiers: Respiratory failure complication: hypoxia Qualified Code(s): J96.01 - Acute respiratory failure with hypoxia (4) Hypertension Qualifiers: Hypertension type: renovascular hypertension Qualified Code(s): I15.0 - Renovascular hypertension (5) Diabetes Qualifiers: Diabetes mellitus type: type 2 Diabetes mellitus middle or intermediate school principal insulin use: with middle or intermediate school principal use Diabetes mellitus complication status: with unspecified complications Qualified Code(s): E11.8 - Type 2 diabetes mellitus with unspecified complications; Z79.4 - residential (current) use of insulin (6) Fever Qualifiers: Fever type: due to other condition Qualified Code(s): R50.81 - Fever presenting with conditions classified elsewhere <Michi Beltre - Last Filed: 11/06/17 15:02> (1) Acute respiratory failure Qualifiers: Respiratory failure complication: hypoxia Qualified Code(s): J96.01 - Acute respiratory failure with hypoxia (2) Pneumonia Qualifiers: Pneumonia type: aspiration pneumonia Aspiration pneumonia type: unspecified Laterality: bilateral Lung location: lower lobe of lung Qualified Code(s): J69.0 - Pneumonitis due to inhalation of food and vomit (3) Anemia Qualifiers: Anemia type: due to chronic kidney disease Chronic kidney disease stage: on chronic dialysis Qualified Code(s): N18.6 - End stage renal disease; D63.1 - Anemia in chronic kidney disease; Z99.2 - Dependence on renal dialysis (4) Diabetes Qualifiers: Diabetes mellitus type: type 2 Diabetes mellitus middle or intermediate school principal insulin use: with half-way use Diabetes mellitus complication status: with hyperglycemia Qualified Code(s): E11.65 - Type 2 diabetes mellitus with hyperglycemia; Z79.4 - terminal clerk (current) use of insulin (5) Hypertension Qualifiers: Hypertension type: renovascular hypertension Qualified Code(s): I15.0 - Renovascular hypertension (7) Fever Qualifiers: Fever type: due to other condition Qualified Code(s): R50.81 - Fever presenting with conditions classified elsewhere
--- NOTE | 2017-11-06 15:12 | Nephrology Progress Note ---
Date of Encounter: 11/06/17 Time of Encounter: 12:00 - Assessment and Plan (1) ESRD (end stage renal disease) Status: Chronic Continue HD with UF as tolerated Lytes stable Awaiting outpatient HD placement here in [place] with her appointment scheduler and ECF as well (2) Hypertension Status: Chronic stable Qualifiers: Hypertension type: renovascular hypertension Qualified Code(s): I15.0 - Renovascular hypertension (3) Anemia in chronic kidney disease Status: Chronic s/p 2units pRBCs yesterday with HD yesterday but dropped from 9 to 8.0 today, will monitor Qualifiers: Chronic kidney disease stage: stage 5, not on chronic dialysis Qualified Code(s): N18.5 - Chronic kidney disease, stage 5; D63.1 - Anemia in chronic kidney disease Subjective Principal diagnosis: Chest pain Interval history: Interim noted, pt seen and examined on HD doing well. No new complaints Objective - Vital Signs Vital signs: Vital Signs Temp Pulse Resp BP Pulse Ox 11/06/17 12:01 75 18 171/78 93 11/06/17 11:37 16 95 11/06/17 07:35 18 93 11/06/17 07:16 97.6 F 69 17 145/61 91 11/06/17 04:23 98.5 F 69 15 157/72 95 11/06/17 04:01 16 94 11/05/17 23:54 16 93 11/05/17 21:52 96 11/05/17 19:31 16 92 11/05/17 19:25 98.0 F 69 16 106/49 95 11/05/17 16:17 98.6 F 71 16 134/51 93 11/05/17 15:57 20 94 Intake and Output 11/05/17 11/06/17 11/06/17 23:59 07:59 15:59 Intake Total 120 / 120 0 / 0 580 / 580 Output Total 0 / 0 0 / 0 Balance 120 / 120 0 / 0 580 / 580 Intake: Oral 120 / 120 0 / 0 580 / 580 Output: Urine 0 / 0 0 / 0 Other: Meal Dinner Lunch Percent of Meal Consumed 25% 40% Stool Size Smear Stool Consistency soft Stool Characteristics Mucoid # Voids 1 0 # Urine Diapers 0 1 # Bowel Movements 0 Weight 82.4 kg Blood Glucose* 219 130 167 Patient Weight 11/06/17 23:59 Weight 82.4 kg - General Appearance General appearance: Present: chronically ill, frail EENT: Present: ATNC, mucous membranes moist Neck: Present: no JVD, supple Respiratory: Present: clear Cardiology: Present: edema (improving), normal S1, normal S2 Dialysis Vascular Access: Arteriovenous Fistula thrill: Yes bruit: Yes Gastrointestinal: Present: no tenderness, no guarding Integumentary: Present: warm and dry Neurologic: Present: no focal deficit Musculoskeletal: Present: no deformities Psychiatric: Present: mood/affect appropriate - Lab 11/08/17 03:07 11/08/17 03:07 Most recent lab results Calcium 8.1 mg/dL (8.6-10.3) L 11/06/17 04:36 - VTE Documentation of Mechanical Device: Intermittent pneumatic compression device Consult Discharge Plan - Plan Instructions: Fluconazole (By mouth), Myocardial Infarction (DC), Heart Failure (DC), Chest Pain (DC), Acute Respiratory Distress Syndrome (DC), Hemodialysis (DC), Dialysis Diet (DC), Diabetes Mellitus Type 2 in Adults (DC), Fall Prevention for Older Adults (GEN), Arteriovenous Fistula Creation for Hemodialysis (DC), Chronic Hypertension (DC), Anemia (GEN) Referrals: Ema Del Toro, LAW FIRM CONSULTANT [Primary Care Provider] -
[2017-11-06] MEDS: Furosemide 40 MG TABLET PO SCH (16:41)
[2017-11-06] MEDS: Isosorbide MONOnitrate (24 HR) 60 MG TAB.ER.24H PO SCH (16:41)
[2017-11-06] MEDS: amLODIPine 5 MG TABLET PO SCH (16:41)
[2017-11-06] MEDS: Insulin DETEMIR 100 UNIT/ML X5UNITS SQ SCH (20:32)
[2017-11-07] MEDS: Acetylcysteine 10% 2 ML INHSOL IH SCH ×4 (03:59→19:28)
[2017-11-07] MEDS: Ipratropium/Albuterol Neb 3 ML IH SCH ×6 (03:59→23:14)
[2017-11-07] MEDS: hydrALAZINE 25 MG TABLET PO SCH ×4 (06:00→21:15)
[2017-11-07 06:50] LABS: Hematocrit 25.1 % (35.3-44.9); Immature Platelets 1.3 % (1.1-6.1); Mean Corpuscular HGB Conc 31.9 g/dL (31.6-35.5); Mean Corpuscular Hemoglobin 29.2 pg (28.0-33.3); Mean Corpuscular Volume 91.6 fL (83.0-100.0); Mean Platelet Volume 9.2 fL (9.4-12.4); Red Blood Count 2.74 M/mcL (3.82-4.97)
[2017-11-07 07:16] LABS: Calcium 7.9 mg/dL (8.6-10.3); Potassium 3.3 mEq/L (3.5-5.1)
--- NOTE | 2017-11-07 07:38 | Internal Med Progress Note ---
<Juan Ramon De La Vega - Last Filed: 11/07/17 12:57> Hospitalist Progress Note - Encounter Date of Encounter: 11/07/17 Time of Encounter: 07:44 - Subjective Interval History: Patient was seen and examined at bedside this morning. Patient reports that she is feeling well today. She received dialysis yesterday. Reports a tightness in her hand joints. Also admits to an intermittent cough. Denies any confusion, increased sputum production, or arm pain. No further complaints at this time. - Exam Vitals: Temp Pulse Resp BP Pulse Ox 98.0 F 70 20 157/66 97 11/06/17 19:33 11/07/17 07:22 11/07/17 07:22 11/07/17 07:22 11/07/17 07:22 Exam: General Appearance: No acute distress Head exam: Atraumatic, normocephalic Eye exam: PERRL, conjuntiva pink, sclera anicteric Neck exam: Trachea midline Respiratory exam: Diffuse rales and diminished breath sounds bilaterally Cardiology exam: RRR, +S1, +S2, no murmurs rubs or gallops Gastrointestinal exam: Normal bowel sounds, soft, no tenderness Extremities exam: warm without tenderness, left upper extremity is very swollen , legs were covered. Left upper extremity was bandaged Neurological exam: CN II-XII intact, alert and oriented 3 Skin exam: Dry and intact - Assessment and Plan (1) Fever Current Visit: Yes Status: Resolved Assessment and Plan: Possibly secondary to aspiration pneumonia. Appears to have resolved at this time; afebrile in the past 24 hours - CXR demonstrated mild pulmonary vascular congestion, mild patchy perihilar opacities on the right more than left. - Blood cultures currently pending - Preliminary urine cx grew yeast - Vancomycin and Zosyn for possible infection (2) Anemia Current Visit: No Status: Chronic Assessment and Plan: Patients anemia is likely secondary to CKD - Active bleeding source is not suspected at this time - Hemoglobin currently stable at 8.0 - Receiving EPO - Continue to monitor (3) Diabetes Current Visit: No Status: Chronic Assessment and Plan: -Patient has a known diagnosis of DM - Receiving treatment via SSI (4) Hypertension Current Visit: No Status: Chronic Assessment and Plan: Known history of hypertension - Patient is currently being treated with Amlodipine, Clonidine, Hydralazine, Imdur, and Labetalol - Continue to monitor BP Q4 hours (5) CKD (chronic kidney disease), stage V Current Visit: No Status: Chronic Assessment and Plan: Known history of stage V CKD - Estimated GFR 18 - Started dialysis during this hospitalization - Patient will be a Wednesday, , Wednesday dialysis patient - Nephrology following (6) Acute respiratory failure Current Visit: Yes Status: Acute Assessment and Plan: Appears to have resolved - Currently being treated for possible pneumonia - Denies any shortness of breath - Continue IV antibiotics (7) Pneumonia Current Visit: Yes Status: Suspected Assessment and Plan: Slowly improving with IV abx. Most likely was aspiration prior to changing consistency of diet. - Time Spent with Patient Total time spent is greater than 50% in coordination of care (as documented) at patient's floor/unit and/or counseling patient: less than 15 minutes Internal Medicine: Result - Labs CBC & Chem 7: 11/07/17 05:53 11/07/17 05:53 Labs: Short CBC 11/07/17 Range/Units 05:53 WBC 5.3 (4.3-11.1) K/mcL Hgb 8.0 L (11.5-15.4) g/dL Hct 25.1 L (35.3-44.9) % Plt Count 168 (140-400) K/mcL BMP 11/07/17 05:53 Sodium 139 Potassium 3.3 L Chloride 104 Carbon Dioxide 29 BUN 36 H Creatinine 3.44 H Glucose 141 H Calcium 7.9 L - ABG Interpretation ABG results: PT/INR, D-dimer PT 11.0 Seconds (9.4-12.1) 10/22/17 14:19 - VTE Documentation of Mechanical Device: Intermittent pneumatic compression device Consult Discharge Plan - Plan Referrals: Ema Del Toro, BLANKET CUTTING MACHINE OPERATOR [Primary Care Provider] - <Michi Beltre - Last Filed: 11/07/17 18:26> Hospitalist Progress Note - Encounter Date of Encounter: 11/07/17 - Exam Vitals: Temp Pulse Resp BP Pulse Ox 97.6 F 68 16 124/57 100 11/07/17 15:04 11/07/17 15:04 11/07/17 15:34 11/07/17 15:04 11/07/17 15:34 - Assessment and Plan (1) Anemia Current Visit: No Status: Chronic (2) Diabetes Current Visit: No Status: Chronic (3) Hypertension Current Visit: No Status: Chronic (4) Acute respiratory failure Current Visit: Yes Status: Acute (5) Fever Current Visit: Yes Status: Resolved (6) Pneumonia Current Visit: Yes Status: Suspected - Time Spent with Patient Total time spent is greater than 50% in coordination of care (as documented) at patient's floor/unit and/or counseling patient: Internal Medicine: Result - Labs CBC & Chem 7: 11/07/17 05:53 11/07/17 05:53 Labs: Short CBC 11/07/17 Range/Units 05:53 WBC 5.3 (4.3-11.1) K/mcL Hgb 8.0 L (11.5-15.4) g/dL Hct 25.1 L (35.3-44.9) % Plt Count 168 (140-400) K/mcL BMP 11/07/17 05:53 Sodium 139 Potassium 3.3 L Chloride 104 Carbon Dioxide 29 BUN 36 H Creatinine 3.44 H Glucose 141 H Calcium 7.9 L - ABG Interpretation ABG results: PT/INR, D-dimer PT 11.0 Seconds (9.4-12.1) 10/22/17 14:19 - Attending Attestation I examined this patient and my medical decision-making was reviewed with the Resident Physician on 11/07/17. I agree with the documented findings, disposition and treatment plan as described except to the extent set forth below. Ms Giles is currently admitted for HTN, ESRD and aspiration pneumonia. She remains moderate to high risk due to potential for worsening clinical status. Ms Giles feels OK. She says her fingertips feel funny. No fever or chills. Breathing OK. No CP or neck pain. Exam alert Comfortable Mucus membranes dry Heart distant with murmur Lungs with scattered rhonchi Abd soft I/P 1. HTN - better controlled 2. Asp PNA - on abx Further diagnoses and plan as above. <Juan Ramon De La Vega - Last Filed: 11/07/17 12:57> (2) Anemia Qualifiers: Anemia type: due to chronic kidney disease Chronic kidney disease stage: on chronic dialysis Qualified Code(s): N18.6 - End stage renal disease; D63.1 - Anemia in chronic kidney disease; Z99.2 - Dependence on renal dialysis (3) Diabetes Qualifiers: Diabetes mellitus type: type 2 Diabetes mellitus residential insulin use: with residential use Diabetes mellitus complication status: with hyperglycemia Qualified Code(s): E11.65 - Type 2 diabetes mellitus with hyperglycemia; Z79.4 - long term care social worker (current) use of insulin (4) Hypertension Qualifiers: Hypertension type: renovascular hypertension Qualified Code(s): I15.0 - Renovascular hypertension (6) Acute respiratory failure Qualifiers: Respiratory failure complication: hypoxia Qualified Code(s): J96.01 - Acute respiratory failure with hypoxia (7) Pneumonia Qualifiers: Pneumonia type: aspiration pneumonia Aspiration pneumonia type: unspecified Laterality: bilateral Lung location: lower lobe of lung Qualified Code(s): J69.0 - Pneumonitis due to inhalation of food and vomit <Michi Beltre - Last Filed: 11/07/17 18:26> (1) Anemia Qualifiers: Anemia type: due to chronic kidney disease Chronic kidney disease stage: on chronic dialysis Qualified Code(s): N18.6 - End stage renal disease; D63.1 - Anemia in chronic kidney disease; Z99.2 - Dependence on renal dialysis (2) Diabetes Qualifiers: Diabetes mellitus type: type 2 Diabetes mellitus residential insulin use: with superintendent terminal use Diabetes mellitus complication status: with hyperglycemia Qualified Code(s): E11.65 - Type 2 diabetes mellitus with hyperglycemia; Z79.4 - half-way (current) use of insulin (3) Hypertension Qualifiers: Hypertension type: renovascular hypertension Qualified Code(s): I15.0 - Renovascular hypertension (4) Acute respiratory failure Qualifiers: Respiratory failure complication: hypoxia Qualified Code(s): J96.01 - Acute respiratory failure with hypoxia (5) Fever Qualifiers: Encounter type: subsequent encounter (6) Pneumonia Qualifiers: Pneumonia type: aspiration pneumonia Aspiration pneumonia type: unspecified Laterality: bilateral Lung location: lower lobe of lung Qualified Code(s): J69.0 - Pneumonitis due to inhalation of food and vomit
[2017-11-07] MEDS: Aspirin Enteric Coated 81 MG Tablet PO SCH (09:40)
[2017-11-07] MEDS: amLODIPine 5 MG TABLET PO SCH (09:40)
[2017-11-07] MEDS: cloNIDine HCl 0.1 MG TABLET PO SCH ×3 (09:40→21:15)
[2017-11-07] MEDS: Gabapentin 100 MG CAPSULE PO SCH ×3 (09:40→21:14)
[2017-11-07] MEDS: Iron Polysaccharide Complex 150 MG CAPSULE PO SCH ×2 (09:41→21:15)
[2017-11-07] MEDS: Insulin LISPRO 300 UNITS/3 ML VIAL SQ SCH ×4 (09:41→21:30)
[2017-11-07] MEDS: Isosorbide MONOnitrate (24 HR) 60 MG TAB.ER.24H PO SCH (09:41)
[2017-11-07] MEDS: Furosemide 40 MG TABLET PO SCH (09:41)
[2017-11-07] MEDS: Sennosides/Docusate Sodium TABLET PO SCH ×2 (09:41→21:15)
--- NOTE | 2017-11-07 15:57 | Nephrology Progress Note ---
Date of Encounter: 11/07/17 Time of Encounter: 12:00 - Assessment and Plan (1) ESRD (end stage renal disease) Status: Chronic s/p HD yesterday, next planned tomorrow Lytes stable except potassium slightly low at 3.3. no need to replete for now Awaiting outpatient HD placement here in [place] with her protection engineer and ECF as well (2) Hypertension Status: Chronic stable Qualifiers: Hypertension type: renovascular hypertension Qualified Code(s): I15.0 - Renovascular hypertension (3) Anemia in chronic kidney disease Status: Chronic s/p 2units pRBCs 2 days ago with HD yesterday with hgb today at 8.3 from 8.0 yesterday, will monitor Qualifiers: Chronic kidney disease stage: stage 5, not on chronic dialysis Qualified Code(s): N18.5 - Chronic kidney disease, stage 5; D63.1 - Anemia in chronic kidney disease Subjective Principal diagnosis: Chest pain Interval history: Pt seen and examined. No new complaints. s/p HD yesterday Objective - Vital Signs Vital signs: Vital Signs Temp Pulse Resp BP Pulse Ox 11/07/17 15:34 16 100 11/07/17 15:04 97.6 F 68 19 124/57 94 11/07/17 12:01 18 100 11/07/17 11:58 98.1 F 11/07/17 07:22 70 20 157/66 97 11/07/17 05:08 69 17 116/47 97 11/07/17 03:54 17 100 11/06/17 23:32 15 99 11/06/17 20:00 15 95 11/06/17 19:33 98.0 F 63 15 125/62 97 11/06/17 16:20 98.4 F 71 18 161/69 97 11/06/17 16:07 97.8 F 18 168/69 Intake and Output 11/06/17 11/07/17 11/07/17 23:59 07:59 15:59 Intake Total 240 / 240 340 / 340 Output Total 3600 / 3600 Balance -3360 / -3360 340 / 340 Intake: Oral 240 / 240 340 / 340 Output: Urine 0 / 0 Total Dialysis (HD) Output 3600 / 3600 Other: Meal Dinner Lunch Percent of Meal Consumed 25% 40% # Voids 0 0 # Urine Diapers 1 # Bowel Movements 0 0 Weight 82.2 kg Blood Glucose* 175 191 172 Hemodialysis Net Fluid Removed 3000 (mL) Patient Weight 11/07/17 23:59 Weight 82.2 kg - General Appearance General appearance: Present: chronically ill, frail EENT: Present: ATNC, mucous membranes moist Neck: Present: no JVD, supple Additional Comments: good areation ant bilat Cardiology: Present: edema (improving) Dialysis Vascular Access: Arteriovenous Fistula thrill: Yes bruit: Yes Gastrointestinal: Present: no tenderness, no guarding Integumentary: Present: warm and dry Neurologic: Present: no focal deficit Musculoskeletal: Present: no deformities Psychiatric: Present: mood/affect appropriate - Lab 11/08/17 03:07 11/08/17 03:07 Most recent lab results Calcium 7.9 mg/dL (8.6-10.3) L 11/07/17 05:53 - VTE Documentation of Mechanical Device: Intermittent pneumatic compression device Consult Discharge Plan - Plan Instructions: Fluconazole (By mouth), Myocardial Infarction (DC), Heart Failure (DC), Chest Pain (DC), Acute Respiratory Distress Syndrome (DC), Hemodialysis (DC), Dialysis Diet (DC), Diabetes Mellitus Type 2 in Adults (DC), Fall Prevention for Older Adults (GEN), Arteriovenous Fistula Creation for Hemodialysis (DC), Chronic Hypertension (DC), Anemia (GEN) Referrals: Ema Del Toro, EXPLOSIVES OPERATOR [Primary Care Provider] -
[2017-11-07] MEDS: Insulin DETEMIR 100 UNIT/ML X5UNITS SQ SCH (21:29)
[2017-11-08] MEDS: Acetylcysteine 10% 2 ML INHSOL IH SCH ×4 (03:51→19:42)
[2017-11-08] MEDS: Ipratropium/Albuterol Neb 3 ML IH SCH ×6 (03:51→23:31)
[2017-11-08 04:13] LABS: Hematocrit 25.7 % (35.3-44.9); Hemoglobin 8.3 g/dL (11.5-15.4); Mean Corpuscular HGB Conc 32.3 g/dL (31.6-35.5); Mean Corpuscular Hemoglobin 29.9 pg (28.0-33.3); Mean Corpuscular Volume 92.4 fL (83.0-100.0); Mean Platelet Volume 9.2 fL (9.4-12.4); Platelet Count 142 K/mcL (140-400); Red Blood Count 2.78 M/mcL (3.82-4.97); Red Cell Distribution Width 14.8 % (11.5-14.5)
[2017-11-08 04:34] LABS: Calcium 8.3 mg/dL (8.6-10.3); Potassium 3.3 mEq/L (3.5-5.1)
[2017-11-08] MEDS: hydrALAZINE 25 MG TABLET PO SCH ×3 (05:50→20:15)
--- NOTE | 2017-11-08 10:21 | Internal Med Progress Note ---
Hospitalist Progress Note - Encounter Date of Encounter: 11/08/17 Time of Encounter: 10:18 - Subjective Interval History: Pt examined bedside in chair. She denies any angina or abdominal pain. She denies any cough and says she is still experiencing some difficultly breathing but does feel like it is improving. She is awake and oriented this morning and is just slow to respond. She denies no acute changes or complaints. - Exam Vitals: Temp Pulse Resp BP Pulse Ox 98.3 F 67 18 131/60 98 11/08/17 06:35 11/08/17 06:35 11/08/17 07:18 11/08/17 06:35 11/08/17 07:18 Exam: General Appearance: No acute distress Head exam: Atraumatic, normocephalic, periorbital edema noted Respiratory exam: Diffuse rales and diminished breath sounds bilaterally Cardiology exam: RRR, +S1, +S2, no murmurs rubs or gallops Gastrointestinal exam: abdomen hard, tenderness noted in right lower quadrant Extremities exam: warm without tenderness, left upper extremity is very swollen and bandaged, mild edema b/l on lower extremities Neurological exam: alert and oriented 3 Skin exam: Dry and intact, skin plaques noted on left lower extremity - Assessment and Plan (1) Acute respiratory failure Current Visit: Yes Status: Acute (2) ESRD (end stage renal disease) Current Visit: Yes Status: Acute Assessment and Plan: Known history of stage V CKD - Estimated GFR 11 - Started dialysis during this hospitalization (completed 1st HD 11/02 after several failed prior attempts due to pt moving arm with fistula in it) - Patient will be a Wednesday, , Wednesday dialysis patient - last successful HD 11/06 - Nephrology following: awaiting outpt HD placement in [place], order HD for today - Time Spent with Patient Total time spent is greater than 50% in coordination of care (as documented) at patient's floor/unit and/or counseling patient: Internal Medicine: Result - Labs CBC & Chem 7: 11/08/17 03:07 11/08/17 03:07 Labs: Short CBC 11/08/17 Range/Units 03:07 WBC 5.4 (4.3-11.1) K/mcL Hgb 8.3 L (11.5-15.4) g/dL Hct 25.7 L (35.3-44.9) % Plt Count 142 (140-400) K/mcL BMP 11/08/17 03:07 Sodium 140 Potassium 3.3 L Chloride 105 Carbon Dioxide 28 BUN 43 H Creatinine 4.00 H Glucose 148 H Calcium 8.3 L - ABG Interpretation ABG results: PT/INR, D-dimer PT 11.0 Seconds (9.4-12.1) 10/22/17 14:19 - VTE Documentation of Mechanical Device: Intermittent pneumatic compression device Consult Discharge Plan - Plan Referrals: Ema Del Toro, CPC [Primary Care Provider] - (1) Acute respiratory failure Qualifiers: Respiratory failure complication: hypoxia Qualified Code(s): J96.01 - Acute respiratory failure with hypoxia
--- NOTE | 2017-11-08 10:25 | Nephrology Progress Note ---
Date of Encounter: 11/08/17 Time of Encounter: 10:22 - Assessment and Plan (1) ESRD (end stage renal disease) Current Visit: Yes Status: Acute Current regimen is MWF. First outpatient HD has been arranged for Wednesday at [facility]. She is okay to be d/marisa from a renal standpoint. (2) Hypertension Current Visit: No Status: Chronic 131/60, stable. Qualifiers: Hypertension type: renovascular hypertension Qualified Code(s): I15.0 - Renovascular hypertension (3) Anemia in chronic kidney disease Current Visit: No Status: Chronic Hgb 8.3, stable. Will trend. Qualifiers: Chronic kidney disease stage: stage 5, not on chronic dialysis Qualified Code(s): N18.5 - Chronic kidney disease, stage 5; D63.1 - Anemia in chronic kidney disease Subjective Principal diagnosis: Chest pain Interval history: Pt see and examined, doing well. Sitting up in chair. Objective - Vital Signs Vital signs: Vital Signs Temp Pulse Resp BP Pulse Ox 11/08/17 07:18 18 98 11/08/17 06:35 98.3 F 67 18 131/60 98 11/08/17 03:54 18 96 11/08/17 03:53 18 96 11/08/17 03:52 68 15 140/69 96 11/07/17 23:17 18 98 11/07/17 19:31 18 99 11/07/17 19:26 97.9 F 63 16 131/54 98 11/07/17 15:34 16 100 11/07/17 15:04 97.6 F 68 19 124/57 94 11/07/17 12:01 18 100 11/07/17 11:58 98.1 F Intake and Output 11/07/17 11/08/17 11/08/17 23:59 07:59 15:59 Intake Total 200 / 200 Output Total 0 / 0 0 / 0 Balance 200 / 200 0 / 0 Intake: Oral 200 / 200 Output: Urine 0 / 0 0 / 0 Other: Meal Dinner Percent of Meal Consumed 30% Stool Size Moderate Stool Consistency liquid Stool Color White # Voids 1 # Urine Diapers 1 # Bowel Movement Diapers 1 Weight 82.2 kg Blood Glucose* 197 152 Patient Weight 11/08/17 23:59 Weight 82.2 kg - General Appearance General appearance: Present: well-developed, well-nourished EENT: Present: ATNC, hearing intact, vision intact Neck: Present: supple Respiratory: Present: clear Cardiology: Present: edema (tight edema noted to bilat lower extremities.), normal S1, normal S2 Dialysis Vascular Access: Venous Catheter (Tunneled Line, DRSG C/D/I) Gastrointestinal: Present: normoactive bowel sounds, no tenderness, no guarding Integumentary: Present: no rash, warm and dry Neurologic: Present: alert and oriented x3 Psychiatric: Present: mood/affect appropriate, cooperative - Lab 11/08/17 03:07 11/08/17 03:07 Most recent lab results Calcium 8.3 mg/dL (8.6-10.3) L 11/08/17 03:07 - VTE Documentation of Mechanical Device: Intermittent pneumatic compression device Consult Discharge Plan - Plan Referrals: Ema Del Toro, LITIGATION COORDINATOR [Primary Care Provider] -
[2017-11-08] MEDS: Aspirin Enteric Coated 81 MG Tablet PO SCH (10:40)
[2017-11-08] MEDS: Isosorbide MONOnitrate (24 HR) 60 MG TAB.ER.24H PO SCH (10:40)
[2017-11-08] MEDS: cloNIDine HCl 0.1 MG TABLET PO SCH ×3 (10:41→20:16)
[2017-11-08] MEDS: Iron Polysaccharide Complex 150 MG CAPSULE PO SCH ×2 (10:41→20:16)
[2017-11-08] MEDS: Furosemide 40 MG TABLET PO SCH (10:41)
[2017-11-08] MEDS: Gabapentin 100 MG CAPSULE PO SCH ×3 (10:41→20:15)
[2017-11-08] MEDS: amLODIPine 5 MG TABLET PO SCH (10:41)
[2017-11-08] MEDS: Sennosides/Docusate Sodium TABLET PO SCH ×2 (10:53→20:15)
[2017-11-08] MEDS: Insulin LISPRO 300 UNITS/3 ML VIAL SQ SCH ×4 (11:03→20:16)
--- NOTE | 2017-11-08 13:10 | Discharge Summary ---
<Lily Rivera - Last Filed: 11/08/17 16:46> - NOTES TO OUTPATIENT PROVIDER Notes to Outpatient Provider: Dialysis scheduled at [facility] on a MWF schedule. F/u wound care for coccyx pressure ulcer. Patient should have all medications renally dosed and continue at home diuretic. F/u with cardiology outpt 2-3wk. Orders not resulted at time of discharge: Pending orders 11/02/17 22:58 Culture,Body Fluid [RM] Routine 11/03/17 16:31 Culture,Blood [BC] Stat 11/03/17 18:00 Culture,Urine [RM] Stat 11/08/17 09:45 Fecal Clostridium difficile PCR [C.difficile Toxin PCR (>=2yo)] [MOLMIC] Routine Date of Encounter: 11/08/17 Time of Encounter: 13:05 - Discharge Diagnosis (1) ESRD (end stage renal disease) Priority: Primary Status: Chronic Assessment and Plan: - Known history of stage V CKD - Estimated currently at GFR 11 - Started dialysis during this hospitalization (completed 1st HD 11/02 after several failed prior attempts due to pt moving arm with fistula in it) - Nephrology following: HD-Current regimen is MWF. First outpatient HD has been arranged for Wednesday at [facility]. Pt will not receive dialysis today before she leaves, nex HD will be wednesday outpt - She is okay to be d/marisa from a renal standpoint (2) Acute respiratory failure Priority: Primary Status: Acute Assessment and Plan: - Appears to have resolved - Was treated for possible aspiration pneumonia with IV antibiotics for 3 days and PO antibiotics for 4 more days, total of 7 days of antibiotics - patient also placed on nasal cannula air at 2 lpm - patient denies any shortness of breath Qualifiers: Respiratory failure complication: hypoxia Qualified Code(s): J96.01 - Acute respiratory failure with hypoxia (3) Fever Priority: Secondary Status: Resolved Assessment and Plan: -Possibly secondary to aspiration pneumonia. - Appears to have resolved at this time; afebrile for over 48 hours - CXR demonstrated mild pulmonary vascular congestion, mild patchy perihilar opacities on the right more than left - Blood cultures still pending - Vancomycin and Zosyn were used initially for possible infection, followed by a course of PO Augmentin to reach a total of 7 days of antibiotic therapy - no antibiotics needed at d/c Qualifiers: Encounter type: subsequent encounter (4) Chest pain Priority: Primary Status: Resolved Assessment and Plan: -Patient complaint of left sided chest pain upon admission and troponins were elevated (0.05). -Cardiology was consulted and per their recommendations the patient is being managed with medical therapy at this time due to contraindications to left heart cath -Patient will follow up with cardiology as an outpatient in 2-3 weeks Qualifiers: Chest pain type: unspecified Qualified Code(s): R07.9 - Chest pain, unspecified (5) Anemia in chronic kidney disease Priority: Secondary Status: Chronic Assessment and Plan: - Patients anemia is likely secondary to CKD - Active bleeding source is not suspected at this time - Hemoglobin currently stable at 8.3 - Receiving EPO - Continue to monitor outpatient - dialysis scheduled MWF Qualifiers: Chronic kidney disease stage: stage 5, not on chronic dialysis Qualified Code(s): N18.5 - Chronic kidney disease, stage 5; D63.1 - Anemia in chronic kidney disease (6) (HFpEF) heart failure with preserved ejection fraction Priority: Primary Status: Acute Assessment and Plan: - Pt has a hx of heart failure with preserved EF - Patient with elevated BNP of 834; no signs of fluid overload at this time - ECHO from May: EF of 70% - Continue home Lasix 40mg PO daily (7) Diabetes Priority: Primary Status: Chronic Assessment and Plan: - chronic issue - continue at home medications Qualifiers: Diabetes mellitus type: type 2 Diabetes mellitus long-term insulin use: with adjunct faculty for medical terminology use Diabetes mellitus complication status: with hyperglycemia Qualified Code(s): E11.65 - Type 2 diabetes mellitus with hyperglycemia; Z79.4 - group home (current) use of insulin (8) Hypertension Priority: Primary Status: Chronic Assessment and Plan: - chronic known issue - continue at home therapy with Amlodipine, Clonidine, Hydralazine, Imdur, and Labetalol Qualifiers: Hypertension type: renovascular hypertension Qualified Code(s): I15.0 - Renovascular hypertension (9) Pneumonia Priority: Primary Status: Suspected Assessment and Plan: - Most likely was aspiration prior to changing consistency of diet - patient asymptomatic and afebrile for over 48 hours - finished 7 day course of antibiotics Qualifiers: Pneumonia type: aspiration pneumonia Aspiration pneumonia type: unspecified Laterality: bilateral Lung location: lower lobe of lung Qualified Code(s): J69.0 - Pneumonitis due to inhalation of food and vomit Hospital course: Ms. Giles is a 87 year old female with past medical history significant for ischemic cardiac myopathy, heart failure with preserved ejection fraction, CKD stage IV, hypertension and diabetes presented to the ER from the [facility] on 10/22/17 for chest pain. She also is reported to have experienced a brief episode of altered mental status. She had LUQ chest pain, a troponin level of 0.05 and BNP of 834 in the ER. Patient complained of chest pain that was substrenal and radiated to the back, Cardio was consulted in ER, heparin drip was started as per ACS protocol, medical therapy was recommended at that time. A chest x-ray did not show any overt pulmonary edema or effusions, or any acute process. A CT head was done showing no acute abnormality. Patient was restarted on all home medications for CHF. Echo showed EF of 70%, heparin was stopped due to bleeding from skin tear site and the fact that ACS was less likely. Cardiology recommended to continue medical management and add an anti-anginal medication to current aspirin, beta candice and statin therapy. Left heart cath was not recommended due to advanced age and CKD stage IV. Nephrology was consulted for worsening kidney function. Recommended diagnoses of ESRD and started dialysis during this hospitalization. Dialysis was attempted starting 10/29 and patient completed the first HD 11/02 after several failed prior attempts due to pt moving arm with fistula in it. Patient developed a large hematoma in the left upper arm due to IV catheter infiltration during dialysis on 10/30. Patient experienced anemia, likely due to her CKD and probably chronic blood loss. Patient was transfused 1 unit of PRBCs with Lasix 10/31/17, and again on 11/04 with another unit of PRBCs, pt was also started on EPO injections. Patient complained of abdominal pain and constipation, bowel movement was black and tarry and the patient still was complaining of discomfort. She received an enema and then passed several bowel movements, all of which were black and tarry. GI was consulted for positive stool occult and Hb trending down, patient was made NPO and underwent an EGD and colonoscopy. Tests found bleeding polyps in stomach, polyp in colon, and pathology was benign. Patient had developed acute respiratory failure symptoms post EGD, placed on nasal cannula air at 2lpm and mucomyst added to medications. Patient also received a modified barium swallow that showed: the patient has oropharyngeal dysphagia evidenced by decreased bolus control and premature spillage of liquids into the pharynx. Speech recommended oral motor exercises, pharyngeal strengthening exercises, and diet of nectar thickened liquids. Patient did develop a fever overnight on and chest xray was completed due to lungs being possible source of infection. Chest x ray showed mild pulmonary vascular congestion along with mild patchy peripheral opacities, right more than left, mildly worsened from 11/2017, and was diagnosed with a possible aspiration pneumonia. Vancomycin and Zosyn were started and blood cultures were ordered, zosyn was given for 3 days and vancomycin given for 2 days, augmentin was given PO for 4 days for a total of 7 days of antibiotics, fever resolved. Patients hgb and hct are stable and patient has been afebrile for over 48 hours. She has been having anal discharge of a clear mucus/jelly like substance, c.diff protocol and testing was initiated , testing was negative for c.diff toxin. She is to be d/c to [facility] with dialysis scheduled at [facility] on a MWF schedule. She has also developed a pressure ulcer of coccyx and should f/u with wound care as well. Patient should have all medications renally dosed and continue at home diuretic, and f/u with cardiology outpt as well. - Time Spent with Patient Total time spent providing and/or coordinating discharge services: - Discharge Medications Prescriptions: Fluconazole [Diflucan] 200 mg PO DAILY 2 Days #2 tab Home Medications: Iron Ps Cmplx/Vit B12/FA [Iferex 150 Forte Capsule] 1 cap PO BID 04/11/15 [ History] Losartan Potassium [Cozaar] 100 mg PO DAILY 04/11/15 [History] Cilostazol [Pletal] 100 mg PO BID #0 07/09/15 [History] Atorvastatin [Lipitor] 40 mg PO HS #30 tablet 10/11/15 [Rx] Furosemide [Lasix] 40 mg PO DAILY #30 tablet 10/11/15 [Rx] Labetalol [Trandate] 200 mg PO BID #60 tablet 05/22/17 [Rx] Aspirin [Lo-Dose Aspirin EC] 81 mg PO DAILY 10/07/17 [History] Calcitriol [Rocaltrol] 0.25 mcg PO MOWEFR 10/07/17 [History] Isosorbide MONOnitrate [Isosorbide Mononitrate ER] 180 mg PO DAILY 10/07/17 [ History] cloNIDine HCl [Clonidine HCl] 0.2 mg PO TID 10/07/17 [History] Amlodipine Besylate 10 mg PO DAILY 10/22/17 [History] Glucagon,Human Recombinant [Glucagon Emergency Kit] 1 mg IJ ONCE PRN 10/22/17 [ History] Hydralazine HCl 50 mg PO TID 10/22/17 [History] Insulin Glargine,Hum.rec.anlog [Basaglar Kwikpen U-100] 20 unit SQ HS 10/22/17 [ History] hydrALAZINE [HydrALAZINE] 25 mg PO TID 10/22/17 [History] Lidocaine Patch [Lidoderm 5% patch] 1 each TP DAILY PRN adh..patch 10/24/17 [Rx ] Fluconazole [Diflucan] 200 mg PO DAILY udc 11/08/17 [Rx] Fluconazole [Diflucan] 200 mg PO DAILY 2 Days #2 tab 11/08/17 [Rx] Allergies/Adverse Reactions: 3 Allergy/AdvReac Type Severity Reaction Status Date / Time celecoxib [From Celebrex] AdvReac Nausea Verified 10/22/17 10:21 Date of admission: 10/25/17 15:17 Primary care physician: Ema Del Toro CNP Consults: 10/27/17 08:13 Consult to Gastroenterology [CONS] Stat Consulting Provider: Gastroenterology Oumou Reason for Consult: Possible GI bleed, FOBT positive, black tar stools Call Completed: Yes 10/28/17 18:58 Consult to Speech Therapy [CONS] Routine Comment: Evaluate, develop and implement POC Reason for Consult: Possible dysphagia Call Completed: No 10/29/17 11:02 Consult to School Photographer [CONS] Routine Reason for SW Consult: Please arrange for outpt chronic HD every MWF. She is a patient of Nancy Tyler. Thank you. 10/29/17 11:15 Consult to Dialysis [CONS] ONCE 10/30/17 09:00 Consult to Dialysis [CONS] ONCE 11/01/17 07:30 Consult to Dialysis [CONS] ONCE 11/01/17 13:57 Consult to Speech Therapy [CONS] Routine Comment: Evaluate, develop and implement POC Reason for Consult: New onset dysphagia Call Completed: Yes 11/02/17 09:15 Consult to Dialysis [CONS] ONCE 11/03/17 23:57 Consult to Respiratory Therapy [CONS] Routine Reason for Consult: Add flutter valve to breathing txs Call Completed: Yes 11/04/17 07:30 Consult to Dialysis [CONS] ONCE 11/06/17 08:15 Consult to Dialysis [CONS] ONCE 11/07/17 16:41 Consult to Wound Care [CONS] Routine Reason for Consult: coccyx wound stage 2 Call Completed: No - Constitutional Vitals: Temp Pulse Resp BP Pulse Ox 97.4 F L 65 17 143/61 98 11/08/17 10:53 11/08/17 10:53 11/08/17 11:31 11/08/17 10:53 11/08/17 11:31 General appearance: Present: A&O X 3 Exam: Pt examined bedside in chair. She denies any angina or abdominal pain. She denies any cough and says she is still experiencing some difficultly breathing but does feel like it is improving. She is awake and oriented this morning and is just slow to respond. She denies no acute changes or complaints. Exam: General Appearance: No acute distress Head exam: Atraumatic, normocephalic, periorbital edema noted Respiratory exam: Diffuse rales and diminished breath sounds bilaterally Cardiology exam: RRR, +S1, +S2, no murmurs rubs or gallops Gastrointestinal exam: abdomen hard, tenderness noted in right lower quadrant Extremities exam: warm without tenderness, left upper extremity is very swollen and bandaged, mild edema b/l on lower extremities Neurological exam: alert and oriented 3 Skin exam: Dry and intact, skin plaques noted on left lower extremity - Patient Status Disposition: Transfer SNF Condition: Fair - Discharge Instructions Follow Up With: Ema Del Toro, [employer] [Primary Care Provider] - Forms: ED Satisfaction Letter, Work/School Release - VTE Documentation of Mechanical Device: Intermittent pneumatic compression device <Juan Ramon De La Vega - Last Filed: 11/08/17 16:48> Orders not resulted at time of discharge: Pending orders 11/02/17 22:58 Culture,Body Fluid [RM] Routine 11/03/17 16:31 Culture,Blood [BC] Stat 11/03/17 18:00 Culture,Urine [RM] Stat Date of Encounter: 11/08/17 - Discharge Diagnosis (1) Anemia Priority: Primary Status: Chronic Qualifiers: Anemia type: due to chronic kidney disease Chronic kidney disease stage: on chronic dialysis Qualified Code(s): N18.6 - End stage renal disease; D63.1 - Anemia in chronic kidney disease; Z99.2 - Dependence on renal dialysis (2) Diabetes Priority: Primary Status: Chronic Qualifiers: Diabetes mellitus type: type 2 Diabetes mellitus adjunct faculty for medical terminology insulin use: with adjunct faculty for medical terminology use Diabetes mellitus complication status: with hyperglycemia Qualified Code(s): E11.65 - Type 2 diabetes mellitus with hyperglycemia; Z79.4 - group home (current) use of insulin (3) Hypertension Priority: Primary Status: Chronic Qualifiers: Hypertension type: renovascular hypertension Qualified Code(s): I15.0 - Renovascular hypertension (4) Acute respiratory failure Priority: Primary Status: Acute Qualifiers: Respiratory failure complication: hypoxia Qualified Code(s): J96.01 - Acute respiratory failure with hypoxia (5) Fever Priority: Secondary Status: Resolved Qualifiers: Encounter type: subsequent encounter (6) Pneumonia Priority: Primary Status: Suspected Qualifiers: Pneumonia type: aspiration pneumonia Aspiration pneumonia type: unspecified Laterality: bilateral Lung location: lower lobe of lung Qualified Code(s): J69.0 - Pneumonitis due to inhalation of food and vomit - Time Spent with Patient Total time spent providing and/or coordinating discharge services: Less than 30 minutes (41 minutes) Date of admission: 10/25/17 15:17 Primary care physician: Ema Del Toro CNP Consults: 10/27/17 08:13 Consult to Gastroenterology [CONS] Stat Consulting Provider: Anne Coello Reason for Consult: Possible GI bleed, FOBT positive, black tar stools Call Completed: Yes 10/28/17 18:58 Consult to Speech Therapy [CONS] Routine Comment: Evaluate, develop and implement POC Reason for Consult: Possible dysphagia Call Completed: No 10/29/17 11:02 Consult to School Photographer [CONS] Routine Reason for SW Consult: Please arrange for outpt chronic HD every MWF. She is a patient of Nancy Tyler. Thank you. 10/29/17 11:15 Consult to Dialysis [CONS] ONCE 10/30/17 09:00 Consult to Dialysis [CONS] ONCE 11/01/17 07:30 Consult to Dialysis [CONS] ONCE 11/01/17 13:57 Consult to Speech Therapy [CONS] Routine Comment: Evaluate, develop and implement POC Reason for Consult: New onset dysphagia Call Completed: Yes 11/02/17 09:15 Consult to Dialysis [CONS] ONCE 11/03/17 23:57 Consult to Respiratory Therapy [CONS] Routine Reason for Consult: Add flutter valve to breathing txs Call Completed: Yes 11/04/17 07:30 Consult to Dialysis [CONS] ONCE 11/06/17 08:15 Consult to Dialysis [CONS] ONCE 11/07/17 16:41 Consult to Wound Care [CONS] Routine Reason for Consult: coccyx wound stage 2 Call Completed: No Discharging clinician: Juan Ramon De La Vega Anticipated date of discharge: 11/09/17 - Constitutional Vitals: Temp Pulse Resp BP Pulse Ox 97.7 F 64 18 141/50 100 11/08/17 16:01 11/08/17 16:01 11/08/17 16:01 11/08/17 16:01 11/08/17 16:01 - Patient Status Overall status at discharge: patient is progressing back to baseline - Diet and Activity Activity: increase activity as tolerated Diet: advance to your usual diet <Michi Beltre - Last Filed: 11/08/17 19:05> Orders not resulted at time of discharge: Pending orders 11/02/17 22:58 Culture,Body Fluid [RM] Routine 11/03/17 18:00 Culture,Urine [RM] Stat 11/08/17 16:46 Venous Doppler [EV venous imaging UE LT] Stat Date of Encounter: 11/08/17 - Discharge Diagnosis (1) Anemia Priority: Secondary Status: Chronic Qualifiers: Anemia type: due to chronic kidney disease Chronic kidney disease stage: on chronic dialysis Qualified Code(s): N18.6 - End stage renal disease; D63.1 - Anemia in chronic kidney disease; Z99.2 - Dependence on renal dialysis (2) Diabetes Priority: Secondary Status: Chronic Qualifiers: Diabetes mellitus type: type 2 Diabetes mellitus adjunct faculty for medical terminology insulin use: with adjunct faculty for medical terminology use Diabetes mellitus complication status: with hyperglycemia Qualified Code(s): E11.65 - Type 2 diabetes mellitus with hyperglycemia; Z79.4 - terminal supervisor (current) use of insulin (3) Hypertension Priority: Secondary Status: Chronic Qualifiers: Hypertension type: renovascular hypertension Qualified Code(s): I15.0 - Renovascular hypertension (4) Acute respiratory failure Priority: Primary Status: Acute Qualifiers: Respiratory failure complication: hypoxia Qualified Code(s): J96.01 - Acute respiratory failure with hypoxia (5) Fever Status: Resolved Qualifiers: Encounter type: subsequent encounter (6) Pneumonia Priority: Secondary Status: Suspected Qualifiers: Pneumonia type: aspiration pneumonia Aspiration pneumonia type: unspecified Laterality: bilateral Lung location: lower lobe of lung Qualified Code(s): J69.0 - Pneumonitis due to inhalation of food and vomit (7) Acute pulmonary edema Priority: Secondary Status: Resolved (8) Aortic stenosis Priority: Secondary Status: Chronic Qualifiers: Cardiac valve disease etiology: etiology unspecified Qualified Code(s): I35.0 - Nonrheumatic aortic (valve) stenosis (9) Coronary artery disease Priority: Secondary Status: Chronic Qualifiers: Coronary Disease-Associated Artery/Lesion type: [place] artery [place] vs. transplanted heart: [place] heart Associated angina: without angina Qualified Code(s): I25.10 - Atherosclerotic heart disease of [place] coronary artery without angina pectoris (10) Dysphagia Priority: Secondary Status: Chronic Qualifiers: Dysphagia type: oropharyngeal phase Qualified Code(s): R13.12 - Dysphagia, oropharyngeal phase Hospital course: Ms. Giles is a 87 year old female - Time Spent with Patient Total time spent providing and/or coordinating discharge services: 41min Date of admission: 10/25/17 15:17 Primary care physician: Ema Del Toro CNP Consults: 10/27/17 08:13 Consult to Gastroenterology [CONS] Stat Consulting Provider: Gastroenterology Oumou Reason for Consult: Possible GI bleed, FOBT positive, black tar stools Call Completed: Yes 10/28/17 18:58 Consult to Speech Therapy [CONS] Routine Comment: Evaluate, develop and implement POC Reason for Consult: Possible dysphagia Call Completed: No 10/29/17 11:02 Consult to School Photographer [CONS] Routine Reason for SW Consult: Please arrange for outpt chronic HD every MWF. She is a patient of Nancy Tyler. Thank you. 10/29/17 11:15 Consult to Dialysis [CONS] ONCE 10/30/17 09:00 Consult to Dialysis [CONS] ONCE 11/01/17 07:30 Consult to Dialysis [CONS] ONCE 11/01/17 13:57 Consult to Speech Therapy [CONS] Routine Comment: Evaluate, develop and implement POC Reason for Consult: New onset dysphagia Call Completed: Yes 11/02/17 09:15 Consult to Dialysis [CONS] ONCE 11/03/17 23:57 Consult to Respiratory Therapy [CONS] Routine Reason for Consult: Add flutter valve to breathing txs Call Completed: Yes 11/04/17 07:30 Consult to Dialysis [CONS] ONCE 11/06/17 08:15 Consult to Dialysis [CONS] ONCE 11/07/17 16:41 Consult to Wound Care [CONS] Routine Reason for Consult: coccyx wound stage 2 Call Completed: No - Constitutional Vitals: Temp Pulse Resp BP Pulse Ox 97.7 F 64 18 141/50 100 11/08/17 16:01 11/08/17 16:01 11/08/17 16:01 11/08/17 16:01 11/08/17 16:01 - Attending Attestation I examined this patient and my medical decision-making was reviewed with the Resident Physician on 11/08/17. I agree with the documented findings, disposition and treatment plan as described except to the extent set forth below. Ms Giles has been admitted for mental status change. Found to have exac CHF. Ultimately complicated by anemia, dysphagia and aspiration pneumonia and ESRD with the start of dialysis. She is now ready for discharge to SNF on 11/09/17 Exam Alert Comfortable at this time Mucus membranes dry Heart reg with murmur Lungs with scattered rhonchi Abd soft Edema present Plan D/C to SNF on 11/09
[2017-11-08] MEDS ORDERED: Amoxicillin/Clavulanate 500 MG TABLET PO SCH (16:00)
[2017-11-08] MEDS ORDERED: Fluconazole 40 MG/ML UDC PO SCH (18:00)
--- NOTE | 2017-11-08 19:13 | Physician Discharge Referral ---
ExtendedCare Referral Info Provider in Charge after Transfer: PCP Institutional Level of Care: Skilled - Diagnosis (1) Anemia Priority: Secondary Status: Chronic (2) Diabetes Priority: Secondary Status: Chronic (3) Hypertension Priority: Secondary Status: Chronic (4) Acute respiratory failure Priority: Primary Status: Acute (5) Fever Priority: Secondary Status: Resolved (6) Pneumonia Priority: Secondary Status: Suspected (7) Acute pulmonary edema Priority: Secondary Status: Resolved (8) Aortic stenosis Priority: Secondary Status: Chronic (9) Coronary artery disease Priority: Secondary Status: Chronic (10) Dysphagia Priority: Secondary Status: Chronic (11) ESRD (end stage renal disease) Priority: Secondary Status: Chronic Prognosis: Fair Aware of Diagnosis: Patient, Family Aware of Prognosis: Patient, Family - Transfer Medications Prescriptions: Fluconazole [Diflucan] 200 mg PO DAILY 2 Days #2 tab Home Medications: Iron Ps Cmplx/Vit B12/FA [Iferex 150 Forte Capsule] 1 cap PO BID 04/11/15 [ History] Losartan Potassium [Cozaar] 100 mg PO DAILY 04/11/15 [History] Cilostazol [Pletal] 100 mg PO BID #0 07/09/15 [History] Atorvastatin [Lipitor] 40 mg PO HS #30 tablet 10/11/15 [Rx] Furosemide [Lasix] 40 mg PO DAILY #30 tablet 10/11/15 [Rx] Labetalol [Trandate] 200 mg PO BID #60 tablet 05/22/17 [Rx] Aspirin [Lo-Dose Aspirin EC] 81 mg PO DAILY 10/07/17 [History] Calcitriol [Rocaltrol] 0.25 mcg PO MOWEFR 10/07/17 [History] Isosorbide MONOnitrate [Isosorbide Mononitrate ER] 180 mg PO DAILY 10/07/17 [ History] cloNIDine HCl [Clonidine HCl] 0.2 mg PO TID 10/07/17 [History] Amlodipine Besylate 10 mg PO DAILY 10/22/17 [History] Glucagon,Human Recombinant [Glucagon Emergency Kit] 1 mg IJ ONCE PRN 10/22/17 [ History] Hydralazine HCl 50 mg PO TID 10/22/17 [History] Insulin Glargine,Hum.rec.anlog [Basaglar Kwikpen U-100] 20 unit SQ HS 10/22/17 [ History] hydrALAZINE [HydrALAZINE] 25 mg PO TID 10/22/17 [History] Lidocaine Patch [Lidoderm 5% patch] 1 each TP DAILY PRN adh..patch 10/24/17 [Rx ] Fluconazole [Diflucan] 200 mg PO DAILY udc 11/08/17 [Rx] Fluconazole [Diflucan] 200 mg PO DAILY 2 Days #2 tab 11/08/17 [Rx] Allergies/Adverse Reactions: 3 Allergy/AdvReac Type Severity Reaction Status Date / Time celecoxib [From Celebrex] AdvReac Nausea Verified 10/22/17 10:21 - Respiratory Orders Oxygen / L per min (Maintain saturation greater than 88 %) Smoking Cessation: Smoking cessation has been advised. For more information, call the [place] Tobacco Quit Line at 9-140-CTQP-NOW. - Lab Orders Lab Orders: 2 Step [place] Test per State regulation, CBC, Abel 17 - Ancillary Orders May use pressure relief devices daily prn, May consult with Dentist, Psychiatric Rn, Bricklayer Helper PRN - Advance Directives Code Status: Full Code - Mobility Orders Ambulate - Rehabiliation Orders Rehab Potential: Fair Rehab Orders: Evaluation for Physical Therapy, Evaluation for Occupational Therapy, Evaluation for Speech Therapy - Treatments Skin tear care topically daily PRN per policy, May check for fecal impaction rectally daily PRN, Fleet enema rectally every other day PRN cleansing purposes - Diet Orders Mechanical Soft, Renal ([place] thick liquids) House Supplement per Dietary: Nepro with dinner - nectar thick CERTIFICATION: I certify that the transfer of the above named patient to an Extended Care Facility is necessary for the continuing treatment of the diagnosis listed. The above information is true and accurate reflection of patient's current condition. Confidential - Redisclosure prohibited without a patient's written consent.
[2017-11-08] MEDS: Insulin DETEMIR 100 UNIT/ML X5UNITS SQ SCH (20:20)
[2017-11-09] MEDS: Ipratropium/Albuterol Neb 3 ML IH SCH ×3 (03:13→11:00)
[2017-11-09] MEDS: Acetylcysteine 10% 2 ML INHSOL IH SCH ×2 (03:13→07:45)
[2017-11-09] MEDS: hydrALAZINE 25 MG TABLET PO SCH (05:15)
--- NOTE | 2017-11-09 09:34 | Nephrology Progress Note ---
Date of Encounter: 11/09/17 Time of Encounter: 09:32 - Assessment and Plan (1) ESRD (end stage renal disease) Current Visit: Yes Status: Chronic Current regimen is MWF. First outpatient HD has been arranged for Wednesday at [facility]. She is okay to be d/marisa from a renal standpoint. (2) Hypertension Current Visit: No Status: Chronic 139/64, stable. Qualifiers: Hypertension type: renovascular hypertension Qualified Code(s): I15.0 - Renovascular hypertension (3) Anemia in chronic kidney disease Current Visit: No Status: Chronic Goal Hgb 10-11. No new labs for today. Qualifiers: Chronic kidney disease stage: stage 5, not on chronic dialysis Qualified Code(s): N18.5 - Chronic kidney disease, stage 5; D63.1 - Anemia in chronic kidney disease Subjective Principal diagnosis: Chest pain Interval history: Pt see and examined, doing well. Wants to go home today. Objective - Vital Signs Vital signs: Vital Signs Temp Pulse Resp BP Pulse Ox 11/09/17 07:44 16 96 11/09/17 07:27 97.0 F L 61 139/64 99 11/09/17 04:36 97.8 F 62 15 139/53 97 11/09/17 03:16 12 100 11/08/17 23:33 12 98 11/08/17 19:46 97.6 F 64 15 164/66 100 11/08/17 19:45 14 100 11/08/17 16:01 97.7 F 64 18 141/50 100 11/08/17 15:56 18 100 11/08/17 11:31 17 98 11/08/17 10:53 97.4 F L 65 17 143/61 98 Intake and Output 11/08/17 11/09/17 11/09/17 23:59 07:59 15:59 Intake Total 0 / 0 0 / 0 250 / 250 Output Total 0 / 0 Balance 0 / 0 0 / 0 250 / 250 Intake: Oral 0 / 0 0 / 0 250 / 250 Output: Urine 0 / 0 Other: Meal Breakfast Percent of Meal Consumed 50% Stool Size Small Small Stool Consistency liquid Stool Color Green Brown # Urine Diapers 0 0 # Bowel Movements 1 # Bowel Movement Diapers 1 Weight 83.1 kg Blood Glucose* 205 137 - General Appearance General appearance: Present: well-developed, well-nourished EENT: Present: ATNC, hearing intact, vision intact Neck: Present: supple Respiratory: Present: clear Cardiology: Present: edema (non pitting edema noted to bilat lower extremities.) , normal S1, normal S2 Dialysis Vascular Access: Arteriovenous Fistula thrill: Yes bruit: Yes Gastrointestinal: Present: normoactive bowel sounds, no tenderness, no guarding Integumentary: Present: no rash, warm and dry Neurologic: Present: alert and oriented x3 Psychiatric: Present: mood/affect appropriate, cooperative - Lab 11/08/17 03:07 11/08/17 03:07 Most recent lab results Calcium 8.3 mg/dL (8.6-10.3) L 11/08/17 03:07 - VTE Documentation of Mechanical Device: Intermittent pneumatic compression device Consult Discharge Plan - Plan Referrals: Ema Del Toro FORGING ROLL OPERATOR [Primary Care Provider] - Prescriptions: Fluconazole [Diflucan] 200 mg PO DAILY 2 Days #2 tab
[2017-11-09] MEDS: Iron Polysaccharide Complex 150 MG CAPSULE PO SCH (09:35)
[2017-11-09] MEDS: Sennosides/Docusate Sodium TABLET PO SCH (09:35)
[2017-11-09] MEDS: amLODIPine 5 MG TABLET PO SCH (09:35)
[2017-11-09] MEDS: cloNIDine HCl 0.1 MG TABLET PO SCH (09:35)
[2017-11-09] MEDS: Gabapentin 100 MG CAPSULE PO SCH (09:35)
[2017-11-09] MEDS: Furosemide 40 MG TABLET PO SCH (09:35)
[2017-11-09] MEDS: Aspirin Enteric Coated 81 MG Tablet PO SCH (09:35)
[2017-11-09] MEDS: Insulin LISPRO 300 UNITS/3 ML VIAL SQ SCH ×2 (09:36→12:30)
[2017-11-09] MEDS: Isosorbide MONOnitrate (24 HR) 60 MG TAB.ER.24H PO SCH (11:43)
[2017-11-09 11:56] VITALS: BP 148/60
== END 2017-11-09 15:34 | DRG 291 ==
LOC: EMEROO 07:48 → SUATTDRO 10:30 → 2NENU 10:30 → INTOOBSV 10:30 → 2NENU 11:45 → SUATTDRO 10-25 15:17
PROVIDERS: ADMIT Hospitalist; ATTEND Internal Medicine

== ENCOUNTER 2017-11-18 00:24 | Inpatient (IN) ==
--- NOTE | 2017-11-18 00:41 | Emergency Department Note ---
Disposition Clinical Impression: CKD (chronic kidney disease) requiring chronic dialysis, Elevated troponin Chest pain Qualifiers: Chest pain type: unspecified Qualified Code(s): R07.9 - Chest pain, unspecified CHF (congestive heart failure) Qualifiers: Heart failure type: unspecified Heart failure chronicity: acute on chronic Qualified Code(s): I50.9 - Heart failure, unspecified Disposition: Admitted As Inpatient Condition: Good General Adult HPI - General Chief complaint: ED Chest Pain Stated complaint: chest pain Time Seen by Provider: 11/18/17 00:26 Source: patient, EMS Mode of arrival: EMS Nursing Notes Reviewed: Yes Vital Signs Reviewed: Yes - History of Present Illness HPI Narrative: 87-year-old female with complicated past medical history including CHF, end- stage renal disease on dialysis, and NSTEMI presenting to the emergency department from the [facility] facility with chief complaint of chest pain. Patient is a poor historian. In the room she states the pain is in the substernal area and started this afternoon. Most of the history of present illness came from EMS. According to EMS nursing facility stated patient was having chest pain. They provided her with 3 nitroglycerin at the nursing facility and one nitroglycerin EMS with no relief. They deny any recent illnesses for the patient. Denies fever, cough or shortness of breath. - Related Data Home Medications Medication Instructions Recorded Confirmed Iron Ps Cmplx/Vit B12/FA [Iferex 1 cap PO BID 04/11/15 10/22/17 150 Forte Capsule] Losartan Potassium [Cozaar] 100 mg PO DAILY 04/11/15 10/22/17 Cilostazol [Pletal] 100 mg PO BID #0 07/09/15 10/22/17 Aspirin [Lo-Dose Aspirin EC] 81 mg PO DAILY 10/07/17 10/22/17 Calcitriol [Rocaltrol] 0.25 mcg PO MOWEFR 10/07/17 10/22/17 Isosorbide MONOnitrate [Isosorbide 180 mg PO DAILY 10/07/17 10/22/17 Mononitrate ER] cloNIDine HCl [Clonidine HCl] 0.2 mg PO TID 10/07/17 10/22/17 Amlodipine Besylate 10 mg PO DAILY 10/22/17 10/22/17 Glucagon,Human Recombinant 1 mg IJ ONCE PRN 10/22/17 10/22/17 [Glucagon Emergency Kit] Hydralazine HCl 50 mg PO TID 10/22/17 10/22/17 Insulin Glargine,Hum.rec.anlog 20 unit SQ HS 10/22/17 10/22/17 [Basaglar Farihaikpen U-100] hydrALAZINE [HydrALAZINE] 25 mg PO TID 10/22/17 10/22/17 Previous Rx's Medication Instructions Recorded Atorvastatin [Lipitor] 40 mg PO HS #30 tablet 10/11/15 Furosemide [Lasix] 40 mg PO DAILY #30 tablet 10/11/15 Labetalol [Trandate] 200 mg PO BID #60 tablet 05/22/17 Lidocaine Patch [Lidoderm 5% patch] 1 each TP DAILY PRN adh..patch 10/24/17 Fluconazole [Diflucan] 200 mg PO DAILY udc 11/08/17 Fluconazole [Diflucan] 200 mg PO DAILY 2 Days #2 tab 11/08/17 Allergies Allergy/AdvReac Type Severity Reaction Status Date / Time celecoxib [From Celebrex] AdvReac Nausea Verified 11/18/17 00:39 All systems ED: reviewed and negative except as stated. Constitutional: Reports: as per HPI Eyes: Reports: as per HPI ENT ED: Reports: as per HPI Cardiovascular: Reports: chest pain. Denies: palpitations Respiratory: Reports: as per HPI Gastrointestinal: Reports: as per HPI Genitourinary: Reports: as per HPI Musculoskeletal: Reports: as per HPI Integumentary: Reports: as per HPI Neurological: Reports: as per HPI Psychiatric: Reports: as per HPI Endocrine: Reports: as per HPI Hematological/Lymphatic: Reports: as per HPI Allergic/Immunologic: Reports: as per HPI Past Medical History - Past Medical History Attestation: Yes The following information was validated with the patient. Medical history: Reports: CHF, coronary artery disease, CVA, diabetes, GERD, hyperlipidemia, hypertension, myocardial infarction, renal disease, valvular heart disease, other Surgical history: Reports: coronary bypass (CABG), hysterectomy, other Psychiatric history: Reports: no psych history - Social History Smoking Status: Never smoker Smokeless Tobacco Status: No Alcohol use: Reports: none Drug use: Reports: none Physical Exam - General General appearance: alert - Head Head exam: atraumatic, normocephalic, normal inspection - Eye Eye exam: Absent: scleral icterus, conjunctival injection - ENT ENT exam: mucous membranes moist - Neck Neck exam: Present: normal inspection. Absent: tenderness, meningismus - Chest Chest inspection: Present: normal inspection, symmetric chest wall rise. Absent : tenderness, rash - Respiratory Respiratory exam: Present: other (Coarse breath sounds throughout) - Cardiovascular Cardiovascular exam: Present: regular rate, normal rhythm, normal heart sounds - Abdominal Exam Abdominal exam: Present: soft, Non-Tender. Absent: distention, guarding, rebound - Extremities Exam Extremities exam: Present: normal inspection, full ROM - Neurological Exam Neurological exam: Present: alert - Skin Skin exam: Present: warm Course Course Narrative: 79-year-old female presenting with chest pain. Patient is a poor historian. We will obtain basic laboratory analysis including CBC, BMP, troponin within EKG and chest x-ray. Patient is alert in the room. Stable vital signs. Disposition most likely admission the pending results. - Reevaluation(s) Reevaluation #1: Patient's laboratory analysis shows chronic anemia, chronic kidney disease and elevated troponin at 0.07. Patient's troponin has been elevated between 0.0 5.07 multiple times previously. Patient x-ray concerning for acute exacerbation of CHF with bilateral pleural effusions. At this time we will plan to admit the patient for CHF exacerbation and chest pain. Patient is alert in the room. Son at bedside. Vital signs stable. I spoke with the hospitalist on-call who agrees to accept the patient at this time. Vital Signs Temperature 97.9 F 11/18/17 00:28 Pulse Rate 74 11/18/17 00:28 Respiratory Rate 26 11/18/17 00:28 Blood Pressure 183/68 11/18/17 00:28 O2 Sat by Pulse Oximetry 99 11/18/17 00:28 Temperature 97.9 F 11/18/17 00:28 Pulse Rate 74 11/18/17 01:57 Respiratory Rate 24 11/18/17 02:33 Blood Pressure 180/64 11/18/17 02:33 O2 Sat by Pulse Oximetry 100 11/18/17 01:57 Oxygen Delivery Oxygen Delivery Nasal Cannula Medical Decision Making - Lab Data Result diagrams: 11/18/17 00:59 11/18/17 00:59 Lab Results 11/18/17 11/18/17 Range/Units 00:59 00:59 WBC 3.1 L (4.3-11.1) K/mcL RBC 3.04 L (3.82-4.97) M/mcL Hgb 9.0 L (11.5-15.4) g/dL Hct 27.9 L (35.3-44.9) % MCV 91.8 (83.0-100.0) fL MCH 29.6 (28.0-33.3) pg MCHC 32.3 (31.6-35.5) g/dL RDW 15.0 H (11.5-14.5) % Plt Count 122 L (140-400) K/mcL MPV 9.0 L (9.4-12.4) fL Immature Gran % 0.3 (0-4) % Seg Neutrophils % 65.4 % Lymphocytes % 21.5 % Monocytes % 10.9 % Eosinophils % 1.3 % Basophils % 0.6 % Neutrophils # 2.0 (1.6-8.9) K/mcL Lymphocytes # 0.7 (0.6-4.6) K/mcL Monocytes # 0.3 (0.0-1.3) K/mcL Eosinophils # 0.0 (0.0-0.6) K/mcL Basophils # 0.0 (0.0-0.2) K/mcL Sodium 137 (136-145) mEq/L Potassium 3.1 L (3.5-5.1) mEq/L Chloride 102 (98-107) mEq/L Carbon Dioxide 30 H (23-29) mEq/L BUN 15 (8-23) mg/dL Creatinine 2.22 H (0.60-1.20) mg/dL Est GFR ( Amer) 25 L (> 60) Est GFR (Non-Af Amer) 21 L (> 60) BUN/Creatinine Ratio 7 (6-26) Glucose 158 H (70-105) mg/dL Calculated Osmolality 288 (280-300) Calcium 8.5 L (8.6-10.3) mg/dL Troponin I 0.07 H* (< 0.04) ng/mL - EKG Data EKG #1 EKG attestation: Yes I reviewed and interpreted this EKG. EKG results narrative: Sinus rhythm. 70 bpm. PACs. UT interval 177, QRS 103, QTC 488. No signs of acute ST segment elevation or ischemia. Flattened T waves throughout. Compared to previous EKG completed on 10/22/2017 new Flattened T-waves observed
[2017-11-18 01:19] LABS: Basophils % 0.6 %; Eosinophils % 1.3 %; Hematocrit 27.9 % (35.3-44.9); Immature Granulocytes % 0.3 % (0-4); Lymphocytes # 0.7 K/mcL (0.6-4.6); Lymphocytes % 21.5 %; Mean Corpuscular HGB Conc 32.3 g/dL (31.6-35.5); Mean Corpuscular Hemoglobin 29.6 pg (28.0-33.3); Mean Corpuscular Volume 91.8 fL (83.0-100.0); Monocytes # 0.3 K/mcL (0.0-1.3); Monocytes % 10.9 %; Platelet Count 122 K/mcL (140-400); Red Blood Count 3.04 M/mcL (3.82-4.97); Segmented Neutrophils % 65.4 %
[2017-11-18 01:40] LABS: Calcium 8.5 mg/dL (8.6-10.3); Potassium 3.1 mEq/L (3.5-5.1)
[2017-11-18 01:46] LABS: Troponin I 0.07 ng/mL (< 0.04)
--- NOTE | 2017-11-18 02:50 | Emergency Department Note ---
Disposition Clinical Impression: CKD (chronic kidney disease) requiring chronic dialysis, Elevated troponin Chest pain Qualifiers: Chest pain type: unspecified Qualified Code(s): R07.9 - Chest pain, unspecified CHF (congestive heart failure) Qualifiers: Heart failure type: unspecified Heart failure chronicity: acute on chronic Qualified Code(s): I50.9 - Heart failure, unspecified Disposition: Admitted As Inpatient Condition: Good General Adult HPI - General Chief complaint: ED Chest Pain Stated complaint: chest pain Time Seen by Provider: 11/18/17 00:26 Source: patient, EMS Mode of arrival: EMS Limitations: no limitations Nursing Notes Reviewed: Yes Vital Signs Reviewed: Yes - History of Present Illness Pain Scale: 0 - Related Data Home Medications Medication Instructions Recorded Confirmed Iron Ps Cmplx/Vit B12/FA [Iferex 1 cap PO BID 04/11/15 10/22/17 150 Forte Capsule] Losartan Potassium [Cozaar] 100 mg PO DAILY 04/11/15 10/22/17 Cilostazol [Pletal] 100 mg PO BID #0 07/09/15 10/22/17 Aspirin [Lo-Dose Aspirin EC] 81 mg PO DAILY 10/07/17 10/22/17 Calcitriol [Rocaltrol] 0.25 mcg PO MOWEFR 10/07/17 10/22/17 Isosorbide MONOnitrate [Isosorbide 180 mg PO DAILY 10/07/17 10/22/17 Mononitrate ER] cloNIDine HCl [Clonidine HCl] 0.2 mg PO TID 10/07/17 10/22/17 Amlodipine Besylate 10 mg PO DAILY 10/22/17 10/22/17 Glucagon,Human Recombinant 1 mg IJ ONCE PRN 10/22/17 10/22/17 [Glucagon Emergency Kit] Hydralazine HCl 50 mg PO TID 10/22/17 10/22/17 Insulin Glargine,Hum.rec.anlog 20 unit SQ HS 10/22/17 10/22/17 [Basaglar Kwikpen U-100] hydrALAZINE [HydrALAZINE] 25 mg PO TID 10/22/17 10/22/17 Previous Rx's Medication Instructions Recorded Atorvastatin [Lipitor] 40 mg PO HS #30 tablet 10/11/15 Furosemide [Lasix] 40 mg PO DAILY #30 tablet 10/11/15 Labetalol [Trandate] 200 mg PO BID #60 tablet 05/22/17 Lidocaine Patch [Lidoderm 5% patch] 1 each TP DAILY PRN adh..patch 10/24/17 Fluconazole [Diflucan] 200 mg PO DAILY udc 11/08/17 Fluconazole [Diflucan] 200 mg PO DAILY 2 Days #2 tab 11/08/17 Allergies Allergy/AdvReac Type Severity Reaction Status Date / Time celecoxib [From Celebrex] AdvReac Nausea Verified 11/18/17 00:39 Constitutional: Reports: as per HPI Eyes: Reports: as per HPI ENT ED: Reports: as per HPI Cardiovascular: Reports: chest pain. Denies: palpitations Respiratory: Reports: as per HPI Gastrointestinal: Reports: as per HPI Genitourinary: Reports: as per HPI Musculoskeletal: Reports: as per HPI Integumentary: Reports: as per HPI Neurological: Reports: as per HPI Psychiatric: Reports: as per HPI Endocrine: Reports: as per HPI Hematological/Lymphatic: Reports: as per HPI Allergic/Immunologic: Reports: as per HPI Past Medical History - Past Medical History Medical history: Reports: CHF, coronary artery disease, CVA, diabetes, GERD, hyperlipidemia, hypertension, myocardial infarction, renal disease, valvular heart disease, other Surgical history: Reports: coronary bypass (CABG), hysterectomy, other Psychiatric history: Reports: no psych history - Social History Smoking Status: Never smoker Smokeless Tobacco Status: No Alcohol use: Reports: none Drug use: Reports: none Physical Exam - General Limitations: no limitations General appearance: alert Course Vital Signs Temperature 97.9 F 11/18/17 00:28 Pulse Rate 74 11/18/17 00:28 Respiratory Rate 26 11/18/17 00:28 Blood Pressure 183/68 11/18/17 00:28 O2 Sat by Pulse Oximetry 99 11/18/17 00:28 Temperature 97.9 F 11/18/17 03:00 Pulse Rate 87 11/18/17 03:00 Respiratory Rate 16 11/18/17 03:00 Blood Pressure 198/83 11/18/17 03:00 O2 Sat by Pulse Oximetry 97 11/18/17 04:00 Oxygen Delivery Oxygen Delivery Nasal Cannula Medical Decision Making - Medical Records Medical records reviewed: Yes I reviewed the patient's medical records. - Lab Data Lab results reviewed: Yes I reviewed the patient's lab results. Result diagrams: 11/18/17 00:59 11/18/17 00:59 Lab Results 11/18/17 11/18/17 Range/Units 00:59 00:59 WBC 3.1 L (4.3-11.1) K/mcL RBC 3.04 L (3.82-4.97) M/mcL Hgb 9.0 L (11.5-15.4) g/dL Hct 27.9 L (35.3-44.9) % MCV 91.8 (83.0-100.0) fL MCH 29.6 (28.0-33.3) pg MCHC 32.3 (31.6-35.5) g/dL RDW 15.0 H (11.5-14.5) % Plt Count 122 L (140-400) K/mcL MPV 9.0 L (9.4-12.4) fL Immature Gran % 0.3 (0-4) % Seg Neutrophils % 65.4 % Lymphocytes % 21.5 % Monocytes % 10.9 % Eosinophils % 1.3 % Basophils % 0.6 % Neutrophils # 2.0 (1.6-8.9) K/mcL Lymphocytes # 0.7 (0.6-4.6) K/mcL Monocytes # 0.3 (0.0-1.3) K/mcL Eosinophils # 0.0 (0.0-0.6) K/mcL Basophils # 0.0 (0.0-0.2) K/mcL Sodium 137 (136-145) mEq/L Potassium 3.1 L (3.5-5.1) mEq/L Chloride 102 (98-107) mEq/L Carbon Dioxide 30 H (23-29) mEq/L BUN 15 (8-23) mg/dL Creatinine 2.22 H (0.60-1.20) mg/dL Est GFR ( Amer) 25 L (> 60) Est GFR (Non-Af Amer) 21 L (> 60) BUN/Creatinine Ratio 7 (6-26) Glucose 158 H (70-105) mg/dL Calculated Osmolality 288 (280-300) Calcium 8.5 L (8.6-10.3) mg/dL Troponin I 0.07 H* (< 0.04) ng/mL - Radiology Data Radiology results reviewed: Yes I reviewed the patient's radiology results. Chest X-Ray 11/18/17 00:37 IMPRESSION: Imaging features compatible with acute CHF decompensation. Bilateral pleural effusions. D/ / Parker Qureshi / Parker Qureshi Interpreting Provider: Parker Qureshi - EKG Data EKG #1 EKG attestation: Yes I reviewed and interpreted this EKG. EKG results narrative: EKG shows a normal sinus rhythm with frequent PACs. Ventricular rate 70. Nonspecific diffuse T-wave flattening. No acute ST segment elevation or depression. Attestation Statement - Attestation Attestation: I, Pasquale Dominique MD, personally evaluated this patient and discussed their management with the resident physician. I reviewed the resident's note and agree with the documented findings, medical decision making, and plan of care. 87-year-old female with end-stage renal disease on hemodialysis presents to the emergency department by ambulance [facility] a local [facility] with a complaint of left-sided chest pain and increased shortness of breath. Patient is very poor historian and really unable to provide much significant history or review of systems. She does admit to the left-sided chest pain and states that she still has some pain. She states that she feels more short of breath and usual. She did just have her dialysis today. On examination patient is a well-developed well-nourished elderly female in no acute distress. She is alert. No diaphoresis. She is intermittently tachypneic and appears to be hyperventilating at times. Chest is nontender to palpation. Rest sounds are decreased bilaterally with a few faint rales in the right base. No wheezes noted. Heart is regular with frequent ectopy. There is a grade 3/6 systolic murmur. Abdomen is soft with no apparent tenderness. Bowel sounds positive. 2+ pitting edema of the lower extremities bilaterally. Chest x-ray consistent with CHF exacerbation. EKG shows some diffuse T-wave flattening. Labs reviewed troponin 0.07. Patient has a chronic mildly elevated troponin due to her renal failure. This however is slightly higher than her usual baseline. The hospitalist, Dr. Ruiz, was consulted and accepted admission of the patient.
[2017-11-18] MEDS ORDERED: Naloxone 0.4 MG/ML INJ IVP PRN (04:31)
[2017-11-18] MEDS ORDERED: D5% in Water 1,000 ML IVC PRN (04:41)
[2017-11-18] MEDS ORDERED: Dextrose Gel 15 GM/37.5 ML TUBE PO PRN ×2 (04:41)
[2017-11-18] MEDS ORDERED: Acetaminophen 325 MG TABLET PO PRN ×2 (04:53→18:33)
[2017-11-18] MEDS ORDERED: *HR* Labetalol 20 MG/4 ML SYRINGE IVP ONE (05:34)
--- NOTE | 2017-11-18 06:19 | Internal Med History&Physical ---
Date of Encounter: 11/18/17 Time of Encounter: 03:30 Internal Medicine - H&P: HPI Chief complaint: CHF exacerbation Admitted From: Emergency Dept Plans for Post Hospital Care: Home History of present illness: Ms. Giles is a 87 year old female Patient presented to the emergency room from [facility] after having chest pain. She had a previous admission about 2 weeks ago, discharged about 10 days ago for similar complaint. She has a history of CHF, end-stage renal disease with recent initiation of dialysis, diabetes and hypertension. She states that the chest pain started after her dialysis session on 11/17/17. She denies nausea, vomiting, diarrhea, constipation and abdominal pain. Her chest pain radiates to her left arm, and she has associated shortness of breath. She was given nitroglycerin prior to arrival at the ER but it did not help her pain. She was brought to the ER for further evaluation. In the ER Troponins were elevated to 0.07, potassium was 3.1, chest x-ray showed acute CHF decompensation with bilateral pleural effusions. Of note, on her recent admission she was evaluated for possible GI bleed, swallow study showed aspiration of thin liquid, her troponins have been elevated above normal for many months, and she recently was started on dialysis , MWF and as documented in her previous visit she has poor urine production if any. Her potassium has remained in the low 3.0 range since her last visit as well. 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 Psychiatric history: no psych history - Past Surgical History Surgical History: coronary bypass (CABG), hysterectomy, other Additional surgical history: fistula left arm - Social History Smoking Status: Never smoker Smokeless Tobacco Status: No Alcohol use: none Drug use: none - Family History Mother Living Status: Hx Family Cardiac Disorders: Yes (CVA, [place]) Father Living Status: Hx Family Cardiac Disorders: Yes Internal Medicine - H&P: Meds Iron Ps Cmplx/Vit B12/FA [Iferex 150 Forte Capsule] 1 cap PO BID 04/11/15 [ History] Losartan Potassium [Cozaar] 100 mg PO DAILY 04/11/15 [History] Cilostazol [Pletal] 100 mg PO BID #0 07/09/15 [History] Atorvastatin [Lipitor] 40 mg PO HS #30 tablet 10/11/15 [Rx] Furosemide [Lasix] 40 mg PO DAILY #30 tablet 10/11/15 [Rx] Labetalol [Trandate] 200 mg PO BID #60 tablet 05/22/17 [Rx] Aspirin [Lo-Dose Aspirin EC] 81 mg PO DAILY 10/07/17 [History] Calcitriol [Rocaltrol] 0.25 mcg PO MOWEFR 10/07/17 [History] Isosorbide MONOnitrate [Isosorbide Mononitrate ER] 180 mg PO DAILY 10/07/17 [ History] cloNIDine HCl [Clonidine HCl] 0.2 mg PO TID 10/07/17 [History] Amlodipine Besylate 10 mg PO DAILY 10/22/17 [History] Glucagon,Human Recombinant [Glucagon Emergency Kit] 1 mg IJ ONCE PRN 10/22/17 [ History] Hydralazine HCl 50 mg PO TID 10/22/17 [History] Insulin Glargine,Hum.rec.anlog [Basaglar Kwikpen U-100] 20 unit SQ HS 10/22/17 [ History] hydrALAZINE [HydrALAZINE] 25 mg PO TID 10/22/17 [History] Lidocaine Patch [Lidoderm 5% patch] 1 each TP DAILY PRN adh..patch 10/24/17 [Rx ] Fluconazole [Diflucan] 200 mg PO DAILY udc 11/08/17 [Rx] Fluconazole [Diflucan] 200 mg PO DAILY 2 Days #2 tab 11/08/17 [Rx] 3 Allergy/AdvReac Type Severity Reaction Status Date / Time celecoxib [From Celebrex] AdvReac Nausea Verified 11/18/17 00:39 All Systems PM: A 10-system review of systems was performed and is negative for pertinent findings except as documented above in the HPI. - Constitutional Vitals: Temp Pulse Resp BP Pulse Ox 97.9 F 87 16 198/83 97 11/18/17 03:00 11/18/17 03:00 11/18/17 03:00 11/18/17 03:00 11/18/17 04:00 General appearance: Present: cooperative, A&O X 3, pleasant, answers questions appropriately Exam: as above - Head Head exam: Present: normal inspection - Eye Eye exam: Present: EOMI, normal appearance - Respiratory Respiratory exam: Present: rales. Absent: accessory muscle use, chest wall tenderness, wheezes - Cardiovascular Cardiovascular exam: Present: RRR, systolic murmur. Absent: diastolic murmur - Expanded Cardiovascular Exam Intensity: 3/6 - GI/Abdominal GI/Abdominal exam: Present: normal bowel sounds, soft. Absent: tenderness - Extremities Exam Extremities exam: Present: warm, radial pulses palpable and symmetrical. Absent : tenderness - Neurological Exam Neurological exam: Present: no focal deficits. Absent: facial droop, speech deficit - Skin Skin exam: Present: dry, normal color, warm Internal Med - H&P Results - Labs CBC & Chem 7: 11/18/17 00:59 11/18/17 00:59 - Assessment and plan (1) Chest pain Current Visit: No Status: Resolved Assessment and plan: Similar to previous admission, evaluated by cardiology at that time and thought to be related to demand ischemia and kidney disease. Echo 06/06 showed LVEF of 70 %. Continue to trend troponins, though likely she has chronically elevated troponin for reasons above. Discussed with patient what her wishes would be if she was found to have a heart attack, and she indicated that she would probably not want to proceed with cardiology evaluation and treatment. Cardiac monitoring Tylenol for pain, as nitro did not help. Will hold off on heparin and ASA due to GI bleed a few weeks ago. Qualifiers: Chest pain type: unspecified Qualified Code(s): R07.9 - Chest pain, unspecified (2) Elevated troponin Current Visit: Yes Status: Acute Assessment and plan: As above, slightly higher than her previous admissions, but thought to be chronically elevated and related to demand ischemia and kidney disease. Continue to monitor. (3) Hypertension Current Visit: No Status: Chronic Assessment and plan: Secondary to renal dysfunction, and possibly fluid overload. Patient on multiple blood pressure medications at home, though medication list not confirmed at this time. Will try labetalol IV now, and recheck Possible dialysis later today Restart home meds once confirmed. 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 Patient had dialysis yesterday, could still be fluid overloaded. Patient has little urine output. Nephrology consult in the AM for possible dialysis, despite dialysis being done yesterday. Will hold off on lasix due to poor kidney function and lack of urine output. Qualifiers: Heart failure type: unspecified Heart failure chronicity: acute on chronic Qualified Code(s): I50.9 - Heart failure, unspecified (5) ESRD (end stage renal disease) Current Visit: No Status: Chronic Assessment and plan: Patient on dialysis, recently started a few weeks ago. Had dialysis on the day she presented to the ER. Nephrology consult, possible dialysis today for fluid overload. (6) Diabetes Current Visit: No Status: Chronic Assessment and plan: On insulin Hold home meds Renal/diabetic diet Insulin sliding scale as needed Check blood sugars with meals and at night. 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 Consider starting PT and OT when condition improves. (8) Anemia in chronic kidney disease Current Visit: No Status: Chronic Assessment and plan: Also has possible GI bleed, continue to monitor hemoglobin No obvious signs of bleeding at this time. Qualifiers: Chronic kidney disease stage: stage 5, not on chronic dialysis Qualified Code(s): N18.5 - Chronic kidney disease, stage 5; D63.1 - Anemia in chronic kidney disease (9) Hypokalemia Current Visit: Yes Status: Acute Assessment and plan: Chronic, on dialysis. - Time Spent With Patient Total time spent is greater than 50% in coordination of care (as documented) at patient's floor/unit and/or counseling patient: Greater than 35 minutes
[2017-11-18] MEDS: Insulin LISPRO 300 UNITS/3 ML VIAL SQ SCH ×4 (08:15→21:34)
[2017-11-18] MEDS ORDERED: Furosemide 80 MG in 0.9 % Sodium Chloride 50 ML IVPB ONE (09:37)
[2017-11-18] MEDS ORDERED: 0.9 % Sodium Chloride 250 ML IVC PRN (09:41)
--- NOTE | 2017-11-18 09:53 | Nephrology Consult Note ---
Date of Encounter: 11/18/17 Time of Encounter: 09:53 Assessment and Plan (1) ESRD (end stage renal disease) on dialysis Current Visit: Yes Status: Acute Current regimen is MWF with [facility]. Last tx was yesterday. UF ordered today due to pleural effusions and dyspnea. 80 mg IV lasix ordered. 40 meq of Potassium ordered. Strict I/O Renal diet, if able to eat. Renal vitamins. Will order additional UF or HD as needed. (2) Chest pain Current Visit: Yes Status: Acute Appears resolved. Qualifiers: Chest pain type: unspecified Qualified Code(s): R07.9 - Chest pain, unspecified (3) CHF (congestive heart failure) Current Visit: Yes Status: Chronic 80 mg IV lasix ordered. UF ordered for today. Qualifiers: Heart failure type: unspecified Heart failure chronicity: acute on chronic Qualified Code(s): I50.9 - Heart failure, unspecified History of Present Illness - Reason for Consult Consult date: 11/18/17 end stage renal disease - Chief Complaint chest pain - History of Present Illness Ms. Giles is an 87 year old female with ESRD MWF with Dr. Horton. Her last tx was Wednesday, and per the patient it was a full treatment. Other PMH:CHF and NSTEMI. She presented to ED with chest pain. She does reside in an ECF and was given 3 doses of Nitro without relief. She denied radiation in ED report. She denies CP right now, but does admit to difficulty in breathing. Denies fever , chills, nausea, vomiting, diarrhea. Current regimen is MWF with Dr. Horton. 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 Psychiatric history: no psych history - Past Surgical History Surgical History: coronary bypass (CABG), hysterectomy, other Additional surgical history: fistula left arm - Social History Smoking Status: Never smoker Smokeless Tobacco Status: No Alcohol use: none Drug use: none - Family History Mother Living Status: Hx Family Cardiac Disorders: Yes (CVA, [place]) Father Living Status: Hx Family Cardiac Disorders: Yes Medications and Allergies Iron Ps Cmplx/Vit B12/FA [Iferex 150 Forte Capsule] 1 cap PO BID 04/11/15 [ History] Losartan Potassium [Cozaar] 100 mg PO DAILY 04/11/15 [History] Cilostazol [Pletal] 100 mg PO BID #0 07/09/15 [History] Atorvastatin [Lipitor] 40 mg PO HS #30 tablet 10/11/15 [Rx] Furosemide [Lasix] 40 mg PO DAILY #30 tablet 10/11/15 [Rx] Labetalol [Trandate] 200 mg PO BID #60 tablet 05/22/17 [Rx] Aspirin [Lo-Dose Aspirin EC] 81 mg PO DAILY 10/07/17 [History] cloNIDine HCl [Clonidine HCl] 0.2 mg PO TID 10/07/17 [History] Amlodipine Besylate 10 mg PO DAILY 10/22/17 [History] Glucagon,Human Recombinant [Glucagon Emergency Kit] 1 mg IJ ONCE PRN 10/22/17 [ History] Hydralazine HCl 50 mg PO TID 10/22/17 [History] Insulin Glargine,Hum.rec.anlog [Basaglar Kwikpen U-100] 20 unit SQ HS 10/22/17 [ History] hydrALAZINE [HydrALAZINE] 25 mg PO TID 10/22/17 [History] Acetaminophen [Tylenol] 650 mg PO Q4HR PRN 11/18/17 [History] Insulin LISPRO [HumaLOG] 0 - 12 units SQ ACHS 11/18/17 [History] Isosorbide MONOnitrate (24 HR) [Imdur] 60 mg PO DAILY 11/18/17 [History] Isosorbide MONOnitrate [Isosorbide Mononitrate ER] 120 mg PO DAILY 11/18/17 [ History] 3 Allergy/AdvReac Type Severity Reaction Status Date / Time celecoxib [From Celebrex] AdvReac Nausea Verified 11/18/17 00:39 Review of Systems Constitutional: no chills, no fever(s) Cardiovascular: dyspnea, no chest pain Gastrointestinal: no diarrhea, no nausea, no vomiting Exam - Vital Signs Vital signs: Initial Vital Signs Temp Pulse Resp BP Pulse Ox 97.9 F 74 26 183/68 99 11/18/17 00:28 11/18/17 00:28 11/18/17 00:28 11/18/17 00:28 11/18/17 00:28 Vital Signs - Last 8 Hours Temp Pulse Resp BP Pulse Ox 11/18/17 07:40 97.9 F 86 18 196/89 97 11/18/17 06:00 176/77 11/18/17 04:00 97 11/18/17 03:00 97.9 F 87 16 198/83 97 11/18/17 02:33 24 180/64 Intake and Output 11/17/17 11/18/17 11/18/17 23:59 07:59 15:59 Other: # Voids 1 # Urine Diapers 1 Weight 76.2 kg Blood Glucose* 176 Patient Weight 11/18/17 23:59 Weight 76.2 kg - General Appearance General appearance: well-developed, well-nourished EENT: ATNC, hearing intact, vision intact Neck: supple Respiratory: rhonchi Cardiology: edema (Nonpitting edema to bilat lower extremities.) - Dialysis Access Dialysis Vascular Access: Arteriovenous Fistula thrill: Yes bruit: Yes Gastrointestinal: normoactive bowel sounds, no tenderness, no guarding Integumentary: no rash, warm and dry Neurologic: alert and oriented x3 Psychiatric: mood/affect appropriate, cooperative Results - Lab Results 11/18/17 00:59 11/18/17 00:59 Most recent lab results Calcium 8.5 mg/dL (8.6-10.3) L 11/18/17 00:59 Consult Discharge Plan - Plan Referrals: Ema Del Toro, [employer] [Primary Care Provider] -
[2017-11-18] MEDS ORDERED: 0.9 % Sodium Chloride 1,000 ML ONE (12:42)
--- NOTE | 2017-11-18 13:48 | Cardiology Consult Note ---
Date of Encounter: 11/18/17 Time of Encounter: 14:05 Assessment and Plan (1) Chest pain Current Visit: Yes Status: Acute Qualifiers: Chest pain type: unspecified Qualified Code(s): R07.9 - Chest pain, unspecified (2) Elevated troponin Current Visit: Yes Status: Acute (3) ESRD (end stage renal disease) Current Visit: Yes Status: Chronic Discussion w patient/family: Pt is ESRD on dialysis and here with a CHF exacerbation and pulmonary effusions. Her chest pain has now resolved. EKG showed some T wave flattening when compared to previous EKG from 10/22/17. Her troponins are elevated at 0.07, but this is near baseline for her. This is unlikely to be an NSTEMI without a significant increase in troponins and is more likely due to her volume overloaded state. Continue dialysis as scheduled and place patient on a salt restricted diet. Pt has also been hypertensive during her stay - restart home medications for BP management. We will restart the patient's home clonidine as missing this medication can cause rebound hypertension. The assessment and plan as outlined above was discussed with the patient and/or family members who expressed understanding and agreement. All questions were answered. Thank you for involving us in the care of your patient. Please call with any questions. History of Present Illness Consult date: 11/18/17 Requesting physician: Shane Kilpatrick Consult reason: chest pain Chief complaint: chest pain History of present illness: Ms. Giles is a 87 year old female with PMHx of CHF, [place], PCI with 4 stents placed , DM and ESRD who presented to the ED late last night due to chest pain. She states this pain was severe and she was very short of breath with it. She has been having intermittent chest pain over the past 4-5 days and states whenever she has it she just lays down and it will go away. The pain is on the left side of her chest and does not radiate anywhere. It is not painful to the touch but it hurts worse when she moves her left arm. She is currently pain free and states her shortness of breath is getting better. She recently started dialysis MWF and had a full dialysis session yesterday, but due to her shortness of breath and increased cardiac silhouette on CXR she is getting another 2kg of fluid pulled off today. She denies headache, fever, abdominal pain, N/V/D. She has some leg swelling that gets worse on days she does not have dialysis. When asked of her wishes if she were to have a heart attack or have her heart stop she states she does not with to have any invasive intervention done. 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 Psychiatric history: no psych history - Past Surgical History Surgical History: coronary bypass (CABG), hysterectomy, other Additional surgical history: fistula left arm - Social History Smoking Status: Never smoker Smokeless Tobacco Status: No Alcohol use: none Drug use: none - Family History Mother Living Status: Hx Family Cardiac Disorders: Yes (CVA, [place]) Father Living Status: Hx Family Cardiac Disorders: Yes Medications and Allergies Iron Ps Cmplx/Vit B12/FA [Iferex 150 Forte Capsule] 1 cap PO BID 04/11/15 [ History] Losartan Potassium [Cozaar] 100 mg PO DAILY 04/11/15 [History] Cilostazol [Pletal] 100 mg PO BID #0 07/09/15 [History] Atorvastatin [Lipitor] 40 mg PO HS #30 tablet 10/11/15 [Rx] Furosemide [Lasix] 40 mg PO DAILY #30 tablet 10/11/15 [Rx] Labetalol [Trandate] 200 mg PO BID #60 tablet 05/22/17 [Rx] Aspirin [Lo-Dose Aspirin EC] 81 mg PO DAILY 10/07/17 [History] cloNIDine HCl [Clonidine HCl] 0.2 mg PO TID 10/07/17 [History] Amlodipine Besylate 10 mg PO DAILY 10/22/17 [History] Glucagon,Human Recombinant [Glucagon Emergency Kit] 1 mg IJ ONCE PRN 10/22/17 [ History] Hydralazine HCl 50 mg PO TID 10/22/17 [History] Insulin Glargine,Hum.rec.anlog [Basaglar Kwikpen U-100] 20 unit SQ HS 10/22/17 [ History] hydrALAZINE [HydrALAZINE] 25 mg PO TID 10/22/17 [History] Acetaminophen [Tylenol] 650 mg PO Q4HR PRN 11/18/17 [History] Insulin LISPRO [HumaLOG] 0 - 12 units SQ ACHS 11/18/17 [History] Isosorbide MONOnitrate (24 HR) [Imdur] 60 mg PO DAILY 11/18/17 [History] Isosorbide MONOnitrate [Isosorbide Mononitrate ER] 120 mg PO DAILY 11/18/17 [ History] 3 Allergy/AdvReac Type Severity Reaction Status Date / Time celecoxib [From Celebrex] AdvReac Nausea Verified 11/18/17 00:39 All Systems Review: The remainder of the systems were reviewed and are negative - Constitutional Constitutional: no anorexia, no chills, no fatigue, no fever(s), no headache(s) , no weakness - EENT Eyes: no blurred vision, no loss of vision - Cardiovascular Cardiovascular: chest pain at rest, dyspnea at rest, dyspnea on exertion, irregular heart rhythm, leg edema, no diaphoresis - Respiratory Respiratory: no cough, no dyspnea, no hemoptysis, no wheezing - Gastrointestinal Gastrointestinal: no abdominal pain, no diarrhea, no nausea - Genitourinary Genitourinary: no dysuria, no hematuria - Musculoskeletal Musculoskeletal: no muscle cramps, no muscle weakness - Integumentary Integumentary: no erythema, no rash, no unusual bruising - Neurological Neurological: no abnormal speech, no dizziness, no loss of vision - Hematological/Lymphatic Hematologic/Lymphatic: no easy bleeding, no easy bruising Physical Examination Vital Signs, Last 4 Hours Temp Pulse Resp BP Pulse Ox 11/18/17 13:30 189/86 11/18/17 13:15 181/80 11/18/17 13:00 197/98 11/18/17 12:45 98.4 F 20 192/84 11/18/17 11:20 98.4 F 76 17 206/80 94 General: Conversant, No Apparent Distress HEENT: Atraumatic, Normocephaly, Mucus Membranes Moist Neck: No JVD, Normal carotid pulses Cardiac: Other (Irregular heart rate, grade 3 systolic murmur heard throughout) Lungs: Normal Breath Sounds, No Wheeze, Rales, Rhonchi Neuro: Alert and responsive, No focal deficits noted Abdomen: Soft, Non-Tender Skin: No rashes noted on visualized skin Musculoskeletal: No Chest Wall Tenderness Extremities: No Cyanosis, Normal Pulses, Other (grade 1 pitting edema to mid hernández) Results 11/18/17 00:59 11/18/17 00:59 Lab Results 11/18/17 06:30 Troponin I 0.07 H* Consult Discharge Plan - Plan Referrals: Ema Del Toro, [employer] [Primary Care Provider] -
[2017-11-18] MEDS: cloNIDine HCl 0.1 MG TABLET PO SCH ×2 (16:20→21:32)
--- NOTE | 2017-11-18 19:35 | Event Note ---
Date of Encounter: 11/18/17 Time of Encounter: 11:00 Patient seen and evaluated by nocturnalist earlier this morning and also by myself Patient is an 87-year-old female with past medical history significant for end- stage renal disease and ischemic cardiomyopathy who presented with chest pain found to have volume overload. Nephrology consulted with recommendations for ultrafiltration Cardiology consulted and suspects elevated troponin secondary to volume overload. Continue to monitor
[2017-11-18] MEDS ORDERED: VIT B12 PO SCH (21:00)
[2017-11-18] MEDS ORDERED: IRON PS CMPLX PO SCH (21:00)
[2017-11-18] MEDS ORDERED: [UNRECOGNIZED DRUG - OTHER] PO SCH (21:00)
[2017-11-18] MEDS ORDERED: NON-FORMULARY MEDICATION 1 EACH EACH (Clonidine Hcl [Clonidine Hcl] 0.2 MG) PO SCH (21:00)
[2017-11-18] MEDS ORDERED: NON-FORMULARY MEDICATION 1 EACH EACH (Hydralazine Hcl [Hydralazine Hcl] 50 MG) PO SCH (21:00)
[2017-11-18] MEDS: hydrALAZINE 25 MG TABLET PO SCH (21:33)
[2017-11-18] MEDS: Insulin DETEMIR 100 UNIT/ML X5UNITS SQ SCH (21:33)
[2017-11-19 01:49] LABS: Basophils % 0.3 %; Eosinophils # 0.1 K/mcL (0.0-0.6); Eosinophils % 1.7 %; Hematocrit 25.9 % (35.3-44.9); Hemoglobin 8.2 g/dL (11.5-15.4); Immature Granulocytes % 0.3 % (0-4); Lymphocytes % 26.7 %; Mean Corpuscular HGB Conc 31.7 g/dL (31.6-35.5); Mean Corpuscular Hemoglobin 29.3 pg (28.0-33.3); Mean Corpuscular Volume 92.5 fL (83.0-100.0); Mean Platelet Volume 8.9 fL (9.4-12.4); Monocytes # 0.4 K/mcL (0.0-1.3); Monocytes % 11.7 %; Neutrophils # 2.1 K/mcL (1.6-8.9); Platelet Count 121 K/mcL (140-400); Red Cell Distribution Width 15.4 % (11.5-14.5); Segmented Neutrophils % 59.3 %
[2017-11-19 02:07] LABS: Calcium 8.4 mg/dL (8.6-10.3); Potassium 3.4 mEq/L (3.5-5.1)
[2017-11-19] MEDS ORDERED: 0.9 % Sodium Chloride 250 ML IVC PRN (08:29)
[2017-11-19] MEDS ORDERED: Isosorbide MONOnitrate (24 HR) 60 MG TAB.ER.24H PO SCH ×2 (09:00)
[2017-11-19] MEDS ORDERED: Furosemide 40 MG TABLET PO SCH (09:00)
--- NOTE | 2017-11-19 10:09 | Internal Med Progress Note ---
Hospitalist Progress Note - Encounter Date of Encounter: 11/19/17 Time of Encounter: 09:30 - Subjective Interval History: Called to the bedside nurse this morning at approximately 9:30 AM due to noted altered mental status changes. Nurse reported that patient was moaning and had a blank stare. Nurse stated that this change was reported overnight to her on checkout. On arrival to the bedside, patient was unable to speak and could only moan. Patient was able to open her eyes but was not able to respond to commands. Stat EKG was ordered which showed no acute T-wave elevations or depressions. Stat CT of the head was ordered which did not show any acute intracranial abnormality. MRI was subsequently ordered did not show specifically any acute infarction. Neurology consulted and appreciate any recommendations. - Exam Vitals: Temp Pulse Resp BP Pulse Ox 98.0 F 67 17 159/80 96 11/19/17 07:04 11/19/17 07:04 11/19/17 07:04 11/19/17 07:04 11/19/17 07:04 Exam: Gen.: Patient not able to speak this morning and not responding to commands ENT: Mucosal membranes moist Cardiovascular: Normal S1 and S2 regular rate rhythm no murmurs rubs or gallops Abdomen: Soft, nontender and nondistended with positive bowel sounds Extremities: No lower extremity edema Skin: Normal color - Assessment and Plan (1) Altered mental status Current Visit: No Status: Resolved Assessment and Plan: Patient not able to respond to questions or commands at bedside and only able to moan; patient able to open eyes Patient was hypoglycemic this morning with blood glucose of 43; she was given dextrose and recheck was 121 and blood glucose has been in the 70s to 80s since Stat CT of the head was ordered which did not show any acute intracranial abnormality. MRI was subsequently ordered did not show specifically any acute infarction. Neurology consulted and appreciate any recommendations. (2) Diabetes Current Visit: No Status: Chronic Assessment and Plan: Patient with hypoglycemia as above Patient was given D50.45NS was discontinued due to a BNP of over 3000 with elevated troponins Will monitor glucose levels every hour for 24 hours (3) Chest pain Current Visit: Yes Status: Acute Assessment and Plan: Patient presented from [facility] complaining of chest pain Patient's troponins have continued to elevated 0.07->0.08->0.14->0.26->0.34 in the face of chronic kidney disease and elevated BNP Discussed in detail with Dr. Martin (weigh and charge worker) with recommendations for medical management and not to initiate ACS Protocol due to history of suspected GI bleed with occult positive stool due to the risk outweighing benefits with multiple comorbidities and age; patient also DNR CCA (4) Elevated troponin Current Visit: Yes Status: Acute Assessment and Plan: As above (5) ESRD (end stage renal disease) Current Visit: Yes Status: Chronic Assessment and Plan: Serum creatinine this morning 2.83 from 2.22 yesterday and GFR 16 today from 21 yesterday Nephrology following with hemodialysis plan for today (6) (HFpEF) heart failure with preserved ejection fraction Current Visit: No Status: Acute Assessment and Plan: Patient with acute on chronic heart failure; elevated BNP of 3595 with bilateral pleural effusions on chest x-ray Requiring 2 L of nasal cannula Will give IV Lasix 40 mg twice daily Cardiology following an appreciate any additional recommendations. 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 per EMR report (9) Anemia in chronic kidney disease Current Visit: No Status: Chronic Assessment and Plan: Hemoglobin 8.2 today and was 9.01 yesterday Patient's baseline appears to be between 8 and 9 Continue to monitor DVT Prophylaxis: Patient with SCDs due to occult positive stool on 10/25/17 - Time Spent with Patient Total time spent is greater than 50% in coordination of care (as documented) at patient's floor/unit and/or counseling patient: Internal Medicine: Result - Labs CBC & Chem 7: 11/19/17 01:01 11/19/17 01:01 Labs: Short CBC 11/19/17 Range/Units 01:01 WBC 3.6 L (4.3-11.1) K/mcL Hgb 8.2 L (11.5-15.4) g/dL Hct 25.9 L (35.3-44.9) % Plt Count 121 L (140-400) K/mcL Neutrophils # 2.1 (1.6-8.9) K/mcL BMP 11/19/17 01:01 Sodium 139 Potassium 3.4 L Chloride 104 Carbon Dioxide 29 BUN 22 Creatinine 2.83 H Glucose 85 Calcium 8.4 L Cardiac Enzymes 11/18/17 11/19/17 Range/Units 13:25 01:01 Troponin I 0.08 H* 0.14 H* (< 0.04) ng/mL - VTE Documentation of Mechanical Device: Intermittent pneumatic compression device Consult Discharge Plan - Plan Referrals: Ema Del Toro, WRITER EDITOR [Primary Care Provider] - (1) Altered mental status Qualifiers: Altered mental status type: unspecified Qualified Code(s): R41.82 - Altered mental status, unspecified (2) Diabetes Qualifiers: Diabetes mellitus type: type 2 Diabetes mellitus buttermaker helper insulin use: with half-way use Diabetes mellitus complication status: with hyperglycemia Qualified Code(s): E11.65 - Type 2 diabetes mellitus with hyperglycemia; 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
--- NOTE | 2017-11-19 10:36 | Nephrology Progress Note ---
Date of Encounter: 11/19/17 Time of Encounter: 10:33 - Assessment and Plan (1) ESRD (end stage renal disease) on dialysis Current Visit: Yes Status: Acute Current regimen is MWF with [facility]. UF completed yesterday, HD ordered for today. Strict I/O Renal diet, if able to eat. Renal vitamins. Will order additional UF or HD as needed. (2) Altered mental status, unspecified Current Visit: Yes Status: Acute Pt typically Alert/Oriented x 3. Is not following commands at this time. Head CT completed. Qualifiers: Qualified Code(s): R41.82 - Altered mental status, unspecified (3) Chest pain Current Visit: Yes Status: Acute Appears resolved. Qualifiers: Chest pain type: unspecified Qualified Code(s): R07.9 - Chest pain, unspecified (4) CHF (congestive heart failure) Current Visit: Yes Status: Chronic UF completed yesterday. Qualifiers: Heart failure type: unspecified Heart failure chronicity: acute on chronic Qualified Code(s): I50.9 - Heart failure, unspecified Subjective Principal diagnosis: chest pain Interval history: PT seen and examined. Pt is showing signs of AMS. She is moaning and not able to follow commands, which is not like her. Stat head CT completed, awaiting results. Objective - Vital Signs Vital signs: Vital Signs Temp Pulse Resp BP Pulse Ox 11/19/17 07:04 98.0 F 67 17 159/80 96 11/19/17 05:40 99 F 59 15 165/85 100 11/19/17 00:20 98.5 F 68 16 165/67 100 11/18/17 20:59 98.4 F 70 16 164/72 99 11/18/17 18:13 76 191/72 11/18/17 16:20 98.3 F 84 16 214/87 99 11/18/17 15:20 97.6 F 18 184/77 11/18/17 14:45 186/85 11/18/17 14:30 182/77 11/18/17 14:15 183/80 11/18/17 14:00 195/83 11/18/17 13:45 179/79 11/18/17 13:30 189/86 11/18/17 13:15 181/80 11/18/17 13:00 197/98 11/18/17 12:45 98.4 F 20 192/84 11/18/17 11:20 98.4 F 76 17 206/80 94 Intake and Output 11/18/17 11/19/17 11/19/17 23:59 07:59 15:59 Intake Total 180 / 180 Output Total 100 / 100 Balance 180 / 180 -100 / -100 Intake: Oral 180 / 180 Output: Urine/Stool Mix 100 / 100 Other: Meal Dinner Percent of Meal Consumed 25% Weight 75.9 kg Blood Glucose* 201 Patient Weight 11/19/17 23:59 Weight 75.9 kg - General Appearance General appearance: Present: well-developed, well-nourished EENT: Present: ATNC, hearing intact, vision intact Neck: Present: supple Respiratory: Present: rhonchi Cardiology: Present: edema (Non pitting bilat lower extremity edema.) Dialysis Vascular Access: Arteriovenous Fistula thrill: Yes bruit: Yes Gastrointestinal: Present: normoactive bowel sounds, no tenderness, no guarding Integumentary: Present: no rash, warm and dry Neurologic: Present: confused Psychiatric: Present: mood/affect appropriate, cooperative - Lab 11/19/17 01:01 11/19/17 01:01 Most recent lab results Calcium 8.4 mg/dL (8.6-10.3) L 11/19/17 01:01 - VTE Documentation of Mechanical Device: Intermittent pneumatic compression device Consult Discharge Plan - Plan Referrals: Ema Del Toro, CASE MANAGEMENT RN [Primary Care Provider] -
--- NOTE | 2017-11-19 11:19 | Cardiology Progress Note ---
Date of Encounter: 11/19/17 Time of Encounter: 11:30 Assessment and Plan (1) Chest pain Current Visit: Yes Status: Acute Qualifiers: Chest pain type: unspecified Qualified Code(s): R07.9 - Chest pain, unspecified (2) Elevated troponin Current Visit: Yes Status: Acute (3) ESRD (end stage renal disease) Current Visit: Yes Status: Chronic Discussion w patient/family: 11/18/17 - Pt is ESRD on dialysis and here with a CHF exacerbation and pulmonary effusions. Her chest pain has now resolved. EKG showed some T wave flattening when compared to previous EKG from 10/22/17. Her troponins are elevated at 0.07, but this is near baseline for her. This is unlikely to be an NSTEMI without a significant increase in troponins and is more likely due to her volume overloaded state. Continue dialysis as scheduled and place patient on a salt restricted diet. Pt has also been hypertensive during her stay - restart home medications for BP management. We will restart the patient's home clonidine as missing this medication can cause rebound hypertension. 11/19/17 - Due to pts altered mental status and troponin increase from 0.07 to 0.26, we recommend trending the troponins until they reach a peak. We will also order a limited echo to determine heart function at this time. The assessment and plan as outlined above was discussed with the patient and/or family members who expressed understanding and agreement. All questions were answered. Thank you for involving us in the care of your patient. Please call with any questions. Subjective Principal diagnosis: chest pain Interval history: Pt sleeping comfortably when examined. in the room. States he visited her last night and she was not confused and was able to speak. She did not have any complaints at that time per . Today he was here when she was acting confused and unable to speak. He states she has never been like this before. Pt unable to answer questions due to her altered state. Objective Vital Signs, Last 4 Hours Temp Pulse Resp BP Pulse Ox 11/19/17 11:08 96.9 F L 67 18 205/74 96 General: No Apparent Distress HEENT: Atraumatic, Normocephaly, Mucus Membranes Moist Neck: No JVD, Normal carotid pulses Cardiac: Reg Rate and Rhythm, Normal S1 and S2, Other (Grade 4 systolic murmur) Lungs: Normal Breath Sounds, No Wheeze, Rales, Rhonchi Neuro: Other (unable to speak, sleeping but arousable) Abdomen: Soft, Non-Tender Skin: No rashes noted on visualized skin Musculoskeletal: No Chest Wall Tenderness Extremities: No Cyanosis, No Edema, Normal Pulses Results 11/19/17 01:01 11/19/17 01:01 Lab Results 11/18/17 11/19/17 11/19/17 13:25 01:01 01:01 WBC 3.6 L Hgb 8.2 L Hct 25.9 L Plt Count 121 L Sodium 139 Potassium 3.4 L Chloride 104 Carbon Dioxide 29 BUN 22 Creatinine 2.83 H Glucose 85 Calcium 8.4 L Troponin I 0.08 H* B-Natriuretic Peptide 11/19/17 11/19/17 11/19/17 01:01 01:01 10:17 WBC Hgb Hct Plt Count Sodium Potassium Chloride Carbon Dioxide BUN Creatinine Glucose Calcium Troponin I 0.14 H* 0.26 H* B-Natriuretic Peptide 3595 H - VTE Documentation of Mechanical Device: Intermittent pneumatic compression device Consult Discharge Plan - Plan Referrals: Ema Del Toro, INSPECTOR OF WEIGHTS AND MEASURES [Primary Care Provider] -
[2017-11-19] MEDS: *HR* Dextrose 50 % in Water (Syg) 50 ML SYRINGE IVP PRN (12:03)
[2017-11-19] MEDS: Insulin LISPRO 300 UNITS/3 ML VIAL SQ SCH ×3 (12:10→21:54)
[2017-11-19] MEDS ORDERED: D5% in 0.9% NACL 1,000 ML IVC ONE (13:42)
[2017-11-19] MEDS ORDERED: D5% in 0.9% NACL 1,000 ML IVC SCH (13:45)
[2017-11-19] MEDS: Aspirin Enteric Coated 81 MG Tablet PO SCH (18:03)
[2017-11-19] MEDS: amLODIPine 5 MG TABLET PO SCH (18:04)
[2017-11-19] MEDS: cloNIDine HCl 0.1 MG TABLET PO SCH ×3 (18:04→21:52)
[2017-11-19] MEDS: Isosorbide MONOnitrate (24 HR) 60 MG TAB.ER.24H PO SCH (18:04)
[2017-11-19] MEDS: hydrALAZINE 25 MG TABLET PO SCH ×3 (18:04→21:53)
[2017-11-19] MEDS: Insulin DETEMIR 100 UNIT/ML X5UNITS SQ SCH (21:54)
[2017-11-19] MEDS: Furosemide 40 MG/4 ML VIAL IVP SCH (22:57)
[2017-11-20] MEDS ORDERED: Nitroglycerin 0.4 MG TAB.SUBL SL ONE (04:26)
[2017-11-20 07:03] LABS: Basophils % 0.6 %; Hematocrit 28.2 % (35.3-44.9); Hemoglobin 8.9 g/dL (11.5-15.4); Immature Granulocytes % 0.6 % (0-4); Lymphocytes # 0.8 K/mcL (0.6-4.6); Lymphocytes % 25.8 %; Mean Corpuscular HGB Conc 31.6 g/dL (31.6-35.5); Mean Corpuscular Hemoglobin 30.1 pg (28.0-33.3); Mean Corpuscular Volume 95.3 fL (83.0-100.0); Mean Platelet Volume 9.3 fL (9.4-12.4); Monocytes # 0.4 K/mcL (0.0-1.3); Monocytes % 13.4 %; Neutrophils # 1.8 K/mcL (1.6-8.9); Platelet Count 114 K/mcL (140-400); Red Blood Count 2.96 M/mcL (3.82-4.97); Red Cell Distribution Width 15.6 % (11.5-14.5); Segmented Neutrophils % 58.6 %
[2017-11-20 07:30] LABS: Calcium 8.6 mg/dL (8.6-10.3); Potassium 3.2 mEq/L (3.5-5.1)
[2017-11-20] MEDS ORDERED: 0.9 % Sodium Chloride 250 ML IVC PRN (08:13)
[2017-11-20] MEDS ORDERED: 0.9 % Sodium Chloride 1,000 ML PRIME SCH (08:15)
--- NOTE | 2017-11-20 09:30 | Internal Med Progress Note ---
Hospitalist Progress Note - Encounter Date of Encounter: 11/20/17 Time of Encounter: 11:00 - Subjective Interval History: Patient this morning now alert and oriented 3 Patient getting close to baseline cognitively per family who is at the bedside Had long discussion with family at the bedside about goals of care including recommendations for consideration for palliative care. Patient did go for hemodialysis today per nephrology. - Exam Vitals: Temp Pulse Resp BP Pulse Ox 98.0 F 71 14 196/73 99 11/20/17 06:28 11/20/17 06:28 11/20/17 06:28 11/20/17 06:28 11/20/17 06:28 Exam: Gen.: Patient is alert and oriented 3 this morning and responding to commands ENT: Mucosal membranes moist Cardiovascular: Normal S1 and S2 regular rate rhythm no murmurs rubs or gallops Abdomen: Soft, nontender and nondistended with positive bowel sounds Extremities: No lower extremity edema Skin: Normal color - Assessment and Plan (1) Altered mental status Current Visit: No Status: Resolved Assessment and Plan: Resolved; suspect related to hypoglycemia which is being corrected Patient was hypoglycemic this morning with blood glucose of 43; she was given dextrose and recheck was 121 and blood glucose has been in the 70s to 80s since Stat CT of the head was ordered which did not show any acute intracranial abnormality. MRI was subsequently ordered did not show specifically any acute infarction. Continue to monitor (2) Chest pain Current Visit: Yes Status: Acute Assessment and Plan: Patient presented from [facility] complaining of chest pain Patient's troponins have continued to elevated 0.07->0.08->0.14->0.26->0.34 in the face of chronic kidney disease and elevated BNP Discussed in detail with Dr. Martin (chlorine cell tender) with recommendations for medical management and not to initiate ACS Protocol due to history of suspected GI bleed with occult positive stool due to the risk outweighing benefits with multiple comorbidities and age; patient also DNR CCA Recommendations to proceed with medical management (3) Elevated troponin Current Visit: Yes Status: Acute Assessment and Plan: As above (4) Diabetes Current Visit: No Status: Chronic Assessment and Plan: Patient with hypoglycemia which has now resolved Decrease basal insulin and half; will change Levemir 20 units to 10 units daily at bedtime (5) ESRD (end stage renal disease) Current Visit: Yes Status: Chronic Assessment and Plan: Serum creatinine this morning 3.39 from 2.83 yesterday Patient went to hemodialysis today per nephrology (6) (HFpEF) heart failure with preserved ejection fraction Current Visit: No Status: Acute Assessment and Plan: Patient with acute on chronic heart failure; elevated BNP of 3595 with bilateral pleural effusions on chest x-ray Requiring 2 L of nasal cannula Will give IV Lasix 40 mg twice daily on 11/19/17 and this morning on 11/20/17 Will discontinue IV diuresis and resume patient's oral dose of furosemide 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 per EMR report (9) Anemia in chronic kidney disease Current Visit: No Status: Chronic Assessment and Plan: Hemoglobin 8.9 today and was 8.2 yesterday Patient's baseline appears to be between 8 and 9 Continue to monitor DVT Prophylaxis: Patient with SCDs due to occult positive stool on 10/25/17 - Time Spent with Patient Total time spent is greater than 50% in coordination of care (as documented) at patient's floor/unit and/or counseling patient: Internal Medicine: Result - Labs CBC & Chem 7: 11/20/17 06:47 11/20/17 06:47 Labs: Short CBC 11/20/17 Range/Units 06:47 WBC 3.1 L (4.3-11.1) K/mcL Hgb 8.9 L (11.5-15.4) g/dL Hct 28.2 L (35.3-44.9) % Plt Count 114 L (140-400) K/mcL Neutrophils # 1.8 (1.6-8.9) K/mcL BMP 11/20/17 06:47 Sodium 142 Potassium 3.2 L Chloride 105 Carbon Dioxide 28 BUN 31 H Creatinine 3.39 H Glucose 118 H Calcium 8.6 Cardiac Enzymes 11/19/17 11/19/17 Range/Units 10:17 16:34 Troponin I 0.26 H* 0.34 H* (< 0.04) ng/mL - Impressions Impressions Head CT 08/31/18 09:39 IMPRESSION: 1. No acute intracranial abnormality. D/ / Alexsander Culp MD / Alexsander Culp MD Interpreting Provider: Alexsander Culp MD Brain MRI 11/19/17 11:02 IMPRESSION: 1. No acute intracranial abnormality. Specifically, no acute infarction. 2. Diffuse parenchymal volume loss and sequela of chronic microvascular ischemic changes. 3. Paranasal sinus mucosal disease. Fluid in the mastoid air cells may be congestive. D/ / Akhil Adams MD / Akhil Adams MD Interpreting Provider: Akhil Adams MD Echocardiogram Limited Views 11/19/17 11:19 Impressions: LVEF 65-70%. Normal LV chamber size and function. Mild concentric left ventricular hypertrophy. Atypical septal motion consistent with post-operative status. Left Ventricular Wall Motion: Rest Echo Findings All wall segments showed normal motion. Findings: Study Quality * Technically adequate exam. ECG Findings * Normal sinus rhythm. Left Ventricle * LVEF 65-70%. * Normal LV chamber size and function. * Mild concentric left ventricular hypertrophy. * Atypical septal motion consistent with post-operative status. Right Ventricle * Normal right ventricular structure and function. Aorta * Normally sized aortic root. Pericardium * There is a trivial pericardial effusion present. - VTE Documentation of Mechanical Device: Intermittent pneumatic compression device Consult Discharge Plan - Plan Referrals: Ema Del Toro, PUBLIC HEALTH EDUCATOR [Primary Care Provider] - (1) Altered mental status Qualifiers: Altered mental status type: unspecified Qualified Code(s): R41.82 - Altered mental status, unspecified (2) Chest pain Qualifiers: Chest pain type: unspecified Qualified Code(s): R07.9 - Chest pain, unspecified (4) Diabetes Qualifiers: Diabetes mellitus type: type 2 Diabetes mellitus rodent exterminator insulin use: with rodent exterminator use Diabetes mellitus complication status: with hyperglycemia Qualified Code(s): E11.65 - Type 2 diabetes mellitus with hyperglycemia; Z79.4 - care home (current) use of insulin (9) Anemia in chronic kidney disease Qualifiers: Chronic kidney disease stage: stage 5, not on chronic dialysis Qualified Code (s): N18.5 - Chronic kidney disease, stage 5; D63.1 - Anemia in chronic kidney disease
[2017-11-20] MEDS: Insulin LISPRO 300 UNITS/3 ML VIAL SQ SCH ×4 (09:43→20:29)
[2017-11-20] MEDS: cloNIDine HCl 0.1 MG TABLET PO SCH ×3 (09:44→20:31)
[2017-11-20] MEDS: Furosemide 40 MG/4 ML VIAL IVP SCH (09:44)
[2017-11-20] MEDS: hydrALAZINE 25 MG TABLET PO SCH ×3 (09:44→20:31)
--- NOTE | 2017-11-20 09:54 | Cardiology Progress Note ---
Date of Encounter: 11/20/17 Time of Encounter: 08:00 Assessment and Plan (1) Elevated troponin Current Visit: Yes Status: Acute Elevated troponin in the setting of ESRD, volume overload, and poorly controlled blood pressure; doubt ACS. No significant ECG changes appreciated. Of note, patient appears to have chronically elevated troponin. Reproducible chest pain on exam. Patient was noted to have AMS yesterday; MRI negative for acute findings. Of note, was found to have hypoglycemia (glucose in the 40's) which may have attributed to symptoms. Repeat limited TTE showed preserved LVEF (60-65%) with normal wall motion. Patient is frail, resides in SNF, and DNRCC-DNI; recommend continued medical therapy. Discussed with son, prefers only medical management. Continue current CV medications; recommend improved BP control. Volume mgmt per HD. No further inpatient recommendations. Do not recommend continued measurement of troponin. Cardiology will sign-off. (2) ESRD (end stage renal disease) on dialysis Current Visit: Yes Status: Acute Discussion w patient/family: The assessment and plan as outlined above was discussed with the patient and/or family members who expressed understanding and agreement. All questions were answered. Thank you for involving us in the care of your patient. Please call with any questions. The patient was discussed and reviewed with Dr. Martin; no further inpatient recommendations. Subjective Principal diagnosis: AMS, chest pain Interval history: Seen and examined. Son at bedside. Patient is alert this morning, responds to simple verbal commands appropriately. C/o chest discomfort--reproducible upon exam. Results of TTE and plan of care discussed with patient and son. Objective Vital Signs, Last 4 Hours Temp Pulse Resp BP Pulse Ox 11/20/17 06:28 98.0 F 71 14 196/73 99 General: Conversant (alert to self), No Apparent Distress HEENT: Atraumatic, Normocephaly Cardiac: Reg Rate and Rhythm, Normal S1 and S2, Other (systolic 3/6 murmur) Lungs: Normal Breath Sounds Neuro: Alert and responsive Abdomen: Soft Skin: No rashes noted on visualized skin Musculoskeletal: No Chest Wall Tenderness Extremities: No Edema, Normal Pulses Results 11/20/17 06:47 11/20/17 06:47 Lab Results 11/19/17 11/19/17 11/20/17 10:17 16:34 06:47 WBC 3.1 L Hgb 8.9 L Hct 28.2 L Plt Count 114 L Sodium Potassium Chloride Carbon Dioxide BUN Creatinine Glucose Calcium Troponin I 0.26 H* 0.34 H* 11/20/17 06:47 WBC Hgb Hct Plt Count Sodium 142 Potassium 3.2 L Chloride 105 Carbon Dioxide 28 BUN 31 H Creatinine 3.39 H Glucose 118 H Calcium 8.6 Troponin I Active Medications Acetaminophen (Tylenol) 650 mg PO Q4HR PRN PRN Reason: Pain/Fever Stop: 05/20/18 18:34 Amlodipine Besylate (Norvasc) 10 mg PO DAILY [facility] Stop: 05/21/18 09:01 Last Admin: 11/19/17 18:04 Dose: Not Given Aspirin (Aspirin Ec) 81 mg PO DAILY [facility] Stop: 05/21/18 09:01 Last Admin: 11/19/17 18:03 Dose: Not Given Atorvastatin Calcium (Lipitor) 40 mg PO HS LOVE Stop: 05/20/18 21:01 Last Admin: 11/19/17 21:52 Dose: 40 mg Cilostazol (Pletal) 100 mg PO BID LOVE Stop: 05/20/18 21:01 Last Admin: 11/19/17 21:52 Dose: 100 mg Clonidine HCl (Clonidine Hcl) 0.2 mg PO TID [facility] Stop: 05/20/18 15:01 Last Admin: 11/20/17 09:44 Dose: Not Given Dextrose/Water (Dextrose 50% (Syg)) 25 ml IVP AD PRN PRN Reason: Hypoglycemia Stop: 05/20/18 04:42 Last Admin: 11/19/17 12:03 Dose: 25 ml Furosemide (Lasix) 40 mg IVP BIDDIURETIC [facility] Stop: 05/21/18 21:01 Last Admin: 11/20/17 09:44 Dose: Not Given Glucagon (Glucagen) 1 mg IM ONCE PRN PRN Reason: Hypoglycemia Stop: 05/20/18 04:42 Glucose (Gluctose) 15 gm PO ONCE PRN PRN Reason: Hypoglycemia Stop: 05/20/18 04:42 Glucose (Gluctose) 30 gm PO ONCE PRN PRN Reason: Hypoglycemia Stop: 05/20/18 04:42 Hydralazine HCl (Hydralazine) 25 mg PO TID LOVE Stop: 05/20/18 21:01 Last Admin: 11/20/17 09:44 Dose: Not Given Hydralazine HCl (Hydralazine) 10 mg IVP Q4HR PRN PRN Reason: SBP >200 or DBP > 100 Stop: 05/21/18 20:01 Last Admin: 11/19/17 18:20 Dose: 10 mg Dextrose (Dextrose 5%) 1,000 mls @ 100 mls/hr IVC .Q10H PRN PRN Reason: HYPOGLYCEMIA Stop: 05/20/18 04:42 Sodium Chloride (0.9 % Sodium Chloride) 250 mls @ 937.5 mls/hr IVC .Q16M PRN PRN Reason: Hypotension Stop: 05/22/18 08:14 Sodium Chloride (0.9 % Sodium Chloride) 1,000 mls @ 0 mls/hr PRIME .Q0M LOVE PRN Reason: As Directed Stop: 05/22/18 08:16 Insulin Detemir (Levemir) 20 unit SQ HS [facility] Stop: 05/20/18 21:01 Last Admin: 11/19/17 21:54 Dose: Not Given Insulin Human Lispro (Humalog) 0 units SQ TIDAC LOVE PRN Reason: Protocol Stop: 05/20/18 07:31 Last Admin: 11/20/17 09:43 Dose: Not Given Insulin Human Lispro (Humalog) 0 units SQ HS LOVE PRN Reason: Protocol Stop: 05/20/18 21:01 Last Admin: 11/19/17 21:54 Dose: Not Given Isosorbide Mononitrate (Imdur) 180 mg PO DAILY [facility] Stop: 05/21/18 09:34 Last Admin: 11/19/17 18:04 Dose: Not Given Labetalol HCl (Trandate) 200 mg PO BID [facility] Stop: 05/20/18 21:01 Last Admin: 11/19/17 21:53 Dose: 200 mg Losartan Potassium (Cozaar) 100 mg PO DAILY [facility] Stop: 05/21/18 09:01 Last Admin: 11/19/17 18:04 Dose: Not Given Naloxone HCl (Narcan) 0.4 mg IVP Q2MIN PRN PRN Reason: SEE COMMENTS Stop: 05/20/18 04:32 Polysaccharide Iron Complex (Ferrex 150) 150 mg PO DAILY [facility] Stop: 05/22/18 09:01 - Imaging and Cardiology Echo: report reviewed - EKG Interpretation EKG results cardiology: personally reviewed - VTE Documentation of Mechanical Device: Intermittent pneumatic compression device Consult Discharge Plan - Plan Referrals: Ema Del Toro, PETROLEUM INSPECTOR SUPERVISOR [Primary Care Provider] -
--- NOTE | 2017-11-20 10:14 | Nephrology Progress Note ---
Date of Encounter: 11/20/17 Time of Encounter: 10:40 - Assessment and Plan (1) ESRD (end stage renal disease) on dialysis Current Visit: Yes Status: Chronic Typically ESRD on HD MWF, but yesterday she was having acute neurological changes so I postponed HD to today (Wednesday) Gentle dialysis ordered for today, with a higher K+ bath to help correct the mild hypokalemia. Will provide clearance and UF to help maintain her volume status. (2) CHF (congestive heart failure) Current Visit: Yes Status: Chronic UF today with HD. Qualifiers: Heart failure type: unspecified Heart failure chronicity: acute on chronic Qualified Code(s): I50.9 - Heart failure, unspecified (3) Chest pain Current Visit: Yes Status: Acute As per primary/Cardio Qualifiers: Chest pain type: unspecified Qualified Code(s): R07.9 - Chest pain, unspecified (4) Altered mental status, unspecified Current Visit: Yes Status: Acute I had postponed HD from Wednesday to Wednesday. Qualifiers: Qualified Code(s): R41.82 - Altered mental status, unspecified Subjective Principal diagnosis: AMS, chest pain Interval history: Pt was s/e and she was slow to communicate, but she did not affirm N/V/D or cramping while seen on dialysis. Objective - Vital Signs Vital signs: Vital Signs Temp Pulse Resp BP Pulse Ox 11/20/17 06:28 98.0 F 71 14 196/73 99 11/20/17 05:31 109/65 11/20/17 05:20 168/69 11/20/17 05:17 168/66 11/20/17 03:29 98.5 F 73 17 178/61 97 11/19/17 23:18 98 F 71 17 164/72 98 11/19/17 20:03 97.8 F 75 17 207/74 98 11/19/17 19:19 75 183/68 99 11/19/17 18:26 74 20 213/79 11/19/17 18:10 213/79 11/19/17 16:54 97.6 F 71 16 217/91 98 11/19/17 11:08 96.9 F L 67 18 205/74 96 Intake and Output 11/19/17 11/20/17 11/20/17 23:59 07:59 15:59 Other: Stool Size Small Stool Consistency liquid # Voids 0 # Urine Diapers 1 # Bowel Movement Diapers 1 Blood Glucose* 124 112 116 - General Appearance General appearance: Present: chronically ill, fatigue, frail EENT: Present: ATNC, PERRL, mucous membranes dry Neck: Present: supple Respiratory: Present: clear Cardiology: Present: no edema, normal S1, normal S2 Dialysis Vascular Access: Arteriovenous Fistula thrill: Yes bruit: Yes Gastrointestinal: Present: normoactive bowel sounds, no tenderness, no guarding Integumentary: Present: warm and dry Neurologic: Present: no asterixis Musculoskeletal: Present: no clubbing Psychiatric: Present: cooperative - Lab 11/22/17 03:00 11/22/17 03:00 Most recent lab results Calcium 8.6 mg/dL (8.6-10.3) 11/20/17 06:47 - VTE Documentation of Mechanical Device: Intermittent pneumatic compression device Consult Discharge Plan - Plan Referrals: Ema Del Toro, CHANNEL REBUILDER [Primary Care Provider] -
[2017-11-20] MEDS: Iron Polysaccharide Complex 150 MG CAPSULE PO SCH (12:56)
[2017-11-20] MEDS: amLODIPine 5 MG TABLET PO SCH (12:56)
[2017-11-20] MEDS: Aspirin Enteric Coated 81 MG Tablet PO SCH (12:56)
[2017-11-20] MEDS: Isosorbide MONOnitrate (24 HR) 60 MG TAB.ER.24H PO SCH (12:58)
[2017-11-20] MEDS: Insulin DETEMIR 100 UNIT/ML X5UNITS SQ SCH (20:31)
--- NOTE | 2017-11-21 03:19 | Event Note ---
Date of Encounter: 11/21/17 Time of Encounter: 03:17 The papatient had an acute change in her mental status as per RN, noted to no longer be oriented and not moving her right extremities. The patient's chart is reviewed and notable for fluctuating episodes of AMS. On my physical assessment of the patient, she had normal vitals signs and was in no distress. Her speech was somewhat mumbled but appropriate. There was minimal movement of her right extremities however she retained capacity on her left side. Glycemia ok. Repeat CT head obtained is unremarkable. Will continue clinical monitoring and neurochecks. No urgent intervention at this time.
[2017-11-21 03:41] LABS: Basophils % 0.3 %; Eosinophils % 1.2 %; Hematocrit 27.2 % (35.3-44.9); Hemoglobin 8.5 g/dL (11.5-15.4); Immature Granulocytes % 0.3 % (0-4); Lymphocytes # 1.1 K/mcL (0.6-4.6); Mean Corpuscular HGB Conc 31.3 g/dL (31.6-35.5); Mean Corpuscular Hemoglobin 29.6 pg (28.0-33.3); Mean Corpuscular Volume 94.8 fL (83.0-100.0); Monocytes # 0.4 K/mcL (0.0-1.3); Monocytes % 13.3 %; Neutrophils # 1.8 K/mcL (1.6-8.9); Platelet Count 105 K/mcL (140-400); Red Blood Count 2.87 M/mcL (3.82-4.97); Red Cell Distribution Width 15.6 % (11.5-14.5); Segmented Neutrophils % 52.9 %
[2017-11-21 04:00] LABS: Calcium 8.4 mg/dL (8.6-10.3); Potassium 3.4 mEq/L (3.5-5.1)
[2017-11-21] MEDS: Insulin LISPRO 300 UNITS/3 ML VIAL SQ SCH ×4 (08:04→22:24)
[2017-11-21] MEDS: Isosorbide MONOnitrate (24 HR) 60 MG TAB.ER.24H PO SCH (08:05)
[2017-11-21] MEDS: Furosemide 40 MG TABLET PO SCH (08:06)
[2017-11-21] MEDS: Aspirin Enteric Coated 81 MG Tablet PO SCH (08:06)
[2017-11-21] MEDS: amLODIPine 5 MG TABLET PO SCH (08:06)
[2017-11-21] MEDS: Iron Polysaccharide Complex 150 MG CAPSULE PO SCH (08:06)
[2017-11-21] MEDS: Acetaminophen 325 MG TABLET PO PRN ×2 (08:06→17:11)
[2017-11-21] MEDS: hydrALAZINE 25 MG TABLET PO SCH ×3 (08:06→22:24)
[2017-11-21] MEDS: cloNIDine HCl 0.1 MG TABLET PO SCH ×3 (08:06→22:24)
--- NOTE | 2017-11-21 08:36 | Event Note ---
Date of Encounter: 11/21/17 Time of Encounter: 08:35 Nephrology Chart Review Biochemically stable. Will reassess tomorrow (Wednesday).
--- NOTE | 2017-11-21 09:33 | Internal Med Progress Note ---
Hospitalist Progress Note - Encounter Date of Encounter: 11/21/17 Time of Encounter: 11:00 - Subjective Interval History: Per EMR review, patient had an episode and change in mental status Patient evaluated by nocturnalist overnight and was determined that there was no indication for emergent intervention Patient alert and oriented 3 on exam this afternoon with family present at bedside - Exam Vitals: Temp Pulse Resp BP Pulse Ox 99.1 F 65 16 165/61 95 11/21/17 07:42 11/21/17 07:42 11/21/17 07:42 11/21/17 07:42 11/21/17 07:42 Exam: Gen.: Patient is alert and oriented 3 this morning and responding to commands ENT: Mucosal membranes moist Cardiovascular: Normal S1 and S2 regular rate rhythm no murmurs rubs or gallops Abdomen: Soft, nontender and nondistended with positive bowel sounds Extremities: No lower extremity edema Skin: Normal color - Assessment and Plan (1) Altered mental status Current Visit: No Status: Resolved Assessment and Plan: Patient had another episode of change in mental status overnight and was evaluated by nocturnalist and was determined that no emergent intervention was needed Stat CT of the head showed no acute intracranial abnormalities Patient had a prior episode of change in mental status and was suspected to be due to hypoglycemia; Stat CT of the head at that particular time did not show any acute intracranial abnormality and MRI did not show specifically any acute infarction. Neurology consult with recommendations for repeat MRI scan of the brain with diffusion images in addition to carotid Doppler study Further recommendations to start patient on Plavix (2) Chest pain Current Visit: Yes Status: Acute Assessment and Plan: Patient presented from [facility] complaining of chest pain Patient's troponins have continued to elevated 0.07->0.08->0.14->0.26->0.34 in the face of chronic kidney disease and elevated BNP Discussed in detail with Dr. Martin (digital strategist) with recommendations for medical management and not to initiate ACS Protocol due to history of suspected GI bleed with occult positive stool due to the risk outweighing benefits with multiple comorbidities and age; patient also DNR [facility] Recommendations to proceed with medical management (3) Elevated troponin Current Visit: Yes Status: Acute Assessment and Plan: As above (4) Diabetes Current Visit: No Status: Chronic Assessment and Plan: Patient with hypoglycemia which has now resolved Basal insulin was decreased to Levemir 10 units daily at bedtime on 11/20/17 and blood glucose this morning (11/21/17) was 109 Continue to monitor (5) ESRD (end stage renal disease) Current Visit: Yes Status: Chronic Assessment and Plan: Renal function stable; serum creatinine as follows: Scr 2.22->2.83->3.39->2.71 Nephrology following with recommendations to reassess on 11/22/17 (6) (HFpEF) heart failure with preserved ejection fraction Current Visit: No Status: Acute Assessment and Plan: Patient with acute on chronic heart failure; elevated BNP of 3595 with bilateral pleural effusions on chest x-ray Requiring 2 L of nasal cannula Will give IV Lasix 40 mg twice daily on 11/19/17 in the morning of 11/20/17 Patient currently on home dose of oral furosemide 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 per EMR report (9) Anemia in chronic kidney disease Current Visit: No Status: Chronic Assessment and Plan: Hemoglobin appears to be stable:9.0->8.2->8.9->8.5 Patient's baseline appears to be between 8 and 9 Continue to monitor - Time Spent with Patient Total time spent is greater than 50% in coordination of care (as documented) at patient's floor/unit and/or counseling patient: Internal Medicine: Result - Labs CBC & Chem 7: 11/21/17 02:55 11/21/17 02:55 Labs: Short CBC 11/21/17 Range/Units 02:55 WBC 3.3 L (4.3-11.1) K/mcL Hgb 8.5 L (11.5-15.4) g/dL Hct 27.2 L (35.3-44.9) % Plt Count 105 L (140-400) K/mcL Neutrophils # 1.8 (1.6-8.9) K/mcL BMP 11/21/17 02:55 Sodium 142 Potassium 3.4 L Chloride 104 Carbon Dioxide 32 H BUN 25 H Creatinine 2.71 H Glucose 109 H Calcium 8.4 L - Impressions Impressions Head CT 11/21/17 00:55 IMPRESSION: 1. No acute intracranial abnormality. 2. Mild global parenchymal volume loss. 3. Atherosclerosis. D/ / Anthony Perkins MD / Anthony Perkins MD Interpreting Provider: Anthony Perkins MD - VTE Reasons for not Prescribing Prophylaxis: Medical contraindication Documentation of Mechanical Device: Intermittent pneumatic compression device Consult Discharge Plan - Plan Referrals: Ema Del Toro, WASHCOAT WIPER [Primary Care Provider] - (1) Altered mental status Qualifiers: Altered mental status type: unspecified Qualified Code(s): R41.82 - Altered mental status, unspecified (2) Chest pain Qualifiers: Chest pain type: unspecified Qualified Code(s): R07.9 - Chest pain, unspecified (4) Diabetes Qualifiers: Diabetes mellitus type: type 2 Diabetes mellitus sports media insulin use: with fdc use Diabetes mellitus complication status: with hyperglycemia Qualified Code(s): E11.65 - Type 2 diabetes mellitus with hyperglycemia; Z79.4 - coffin maker (current) use of insulin (9) Anemia in chronic kidney disease Qualifiers: Chronic kidney disease stage: stage 5, not on chronic dialysis Qualified Code (s): N18.5 - Chronic kidney disease, stage 5; D63.1 - Anemia in chronic kidney disease
--- NOTE | 2017-11-21 16:11 | Neurology - Consult Note ---
Date of Encounter: 11/21/17 Time of Encounter: 16:08 Assessment and Plan (1) Right sided weakness Current Visit: Yes Status: Acute Given this patient's medical history and her risk factors one is certainly concerned about the likelihood of a left cerebral hemispheric acute vascular lesion. She did have an MRI scan of the brain 2 days ago which was unrevealing. However she has a fairly dense weakness of the right upper and right lower extremity that has not been documented up until now. However she has fairly good speech, she is a bit slow to respond and this may be secondary to a multitude of factors including perhaps a ing, medication effect, metabolic factors. I see no reason at this point to suspect a central nervous system infectious process. I did review the most recent MRI scan of the brain, as well as the CT scan of the head. With all than a minor would still like to repeat an MRI scan of the brain with diffusion images to rule out an acute left hemispheric infarct. We will also order carotid Doppler study I would also recommend starting her on Plavix at this time instead of aspirin. I recommend nursing protocol orders for stroke. I anticipate reevaluating her tomorrow. History of Present Illness HPI: The chart was reviewed, the patient was seen and examined. Case was discussed with the hospitalist Dr. Kilpatrick. Ms. Giles is a 87 year old female who has multiple chronic illnesses including hypertension, hyperlipidemia, diabetes mellitus, kidney failure requiring dialysis. Valvular heart disease, coronary artery disease and previous strokes. More recently she was hospitalized secondary to congestive heart failure complicated by her renal disease. She has had waxing and waning levels of consciousness since admission. She did have an MRI scan of the head completed on November 19 which did not show evidence of acute ischemia. However today she does have quite evident right hemiparesis which was not present previously. This was pointed out to me by one of the family members. She also had a CT scan of the head yesterday which was unrevealing other than significant atrophy and chronic deep white matter change. She is awake, she is a bit drowsy however follow some simple commands. She is not able to give a complete history of her own medical account. 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 Psychiatric history: no psych history - Past Surgical History Surgical History: coronary bypass (CABG), hysterectomy, other Additional surgical history: fistula left arm - Social History Smoking Status: Never smoker Smokeless Tobacco Status: No Alcohol use: none Drug use: none - Family History Mother Living Status: Hx Family Cardiac Disorders: Yes (CVA, SD) Father Living Status: Hx Family Cardiac Disorders: Yes Medications and Allergies Iron Ps Complex/B12/Folic Acid [Iferex 150 Forte Capsule] 1 cap PO BID 04/11/15 [History] Losartan Potassium [Cozaar] 100 mg PO DAILY 04/11/15 [History] Cilostazol [Pletal] 100 mg PO BID #0 07/09/15 [History] Atorvastatin [Lipitor] 40 mg PO HS #30 tablet 10/11/15 [Rx] Furosemide [Lasix] 40 mg PO DAILY #30 tablet 10/11/15 [Rx] Labetalol [Trandate] 200 mg PO BID #60 tablet 05/22/17 [Rx] Aspirin [Lo-Dose Aspirin EC] 81 mg PO DAILY 10/07/17 [History] cloNIDine HCl [Clonidine HCl] 0.2 mg PO TID 10/07/17 [History] Amlodipine Besylate 10 mg PO DAILY 10/22/17 [History] Glucagon,Human Recombinant [Glucagon Emergency Kit] 1 mg IJ ONCE PRN 10/22/17 [ History] Hydralazine HCl 50 mg PO TID 10/22/17 [History] Insulin Glargine,Hum.rec.anlog [Basaglar Kwikpen U-100] 20 unit SQ HS 10/22/17 [ History] hydrALAZINE [HydrALAZINE] 25 mg PO TID 10/22/17 [History] Acetaminophen [Tylenol] 650 mg PO Q4HR PRN 11/18/17 [History] Insulin LISPRO [HumaLOG] 0 - 12 units SQ ACHS 11/18/17 [History] Isosorbide MONOnitrate (24 HR) [Imdur] 60 mg PO DAILY 11/18/17 [History] Isosorbide MONOnitrate [Isosorbide Mononitrate ER] 120 mg PO DAILY 11/18/17 [ History] 3 Allergy/AdvReac Type Severity Reaction Status Date / Time celecoxib [From Celebrex] AdvReac Nausea Verified 11/18/17 00:39 All Systems: The remainder of the systems were reviewed and are negative Review of Systems: The balance of the systems review is negative. Physical Examination - Vital Signs Vital Signs: Initial Vital Signs Temp Pulse Resp BP Pulse Ox 97.9 F 74 26 183/68 99 11/18/17 00:28 11/18/17 00:28 11/18/17 00:28 11/18/17 00:28 11/18/17 00:28 - Neurologic Detailed motor examination: other (Patient moves the left upper and left lower extremities freely. She has paucity of movement of the right upper extremity and right lower extremities. She has decreased tone of the right upper extremity. Drywall Foreman strength of the right upper extremity is very weak.) Detailed sensory examination: other (Patient has decreased sensation to light touch of the right upper and right lower extremity.) Reflexes: Biceps: 2+ (Symmetrically), Triceps: 2+ (Symmetrically), Brachioradialis: 2+ (Symmetrically), Achilles: 0 (Absent symmetrically.) Mental Status Examination: awake (Patient is awake, she is alert to the examiner. She does make eye contact with the examiner. She is not however able to give a concise history of her present illness. She has some bradyphrenia. She follows some commands but not all. She is not oriented to place as she thought she was home, she is not oriented to time. She is aware of certain relatives are present and is able to recall their names and their relationships to her. She seems to be a bit groggy however not encephalopathic. ), oriented to person Cranial nerve examination: PERRL, EOMI, sensory to face intact, mastication intact, no facial asymmetry is present, no dysarthria Results - Laboratory Findings CBC and BMP: 11/21/17 02:55 11/21/17 02:55 Abnormal lab findings: Abnormal lab results WBC 3.3 K/mcL (4.3-11.1) L 11/21/17 02:55 RBC 2.87 M/mcL (3.82-4.97) L 11/21/17 02:55 Hgb 8.5 g/dL (11.5-15.4) L 11/21/17 02:55 Hct 27.2 % (35.3-44.9) L 11/21/17 02:55 MCHC 31.3 g/dL (31.6-35.5) L 11/21/17 02:55 RDW 15.6 % (11.5-14.5) H 11/21/17 02:55 Plt Count 105 K/mcL (140-400) L 11/21/17 02:55 MPV 9.0 fL (9.4-12.4) L 11/21/17 02:55 Potassium 3.4 mEq/L (3.5-5.1) L 11/21/17 02:55 Carbon Dioxide 32 mEq/L (23-29) H 11/21/17 02:55 BUN 25 mg/dL (8-23) H 11/21/17 02:55 Creatinine 2.71 mg/dL (0.60-1.20) H 11/21/17 02:55 Est GFR ( Amer) 20 (> 60) L 11/21/17 02:55 Est GFR (Non-Af Amer) 17 (> 60) L 11/21/17 02:55 Glucose 109 mg/dL (70-105) H 11/21/17 02:55 POC Glucose 141 mg/dL (70-99) H 11/21/17 11:29 Calcium 8.4 mg/dL (8.6-10.3) L 11/21/17 02:55 Troponin I 0.34 ng/mL (< 0.04) H* 11/19/17 16:34 B-Natriuretic Peptide 3595 pg/mL (Less than 100) H 11/19/17 01:01 Consult Discharge Plan - Plan Referrals: Ema Del Toro, TENNIS INSTRUCTOR [Primary Care Provider] -
--- NOTE | 2017-11-21 19:58 | Event Note ---
Date of Encounter: 11/21/17 Time of Encounter: 19:45 Alerted by pts. nurse ADITI Blount that [facility] had contacted her about this patient with MRI results which showed acute infarction in the left parietal periventricular white matter extending to the posterior aspect of the right basal ganglia, new since 11/19/2017. Question of a tiny focus of acute infarction in the inferior right frontal lobe, new since the prior study. Mild parenchymal volume loss. Mild chronic microvascular disease. Notified Dr. Zambrano of Neurology results w/recommendation for bilateral carotid Dopplers, stop aspirin, start Xarelto 75 mg daily, and start stroke protocol. Pt. to be monitored closely.
[2017-11-22] MEDS: Insulin DETEMIR 100 UNIT/ML X5UNITS SQ SCH ×2 (00:06→23:27)
[2017-11-22 03:14] LABS: Basophils % 0.7 %; Red Cell Distribution Width 15.7 % (11.5-14.5)
[2017-11-22 03:16] LABS: Eosinophils # 0.1 K/mcL (0.0-0.6); Eosinophils % 1.6 %; Hemoglobin 8.1 g/dL (11.5-15.4); Immature Platelets 0.9 % (1.1-6.1); Lymphocytes % 34.1 %; Mean Corpuscular HGB Conc 31.2 g/dL (31.6-35.5); Mean Corpuscular Hemoglobin 29.6 pg (28.0-33.3); Mean Corpuscular Volume 94.9 fL (83.0-100.0); Mean Platelet Volume 9.1 fL (9.4-12.4); Monocytes # 0.4 K/mcL (0.0-1.3); Monocytes % 12.5 %; Neutrophils # 1.6 K/mcL (1.6-8.9); Platelet Count 109 K/mcL (140-400); Red Blood Count 2.74 M/mcL (3.82-4.97); Segmented Neutrophils % 51.1 %
[2017-11-22 03:19] LABS: Lymphocytes # 1.1 K/mcL (0.6-4.6)
[2017-11-22 03:35] LABS: Calcium 8.3 mg/dL (8.6-10.3); Potassium 3.5 mEq/L (3.5-5.1)
[2017-11-22 03:36] LABS: ABG Base Excess 11 mEq/L (-2 to 3); ABG HCO3 36 mEq/L (21-27); ABG Oxygen Saturation 99 % (95-98); ABG PCO2 50 mmHg (35-45); ABG PH 7.46 pH Units (7.32-7.45); ABG PO2 111 mmHg (85-104); ABG TCO2 37 mEq/L (20-26)
[2017-11-22] MEDS ORDERED: 0.9 % Sodium Chloride 1,000 ML IVC SCH (04:45)
[2017-11-22] MEDS ORDERED: 0.9 % Sodium Chloride 250 ML IVC PRN (07:07)
--- NOTE | 2017-11-22 07:10 | Event Note ---
Date of Encounter: 11/22/17 Time of Encounter: 02:30 Contacted by nurse due to a reported acute change in patient's mental status. According to the nurse, patient was verbal and responding to commands around 12 AM. When she came back around 2 AM patient was somewhat difficult to arouse and nonverbal. Vitals at the time or relatively stable except for mildly elevated blood pressure of 185/77. Patient was found to be somnolent with difficulty opening her eyes to sternal rub. Stat repeat blood work was ordered which was unremarkable. Repeat CT scan of the head which was unchanged. Neurochecks increased to every hour.
[2017-11-22] MEDS: *HR* Dextrose 50 % in Water (Syg) 50 ML SYRINGE IVP PRN (07:42)
[2017-11-22] MEDS: Insulin LISPRO 300 UNITS/3 ML VIAL SQ SCH ×4 (07:47→23:27)
--- NOTE | 2017-11-22 08:52 | Nephrology Progress Note ---
Date of Encounter: 11/22/17 Time of Encounter: 11:00 - Assessment and Plan (1) ESRD (end stage renal disease) on dialysis Current Visit: Yes Status: Chronic Typically ESRD on HD MWF, and so today is her day to resume HD. I had already actually ordered her dialysis, however with her ongoing AMS being an issue ( plus I see that the most recent MRI did suggest stroke), so I have canceled today's dialysis treatment. Will reassess tomorrow. Given her deteriorating situation, I would recommend consultation with Palliative Care. Discussed with the Hospitalist, in that I had reviewed some options for the pt including resuming HD or pursuing Hospice. My colleague Dr. Petit will be on-call tomorrow. Thank you. (2) Altered mental status, unspecified Current Visit: Yes Status: Acute I had postponed HD from Wednesday to Wednesday. Will postpone again today (Wednesday). See above. Qualifiers: Qualified Code(s): R41.82 - Altered mental status, unspecified Subjective Principal diagnosis: AMS, chest pain Interval history: Pt was s/e and she was slow to communicate. She was seen in her 2A room and many of her relatives were present including her , adult sons, and grandchildren. Objective - Vital Signs Vital signs: Vital Signs Temp Pulse Resp BP Pulse Ox 11/22/17 08:02 99.0 F 67 19 185/68 97 11/22/17 05:15 98.5 F 63 16 185/69 100 11/22/17 03:39 98.9 F 63 16 185/86 100 11/22/17 03:24 178/65 11/22/17 03:09 180/69 11/22/17 02:30 99.3 F 65 16 185/77 100 11/21/17 23:32 98.7 F 67 15 178/66 98 11/21/17 20:15 98.6 F 68 15 179/70 93 11/21/17 16:06 98.5 F 68 14 147/55 100 11/21/17 11:36 98.2 F 62 14 148/53 95 Intake and Output 11/21/17 11/22/17 11/22/17 23:59 07:59 15:59 Intake Total 0 / 0 Balance 0 / 0 Intake: Oral 0 / 0 Other: Meal Dinner Percent of Meal Consumed 30% Stool Size Smear Stool Consistency soft Stool Color Brown # Voids 1 # Urine Diapers 1 # Bowel Movements 1 Weight 72.2 kg Blood Glucose* 175 64 75 - General Appearance General appearance: Present: cachectic, chronically ill, fatigue, frail EENT: Present: ATNC, mucous membranes dry Neck: Present: supple Cardiology: Present: holosystolic murmur, no edema, regular rate, normal S1, normal S2 Dialysis Vascular Access: Arteriovenous Fistula (LUE AVF) thrill: Yes bruit: Yes Gastrointestinal: Present: normoactive bowel sounds, no tenderness, no guarding Integumentary: Present: warm and dry Neurologic: Present: confused, disoriented Musculoskeletal: Present: no cyanosis, no clubbing - Lab 11/22/17 03:00 11/22/17 03:00 Most recent lab results ABG pH 7.46 pH Units (7.32-7.45) H 11/22/17 03:31 ABG pCO2 50 mmHg (35-45) H 11/22/17 03:31 ABG pO2 111 mmHg (85-104) H 11/22/17 03:31 ABG HCO3 36 mEq/L (21-27) H 11/22/17 03:31 ABG O2 Saturation 99 % (95-98) H 11/22/17 03:31 Calcium 8.3 mg/dL (8.6-10.3) L 11/22/17 03:00 - VTE Reasons for not Prescribing Prophylaxis: Medical contraindication Documentation of Mechanical Device: Intermittent pneumatic compression device Consult Discharge Plan - Plan Referrals: Ema Del Toro, SOAKER [Primary Care Provider] -
[2017-11-22] MEDS: D5% in 0.9% NACL 1,000 ML IVC SCH (10:52)
[2017-11-22] MEDS: cloNIDine HCl 0.1 MG TABLET PO SCH ×3 (11:34→23:27)
[2017-11-22] MEDS: hydrALAZINE 25 MG TABLET PO SCH ×3 (11:38→23:28)
[2017-11-22] MEDS: Furosemide 40 MG TABLET PO SCH (11:39)
[2017-11-22] MEDS: amLODIPine 5 MG TABLET PO SCH (11:39)
[2017-11-22] MEDS: Isosorbide MONOnitrate (24 HR) 60 MG TAB.ER.24H PO SCH (11:40)
[2017-11-22] MEDS: Iron Polysaccharide Complex 150 MG CAPSULE PO SCH (11:58)
--- NOTE | 2017-11-22 12:57 | Electrocardiograph Report ---
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
--- NOTE | 2017-11-22 14:09 | Neurology Progress Note ---
Date of Encounter: 11/22/17 Time of Encounter: 14:06 Assessment and Plan (1) Left sided lacunar infarction Current Visit: Yes Status: Acute I believe that the lacunar infarct is unrelated to her mental status changes, and occurred after the initial MRI scan of the brain was obtained. It is generally felt that diffusion imaging will show abnormalities almost immediately , certainly within a few minutes to the first hour. I believe that her decreased level of consciousness is due to metabolic factors and not the acute infarct. Lacunar infarcts should not cause lethargy. She also has lateral internal carotid artery stenosis however at this juncture she would not be a good surgical candidate. I would simply recommend maintaining the Plavix, discontinuing aspirin. I will also recommend continuing aggressive management of her stroke risk factors. If she is able to recover from her acute medical decompensation, she will need aggressive PT and OT to maximize her physical recovery. I will follow peripherally. Subjective Principal diagnosis: AMS, chest pain Interval history: The chart was reviewed, patient was seen and examined. Multiple family members are present. I was notified yesterday evening of the acute lacunar infarct involving the left basal ganglia/internal capsule. Is also small infarct in the right frontal region which is punctate and not likely symptomatic. Patient at this time is very lethargic she is arousable only momentarily. She does not fully arouse and make eye contact. When asked her name she did say her name was Dasilva and then drifted back off into unconsciousness. She does follow some simple commands such as squeezing even with the weak right hand and she does internally rotate the right leg. She has free movement of the left upper and left lower extremity. She is also had a carotid Doppler study completed last month that revealed bilateral internal carotid artery stenosis. Objective - Constitutional Vitals: Temp Pulse Resp BP Pulse Ox 99.4 F 70 17 207/77 98 11/22/17 11:31 11/22/17 11:31 11/22/17 11:31 11/22/17 11:11/22/17 11:31 - Neurological Exam Motor Examination: Present: other (Patient moves the left upper and left lower extremities freely. She has paucity of movement of the right upper extremity and right lower extremities. She has decreased tone of the right upper extremity. Laundry Room Attendant strength of the right upper extremity is very weak. She has weak movement of the right lower extremity at 1/5.) Sensation intact: Present: other (Patient has decreased sensation to light touch of the right upper and right lower extremity.) Mental Status Examination: Present: awake (Patient is a bit less responsive today than she was yesterday. She will open her eyes momentarily she follows some simple commands however not consistently. She does not completely open her eyes and fully engage she did yesterday. She is much more lethargic today.) , oriented to person, opens eyes to noxious stimulation Cranial nerve examination: Present: PERRL, no facial asymmetry is present - VTE Reasons for not Prescribing Prophylaxis: Medical contraindication Documentation of Mechanical Device: Intermittent pneumatic compression device Results - Laboratory Findings CBC and BMP: 11/22/17 03:00 11/22/17 03:00 Abnormal lab findings: Abnormal lab results WBC 3.1 K/mcL (4.3-11.1) L 11/22/17 03:00 RBC 2.74 M/mcL (3.82-4.97) L 11/22/17 03:00 Hgb 8.1 g/dL (11.5-15.4) L 11/22/17 03:00 Hct 26.0 % (35.3-44.9) L 11/22/17 03:00 MCHC 31.2 g/dL (31.6-35.5) L 11/22/17 03:00 RDW 15.7 % (11.5-14.5) H 11/22/17 03:00 Plt Count 109 K/mcL (140-400) L 11/22/17 03:00 MPV 9.1 fL (9.4-12.4) L 11/22/17 03:00 Immature Plt Fraction 0.9 % (1.1-6.1) L 11/22/17 03:00 ABG pH 7.46 pH Units (7.32-7.45) H 11/22/17 03:31 ABG pCO2 50 mmHg (35-45) H 11/22/17 03:31 ABG pO2 111 mmHg (85-104) H 11/22/17 03:31 ABG HCO3 36 mEq/L (21-27) H 11/22/17 03:31 ABG Total CO2 37 mEq/L (20-26) H 11/22/17 03:31 ABG O2 Saturation 99 % (95-98) H 11/22/17 03:31 ABG Base Excess 11 mEq/L (-2 to 3) H 11/22/17 03:31 Carbon Dioxide 34 mEq/L (23-29) H 11/22/17 03:00 BUN 32 mg/dL (8-23) H 11/22/17 03:00 Creatinine 3.32 mg/dL (0.60-1.20) H 11/22/17 03:00 Est GFR ( Amer) 16 (> 60) L 11/22/17 03:00 Est GFR (Non-Af Amer) 13 (> 60) L 11/22/17 03:00 Glucose 139 mg/dL (70-105) H 11/22/17 03:00 Calculated Osmolality 305 (280-300) H 11/22/17 03:00 Calcium 8.3 mg/dL (8.6-10.3) L 11/22/17 03:00 Troponin I 0.34 ng/mL (< 0.04) H* 11/19/17 16:34 B-Natriuretic Peptide 3595 pg/mL (Less than 100) H 11/19/17 01:01 Consult Discharge Plan - Plan Referrals: Ema Del Toro, SIGNAL MANAGER [Primary Care Provider] -
--- NOTE | 2017-11-22 17:50 | Internal Med Progress Note ---
Hospitalist Progress Note - Encounter Date of Encounter: 11/22/17 Time of Encounter: 11:00 - Subjective Interval History: Patient presented from the [facility] due to chest pain. 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 for medical management and patient was never heparinized due to GI bleed risk Patient also found to have Lucunar infarct on MRI and neurology following recommendations for Plavix Patient with encephalopathy but suspected to be metabolic She also with end-stage renal disease with hemodialysis and nephrology following to determine if hemodialysis should be continued Palliative care will follow patient on discharged to [facility] - Exam Vitals: Temp Pulse Resp BP Pulse Ox 98.0 F 66 18 210/77 100 11/22/17 15:35 11/22/17 15:35 11/22/17 15:35 11/22/17 15:35 11/22/17 15:35 Exam: Gen.: Patient is alert and oriented 3 this morning ENT: Mucosal membranes dry Cardiovascular: Normal S1 and S2 regular rate rhythm no murmurs rubs or gallops Abdomen: Soft, nontender and nondistended with positive bowel sounds Extremities: No lower extremity edema Skin: Normal color - Assessment and Plan (1) Altered mental status Current Visit: No Status: Resolved Assessment and Plan: Patient with intermittent periods of confusion Patient had a prior episode of change in mental status overnight on 11/19/17 and was suspected to be due to hypoglycemia; Stat CT of the head at that particular time on 11/19/17 did not show any acute intracranial abnormality and MRI on did not show specifically any acute infarction. Patient developed right sided weakness on 11/21/17 and MRI on 11/21/17 showed acute infarction in the left parietal periventricular Neurology following with recommendations to continue Plavix in addition to physical therapy (2) Chest pain Current Visit: Yes Status: Acute Assessment and Plan: Patient presented from [facility] complaining of chest pain Patient's troponins have continued to elevated 0.07->0.08->0.14->0.26->0.34 in the face of chronic kidney disease and elevated BNP Discussed in detail with Dr. Martin (film editor supervisor) with recommendations for medical management and not to initiate ACS Protocol due to history of suspected GI bleed with occult positive stool due to the risk outweighing benefits with multiple comorbidities and age; patient also DNR CCA Recommendations to proceed with medical management (3) Elevated troponin Current Visit: Yes Status: Acute Assessment and Plan: As above (4) Diabetes Current Visit: No Status: Chronic Assessment and Plan: Patient with episodes of hypoglycemia therefore D5/nacl given Continue to monitor (5) ESRD (end stage renal disease) Current Visit: Yes Status: Chronic Assessment and Plan: Renal function stable; serum creatinine as follows: Scr 2.22->2.83->3.39->2.71-> 3.32 Nephrology following with recommendations to reassess need for continuous hemodialysis on 11/23/17 (6) (HFpEF) heart failure with preserved ejection fraction Current Visit: No Status: Acute Assessment and Plan: Patient with acute on chronic heart failure; elevated BNP of 3595 with bilateral pleural effusions on chest x-ray Requiring 2 L of nasal cannula Will give IV Lasix 40 mg twice daily on 11/19/17 in the morning of 11/20/17 Patient currently on home dose of oral furosemide 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 per EMR report (9) Anemia in chronic kidney disease Current Visit: No Status: Chronic Assessment and Plan: Hemoglobin appears to be stable:9.0->8.2->8.9->8.5->8.1 Patient's baseline appears to be between 8 and 9 Continue to monitor - Time Spent with Patient Total time spent is greater than 50% in coordination of care (as documented) at patient's floor/unit and/or counseling patient: Internal Medicine: Result - Labs CBC & Chem 7: 11/22/17 03:00 11/22/17 03:00 Labs: Short CBC 11/22/17 Range/Units 03:00 WBC 3.1 L (4.3-11.1) K/mcL Hgb 8.1 L (11.5-15.4) g/dL Hct 26.0 L (35.3-44.9) % Plt Count 109 L (140-400) K/mcL Neutrophils # 1.6 (1.6-8.9) K/mcL BMP 11/22/17 03:00 Sodium 143 Potassium 3.5 Chloride 105 Carbon Dioxide 34 H BUN 32 H Creatinine 3.32 H Glucose 139 H Calcium 8.3 L - ABG Interpretation ABG results: ABG ABG pH 7.46 pH Units (7.32-7.45) H 11/22/17 03:31 ABG pCO2 50 mmHg (35-45) H 11/22/17 03:31 ABG pO2 111 mmHg (85-104) H 11/22/17 03:31 ABG O2 Saturation 99 % (95-98) H 11/22/17 03:31 - Impressions Impressions Brain MRI 11/21/17 16:21 IMPRESSION: Acute infarction in the left parietal periventricular white matter extending to the posterior aspect of the right basal ganglia, new since November 19, 2017. Question of a tiny focus of acute infarction in the inferior right frontal lobe, new since the prior study. Mild parenchymal volume loss. Mild chronic microvascular disease. The results were reported to nurse Brad Vizcarra at 7:33 p.m. on November 21, 2017. D/ / Wilton Benitez MD / Wilton Benitez MD Interpreting Provider: Wilton Benitez MD Head CT 11/22/17 02:46 IMPRESSION: 1. No acute hemorrhage or definite evidence for acute ischemia. 2. Acute left sphenoid sinusitis. D/ / Agustín Vale MD / Agustín Vale MD Interpreting Provider: Agustín Vale MD - VTE Reasons for not Prescribing Prophylaxis: Medical contraindication Documentation of Mechanical Device: Intermittent pneumatic compression device Consult Discharge Plan - Plan Referrals: Ema Del Toro, INFORMATICS ANALYST [Primary Care Provider] - (1) Altered mental status Qualifiers: Altered mental status type: unspecified Qualified Code(s): R41.82 - Altered mental status, unspecified (2) Chest pain Qualifiers: Chest pain type: unspecified Qualified Code(s): R07.9 - Chest pain, unspecified (4) Diabetes Qualifiers: Diabetes mellitus type: type 2 Diabetes mellitus jail insulin use: with jail use Diabetes mellitus complication status: with hyperglycemia Qualified Code(s): E11.65 - Type 2 diabetes mellitus with hyperglycemia; Z79.4 - terminal carman (current) use of insulin (9) Anemia in chronic kidney disease Qualifiers: Chronic kidney disease stage: stage 5, not on chronic dialysis Qualified Code (s): N18.5 - Chronic kidney disease, stage 5; D63.1 - Anemia in chronic kidney disease
[2017-11-23 05:29] LABS: Basophils % 0.5 %; Eosinophils % 2.3 %
[2017-11-23 05:31] LABS: Eosinophils # 0.1 K/mcL (0.0-0.6); Hematocrit 28.7 % (35.3-44.9); Hemoglobin 9.1 g/dL (11.5-15.4); Immature Granulocytes % 0.5 % (0-4); Immature Platelets 1.1 % (1.1-6.1); Lymphocytes % 25.3 %; Mean Corpuscular HGB Conc 31.7 g/dL (31.6-35.5); Mean Corpuscular Hemoglobin 29.8 pg (28.0-33.3); Mean Corpuscular Volume 94.1 fL (83.0-100.0); Mean Platelet Volume 8.8 fL (9.4-12.4); Monocytes # 0.5 K/mcL (0.0-1.3); Monocytes % 11.6 %; Neutrophils # 2.4 K/mcL (1.6-8.9); Platelet Count 108 K/mcL (140-400); Red Blood Count 3.05 M/mcL (3.82-4.97); Red Cell Distribution Width 15.2 % (11.5-14.5); Segmented Neutrophils % 59.8 %
[2017-11-23] MEDS: D5% in 0.9% NACL 1,000 ML IVC SCH (05:32)
[2017-11-23 05:47] LABS: Calcium 8.3 mg/dL (8.6-10.3); Potassium 3.6 mEq/L (3.5-5.1)
--- NOTE | 2017-11-23 07:02 | Neurology Progress Note ---
Date of Encounter: 11/23/17 Time of Encounter: 07:00 Assessment and Plan (1) Left sided lacunar infarction Current Visit: Yes Status: Acute Left-sided lacunar infarct with right upper and right lower extremity weakness. I believe her ongoing mental status changes however are multifactorial. I do believe that there is an element of encephalopathy perhaps associated with hypertension and her renal disease. However, she is a bit more alert than she was yesterday. I would like to see us attempt to get her up in a chair if possible today. Certainly she will need inpatient rehabilitation upon discharge. I will also recommend normalizing her blood pressure now. Stroke risk factor management will be paramount. Maintain Plavix. We will reevaluate at your request. Subjective Principal diagnosis: AMS, chest pain Interval history: The chart was reviewed, the patient was seen and examined. She was asleep upon my entering the room. She was easily aroused to voice. She did make eye contact and was much more alert today. Her voice is hypophonic, she is still slow to respond. She follows some commands, however not all. She still has paucity of movement of the right upper extremity. She does move the right lower extremity however she does not move the right side as briskly as she does the left. Overall it so she is improved however. She still been somewhat hypertensive. I would recommend normalizing her blood pressure today. Objective - Constitutional Vitals: Temp Pulse Resp BP Pulse Ox 98.5 F 85 16 188/82 100 11/23/17 03:58 11/23/17 03:58 11/23/17 03:58 11/23/17 03:58 11/23/17 03:58 - Neurological Exam Motor Examination: Present: other (Patient moves the left upper and left lower extremities freely. She has paucity of movement of the right upper extremity and right lower extremities. She has decreased tone of the right upper extremity. Knurling Machine Operator strength of the right upper extremity is very weak. She has weak movement of the right lower extremity at 1/5.) Sensation intact: Present: other (Patient has decreased sensation to light touch of the right upper and right lower extremity.) Mental Status Examination: Present: awake (Patient briskly opens her eyes to voice and makes direct eye contact. This is an improvement from yesterday. She does tell me her name, however she does not elaborate on top very much. She is still very slow to respond.), oriented to person, opens eyes to noxious stimulation Cranial nerve examination: Present: PERRL, no facial asymmetry is present - VTE Reasons for not Prescribing Prophylaxis: Medical contraindication Documentation of Mechanical Device: Intermittent pneumatic compression device Results - Laboratory Findings CBC and BMP: 11/23/17 05:11 11/23/17 05:11 Abnormal lab findings: Abnormal lab results WBC 4.0 K/mcL (4.3-11.1) L 11/23/17 05:11 RBC 3.05 M/mcL (3.82-4.97) L 11/23/17 05:11 Hgb 9.1 g/dL (11.5-15.4) L 11/23/17 05:11 Hct 28.7 % (35.3-44.9) L 11/23/17 05:11 RDW 15.2 % (11.5-14.5) H 11/23/17 05:11 Plt Count 108 K/mcL (140-400) L 11/23/17 05:11 MPV 8.8 fL (9.4-12.4) L 11/23/17 05:11 ABG pH 7.46 pH Units (7.32-7.45) H 11/22/17 03:31 ABG pCO2 50 mmHg (35-45) H 11/22/17 03:31 ABG pO2 111 mmHg (85-104) H 11/22/17 03:31 ABG HCO3 36 mEq/L (21-27) H 11/22/17 03:31 ABG Total CO2 37 mEq/L (20-26) H 11/22/17 03:31 ABG O2 Saturation 99 % (95-98) H 11/22/17 03:31 ABG Base Excess 11 mEq/L (-2 to 3) H 11/22/17 03:31 Carbon Dioxide 30 mEq/L (23-29) H 11/23/17 05:11 BUN 36 mg/dL (8-23) H 11/23/17 05:11 Creatinine 3.42 mg/dL (0.60-1.20) H 11/23/17 05:11 Est GFR ( Amer) 15 (> 60) L 11/23/17 05:11 Est GFR (Non-Af Amer) 13 (> 60) L 11/23/17 05:11 Glucose 118 mg/dL (70-105) H 11/23/17 05:11 POC Glucose 149 mg/dL (70-99) H 11/22/17 22:08 Calculated Osmolality 301 (280-300) H 11/23/17 05:11 Calcium 8.3 mg/dL (8.6-10.3) L 11/23/17 05:11 Troponin I 0.34 ng/mL (< 0.04) H* 11/19/17 16:34 B-Natriuretic Peptide 3595 pg/mL (Less than 100) H 11/19/17 01:01 Consult Discharge Plan - Plan Referrals: Ema Del Toro, STATIONARY ENGINEER SUPERVISOR [Primary Care Provider] -
[2017-11-23] MEDS: Insulin LISPRO 300 UNITS/3 ML VIAL SQ SCH ×4 (09:40→22:21)
--- NOTE | 2017-11-23 09:51 | Nephrology Progress Note ---
Date of Encounter: 11/23/17 Time of Encounter: 09:48 - Assessment and Plan (1) ESRD (end stage renal disease) on dialysis Current Visit: Yes Status: Chronic Typically ESRD on HD MWF, last tx was Wednesday11/20/17. Will hold off on HD today, electrolytes are stable. Will resume typical regimen tomorrow. Strict I/O Avoid nephrotoxins and renal dose all medications. (2) Altered mental status, unspecified Current Visit: Yes Status: Acute Left-sided lacunar infarct with right upper and right lower extremity weakness. Recommend PT/OT as patient is alert today. Qualifiers: Qualified Code(s): R41.82 - Altered mental status, unspecified Subjective Principal diagnosis: AMS, chest pain Interval history: PT seen and examined. Doing well. She is able to answer me, but is slow to respond. Objective - Vital Signs Vital signs: Vital Signs Temp Pulse Resp BP Pulse Ox 11/23/17 08:15 98.8 F 69 16 175/67 99 11/23/17 03:58 98.5 F 85 16 188/82 100 11/23/17 01:18 98.8 F 67 17 202/83 98 11/22/17 23:45 98 11/22/17 21:59 98.4 F 67 17 214/83 100 11/22/17 15:35 98.0 F 66 18 210/77 100 11/22/17 11:31 99.4 F 70 17 207/77 98 Intake and Output 11/22/17 11/23/17 11/23/17 23:59 07:59 15:59 Intake Total 1000 / 1000 Balance 1000 / 1000 Intake: IV Fluids 1000 / 1000 D5% And 0.9% Nacl 1000 Ml 1,000 1000 / 1000 ML @ 50 mls/hr IVC .Q20H LOVE Rx#:[id number] Other: Weight 76.4 kg Blood Glucose* 149 119 98 Patient Weight 11/23/17 23:59 Weight 76.4 kg - General Appearance General appearance: Present: well-developed, well-nourished EENT: Present: ATNC, hearing intact, vision intact Neck: Present: supple Respiratory: Present: clear Cardiology: Present: edema (Trace bilat lower extremity edema.), normal S1, normal S2 Dialysis Vascular Access: Arteriovenous Fistula thrill: Yes bruit: Yes Gastrointestinal: Present: normoactive bowel sounds, no tenderness, no guarding Integumentary: Present: no rash, warm and dry Additional Comments: Pt is alert, but was unable to answer her location, but did state her full name. Additional Comments: PT is able to follow commands however strength is 5/5 with left sided extremities and 1/5 in the right sided extremities. Psychiatric: Present: mood/affect appropriate, cooperative - Lab 11/23/17 05:11 11/23/17 05:11 Most recent lab results ABG pH 7.46 pH Units (7.32-7.45) H 11/22/17 03:31 ABG pCO2 50 mmHg (35-45) H 11/22/17 03:31 ABG pO2 111 mmHg (85-104) H 11/22/17 03:31 ABG HCO3 36 mEq/L (21-27) H 11/22/17 03:31 ABG O2 Saturation 99 % (95-98) H 11/22/17 03:31 Calcium 8.3 mg/dL (8.6-10.3) L 11/23/17 05:11 - VTE Reasons for not Prescribing Prophylaxis: Medical contraindication Documentation of Mechanical Device: Intermittent pneumatic compression device Consult Discharge Plan - Plan Referrals: Ema Del Toro, WIRE HANGER [Primary Care Provider] -
[2017-11-23] MEDS: cloNIDine HCl 0.1 MG TABLET PO SCH ×3 (09:54→22:20)
[2017-11-23] MEDS: Isosorbide MONOnitrate (24 HR) 60 MG TAB.ER.24H PO SCH (09:54)
[2017-11-23] MEDS: Iron Polysaccharide Complex 150 MG CAPSULE PO SCH (09:54)
[2017-11-23] MEDS: Furosemide 40 MG TABLET PO SCH (09:54)
[2017-11-23] MEDS: amLODIPine 5 MG TABLET PO SCH (12:03)
[2017-11-23] MEDS: hydrALAZINE 25 MG TABLET PO SCH ×3 (12:03→22:20)
--- NOTE | 2017-11-23 13:26 | Palliative - Consult Note ---
Date of Encounter: 11/23/17 Time of Encounter: 11:00 - Assessment and Plan (1) Goals of care, counseling/discussion Current Visit: Yes Status: Acute Assessment and plan: Met with pt and Son John at the bedside. Discussed current medical condition, explained at length the implication of each medical condition on pt's overal prognosis. Discussed advanced care planning, including intubation and CPR. pt is DNR comfort care, with limited medical interventions. Pt also refused any feeding tubes in case of persistent dysphagia. Son and pt agree. John refers that pt lives at home with as primary caregiver, and has 3 children, that all lives close by. is unable to care for pt at this time since she is bedbound. Discussed options, including hospice. Pt does not have at this time the necessary caregiver for hospice at home, and as per family may not be able to pay for room on board at group home with hospice. Also family is not ready for hospice as they are still hopeful for some recovery to allow pt to return home. They would like pt to continue on current level of care, with the goal to return to Rehab. Family will consider further GOC discussion if pt does not qualify. I reviewed the expectations from HD, and encouraged pt and family to discussed when would be appropriate to discontinue HD. (3) ESRD (end stage renal disease) Current Visit: Yes Status: Chronic Assessment and plan: Nephrology on the case, ongoing HD per schedule. Pt metabolically stable (4) Dysphagia Current Visit: Yes Status: Chronic Assessment and plan: Pt developed dysphagia after stroke JET BLADE POLISHER evaluation today, pt tolerated mechanically altered diet with honey thick fluids. Diet started. Qualifiers: Dysphagia type: oropharyngeal phase Qualified Code(s): R13.12 - Dysphagia, oropharyngeal phase (5) Altered mental status, unspecified Current Visit: Yes Status: Acute Assessment and plan: Pt is now AAO x 3. Per neurology AMS is multifactorial management per primary team Qualifiers: Altered mental status type: transient alteration of awareness Qualified Code(s): R40.4 - Transient alteration of awareness (6) Left sided lacunar infarction Current Visit: Yes Status: Acute Assessment and plan: management per primary team Palliative-CN HPI - Data of Consult Consult date: 11/23/17 Requesting Physician: Edgardo Wheeler MD Primary Care Provider: Ema Del Toro CNP - Consult Narrative Reason for consult: Goals of care discussion History of present illness: Ms. Giles is a 87 year old female with PMH of DM, HTN, CHF, ESRD on HD, previous CVA, that presented to the ER on 11/20 from [facility] with complain of AMS and chest pain. On admission, pt had elevated troponin and fluid overload. Nephrology and Cardiology were consulted for management.CT head and MRI were negative for any acute pathology. On day #2, pt was noted to be having a new R. sided weakness. Repeat MRI showed a new acute stroke. pt also developed dysphagia. at thetime of exam today, pt was AAO x3, answering questions appropriately but slowly. Denies any chest pain, SOB, nausea, vomiting, abdominal pain, changes in bowel. 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 Psychiatric history: no psych history - Past Surgical History Surgical History: coronary bypass (CABG), hysterectomy, other Additional surgical history: fistula left arm - Social History Smoking Status: Never smoker Smokeless Tobacco Status: No Alcohol use: none Drug use: none - Family History Mother Living Status: Hx Family Cardiac Disorders: Yes (CVA, [place]) Father Living Status: Hx Family Cardiac Disorders: Yes Medications and Allergies Iron Ps Complex/B12/Folic Acid [Iferex 150 Forte Capsule] 1 cap PO BID 04/11/15 [History] Losartan Potassium [Cozaar] 100 mg PO DAILY 04/11/15 [History] Cilostazol [Pletal] 100 mg PO BID #0 07/09/15 [History] Atorvastatin [Lipitor] 40 mg PO HS #30 tablet 10/11/15 [Rx] Furosemide [Lasix] 40 mg PO DAILY #30 tablet 10/11/15 [Rx] Labetalol [Trandate] 200 mg PO BID #60 tablet 05/22/17 [Rx] Aspirin [Lo-Dose Aspirin EC] 81 mg PO DAILY 10/07/17 [History] cloNIDine HCl [Clonidine HCl] 0.2 mg PO TID 10/07/17 [History] Amlodipine Besylate 10 mg PO DAILY 10/22/17 [History] Glucagon,Human Recombinant [Glucagon Emergency Kit] 1 mg IJ ONCE PRN 10/22/17 [ History] Hydralazine HCl 50 mg PO TID 10/22/17 [History] Insulin Glargine,Hum.rec.anlog [Basaglar Kwikpen U-100] 20 unit SQ HS 10/22/17 [ History] hydrALAZINE [HydrALAZINE] 25 mg PO TID 10/22/17 [History] Acetaminophen [Tylenol] 650 mg PO Q4HR PRN 11/18/17 [History] Insulin LISPRO [HumaLOG] 0 - 12 units SQ ACHS 11/18/17 [History] Isosorbide MONOnitrate (24 HR) [Imdur] 60 mg PO DAILY 11/18/17 [History] Isosorbide MONOnitrate [Isosorbide Mononitrate ER] 120 mg PO DAILY 11/18/17 [ History] 3 Allergy/AdvReac Type Severity Reaction Status Date / Time celecoxib [From Celebrex] AdvReac Nausea Verified 11/18/17 00:39 All systems: reviewed and no additional remarkable complaints except as stated - Cardiovascular Cardiovascular ROS: no chest pain - Respiratory Respiratory: no cough, no dyspnea - Gastrointestinal Gastrointestinal: no abdominal pain, no change in bowel habits - Neurological Neurological ROS: focal weakness (Rt side) - Psychiatric Psychiatric general PM: no depression Palliative Care-Exam - Constitutional Vitals: Temp Pulse Resp BP Pulse Ox 99.0 F 65 16 159/71 98 11/23/17 11:59 11/23/17 11:59 11/23/17 11:59 11/23/17 11:59 11/23/17 11:59 Exam: Vitals reviewed General appearance: alert, oriented x3, appears comfortable Eyes: nonicteric, bilat lower eyelid edema EENT: oropharynx moist Neck: supple, no lymphadenopathy, no JVD Chest: bilateral: normal breath sounds, normal effort Cardiovascular: regular rate and rhythm Gastrointestinal: soft, non-tender, non-distended Integumentary: normal Extremities: no cyanosis, no edema, no clubbing Musculoskeletal: no deformities Neurologic: normal mental status, strength 3/5 RUE and 1/5 RLE. Psych: mood appropriate, affect normal Internal Medicine - CN: Reslt - Labs CBC & Chem 7: 11/23/17 05:11 11/23/17 05:11 Labs: Short CBC 11/23/17 Range/Units 05:11 WBC 4.0 L (4.3-11.1) K/mcL Hgb 9.1 L (11.5-15.4) g/dL Hct 28.7 L (35.3-44.9) % Plt Count 108 L (140-400) K/mcL Neutrophils # 2.4 (1.6-8.9) K/mcL BMP 11/23/17 05:11 Sodium 141 Potassium 3.6 Chloride 105 Carbon Dioxide 30 H BUN 36 H Creatinine 3.42 H Glucose 118 H Calcium 8.3 L - ABG Interpretation ABG results: ABG ABG pH 7.46 pH Units (7.32-7.45) H 11/22/17 03:31 ABG pCO2 50 mmHg (35-45) H 11/22/17 03:31 ABG pO2 111 mmHg (85-104) H 11/22/17 03:31 ABG O2 Saturation 99 % (95-98) H 11/22/17 03:31 Consult Discharge Plan - Plan Referrals: Ema Del Toro, PAPER FEEDER [Primary Care Provider] - Palliative Quality Palliative Quality: Screen for Code Status: Yes, Screen for Goals of Care: Yes, Screen for Pain: Yes, Screen for Nausea/Vomitting: Yes Code Status: 11/22/17 17:47 DNR [Resuscitation Status: Active] [RES] Routine Comment: Resuscitation Status: DNR-Comfort Care
--- NOTE | 2017-11-23 14:21 | Internal Med Progress Note ---
Hospitalist Progress Note - Encounter Date of Encounter: 11/23/17 Time of Encounter: 14:17 - Subjective Interval History: Ms. Giles is an 87 yo F with an extensive medical h/o including CHF, ESRD, CAD, CVA, valvular heart disease and HTN who initially presented to the ED from ECF c /o CP 6 days ago that began after her dialysis treatment. Pt had elevated troponins and also had a MRI head that showed a lacunar infarct, BP medications held to maintain perfusion. The pt had a brain MRI on 11/19/17 that showed no acute infarct and on 11/21/17 pt presented with right sided weakness and another brain MRI was obtained that showed an acute left lacunar infarct compared to MRI on 11/19/17. Neurology was consulted and recommended holding the pt's BP medications unless >220 systolic to maintain perfusion Today the pt is awake and oriented to person and place. She is slow to respond but answers appropriately with repetitive questioning. She says that her CP has improved and states that she has a FERRARO and feels SOB currently. The pt is a poor historian and only able to provide 1-3 word answers at this time. - Exam Vitals: Temp Pulse Resp BP Pulse Ox 99.0 F 65 16 159/71 98 11/23/17 11:59 11/23/17 11:59 11/23/17 11:59 11/23/17 11:59 11/23/17 11:59 Exam: General: Pt is awake, NAD, HEENT: Dry mucous membranes, no conjunctival pallor, PERRLA Respiratory: no wheezes, rales or rhonchi. 2L NC Cardiovascular: RRR, normal S1 and S2, 4/6 systolic murmur, no lower extremity edema, AV fistula in LUE with good thrill. Abdomen: no ascites, soft and non-tender Extremities: lower extremities rotated right, no tenderness of BLE. Neurology: Pt is alert and oriented to person and place but not to time. Pt is slow to respond but answers appropriately with repetitive questioning. Normal label maker strength on the left and 1/5 on the right. Pt has 3/5 strength of the left lower extremity but 0/5 strength of the right lower extremity. - Assessment and Plan (1) Chest pain Current Visit: Yes Status: Acute Assessment and Plan: Pt's chest pain has improved and will continue medical management as cardiology believes the levated troponin in the setting of ESRD, volume overload, and poorly controlled blood pressure; doubt ACS - Continue current CV medications; will resume BP medications now after being cleared by neurology to do so. (2) Elevated troponin Current Visit: Yes Status: Acute Assessment and Plan: Refer to chest pain above. ESRD, volume overload and poorly controlled BP are believed to be the cause of elevated troponin. (3) (HFpEF) heart failure with preserved ejection fraction Current Visit: No Status: Acute Assessment and Plan: Will continue pt's home PO lasix 40 mg. (4) Diabetes Current Visit: No Status: Chronic (5) ESRD (end stage renal disease) on dialysis Current Visit: Yes Status: Chronic Assessment and Plan: Creatinine has increased from 2.22 to 3.42. Will continue to observe and to continue hemodialysis as normal. (6) Left sided lacunar infarction Current Visit: Yes Status: Acute Assessment and Plan: Pt developed right sided upper and lower extremity weakness on 11/21/17 and had a MRI brain that showed a left lacunar infarct in the internal capsule. Pt has right sided hemiparesis. - Neurology has cleared the pt to resume BP medications today (11/23). - Pt has been evaluated by speech pathologist and states that the pt has delayed swallowing initiation but is cleared for pureed foods. - Pt will be continue Plavix. DVT Prophylaxis: Patient with SCDs due to occult positive stool on 10/25/17 - Time Spent with Patient Total time spent is greater than 50% in coordination of care (as documented) at patient's floor/unit and/or counseling patient: Internal Medicine: Result - Labs CBC & Chem 7: 11/23/17 05:11 11/23/17 05:11 Labs: Short CBC 11/23/17 Range/Units 05:11 WBC 4.0 L (4.3-11.1) K/mcL Hgb 9.1 L (11.5-15.4) g/dL Hct 28.7 L (35.3-44.9) % Plt Count 108 L (140-400) K/mcL Neutrophils # 2.4 (1.6-8.9) K/mcL BMP 11/23/17 05:11 Sodium 141 Potassium 3.6 Chloride 105 Carbon Dioxide 30 H BUN 36 H Creatinine 3.42 H Glucose 118 H Calcium 8.3 L - ABG Interpretation ABG results: ABG ABG pH 7.46 pH Units (7.32-7.45) H 11/22/17 03:31 ABG pCO2 50 mmHg (35-45) H 11/22/17 03:31 ABG pO2 111 mmHg (85-104) H 11/22/17 03:31 ABG O2 Saturation 99 % (95-98) H 11/22/17 03:31 - VTE Reasons for not Prescribing Prophylaxis: Medical contraindication Documentation of Mechanical Device: Intermittent pneumatic compression device Consult Discharge Plan - Plan Referrals: Ema Del Toro, VICE PRESIDENT BIOSTATISTICS [Primary Care Provider] - (1) Chest pain Qualifiers: Chest pain type: unspecified Qualified Code(s): R07.9 - Chest pain, unspecified (4) Diabetes Qualifiers: Diabetes mellitus type: type 2 Diabetes mellitus superintendent terminal insulin use: with residential use Diabetes mellitus complication status: with hyperglycemia Qualified Code(s): E11.65 - Type 2 diabetes mellitus with hyperglycemia; Z79.4 - ferry terminal agent (current) use of insulin
--- NOTE | 2017-11-23 15:42 | Internal Med Progress Note ---
<Heidi Marmolejo - Last Filed: 11/23/17 15:44> Hospitalist Progress Note - Encounter Date of Encounter: 11/23/17 Time of Encounter: 13:30 - Subjective Interval History: Ms. Giles is an 87 yo F with an extensive medical h/o including CHF, ESRD, CAD, CVA, valvular heart disease and HTN who initially presented to the ED from ECF c /o CP 6 days ago that began after her dialysis treatment. Pt had elevated troponins and also had a MRI head that showed a lacunar infarct, BP medications held to maintain perfusion. The pt had a brain MRI on 11/19/17 that showed no acute infarct and on 11/21/17 pt presented with right sided weakness and another brain MRI was obtained that showed an acute left lacunar infarct compared to MRI on 11/19/17. Neurology was consulted and recommended holding the pt's BP medications unless >220 systolic to maintain perfusion Today the pt is awake and oriented to person and place. She is slow to respond but answers appropriately with repetitive questioning and following commands. She says that her CP has improved and states that she has a FERRARO and feels SOB currently. The pt is a poor historian and only able to provide 1-3 word answers at this time. - Exam Vitals: Temp Pulse Resp BP Pulse Ox 99.0 F 65 16 159/71 98 11/23/17 11:59 11/23/17 11:59 11/23/17 11:59 11/23/17 11:59 11/23/17 11:59 Exam: General: Pt is awake, NAD, A&Ox 3 HEENT: Dry mucous membranes, no conjunctival pallor, PERRLA, did not follow commands for EOM Respiratory: no wheezes, rales or rhonchi. 2L NC, no acute resp distress Cardiovascular: RRR, normal S1 and S2, 4/6 systolic murmur, no palpable thrill, no lower extremity edema, Abdomen: no ascites, soft and non-tender Extremities: lower extremities rotated right, no tenderness of BLE. AV fistula in LUE with good thrill. Neurology: Pt is slow to respond but answers appropriately with repetitive questioning, follows commands. Normal med surg rn strength on the left and 1/5 on the right. Pt has 3/5 strength of the left lower extremity but 0/5 strength of the right lower extremity. hyperreflexia in right bicep, no facial asymmetry, sensation intact bilaterally, - Assessment and Plan (1) Left sided lacunar infarction Current Visit: Yes Status: Acute Assessment and Plan: Pt developed right sided upper and lower extremity weakness on 11/21/17 and had a MRI brain that showed a left lacunar infarct in the internal capsule. Pt has right sided hemiparesis. Per family, patient has had improvement of speech today - Neurology consulted, has cleared the pt to resume home BP medications today () and recommended continuing plavix - Pt has been evaluated by speech pathologist and states that the pt has delayed swallowing initiation but is cleared for pureed foods. - continue Plavix - consult to PT and OT, recommend SNF for discharge - consulted palliative care due to worsening prognosis, at the time patient does not go - diet: cleared for pureed foods - dispo: Patient is progressively improving, probably can leave tomorrow with discharge to SNF with PT,OT, and speech therapy (2) Altered mental status Current Visit: No Status: Resolved Assessment and Plan: Patient with intermittent periods of confusion, today confusion has not been reported, A&O x 3. Most likely related CVA but have also been monitoring blood glucoses carefully for hypoglycemia. Patient had a prior episode of change in mental status overnight on 11/19/17 and was suspected to be due to hypoglycemia; Stat CT of the head at that particular time on 11/19/17 did not show any acute intracranial abnormality and MRI on did not show specifically any acute infarction. Plan: See plan above. (3) (HFpEF) heart failure with preserved ejection fraction Current Visit: No Status: Acute Assessment and Plan: Acute on chronic heart failure. elevated BNP of 3595 with bilateral pleural effusions on chest x-ray, no repeat CXR since admission but no pitting edema. Last echo performed on 11/19/17 and showed EF 65-70% and atypical septal motion, consistent with p/o status. home lasix : 40mg daily. Plan: - Requiring 2 L of nasal cannula, previously not requiring home O2 - Lasix 40mg daily (4) Chest pain Current Visit: Yes Status: Acute Assessment and Plan: Pt's chest pain has improved and will continue medical management as cardiology believes the elevated troponin is due to ESRD, volume overload, and poorly controlled blood pressure; doubt ACS. - Continue current CV medications; will resume BP medications now after being cleared by neurology to do so. (5) Elevated troponin Current Visit: Yes Status: Acute Assessment and Plan: Chronically elevated. Refer to chest pain above. ESRD, volume overload and poorly controlled BP are believed to be the cause of elevated troponin. (6) ESRD (end stage renal disease) on dialysis Current Visit: Yes Status: Chronic Assessment and Plan: Patient is on hemodialysis M,W,F but last tx was Wednesday11/20/17. Nephrology was consulted and recommend holding off on HD today, electrolytes are stable. Creatinine continues to rise. Creatinine has increased from 2.22 to 3.42. (7) History of CVA (cerebrovascular accident) Current Visit: No Status: Acute Assessment and Plan: Previously no ASA only. (8) Diabetes Current Visit: No Status: Chronic Assessment and Plan: Did have an episode of hypoglycemia yesterday and was placed on D5 1/2 NS. Patient is currently taking better PO intake and blood glucoses within the 100s. Plan: - d/c D5 1/2 NS - low SSI TID and HS - Levemir 10 units (9) Anemia in chronic kidney disease Current Visit: No Status: Chronic Assessment and Plan: Stable. DVT Prophylaxis: Patient with SCDs due to occult positive stool on 10/25/17 - Time Spent with Patient Total time spent is greater than 50% in coordination of care (as documented) at patient's floor/unit and/or counseling patient: Internal Medicine: Result - Labs CBC & Chem 7: 11/23/17 05:11 11/23/17 05:11 Labs: Short CBC 11/23/17 Range/Units 05:11 WBC 4.0 L (4.3-11.1) K/mcL Hgb 9.1 L (11.5-15.4) g/dL Hct 28.7 L (35.3-44.9) % Plt Count 108 L (140-400) K/mcL Neutrophils # 2.4 (1.6-8.9) K/mcL BMP 11/23/17 05:11 Sodium 141 Potassium 3.6 Chloride 105 Carbon Dioxide 30 H BUN 36 H Creatinine 3.42 H Glucose 118 H Calcium 8.3 L - ABG Interpretation ABG results: ABG ABG pH 7.46 pH Units (7.32-7.45) H 11/22/17 03:31 ABG pCO2 50 mmHg (35-45) H 11/22/17 03:31 ABG pO2 111 mmHg (85-104) H 11/22/17 03:31 ABG O2 Saturation 99 % (95-98) H 11/22/17 03:31 - VTE Reasons for not Prescribing Prophylaxis: Medical contraindication Documentation of Mechanical Device: Intermittent pneumatic compression device Consult Discharge Plan - Plan Referrals: Ema Del Toro, POLISHING MACHINE TENDER [Primary Care Provider] - <Edgardo Wheeler - Last Filed: 11/23/17 17:01> Hospitalist Progress Note - Encounter Date of Encounter: 11/23/17 - Exam Vitals: Temp Pulse Resp BP Pulse Ox 99.4 F 69 16 169/68 99 11/23/17 16:26 11/23/17 16:26 11/23/17 16:26 11/23/17 16:26 11/23/17 16:26 - Assessment and Plan (1) Elevated troponin Current Visit: Yes Status: Acute (2) Falls frequently Current Visit: No Status: Acute (3) (HFpEF) heart failure with preserved ejection fraction Current Visit: No Status: Acute (4) Diabetes Current Visit: No Status: Chronic (5) History of CVA (cerebrovascular accident) Current Visit: No Status: Acute (6) Anemia in chronic kidney disease Current Visit: No Status: Chronic (7) Altered mental status Current Visit: No Status: Resolved (8) ESRD (end stage renal disease) Current Visit: Yes Status: Chronic (9) Chest pain Current Visit: Yes Status: Acute - Time Spent with Patient Total time spent is greater than 50% in coordination of care (as documented) at patient's floor/unit and/or counseling patient: Internal Medicine: Result - Labs CBC & Chem 7: 11/23/17 05:11 11/23/17 05:11 Labs: Short CBC 11/23/17 Range/Units 05:11 WBC 4.0 L (4.3-11.1) K/mcL Hgb 9.1 L (11.5-15.4) g/dL Hct 28.7 L (35.3-44.9) % Plt Count 108 L (140-400) K/mcL Neutrophils # 2.4 (1.6-8.9) K/mcL BMP 11/23/17 05:11 Sodium 141 Potassium 3.6 Chloride 105 Carbon Dioxide 30 H BUN 36 H Creatinine 3.42 H Glucose 118 H Calcium 8.3 L - ABG Interpretation ABG results: ABG ABG pH 7.46 pH Units (7.32-7.45) H 11/22/17 03:31 ABG pCO2 50 mmHg (35-45) H 11/22/17 03:31 ABG pO2 111 mmHg (85-104) H 11/22/17 03:31 ABG O2 Saturation 99 % (95-98) H 11/22/17 03:31 - Attending Attestation I examined this patient and my medical decision-making was reviewed with the Resident Physician Dr. Marmolejo. I agree with the documented findings, disposition and treatment plan as described except to the extent set forth below. Ms. Giles is an 87 yo F with an extensive medical h/o including diastolic CHF, ESRD, CAD, CVA, valvular heart disease and HTN who initially presented to the ED from ECF c/o CP that began after her dialysis treatment. Pt troponin were elevated however they were adynamic. Pt was seen by Card, did not recommend any further work up. The pt had change in mental status and new onset Rt jackie paresis a brain MRI on 11/21/17 showed an acute left lacunar infarct compared to MRI on 11/19/17. Pt is alert, awake and oriented to self today. Mentation seems to be improving. Gen: A, A, O x self Chest: Diminished BS b/l Heart: S1S2+ RRR a/p 1. Acute CVA - Rt hemiparesis with Left lacunar infract Pt was on ASA before, now switched to Plavi on Statin PT / OT eval Unable to do swing bed PT cont symptomatic and supportive care Palliative care team consulted to discuss with the family about goals of care. <Heidi Marmolejo - Last Filed: 11/23/17 15:44> (2) Altered mental status Qualifiers: Altered mental status type: unspecified Qualified Code(s): R41.82 - Altered mental status, unspecified (4) Chest pain Qualifiers: Chest pain type: unspecified Qualified Code(s): R07.9 - Chest pain, unspecified (8) Diabetes Qualifiers: Diabetes mellitus type: type 2 Diabetes mellitus adjunct faculty for medical terminology insulin use: with assisted use Diabetes mellitus complication status: with hyperglycemia Qualified Code(s): E11.65 - Type 2 diabetes mellitus with hyperglycemia; Z79.4 - long term care pharmacist (current) use of insulin (9) Anemia in chronic kidney disease Qualifiers: Chronic kidney disease stage: stage 5, not on chronic dialysis Qualified Code (s): N18.5 - Chronic kidney disease, stage 5; D63.1 - Anemia in chronic kidney disease <Edgardo Wheeler - Last Filed: 11/23/17 17:01> (4) Diabetes Qualifiers: Diabetes mellitus type: type 2 Diabetes mellitus adjunct faculty for medical terminology insulin use: with adjunct faculty for medical terminology use Diabetes mellitus complication status: with hyperglycemia Qualified Code(s): E11.65 - Type 2 diabetes mellitus with hyperglycemia; Z79.4 - long term care pharmacist (current) use of insulin (6) Anemia in chronic kidney disease Qualifiers: Chronic kidney disease stage: stage 5, not on chronic dialysis Qualified Code (s): N18.5 - Chronic kidney disease, stage 5; D63.1 - Anemia in chronic kidney disease (7) Altered mental status Qualifiers: Altered mental status type: unspecified Qualified Code(s): R41.82 - Altered mental status, unspecified (9) Chest pain Qualifiers: Chest pain type: unspecified Qualified Code(s): R07.9 - Chest pain, unspecified
--- NOTE | 2017-11-23 21:13 | Electrocardiograph Report ---
[address] [address] Test Date: 2017-11-19 Pat Name: Vidya Giles Department: 112 Room: 2A Gender: F Food Production Associate: : 1930 Requested By: Shane Kilpatrick Order Number: [id number] Reading MD: Jessika Garcia Measurements Intervals [place] Rate: 74 P: 11 [place]: 114 QRS: 8 QRSD: 110 T: 61 QT: 445 QTc: 472 Interpretive Statements SINUS RHYTHM WITH SHORT [place] INTERVAL WITH OCCASIONAL SUPRAVENTRICULAR PREMATURE COMPLEXES NONSPECIFIC T-WAVE ABNORMALITY PROLONGED QT INTERVAL Electronically Signed On 11-23-2017 21:11:50 EDT by Jessika Garcia
--- NOTE | 2017-11-23 21:23 | Electrocardiograph Report ---
[place] [address] Test Date: 2017-11-20 Pat Name: Vidya Giles Department: 112 Room: 2A Gender: F Medical Resident: : 1930 Requested By: [id number] Order Number: [id number] Reading MD: Jessika Garcia Measurements Intervals [place] Rate: 70 P: 9 [place]: 123 QRS: 7 QRSD: 102 T: 32 QT: 426 QTc: 447 Interpretive Statements SINUS RHYTHM WITH OCCASIONAL VENTRICULAR PREMATURE COMPLEXES WITH OCCASIONAL SUPRAVENTRICULAR PREMATURE COMPLEXES NONSPECIFIC T-WAVE ABNORMALITY Electronically Signed On 11-23-2017 21:21:38 EDT by Jessika Garcia
[2017-11-23] MEDS: Insulin DETEMIR 100 UNIT/ML X5UNITS SQ SCH (22:20)
[2017-11-24 05:39] LABS: Basophils % 0.3 %; Hemoglobin 8.6 g/dL (11.5-15.4); Mean Platelet Volume 9.5 fL (9.4-12.4)
[2017-11-24 05:41] LABS: Eosinophils # 0.1 K/mcL (0.0-0.6); Eosinophils % 1.6 %; Hematocrit 27.6 % (35.3-44.9); Immature Granulocytes % 0.5 % (0-4); Immature Platelets 1.5 % (1.1-6.1); Mean Corpuscular HGB Conc 31.2 g/dL (31.6-35.5); Mean Corpuscular Hemoglobin 29.7 pg (28.0-33.3); Mean Corpuscular Volume 95.2 fL (83.0-100.0); Monocytes # 0.5 K/mcL (0.0-1.3); Platelet Count 100 K/mcL (140-400); Red Cell Distribution Width 15.3 % (11.5-14.5); Segmented Neutrophils % 53.6 %
[2017-11-24 05:42] LABS: Lymphocytes # 1.2 K/mcL (0.6-4.6)
[2017-11-24 05:53] LABS: Calcium 8.2 mg/dL (8.6-10.3); Potassium 3.5 mEq/L (3.5-5.1)
[2017-11-24] MEDS ORDERED: Potassium Chloride Elixir 20 MEQ/15 ML UDC PO ONE (08:38)
[2017-11-24] MEDS: Insulin LISPRO 300 UNITS/3 ML VIAL SQ SCH ×2 (10:22→12:10)
--- NOTE | 2017-11-24 10:26 | Discharge Summary ---
<Roger Howard - Last Filed: 11/24/17 21:12> - NOTES TO OUTPATIENT PROVIDER Notes to Outpatient Provider: Patient was admitted for chest pain after dialysis. Cardiology was consulted and elevated troponin was found to be secondary to ischemic demand. Patient also had an acute lacunar infarct found during hospital stay, with right sided hemiparesis. Neurology was consulted and recommended plavix. Patient will be discharged to senior living with PT,OT, speech. Speech eval recommended pureed diet. Orders not resulted at time of discharge: Pending orders 11/25/17 04:00 Magnesium AM 0400 Date of Encounter: 11/24/17 Time of Encounter: 10:22 - Discharge Diagnosis (1) Left sided lacunar infarction Priority: Primary Status: Acute Assessment and Plan: Pt developed right sided upper and lower extremity weakness on 11/21/17 and had a MRI brain that showed a left lacunar infarct in the internal capsule. Pt has right sided hemiparesis. - Neurology consulted, has cleared the pt to resume home BP medications and recommended continuing plavix - Pt has been evaluated by speech pathologist and states that the pt has delayed swallowing initiation but is cleared for pureed foods. - continue Plavix - consult to PT and OT, recommend SNF for discharge - consulted palliative care due to worsening prognosis, at the time patient does not want - diet: cleared for pureed foods - dispo: Patient is progressively improving, discharge to SNF with PT,OT, and speech therapy (2) ESRD (end stage renal disease) on dialysis Priority: Secondary Status: Chronic Assessment and Plan: Patient is on hemodialysis M,W,F but last tx was Wednesday11/20/17. Nephrology was consulted and recommend holding off on HD, electrolytes are stable for discharge (3) Elevated troponin Priority: Secondary Status: Acute Assessment and Plan: Chronically elevated. ESRD, volume overload and poorly controlled BP are believed to be the cause of elevated troponin. (4) (HFpEF) heart failure with preserved ejection fraction Priority: Secondary Status: Acute Assessment and Plan: Acute on chronic heart failure. elevated BNP of 3595 with bilateral pleural effusions on chest x-ray, no repeat CXR since admission but no pitting edema. Last echo performed on 11/19/17 and showed EF 65-70% and atypical septal motion, consistent with p/o status. home lasix : 40mg daily, we will continue at discharge (5) Diabetes Priority: Secondary Status: Chronic Assessment and Plan: Did have an episode of hypoglycemia that corrected with food. 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 Most likely related CVA but have also been monitoring blood glucoses carefully for hypoglycemia. Patient had a prior episode of change in mental status overnight on 11/19/17 and was suspected to be due to hypoglycemia; Stat CT of the head at that particular time on 11/19/17 did not show any acute intracranial abnormality and MRI on did not show specifically any acute infarction. Repeat MRI 11/21 did show acute lacunar infarct. Qualifiers: Altered mental status type: unspecified Qualified Code(s): R41.82 - Altered mental status, unspecified (7) Chest pain Priority: Secondary Status: Resolved Assessment and Plan: Resolved, likely demand ischemia secondary to renal disease and hypertension Qualifiers: Chest pain type: chest pain on breathing Qualified Code(s): R07.1 - Chest pain on breathing; R07.81 - Pleurodynia Hospital course: Ms. Giles is a 87 year old female who presented to the emergency room from [facility] after having chest pain. She had a previous admission about 2 weeks prior, discharged 10 days prior for similar complaint. She has a history of CHF, end-stage renal disease with recent initiation of dialysis, diabetes and hypertension. She stated that the chest pain started after her dialysis session on 11/17/17. She denied nausea, vomiting, diarrhea, constipation and abdominal pain. Her chest pain radiated to her left arm, and she had associated shortness of breath. She was given nitroglycerin prior to arrival at the ER but it did not help her pain. She was brought to the ER for further evaluation. Her troponins were elevated and currently cardiology was consulted however her increased troponins were deemed to be secondary to demand ischemia and she decided that in the event of a heart attack she would not want radical intervention anyway. She was admitted for chest pain in addition to management of her other comorbidities including chronic renal failure requiring dialysis, congestive heart failure, diabetes, frequent falls, hypertension. Cardiology and nephrology were consulted. The next day patient exhibited altered mental status. EKG, head CT, head MRI showed no acute changes, neurology was consultated. Patient also had an episode of hypoglycemia, worsening heart failure requiring 2 L of oxygen, worsening creatinine for which nephrology recommended dialysis. Altered mental status resolved and was thought to be due to hypoglycemia, cardiology recommended medical management for heart failure including furosemide, patient received dialysis. On 11/21/17 patient exhibited altered mental status again and neurology recommended repeat MRI of the brain which showed acute left lacunar infarct. Neurology recommended Plavix. Patient exhibited right-sided hemiparesis likely secondary to lacunar infarct. Palliative care was consulted however patient decided not to proceed with their services. The patient was deemed stable for discharge to nursing facility with PT/OT/PT speech consult. Her renal failure, heart failure , diabetes, hypertension had stabilized and her clinical disposition was suitable for transfer to nursing facility. Discharge discussed with: patient, family - Time Spent with Patient Total time spent providing and/or coordinating discharge services: - Discharge Medications Prescriptions: Clopidogrel [Plavix] 75 mg PO DAILY 30 Days #30 tablet Home Medications: Iron Ps Complex/B12/Folic Acid [Iferex 150 Forte Capsule] 1 cap PO BID 04/11/15 [History] Losartan Potassium [Cozaar] 100 mg PO DAILY 04/11/15 [History] Cilostazol [Pletal] 100 mg PO BID #0 07/09/15 [History] Atorvastatin [Lipitor] 40 mg PO HS #30 tablet 10/11/15 [Rx] Furosemide [Lasix] 40 mg PO DAILY #30 tablet 10/11/15 [Rx] Labetalol [Trandate] 200 mg PO BID #60 tablet 05/22/17 [Rx] cloNIDine HCl [Clonidine HCl] 0.2 mg PO TID 10/07/17 [History] Amlodipine Besylate 10 mg PO DAILY 10/22/17 [History] Glucagon,Human Recombinant [Glucagon Emergency Kit] 1 mg IJ ONCE PRN 10/22/17 [ History] Hydralazine HCl 50 mg PO TID 10/22/17 [History] Insulin Glargine,Hum.rec.anlog [Basaglar Monicapen U-100] 20 unit SQ HS 10/22/17 [ History] hydrALAZINE [HydrALAZINE] 25 mg PO TID 10/22/17 [History] Acetaminophen [Tylenol] 650 mg PO Q4HR PRN 11/18/17 [History] Insulin LISPRO [HumaLOG] 0 - 12 units SQ ACHS 11/18/17 [History] Isosorbide MONOnitrate (24 HR) [Imdur] 60 mg PO DAILY 11/18/17 [History] Isosorbide MONOnitrate [Isosorbide Mononitrate ER] 120 mg PO DAILY 11/18/17 [ History] Clopidogrel [Plavix] 75 mg PO DAILY 30 Days #30 tablet 11/24/17 [Rx] Allergies/Adverse Reactions: 3 Allergy/AdvReac Type Severity Reaction Status Date / Time celecoxib [From Celebrex] AdvReac Nausea Verified 11/18/17 00:39 Date of admission: 11/20/17 18:52 Primary care physician: Ema Del Toro CNP Consults: 11/21/17 11:43 Consult to Neurology [CONS] Routine Consulting Provider: Neurology [facility] Reason for Consult: AMS Call Completed: Yes 11/23/17 08:59 Consult to Palliative Care [CONS] Routine Comment: Consulting Provider: Palliative [facility] [place] Reason for Consult: To discuss goals of care with family.. AMS with Acute Left CVA... Rt jackie paresis Time Notified: 08:59 Call Completed: Yes Discharging clinician: Roger Howard - Constitutional Vitals: Temp Pulse Resp BP Pulse Ox 98.4 F 65 15 165/61 96 11/24/17 08:20 11/24/17 08:20 11/24/17 08:20 11/24/17 08:20 11/24/17 08:20 General appearance: Present: cooperative, A&O X 3, pleasant, answers questions appropriately Exam: General: Pt is awake, NAD, only able to respond to questions by nodding or shaking her head HEENT: Dry mucous membranes, no conjunctival pallor, PERRLA Respiratory: no wheezes, rales or rhonchi. 2L NC, no acute resp distress Cardiovascular: RRR, normal S1 and S2, 4/6 systolic murmur, no palpable thrill, no lower extremity edema, Abdomen: no ascites, soft and non-tender Extremities: lower extremities rotated right, bilateral feet tender with 2+ pulses. AV fistula in LUE with good thrill. Neurology: Pt is slow to respond but answers appropriately with repetitive questioning, follows commands. Normal solar manufacturer's representative strength on the left and 1/5 on the right. Pt has 3/5 strength of the left lower extremity but 0/5 strength of the right lower extremity. hyperreflexia in right bicep, no facial asymmetry, sensation intact bilaterally, - Patient Status Disposition: Transfer SNF Condition: Fair Functional capacity at discharge: bed bound Overall status at discharge: patient is not back to baseline - Discharge Instructions Follow Up With: Ema Del Toro BUSINESS CONTINUITY STRATEGY DIRECTOR [Primary Care Provider] - - Diet and Activity Activity: increase activity as tolerated Diet: diabetic diet, low fat, low cholesterol, low salt diet - VTE Reasons for not Prescribing Prophylaxis: Medical contraindication Documentation of Mechanical Device: Intermittent pneumatic compression device <Edgardo Wheeler - Last Filed: 11/25/17 08:11> Date of Encounter: 11/24/17 - Discharge Diagnosis (1) Elevated troponin Status: Acute (2) Falls frequently Status: Acute (3) (HFpEF) heart failure with preserved ejection fraction Status: Acute (4) Diabetes Status: Chronic Qualifiers: Diabetes mellitus type: type 2 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82 - Altered mental status, unspecified (8) ESRD (end stage renal disease) Status: Chronic (9) Chest pain Status: Acute Qualifiers: Chest pain type: unspecified Qualified Code(s): R07.9 - Chest pain, unspecified Hospital course: Ms. Giles is a 87 year old female - Time Spent with Patient Total time spent providing and/or coordinating discharge services: Date of admission: 11/20/17 18:52 Primary care physician: Ema Del Toro CNP Consults: 11/21/17 11:43 Consult to Neurology [CONS] Routine Consulting Provider: [facility] Reason for Consult: AMS Call Completed: Yes 11/23/17 08:59 Consult to Palliative Care [CONS] Routine Comment: Consulting Provider: Palliative [facility] Reason for Consult: To discuss goals of care with family.. AMS with Acute Left CVA... Rt jackie paresis Time Notified: 08:59 Call Completed: Yes - Constitutional Vitals: Temp Pulse Resp BP Pulse Ox 98.8 F 67 15 107/46 99 11/24/17 11:43 11/24/17 11:43 11/24/17 11:43 11/24/17 11:43 11/24/17 11:43 - Attending Attestation I examined this patient and my medical decision-making was reviewed with the Resident Physician Dr. Marmolejo. I agree with the documented findings, disposition and treatment plan as described except to the extent set forth below. Ms. Giles is an 87 yo F with an extensive medical h/o including diastolic CHF, ESRD, CAD, CVA, valvular heart disease and HTN who initially presented to the ED from ECF c/o CP that began after her dialysis treatment. Pt troponin were elevated however they were adynamic. Pt was seen by Card, did not recommend any further work up. The pt had change in mental status and new onset Rt jackie paresis a brain MRI on 11/21/17 showed an acute left lacunar infarct compared to MRI on 11/19/17. Pt is alert, awake and oriented to self today. Mentation seems to be improving. Gen: A, A, O x self Chest: Diminished BS b/l Heart: S1S2+ RRR a/p 1. Acute CVA - Rt hemiparesis with Left lacunar infract Pt was on ASA before, now switched to Plavix on Statin PT / OT Unable to do swing bed PT cont symptomatic and supportive care Pt's family wanted to take her back to ECF today for short term PT / OT. If she wont improve in next 1-2 weeks, eventually they are planning on hospice care.
[2017-11-24] MEDS: cloNIDine HCl 0.1 MG TABLET PO SCH (11:23)
[2017-11-24] MEDS: amLODIPine 5 MG TABLET PO SCH (11:23)
[2017-11-24] MEDS: Isosorbide MONOnitrate (24 HR) 60 MG TAB.ER.24H PO SCH (11:23)
[2017-11-24] MEDS: Furosemide 40 MG TABLET PO SCH (11:23)
[2017-11-24] MEDS: hydrALAZINE 25 MG TABLET PO SCH (11:24)
[2017-11-24] MEDS: Acetaminophen 325 MG TABLET PO PRN (11:24)
[2017-11-24] MEDS: Iron Polysaccharide Complex 150 MG CAPSULE PO SCH (11:24)
[2017-11-24 11:44] VITALS: BP 107/46
--- NOTE | 2017-11-24 13:07 | Nephrology Progress Note ---
Date of Encounter: 11/24/17 Time of Encounter: 13:05 - Assessment and Plan (1) ESRD (end stage renal disease) on dialysis Current Visit: Yes Status: Chronic Spoke with pt's son and Dr. Petit at bedside. The son confirms that the patient was much more alert yesterday, and stated she is "okay" with stopping HD. He states that the family is all in agreement, and would like to stop HD. Primary team is aware, and is sending the patient back to [facility] for Hospice. (2) Altered mental status, unspecified Current Visit: Yes Status: Acute Left-sided lacunar infarct with right upper and right lower extremity weakness. Per primary. Qualifiers: Altered mental status type: transient alteration of awareness Qualified Code(s): R40.4 - Transient alteration of awareness Subjective Principal diagnosis: AMS, chest pain Interval history: PT seen and examined. She does not answer when asked questions. Objective - Vital Signs Vital signs: Vital Signs Temp Pulse Resp BP Pulse Ox 11/24/17 11:43 98.8 F 67 15 107/46 99 11/24/17 11:27 99 11/24/17 08:20 98.4 F 65 15 165/61 96 11/24/17 04:20 98.6 F 61 14 157/65 99 11/23/17 18:49 98.2 F 67 16 156/62 100 11/23/17 16:26 99.4 F 69 16 169/68 99 Intake and Output 11/23/17 11/24/17 11/24/17 23:59 07:59 15:59 Intake Total 900 / 900 Balance 900 / 900 Intake: IV Fluids 900 / 900 D5% And 0.9% Nacl 1000 Ml 1,000 400 / 400 ML @ 50 mls/hr IVC .Q20H LOVE Rx#:[id number] Other: Stool Size Smear Smear Stool Consistency loose Stool Color Green Green # Urine Diapers 1 # Bowel Movement Diapers 1 1 Weight 66.7 kg Blood Glucose* 229 111 115 - General Appearance General appearance: Present: well-developed, well-nourished EENT: Present: ATNC, hearing intact, vision intact Neck: Present: supple Respiratory: Present: clear Cardiology: Present: edema (+2 pitting edema noted to bilat lower extremities, RUE +1 pitting edema noted.), normal S1, normal S2 Dialysis Vascular Access: Arteriovenous Fistula thrill: Yes bruit: Yes Gastrointestinal: Present: normoactive bowel sounds, no tenderness, no guarding Integumentary: Present: no rash, warm and dry Neurologic: Present: alert and oriented x3 Psychiatric: Present: mood/affect appropriate, cooperative - Lab 11/24/17 05:08 11/24/17 05:08 Most recent lab results ABG pH 7.46 pH Units (7.32-7.45) H 11/22/17 03:31 ABG pCO2 50 mmHg (35-45) H 11/22/17 03:31 ABG pO2 111 mmHg (85-104) H 11/22/17 03:31 ABG HCO3 36 mEq/L (21-27) H 11/22/17 03:31 ABG O2 Saturation 99 % (95-98) H 11/22/17 03:31 Calcium 8.2 mg/dL (8.6-10.3) L 11/24/17 05:08 - VTE Reasons for not Prescribing Prophylaxis: Medical contraindication Documentation of Mechanical Device: Intermittent pneumatic compression device Consult Discharge Plan - Plan Referrals: Ema Del Toro, M1 ARMOR CREWMAN [Primary Care Provider] -
--- NOTE | 2017-11-24 13:47 | Palliative Progress Note ---
Date of Encounter: 11/24/17 Time of Encounter: 09:30 - Assessment and plan (1) Goals of care, counseling/discussion Current Visit: Yes Status: Acute Assessment and plan: I had a previous discussion yesterday with vinay Nathan about GOC. Today Jac wanted more information about options after rehab. Explained that pt might be eligible for hospice at that time. also discussed the possible financial and social challenges to her care. SW to give more information about financial. GOC is for discharge to ECF. (2) ESRD (end stage renal disease) Current Visit: Yes Status: Chronic Assessment and plan: continue HD per family wishes (3) Dysphagia Current Visit: Yes Status: Chronic Assessment and plan: Pt doing well with diet Qualifiers: Dysphagia type: oropharyngeal phase Qualified Code(s): R13.12 - Dysphagia, oropharyngeal phase (4) Altered mental status, unspecified Current Visit: Yes Status: Acute Assessment and plan: Pt continues to have fluctuanting mental status, but is mostly clear now management per primary team Qualifiers: Altered mental status type: transient alteration of awareness Qualified Code(s): R40.4 - Transient alteration of awareness (5) Left sided lacunar infarction Current Visit: Yes Status: Acute Assessment and plan: management per primary team PT/OT - Time Spent With Patient Total time spent is greater than 50% in coordination of care (as documented) at patient's floor/unit and/or counseling patient: Greater than 35 minutes - Subjective Interval history: Pt was more drowsy today, refusing to participate in conversation. Vinay Nathan at the bedside. - Constitutional Vitals: Abnormal lab results WBC 3.7 K/mcL (4.3-11.1) L 11/24/17 05:08 RBC 2.90 M/mcL (3.82-4.97) L 11/24/17 05:08 Hgb 8.6 g/dL (11.5-15.4) L 11/24/17 05:08 Hct 27.6 % (35.3-44.9) L 11/24/17 05:08 MCHC 31.2 g/dL (31.6-35.5) L 11/24/17 05:08 RDW 15.3 % (11.5-14.5) H 11/24/17 05:08 Plt Count 100 K/mcL (140-400) L 11/24/17 05:08 ABG pH 7.46 pH Units (7.32-7.45) H 11/22/17 03:31 ABG pCO2 50 mmHg (35-45) H 11/22/17 03:31 ABG pO2 111 mmHg (85-104) H 11/22/17 03:31 ABG HCO3 36 mEq/L (21-27) H 11/22/17 03:31 ABG Total CO2 37 mEq/L (20-26) H 11/22/17 03:31 ABG O2 Saturation 99 % (95-98) H 11/22/17 03:31 ABG Base Excess 11 mEq/L (-2 to 3) H 11/22/17 03:31 Carbon Dioxide 32 mEq/L (23-29) H 11/24/17 05:08 BUN 42 mg/dL (8-23) H 11/24/17 05:08 Creatinine 3.64 mg/dL (0.60-1.20) H 11/24/17 05:08 Est GFR ( Amer) 14 (> 60) L 11/24/17 05:08 Est GFR (Non-Af Amer) 12 (> 60) L 11/24/17 05:08 POC Glucose 115 mg/dL (70-99) H 11/24/17 11:41 Calculated Osmolality 307 (280-300) H 11/24/17 05:08 Calcium 8.2 mg/dL (8.6-10.3) L 11/24/17 05:08 Troponin I 0.34 ng/mL (< 0.04) H* 11/19/17 16:34 B-Natriuretic Peptide 3595 pg/mL (Less than 100) H 11/19/17 01:01 Exam: Vitals reviewed General appearance: drowsy, appears comfortable Eyes: nonicteric, bilat lower eyelid edema EENT: oropharynx moist Neck: supple, no lymphadenopathy, no JVD Chest: bilateral: normal breath sounds, normal effort Cardiovascular: regular rate and rhythm Gastrointestinal: soft, non-tender, non-distended Integumentary: normal Extremities: no cyanosis, no edema, no clubbing Musculoskeletal: no deformities Neurologic: normal mental status, strength 3/5 RUE and 1/5 RLE. Psych: mood appropriate, affect normal Palliative Quality Palliative Quality: Screen for Code Status: Yes, Screen for Goals of Care: Yes, Screen for Pain: Yes, Screen for Nausea/Vomitting: Yes Code Status: 11/22/17 17:47 DNR [Resuscitation Status: Active] [RES] Routine Comment: Resuscitation Status: DNR-Comfort Care - Labs CBC & Chem 7: 11/24/17 05:08 11/24/17 05:08 Labs: Laboratory Results - last 24 hr 11/23/17 11/23/17 11/23/17 11:59 16:26 20:18 WBC RBC Hgb Hct MCV MCH MCHC RDW Plt Count MPV Immature Gran % Seg Neutrophils % Lymphocytes % Monocytes % Eosinophils % Basophils % Neutrophils # Lymphocytes # Monocytes # Eosinophils # Basophils # Immature Plt Fraction Sodium Potassium Chloride Carbon Dioxide BUN Creatinine Est GFR ( Amer) Est GFR (Non-Af Amer) BUN/Creatinine Ratio Glucose POC Glucose 121 H 216 H 229 H Calculated Osmolality Calcium 11/24/17 11/24/17 11/24/17 04:21 05:08 05:08 WBC 3.7 L RBC 2.90 L Hgb 8.6 L Hct 27.6 L MCV 95.2 MCH 29.7 MCHC 31.2 L RDW 15.3 H Plt Count 100 L MPV 9.5 Immature Gran % 0.5 Seg Neutrophils % 53.6 Lymphocytes % 31.0 Monocytes % 13.0 Eosinophils % 1.6 Basophils % 0.3 Neutrophils # 2.0 Lymphocytes # 1.2 Monocytes # 0.5 Eosinophils # 0.1 Basophils # 0.0 Immature Plt Fraction 1.5 Sodium 143 Potassium 3.5 Chloride 105 Carbon Dioxide 32 H BUN 42 H Creatinine 3.64 H Est GFR ( Amer) 14 L Est GFR (Non-Af Amer) 12 L BUN/Creatinine Ratio 12 Glucose 100 POC Glucose 111 H Calculated Osmolality 307 H Calcium 8.2 L 11/24/17 11/24/17 09:31 11:41 WBC RBC Hgb Hct MCV MCH MCHC RDW Plt Count MPV Immature Gran % Seg Neutrophils % Lymphocytes % Monocytes % Eosinophils % Basophils % Neutrophils # Lymphocytes # Monocytes # Eosinophils # Basophils # Immature Plt Fraction Sodium Potassium Chloride Carbon Dioxide BUN Creatinine Est GFR ( Amer) Est GFR (Non-Af Amer) BUN/Creatinine Ratio Glucose POC Glucose 87 115 H Calculated Osmolality Calcium - ABG Interpretation ABG results: ABG ABG pH 7.46 pH Units (7.32-7.45) H 11/22/17 03:31 ABG pCO2 50 mmHg (35-45) H 11/22/17 03:31 ABG pO2 111 mmHg (85-104) H 11/22/17 03:31 ABG O2 Saturation 99 % (95-98) H 11/22/17 03:31 Consult Discharge Plan - Plan Referrals: Ema Del Toro, INDUSTRIAL CHEMISTRY TEACHER [Primary Care Provider] -
--- NOTE | 2017-11-24 14:05 | Physician Discharge Referral ---
ExtendedCare Referral Info Transfer To: [place] Provider in Charge after Transfer: PCP Institutional Level of Care: Skilled - Diagnosis (1) Left sided lacunar infarction Priority: Primary Status: Acute (2) ESRD (end stage renal disease) on dialysis Priority: Secondary Status: Chronic (3) Elevated troponin Priority: Secondary Status: Acute (4) (HFpEF) heart failure with preserved ejection fraction Priority: Secondary Status: Acute (5) Diabetes Priority: Secondary Status: Chronic (6) Altered mental status Priority: Secondary Status: Resolved (7) Chest pain Priority: Secondary Status: Resolved Prognosis: Fair Aware of Diagnosis: Patient, Family Aware of Prognosis: Patient, Family - Transfer Medications Prescriptions: Clopidogrel [Plavix] 75 mg PO DAILY 30 Days #30 tablet Home Medications: Iron Ps Complex/B12/Folic Acid [Iferex 150 Forte Capsule] 1 cap PO BID 04/11/15 [History] Losartan Potassium [Cozaar] 100 mg PO DAILY 04/11/15 [History] Cilostazol [Pletal] 100 mg PO BID #0 07/09/15 [History] Atorvastatin [Lipitor] 40 mg PO HS #30 tablet 10/11/15 [Rx] Furosemide [Lasix] 40 mg PO DAILY #30 tablet 10/11/15 [Rx] Labetalol [Trandate] 200 mg PO BID #60 tablet 05/22/17 [Rx] cloNIDine HCl [Clonidine HCl] 0.2 mg PO TID 10/07/17 [History] Amlodipine Besylate 10 mg PO DAILY 10/22/17 [History] Glucagon,Human Recombinant [Glucagon Emergency Kit] 1 mg IJ ONCE PRN 10/22/17 [ History] Hydralazine HCl 50 mg PO TID 10/22/17 [History] Insulin Glargine,Hum.rec.anlog [Basaglar Kwikpen U-100] 20 unit SQ HS 10/22/17 [ History] hydrALAZINE [HydrALAZINE] 25 mg PO TID 10/22/17 [History] Acetaminophen [Tylenol] 650 mg PO Q4HR PRN 11/18/17 [History] Insulin LISPRO [HumaLOG] 0 - 12 units SQ ACHS 11/18/17 [History] Isosorbide MONOnitrate (24 HR) [Imdur] 60 mg PO DAILY 11/18/17 [History] Isosorbide MONOnitrate [Isosorbide Mononitrate ER] 120 mg PO DAILY 11/18/17 [ History] Clopidogrel [Plavix] 75 mg PO DAILY 30 Days #30 tablet 11/24/17 [Rx] Allergies/Adverse Reactions: 3 Allergy/AdvReac Type Severity Reaction Status Date / Time celecoxib [From Celebrex] AdvReac Nausea Verified 11/18/17 00:39 - Respiratory Orders Oxygen / L per min (2L) Smoking Cessation: Smoking cessation has been advised. For more information, call the [place] [employer] Quit Line at 9-526-FNRM-NOW. - Advance Directives Code Status: DNR-Comfort Care - Mobility Orders Chair - Rehabiliation Orders Rehab Potential: Fair Rehab Orders: ROM Exercises, Evaluation for Physical Therapy, Evaluation for Occupational Therapy, Evaluation for Speech Therapy - Diet Orders Mechanical Soft, Pureed CERTIFICATION: I certify that the transfer of the above named patient to an Extended Care Facility is necessary for the continuing treatment of the diagnosis listed. The above information is true and accurate reflection of patient's current condition. Confidential - Redisclosure prohibited without a patient's written consent.
== END 2017-11-24 16:45 | DRG 291 ==
LOC: EMEROOARM 00:24 → 2ANU 00:24 → SUATTDRO 02:21 → 2ANU 02:43 → SUATTDRO 11-20 18:52
PROVIDERS: ADMIT Internal Medicine; ATTEND Family Medicine